=== PATIENT | male | born 1930 | race Caucasian/White ===

== ENCOUNTER 2016-10-05 10:23 | Day surgery (SDC) | payer MEDICARE, OTHER ==
--- NOTE | 2016-10-04 14:43 | PCM.ANEPRE ---
Anesthesia Pre-Op Review Reason for Review: restrictive lung disease, cardio disease (AICD)- Additional Comments Low risk surgery, cleared by cardiology, excercises regularly, successful uncomplicated prior ESWL-- proceed as planned Chart Reviewed by: Alfredo Tomlinson MD Oct 04, 2016 14:43
[2016-10-05] VITALS (9 sets, daily range): BP systolic 136–180; BP diastolic 71–95; PULSE 60–61; RESP 12–19; O2SAT 95–100
[~2016-10-05] VITALS: Ht 188 cm; Wt 103.6 kg
[~2016-10-05 10:23] MED LIST: ASPI-973 PO; FUR20 PO; LIP40 PO; LOSA100T29 PO; Lactated Ringer's 1,000 ML IV SCH; METO50TA3 PO; POTA10TA12 PO; TAMS0.4C98 PO
[2016-10-05] MEDS ORDERED: Lidocaine PF 1% 30 mL Inj ONE (10:24)
[2016-10-05] MEDS ORDERED: fentaNYL-PF 50 mCg/mL 2 mL Inj ONE (10:24)
[2016-10-05] MEDS ORDERED: Dexamethasone 4 mg/mL Inj ONE (10:24)
[2016-10-05] MEDS ORDERED: Ondansetron 2 mg/mL 2 mL Inj ONE (10:24)
[2016-10-05] MEDS ORDERED: Propofol 10,000 mCg/mL 20 mL Inj ONE (10:24)
[2016-10-05] MEDS ORDERED: Lactated Ringer's 1,000 ML IV ONE (11:00)
[2016-10-05] MEDS: Acetaminophen IV 1,000 mg IV SCH ×2 (11:36→11:52)
[2016-10-05] MEDS ORDERED: Lactated Ringer's 500 ML IV PRN (13:03)
[2016-10-05] MEDS ORDERED: Lactated Ringer's 1,000 ML IV SCH (13:03)
[2016-10-05] MEDS ORDERED: fentaNYL-PF 50 mCg/mL 2 mL Inj IVPUSH PRN (13:05)
[2016-10-05] MEDS ORDERED: Atropine 0.4 mg/mL Inj IVPUSH PRN (13:05)
[2016-10-05] MEDS ORDERED: HYDROmorphone 1 mg/mL Inj IVPUSH PRN (13:05)
[2016-10-05] MEDS ORDERED: Ondansetron 2 mg/mL 2 mL Inj IVPUSH PRN (13:05)
[2016-10-05] MEDS ORDERED: Phenylephrine 10,000 mCg/mL Inj IVPUSH PRN (13:05)
[2016-10-05] MEDS ORDERED: MetoCLOpramide 5 mg/mL 2 mL Inj IVPUSH PRN (13:05)
[2016-10-05] MEDS ORDERED: EPHEDrine Sulfate 50 mg/mL Inj IVPUSH PRN (13:05)
[2016-10-05] MEDS ORDERED: Labetalol 5 mg/mL 4 mL Inj IV PRN (13:05)
--- NOTE | 2016-10-05 13:11 | PCM.HPANE ---
Patient Data Surgeon Admitting Provider: Attending Provider:Lyudmila Nguyễn MD Primary Care Physician:Eric Goldstein MD Other Provider:[facility] Anesthesia Reason for Visit Right Kidney Stone Ht/WT & BMI Height (Feet): 6 Height (Inches): 2 Weight (Kilograms): 103.6 Body Mass Index 29.00 Allergies Coded Allergies: No Known Allergies (Unverified Allergy, Unknown, 03/27/15) Diabetes History Hx Diabetes?: No Medications Blood Thinner: Aspirin Hypertension Medication: Yes Home Meds Incl Beta Cici: Yes Reported Medications Potassium Chloride ER 10 Meq [id number] Meq PO DAILY Ref 0 TAKE WITH FOOD 10/04/16 Furosemide 20 Mg Tab20 Mg PO DAILY 30 Days Ref 0 10/04/16 Tamsulosin (Flomax)0.4 Mg Capsule0.4 Mg PO DAILY Ref 0 10/04/16 Metoprolol Tartrate 50 Mg [id number] Mg PO DAILY 30 Days Ref 0 10/04/16 Losartan Potassium 100 Mg [id number] Mg PO DAILY 10/04/16 Atorvastatin (Lipitor)40 Mg Smnrte98 Mg PO DAILY Ref 0 10/04/16 Aspirin 81 Mg Pnerai00 Mg PO DAILY Ref 0 10/04/16 Discontinued Reported Medications Losartan Potassium 100 Mg [id number] Mg PO DAILY 03/27/15 Atorvastatin Calcium 40 Mg Fgxqhi09 Mg PO HS Ref 0 03/27/15 Metoprolol Tartrate 50 Mg Cxkbgu98 Mg PO BID 30 Days Ref 0 03/27/15 Discontinued Scripts Levofloxacin 750 Mg [id number] Mg PO DAILYAC 7 Days Prov:Jose Coombs MD 03/30/15 Last Time Dose Received Took metoprolol today Held losartan History HEENT History: Positive for:: Cataracts Hx of Heart Problems?: Yes Cardiovascular History: Positive for:: AICD Abdominal Aortic Aneurism (common iliac- repaired 2008) Hypertension Pacemaker Denies:: Congestive Heart Failure Other History/Comments Nio recent CP Pacer/defibrillator in place. I discussed the case with the EP coordinator that manages his device. She spoke with the control room technician who did not recommend any magnet or reprogramming in the setting of the ESWL. Magnet will be available if needed. If magnet is needed, no reprogramming or interrogation will be needed. Pt is pacer dependant Hx of Respiratory Problem?: Yes Respiratory History: Positive for:: Oxygen Administration (No O2 required) Use of C-PAP Machine Other Resp Pertinent History: hx of pulmonary fibrosis, interstitial lung disease Other History/Comment breathing is at baseline; Work out at [employer] 3 times/week. Does stationary bike Hx Neurologic Problems?: No Hx of Problems?: Yes Genitourinary History: Positive for:: Kidney Stones (right stones current admission problem) Skin History: Denies:: History Skin Disorders? Hx Musculoskeletal Problems?: Yes Musculoskeletal History: Positive for:: Back Injury (past hx of back surgery) Joint Replacement (left hip) Osteoarthritis Hx of Psycho/Social Problems?: No Hx Surgeries?: Yes (AAA repair, back, total hip, prior ESWL) Hx Any Other Health Problems?: Yes Other History: Denies:: Cancer Thyroid Disease History Blood Transfusions: Denies:: Blood Transfuse Reaction Blood Transfusions Hx Diabetes: No Hx Alcohol Use: Yes (Rare)Hx Substance Use: No Smoking Status: Never Smoker Unknown if Ever Smoker Have You Smoked inLast 12 mo: No Stop/Bang P-Blood Pressure: treated: Yes B- Body Mass Index > 35 kg/m2: No A- Age over 50: Yes N- Neck Large Circumference: No G- Gender Male: Yes Risk Assessment Category Category 1A: Patient has history of documented sleep apnea, and HAS NOT received any narcotic, sedative or anesthesia administration during this stay. Category 1B: Patient has history of documented sleep apnea, and HAS received any narcotic , sedative or anesthesia administration during this stay Category 2: Patient has SUSPECTED Obstructive Sleep Apnea, and HAS received any narcotic , sedative or anesthesia administration during this stay. Category 3: Patient has SUSPECTED Obstructive Sleep Apnea and HAS NOT received narcotic, sedative or anesthesia administration during this stay. Category 4: Outpatient in Procedural Areas with known sleep apnea or who screen positive for High Risk via the STOP/BANG questionnaire. Exam Exam Vital Signs Vital Signs Date Time Temp Pulse Resp B/P Pulse Ox O2 Delivery O2 Flow Rate FiO2 10/05/16 11:10 36.5 60 16 159/94 98 Room Air General Appearance: Alert, Oriented X3 HEENT/AIRWAY: MP 2, Neck Movement (FROM) Lungs: Clear to Auscultation, Clear to Percussion Heart: Exam Unremarkable, Regular Rate/Rhythm Meds/Labs/Diagnostics Admission Meds Current Medications Acetaminophen 1000 mg/Premix 100 ml @ 400 mls/hr PREOP IV Last administered on 10/05/16t 11:36; Start 10/05/16 at 06:00; Stop 10/05/16 at 19:00 Lactated Ringer's (Lr) 1,000 ml @ ud STK-MED ONCE IV Last administered on t 11:00; Start 10/05/16 at 11:00; Stop 10/05/16 at 11:21; Status DC Plan Impression Patient chart reviewed, patient interviewed and anesthestic plan with risks, benefits, and alternatives discussed, and informed consent obtained. NPO Status: 10/05 SIPS WITH MEDS THIS AM ASA Physical Status: ASA3 Severe Disease (pacer/defibrillator; CAD; ESTEPHANIE) Anesthetic Plan: GA Bene/Risks/Altern/Consents: Yes HP Complete Prior to Induction: Yes Other See discussion of pacer/defibrillator Hernando Mcclendon MD Oct 05, 2016 12:13
[2016-10-05] MEDS ORDERED: Furosemide 10 mg/mL 2 mL Inj IV ONE (13:45)
--- NOTE | 2016-10-05 13:48 | PCM.ANEP1 ---
Post Anesthesia Phase 1 PACU Phase 1 Assessment Vital Signs Vital Signs Date Time Temp Pulse Resp B/P Pulse Ox O2 Delivery O2 Flow Rate FiO2 10/05/16 13:45 163/87 10/05/16 13:43 36.1 151/93 10/05/16 11:10 36.5 60 16 159/94 98 Room Air Anesthetic Administered: GA Level of Alertness: Awake, talking ELLISON's with Equal Strength: Yes Pain: No Nausea or Vomiting: No Oxygen Delivery: Simple Mask Lungs: Clear to Auscultation, Clear to Percussion Summary See anesth record for PACU VS> PACU VSS Hernando Mcclendon MD Oct 05, 2016 13:48
--- NOTE | 2016-10-05 13:49 | PCM.ANEP2 ---
Post Anesthesia Evaluation ASA/CMS Post Anesthesia VS in Patient's Normal Range?: Yes Resp Stable; Airway Patent?: Yes CV Function & Hydration Stable: Yes Mental Status Recovered?: Yes Pain control Satisfactory?: Yes N/V Control Satisfactory?: Yes Hernando Mcclendon MD Oct 05, 2016 13:48
--- NOTE | 2016-10-05 14:21 | OP ---
[address] [address] OPERATIVE REPORT PATIENT: GAL CARRANZA : 1930 MR#: [id number] ADMIT: 10/05/2016 JOB ID: [id number] DATE OF SURGERY: 10/05/2016 PREOPERATIVE DIAGNOSIS(ES): 1. Multiple right renal calculi. 2. Right renal colic. POSTOPERATIVE DIAGNOSIS(ES): 1. Multiple right renal calculi. 2. Right renal colic. OPERATION PERFORMED: Right extracorporeal shock wave lithotripsy (maximal power of 5.0 x2500 shocks). SURGEON: Lyudmila Nguyễn MD. ANESTHESIOLOGIST: Hernando Mcclendon MD. ANESTHESIA: General. PROCEDURE SUMMARY: The patient was positioned supine on the lithotripsy gurney and the above-described stone was localized in the X, Y and Z plane. Lithotripsy was then commenced at minimal power level and gradually increased to maximum power level. The stone and its fragments were relocalized numerous times throughout the case using C-arm radiography. The procedure was then terminated. The patient was awakened, transferred to the gurney and transferred to the recovery area awake in stable condition. The patient tolerated the procedure well.
== END 2016-10-05 23:59 | disposition home or self-care (01) ==
LOC: SAS 10:23
PROVIDERS: ATTEND Specialist
DX: N20.0 Calculus of kidney (principal); N40.1 Benign prostatic hyperplasia with lower urinary tract symptoms; I25.9 Chronic ischemic heart disease, unspecified; I71.4 Abdominal aortic aneurysm, without rupture; I10 Essential (primary) hypertension; E78.5 Hyperlipidemia, unspecified; G47.33 Obstructive sleep apnea (adult) (pediatric); Z95.5 Presence of coronary angioplasty implant and graft; Z79.82 Long term (current) use of aspirin; Z96.642 Presence of left artificial hip joint; Z87.442 Personal history of urinary calculi
CPT/HCPCS: 50590; J0131; J1100; J1940; J2405; J3010; J7120

== ENCOUNTER 2016-10-05 21:46 | Inpatient (IN) | payer MEDICARE, OTHER ==
[~2016-10-05] VITALS: Ht 185.4 cm; Wt 98.3 kg
[2016-10-05] VITALS (7 sets, daily range): BP systolic 64–124; BP diastolic 36–66; PULSE 59–66; RESP 21–33; O2SAT 95–99
[~2016-10-05 21:46] MED LIST changes: -Lactated Ringer's 1,000 ML IV SCH
--- NOTE | 2016-10-05 22:03 | ED.REPORT ---
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 Patient is unable to provide any history , with his serving as the primary historian. His states that the patient returned home from his lithotripsy procedure at 1pm this afternoon. The patient then reported severe pain, with his calling his urologist Dr. Nguyễn. He was prescribed him Oxycodone at that time. The patient receive 2x 5mg tablets at 4:45pm this afternoon per his . He reported ongoing pain and received anther 2x 5mg tablets at 7:45pm. However, his is a bit confused while describing this timeline, sometimes stating that the doses were given more closely together in time. The patient does not typically take any narcotic pain medications. The patient then started to become confused and was not acting like himself. He vomited up his pain medication and began to moan in pain. His states that he has not had any relief from his pain. Patient is hypotensive on arrival to the ED. Nursing Notes Stated Complaint: CHANGE IN LOC Chief Complaint: Neuro Symptoms/ Deficits Nursing Notes Reviewed: Yes Allergies: Coded Allergies: No Known Allergies (Unverified Allergy, Unknown, 03/27/15) Scheduled Aspirin (Aspirin) 81 Mg Tablet 81 MG PO DAILY Atorvastatin (Lipitor) 40 Mg Tablet 40 MG PO DAILY Furosemide (Furosemide) 20 Mg Tab 20 MG PO DAILY Losartan Potassium (Losartan Potassium) 100 Mg Tablet 100 MG PO DAILY Metoprolol Tartrate (Metoprolol Tartrate) 50 Mg Tablet 50 MG PO DAILY Potassium Chloride ER (Potassium Chloride ER) 10 Meq Tablet 20 MEQ PO DAILY TAKE WITH FOOD Tamsulosin (Flomax) 0.4 Mg Capsule 0.4 MG PO DAILY General Time Seen by MD: 22:02 Chief Complaint Not acting right, Other (abdominal pain) Hx Obtained From: Spouse Arrived By: Ambulance Sudden in Onset?: No Onset Occurred: 1 - 4 hours ago Symptom Duration: Since onset Location: : Abdomen Quality: Painful Severity: Current: Severe Severity: Maximum: Severe Recent Healthcare: Recent doctor visit, Previous surgery Similar Sx Previous: Yes Past Medical History Past Medical History coronary artery disease sleep apnea kidney stones osteoarthritis Right common iliac artery aneurysm s/p aortobiiliac stent graft Reports: Hyperlipidemia, Hypertension, Mental illness Past Surgical History AAA repair (common iliac aortobiiliac stent graft) back surgery hip replacement lithotripsy cardiac pacemaker/AICD cardiac stents Smoking History Never Smoker, Unknown if Ever Smoker Social History Alcohol Use: "Social" (rare) Drug Use: Denies drug use Other Social History: Good social support, , Local resident Ambulatory Status Independent Review of Systems Unable to Obtain ROS Mental status GI: Reports: Abdominal pain, Nausea, Vomiting Neurologic: Reports: Change LOC Psychiatric: Reports: Change mental status Physical Exam Physical Exam Notes: Initial Vital Signs Vital Signs (First) Date Time Temp Pulse Resp B/P Pulse Ox O2 Delivery O2 Flow Rate FiO2 10/05/16 21:52 35.6 59 21 64/42 95 Nasal Cannula 2 Initial VS: Reviewed, Vital signs abnormal General/Constitutional: Awake Alertness: Positive: Sedated Appearance / Presentation: Positive: Pale, Uncomfortable Head / Eyes: Normocephalic, PERRL (1-2mm pupils, pinpoint) Neck: Supple, No JVD Respiratory / Chest: Breath sounds NL, Breath sounds = bilat, No respiratory distress, No rales, No rhonchi, No wheezing Cardiovascular: Heart rate NL, Regular rhythm, Heart sounds NL, No murmurs Mental Status: Positive: Pharmacologically sedated ENT: Airway patent, Mucous membranes moist Abdomen: Soft, Non-tender (palpation does not increase the patient's pain) Bowel Sounds / Distention: Positive: Bowel sounds hypoactive, Distention mild Skin: Color NL, Warm, Dry Upper Extremity / MS: No swelling, No edema Lower Extremity / Pelvis / MS: No deformity chronic venous stasis changes 2+ edema left lower extremity, with trace edema to the right lower extremity Interpretation & Diagnostics Lab Results Interpretation Result Diagram: 10/05/16 2311 10/05/16 2311 Test 10/05/16 23:11 10/05/16 23:20 White Blood Count 12.3th/mm3 (3.8-10.1) Red Blood Count 2.56mil/mm3 (4.40-5.80) Hemoglobin 8.6g/dL (13.8-17.2) Hematocrit 25.6% (41.0-50.0) Mean Corpuscular Volume 100.0fL (81-100) Mean Corpuscular Hemoglobin 33.6pg (27.0-35.0) Mean Corpuscular Hemoglobin Concent 33.6% (32.0-37.0) Red Cell Distribution Width 14.7% (12.3-15.4) Platelet Count 65bil/L (150-400) Neutrophils (%) (Auto) 88.2% (40-74) Lymphocytes (%) (Auto) 6.6% (14-46) Monocytes (%) (Auto) 4.6% (4-12) Eosinophils (%) (Auto) 0.1% (0-5) Basophils (%) (Auto) 0.1% (0-3) Band Neutrophils % 0% (1-5) Prothrombin Time 15.4sec (8.1-12.5) Prothromb Time International Ratio 1.43ratio Sodium Level 141mEq/L (134-144) Potassium Level 3.3mEq/L (3.5-5.2) Chloride Level 108mEq/L (97-108) Carbon Dioxide Level 14mmol/L (18-29) Blood Urea Nitrogen 29mg/dL (8-27) Creatinine 1.67mg/dL (0.76-1.27) Estimat Glomerular Filtration Rate 42mL/min (>59) Glucose Level 136mg/dL (60-99) Lactic Acid Level 7.0mmol/L (0.4-2.0) Calcium Level 7.4mg/dL (8.5-10.1) Magnesium Level 1.4mg/dL (1.6-2.6) Total Bilirubin 1.9mg/dL (0.0-1.2) Aspartate Amino Transf (AST/SGOT) 28U/L (0-50) Alanine Aminotransferase (ALT/SGPT) 24U/L (0-44) Alkaline Phosphatase 40U/L (25-160) Total Protein 5.0g/dL (6.4-8.4) Albumin 2.5g/dL (3.4-5.0) Lipase 23U/L (13-60) Urine Color Bloody (YELLOW) Urine Appearance Cloudy (CLEAR,HAZY) Urine pH 6.0 (5.0-8.0) Urine Specific [place] 1.025 (1.003-1.035) Urine Protein 100mg/dL (NEG,TRACE) Urine Glucose (UA) Negativemg/dL (NEGATIVE) Urine Ketones Negativemg/dL (NEGATIVE) Urine Occult Blood Large (NEGATIVE) Urine Nitrite Negative (NEGATIVE) Urine Bilirubin Negative (NEGATIVE) Urine Urobilinogen Normalmg/dL (NORMAL) Urine Leukocyte Esterase Small (NEGATIVE) Urine RBC Packed/hpf (0-2) Urine WBC 0-5/hpf (0-5) Urine Epithelial Cells Few/hpf (NONE-MOD) Urine Crystals None seen (NONE SEEN) Urine Bacteria Few/hpf (NONE-FEW) Urine Hyaline Casts Occasional/lpf (NONE) Urine Granular Casts None seen (NONE SEEN) Urine Waxy Casts None seen (NONE SEEN) Urine Red Blood Cell Casts None seen (NONE SEEN) Urine White Blood Cell Casts None seen (NONE SEEN) Urine Mucus None seen (None Seen) Urine Trichomonas None seen (NONE SEEN) Urine Yeast None (NONE SEEN) Urinalysis Comment Urine Culture Reflexed Indicated Lab Results Interpretation: Anemia, acidosis, acute kidney injury ECG Interpretation ECG Interpretation: Ventricular-paced rhythm, Rate 73 Time: 22:34 Interpreted by: ED physician Normal ECG Interpretation: No acute ischemic changes, No change from prior ECGs CT Abd / Pelvis Interpretation CONCLUSION: 1. Extensive renal and subcapsular and perinephric hemorrhage on the right. 2. 5.6 cm infrarenal abdominal aortic aneurysm with an aortobiiliac stent graft. Radiologist: Costa Watson MD 10/05/2016 - 11:08:41 PM PST Study type: Abdominal CT no contrast Interpretation / Wet Read by: Interpret - Radiologist, Discussed w radiologist Re-Eval/Medical Decision Med Decision/Clinical Course 6-year-old male who had a lithotripsy done earlier today. He now presents with abdominal pain and hypotension. He is found to have a right perinephric hematoma with intra-abdominal bleeding. He was fluid resuscitated with 3 L of saline and 2 units of O- blood. An additional 4 units of type-specific PRBC was ordered. His systolic blood pressure ranged from the 60s to the 120s, but gradually responded to the fluid resuscitation. His case was discussed with Dr. Alvarado, and Dr. Pickett and Dr. Arreola. Dr. Alvarado would like him admitted to the CCU with continued fluid resuscitation. If we cannot keep up with his blood loss than a CT angiogram would need to be done. Source of Hx: Old records Re-Evaluation/Progress #1: Time of Eval: 23:13 Re-Evaluation/Progress Note: Rechecked the patient and his family. Informed his and son of the CT result. He will be given blood in the ED and will need to go to the OR emergently. Will update them once a plan has been formed. Re-Evaluation/Progress #2: Time of Eval: 23:26 Re-Evaluation/Progress Note: Updated the patients family. Re-Evaluation/Progress #3: Time of Eval: 23:51 Re-Evaluation/Progress Note: Informed the patient's family of the conversation with Dr. Alvarado. Patient will be admitted and closely monitored. If there is evidence of continued bleeding, then he will have a CT scan with contrast. Patient's family understands and agrees with this plan. All questions were addressed. Consultation #1: Referral / Consult Name: Alonso Dockery MD Consulted With: Surgeon Call Returned at: 23:04 Note: Spoke with Dr. Dockery, surgeon, about the patient's CT scan result. He suggets ordering a CT scan with contrast. Will look at CT scan. Consultation #2: Referral / Consult Name: Alonso Dockery MD Consulted With: Surgeon Call Returned at: 23:14 Single End Sewer: Agrees with eval Note: Dr. Dockery has viewed the scan and agrees with [facility] read. Will consult urology. Consultation #3: Referral / Consult Name: Toby Alvarado MD Consulted With: Urology Call Returned at: 23:17 Note: Spoke with Dr. Alvarado, urology, about the patient's case. He will review the scan and call back. Consultation #4: Referral / Consult Name: Hernando Pickett MD Consulted With: On-call physician (Radiologist) Call Returned at: 23:20 Note: Spoke with Dr. Pickett, radiology, about the patient's CT result. He will review the scan and call back. Consultation #5: Referral / Consult Name: Dilcia Jaimes MD Call Returned at: 23:30 Note: Spoke with Dr. Jaimes, interventional radiology, who has reviewed the scans. She does not believe that the patient is still bleeding but CT Angio is indicated to rule out continued bleeding. Consultation #6: Referral / Consult Name: Toby Alvarado MD Consulted With: Urology Call Returned at: 23:50 Note: Spoke with Dr. Alvarado, who has reviewed the CT scan. He agrees that the bleeding is likely halting. If there are signs of continued bleeding, then he should have a CT Angio. Admit the patient to the CCU, with close monitoring. Consultation #7: Referral / Consult Name: Jose Coombs MD Consulted With: Hospitalist Call Returned at: 00:41 Single End Sewer: Will see patient, Agrees with eval, Agrees with plan, Accepts admit Note: Spoke with Dr. Coombs, hospitalist, who agrees to accept admit. Counseled Regarding: Diagnosis, Lab results, Need for admission Patient Discharge & Departure Impression: Primary Impression: Renal hemorrhage, right Additional Impressions: Renal hematoma Encounter type: initial encounter Laterality: right Qualified Code: S37.011A - Minor contusion of right kidney, initial encounter Hemorrhagic shock Disposition: ADMITTED TO HOSPITAL Discharge Condition All VS Reviewed: Yes Condition: Stable Referrals: Eric Goldstein MD (PCP) Lyudmila Nguyễn MD Crit Care Except Billable Proc Time Spent: 30-74 minutes Services Performed: Patient management by me, Time spent at bedside, Reviewing test results, Reviewing imaging, Discussing patient care, Documentation in record, Time with fam/surrogate Critical Care Notes: One-to-one management with fluid resuscitation for shock and admission to the CCU. Irasemaibe Attestation Portions of this note were transcribed by Dina Lundberg. I, Dr. Novoa personally performed the history, physical exam and medical decision-making; I reviewed and confirmed the accuracy of the information in the transcribed note. Signed by: Kobi Schmitt, 10/06/2016 0043 copies to: Eric Goldstein MD; Lyudmila Nguyễn MD, Howard L MD Oct 05, 2016 22:03 Dina Lundberg Oct 05, 2016 22:12
[2016-10-05] MEDS ORDERED: 0.9% Sodium Chloride 1,000 ML IV ONE ×2 (22:12→23:00)
[2016-10-05 23:18] LABS: Mean Corpuscular Hemoglobin 33.6 pg (27.0-35.0); NEUTROPHILS % (AUTO) 88.2 % (40-74); Platelet Count 65 bil/L (150-400)
[2016-10-05 23:19] LABS: BASOPHILS % (AUTO) 0.1 % (0-3); EOSINOPHILS % (AUTO) 0.1 % (0-5); MONOCYTES % (AUTO) 4.6 % (4-12)
[2016-10-05 23:34] LABS: APPEARANCE,URINE CLOUDY (CLEAR,HAZY); COLOR,URINE BLOODY (YELLOW)
[2016-10-05 23:35] LABS: OCCULT BLOOD,URINE LARGE (NEGATIVE); UROBILINOGEN,URINE NORMAL (NORMAL)
[2016-10-05 23:35] LABS: INR 1.43 ratio
[2016-10-05 23:40] LABS: Magnesium 1.4 mg/dL (1.6-2.6)
[2016-10-05] MEDS: HYDROmorphone 0.5 mg/0.5 mL iSecure Syringe IVPUSH PRN (23:52)
[2016-10-05] MEDS ORDERED: cefTRIAXone Inj 2,000 MG in Dextrose 5% Minibag Plus 50 ML IV ONE (23:55)
[2016-10-06] VITALS (23 sets, daily range): BP systolic 66–147; BP diastolic 42–77; PULSE 60–72; RESP 14–26; O2SAT 92–100
[2016-10-06] MEDS ORDERED: cefTRIAXone Inj 2,000 MG in Dextrose 5% Minibag Plus 50 ML IV ONE (00:55)
[2016-10-06] MEDS ORDERED: Polyethylene Glycol (PEG) 17 Gm Powder PO PRN (01:10)
[2016-10-06] MEDS ORDERED: Ondansetron 2 mg/mL 2 mL Inj IVPUSH PRN (01:10)
[2016-10-06] MEDS: Sodium Chloride LOK Flush 10 mL Syringe IVFLUSH SCH ×4 (01:10→20:12)
[2016-10-06] MEDS ORDERED: Alum-Mag Hydrox-Simeth 30 mL Suspension PO PRN (01:10)
[2016-10-06] MEDS: HYDROmorphone 0.5 mg/0.5 mL iSecure Syringe IVPUSH PRN (01:37)
[2016-10-06] MEDS ORDERED: HYDROmorphone 1 mg/mL Inj IVPUSH ONE (01:40)
--- NOTE | 2016-10-06 01:58 | PCM.HPMED ---
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 Presented to the emergency department via EMS with altered mental status, severe abdominal pain that began earlier this evening. He was unable to provide history 70 his conveyed that after they returned home from his lithotripsy around 1 PM he reported severe pain, the pain was refractory to oxycodone, he then developed vomiting at which point he was unable to keep any narcotic pain medications down. He was confused and not acting like themselves. He reports being in extreme pain, he is not having delisa chest pain, is not short of breath but controlling his breathing to help with pain, no lightheadedness, no dizziness, no swelling in his arms and she relates, states his abdomen looks a lot larger. Vital signs on presentation showed a pulse of 59, blood pressure 64/42, temperature 35.6. White blood cells 12.3, hemoglobin 8.6, platelets 65, Neutrophils 88.2%, Serum bicarbonate 14 BUN 29 Creatinine 1.67, calcium 7.4, magnesium 1.4, total bilirubin 1.9, lactic acid 7.0, PT 15.4, INR 1.43 Urine pH 6.0, specific gravity 1.025, protein 100, large occult blood, small leukocyte esterase, packed urine red blood cells EKG showed a heart rate of 73, WI interval 304, ventricular paced rhythm, Abdominal pelvis CT read as having extensive renal and subcapsular and hemorrhage on the right, 5.6 cm infrarenal abdominal aortic aneurysm with an aorticobiiliac stent graft. Review of Systems: ROS negative unless otherwise specified in history of present illness Allergies Coded Allergies: No Known Allergies (Unverified Allergy, Unknown, 03/27/15) PMH Obstructive Sleep apnea Coronary artery disease Status post AICD placement Pulmonary fibrosis Part of hearing Cellulitis of his right leg requiring surgical intervention Surgical History AAA repair (common iliac aortobiiliac stent graft) back surgery hip replacement lithotripsy cardiac pacemaker/AICD cardiac stents Family History Daughter with ESRD s/p transplant X 3 Mother with cerebral hemorrhage Social History Hx Alcohol Use: Yes (Rare) Hx Substance Use: No Hx Tobacco Use: No Smoking Status: Never Smoker Living Arrangement: with Family Exam Vital Signs Vital Sign - Last Date Time Temp Pulse Resp B/P Pulse Ox O2 Delivery O2 Flow Rate FiO2 10/06/16 01:09 64 25 147/77 97 Nasal Cannula 2 10/05/16 21:52 35.6 Intake and Output 10/05/16 10/05/16 10/06/16 Cumulative From/Thru 15:00 23:00 07:00 10/05/16 21:52 - 10/06/16 00:35 Intake Total 1000 ml 1100 ml 2100 ml Balance 1000 ml 1100 ml 2100 ml Intake IV Total 1000 ml 1100 ml 2100 ml Bladder Scan Volume Amount 160 Exam General: Laying in bed, high distress, moaning with every breath HEENT: Normocephalic, atraumatic, EOMI grossly, conjunctiva pale, mucous membranes dry, Cardiovascular: Regular rate and rhythm, no clicks murmurs rubs, peripheral pulses 2/4 equal bilaterally, chest wall left-sided anterior deformity consistent with subcutaneous AICD Pulmonary: Clear to auscultation bilaterally, no W/R/R. Abdominal: Abdomen is distended, firm, tender to palpation with all pain referred to his back, unable to appreciate bowel sounds Extremities: Right lower extremity is a lot more firm compared to the left, there is evidence of previous surgeries to his right lower calf, nontender bilaterally. Cap refill roughly 2 seconds Neuro: Neurologically grossly intact, strength is equal bilaterally upper and lower extremities. MSK:: Able to move extremities on his own volition Lab and Diagnostics Result Diagram: 10/06/16 0130 10/05/16 2311 Microbiology Urine, sputum, and blood cultures pending X-Rays, CTs and MRIs Nighttime coverage radiologist report, taken from ER physician documentation CONCLUSION: 1. Extensive renal and subcapsular and perinephric hemorrhage on the right. 2. 5.6 cm infrarenal abdominal aortic aneurysm with an aortobiiliac stent graft. Radiologist: Costa Watson MD 10/05/2016 - 11:08:41 PM PST Study type: Abdominal CT no contrast 12-lead ECG Please see history of present illness Assessment & Plan 86-year-old gentleman with extensive cardiovascular history, new onset pain following same-day lithotripsy, radiographically proven intra-abdominal blood, and signs of hypovolemic shock. #1 acute hypovolemic shock, present on admission, improving Hemoglobin 8.6 on presentation, following 2 units of O- blood has increased to 10.4. Lactic acidosis 7.0 representing end organ damage Hypotension, resolving with IV fluids, 4 L total, and 2 units packed red blood cells #2 acute postsurgical hemorrhage, present on admission, treatment ongoing CT shows abdominal blood at surgical site. Treatment as above Trauma surgery Dr. Dockery, Urology Dr. Alvarado, radiology Dr. Pickett, and interventional radiology Dr. Jaimes have been consulted by the emergency room physician. Per ER physician documentation, there appears to be consensus that bleeding is halting, however will monitor for continued blood transfusion needs, if it appears bleeding has not ceased we will transfer to operating room for emergent interventions. 4 units of crossmatched blood has been ordered to be held. Nothing by mouth #3 Acute kidney injury, present on admission, treatment ongoing. Creatinine 1.67 on admission, most likely secondary to hypoperfusion from hypovolemic shock. We will continue to follow creatinine with fluid repletion. #4 acute hypokalemia, present on admission, evaluation ongoing Possibly due to aldosterone response secondary to hypovolemic shock EKG unreliable due to ventricular pacing IV repletion at this time Magnesium and K repletion per protocol #5 management of chronic conditions -Hold home medications until patient stabilized This includes simvastatin for hypercholesterolemia Hold all blood thinners until hemoglobin and hematocrit is consistently stable #6 pain management, pain uncontrolled, present on admission -Patient received IV hydromorphone 0.5 mg which caused his blood pressure to repeatedly (two trials) fall from over 100 into the 80s. -Due to EDIN is not a candidate for NSAIDs -IV Tylenol, 1 g every 6 hours. Monitor liver function VTE prophylaxis with SCDs GI prophylaxis PPIs, IV while nothing by mouth Pain management as above Patient is a full code, admitted to CCU due to hemodynamically unstable requiring blood transfusion. Pain Evaluation: Pain not Controlled GI Prophylaxis: Proton Pump Inhibitor VTE Prophylaxis Indicated: Contraindicated VTE Prophylaxis: SCDs Resuscitation Status: CPR: Attempt Resuscitation Attending Statement The patient was seen and examined together with Dr. Flores on 10/06 and I agree with the history, exam and plan as outlined in the note above. Terry Sosa DO Oct 06, 2016 01:58 Jose Coombs MD Oct 06, 2016 03:37
[2016-10-06] MEDS: 0.9% Sodium Chloride 1,000 ML IV SCH ×4 (02:00→23:47)
[2016-10-06] MEDS ORDERED: 0.9% Sodium Chloride 1,000 ML IV ONE (02:30)
[2016-10-06] MEDS ORDERED: Acetaminophen IV 1,000 MG in IV Premix 1 EACH IV PRN (02:50)
[2016-10-06] MEDS ORDERED: Potassium Chloride Inj 20 MEQ in Dextrose 5% 250 ML IV ONE (03:10)
[2016-10-06 03:41] LABS: BASOPHILS % (AUTO) 0.1 % (0-3); EOSINOPHILS % (AUTO) 0 % (0-5); MONOCYTES % (AUTO) 5.3 % (4-12); Mean Corpuscular Hemoglobin 33.4 pg (27.0-35.0); Mean Corpuscular Volume 98.3 fL (81-100); NEUTROPHILS % (AUTO) 85.5 % (40-74); Platelet Count 58 bil/L (150-400)
[2016-10-06] MEDS ORDERED: Magnesium Sulf 4 Gm/100 mL H2O 4 GM in IV Premix 1 EACH IV ONE (04:05)
[2016-10-06] MEDS ORDERED: Norepinephrine 8,000 mCg/250 mL NS Premix IV ONE (07:09)
[2016-10-06] MEDS: Norepineph 8,000 mCg/250 mL NS 8,000 MCG in IV Premix 1 EACH IV SCH ×2 (07:10→10:10)
--- NOTE | 2016-10-06 08:18 | DRSVH ---
PROCEDURE: CT KUB ([id number]) INDICATIONS: extreme pain after lithotripsy TECHNIQUE: Noncontrast 5 mm thick sections acquired from the diaphragms to the symphysis. 5 mm thick coronal an d sagittal reformats were then performed. For radiation dose reduction, the following was used: aut omated exposure control, adjustment of mA and/or kV according to patient size. COMPARISON: [facility], CT, CT KUB, 07/25/2016, 15:59. FINDINGS: Image quality: Excellent. Lung bases: Severe bibasilar interstitial pulmonary opacities present, as before, consistent with fib rosis. Heart size is normal. Urinary system: There is a new, large amount of right renal subcapsular hemorrhage, measuring roughl y 11.5 x 9.0 x 13 cm. Perinephric hemorrhage on the right is present as well, which is ill-defined an d consequently difficult to accurately measure, but measures roughly 18 cm x 11 x 12 cm. There is con sequent compression of the right renal parenchyma. Multiple right interpolar renal calculi are presen t, as before, largest of which measures roughly 12 mm. No left nephrolithiasis. The left renal vascul ar calcifications are present. Bladder wall thickness is normal; no calcified bladder stones. Other solid organs: Liver and spleen are normal in size. Gallbladder demonstrates high density mate rial within its lumen. Pancreas is normal in contours. No adrenal nodules. Peritoneum and bowel: Unenhanced bowel loops demonstrate normal wall thickness and caliber. No pneu moperitoneum. Small to moderate amount of fluid within the right anterior pararenal space. A small am ount of intermediate density fluid within the right subhepatic space and paracolic gutter. Nodes and vessels: No retroperitoneal or mesenteric adenopathy by size criteria. Aortoiliac stent-gr aft placement has been performed. Infrarenal abdominal aortic aneurysm measuring 51 mm is present, as before. Right common iliac artery aneurysm measuring 32 mm is present, as before. Abdominal wall: No ventral hernias. Pelvis: No free pelvic fluid. No inguinal hernias or adenopathy. Bones: No suspicious bony lesions. No vertebral body compression fractures. IMPRESSION: 1. Extensive right subcapsular and perinephric hemorrhage as described above. There is associated sma ll to moderate amount of hemoperitoneum within the right anterior pararenal space, paracolic gutter, and perihepatic location. 2. Right nephrolithiasis. 3. Aortoiliac aneurysms, status post aortoiliac stent-graft placement, as described above. 4. Cholelithiasis. 5. Concordant with preliminary interpretation. Dictated by: Viridiana Inman M.D. on 10/06/2016 at 7:57 Approved by: Viridiana Inman M.D. on 10/06/2016 at 8:16
[2016-10-06 08:23] LABS: Mean Corpuscular Hemoglobin 32.4 pg (27.0-35.0); Mean Corpuscular Volume 96.3 fL (81-100)
[2016-10-06] MEDS ORDERED: Piperacillin-Tazo 3.375 Gm Inj 3.375 GM in Dextrose 5% Minibag Plus 50 ML IV ONE (08:30)
[2016-10-06] MEDS ORDERED: Pantoprazole 4 mg/mL 10 mL Inj IVPUSH SCH (08:30)
[2016-10-06 08:31] LABS: INR 1.3 ratio
--- NOTE | 2016-10-06 08:32 | ABG ---
DateTimeAnalyzed 08:26:00 -_ pH ____7.273 - 7.350 7.450 pCO2 ___26.6__ -mmHg 35.0 45.0 pO2 ___74.1__ -mmHg 69.0 116 HCO3- ___11.9__ -mmol/L 22.0 26.0 ABE __-13.4__ -mmol/L -2.0 2.0 tHb ____9.8__ -g/dL O2Hb ___90.4__ -% COHb ____1.7__ -% MetHb ____1.0__ -% sO2 ___92.9__ -% 25.0 FIO2 ___30.0__ -% CPAP ___12.0__ -cmH2O Drawn By NB - Date/Time Notified____ 08:32:00 -_ Spontaneous_RR ___22.0__ -b/min Oxygen Device 1 NASAL CPAP - Notified By NB - Notified Whom DR KENDREGAN - B 758 -mmHg tO2 ___12.6__ -Vol% Robson test _Positive -
[2016-10-06 08:49] LABS: Magnesium 2.7 mg/dL (1.6-2.6); Phosphorus 6.3 mg/dL (2.5-4.9)
[2016-10-06] MEDS ORDERED: Calcium GLUCO 10% (Gm) Inj 2 GM in 0.9% Sodium Chloride 100 ML IV ONE (08:55)
--- NOTE | 2016-10-06 09:13 | DRSVH ---
PROCEDURE: X-RAY CHEST ONE VIEW, PORTABLE ([id number]) INDICATIONS: apneic TECHNIQUE: One view of the chest was acquired. COMPARISON: [facility], CR, XR CHEST 2VW, 08/13/2015, 12:36. [facility], CR, CHEST 2V W, 07/13/2016, 6:27 PM. FINDINGS: Surgical changes and devices: Cardiac AICD Lungs and pleura: No pleural effusions or pneumothorax. Lung volumes are low and there is scattered atelectasis/scarring, including the subpleural right mid lung. Mediastinum: Mediastinal contours appear normal. Heart size is normal. Bones and chest wall: No suspicious bony lesions. Overlying soft tissues appear unremarkable. IMPRESSION: Low lung volumes and scattered atelectasis. No definite focal consolidation. Presumed prominent subpl eural scarring in the right midlung although recommend continued radiographic surveillance to documen t stability or possibly resolution (and exclude nodule). Dictated by: Nael Blackwood M.D. on 10/06/2016 at 9:10 Approved by: Nael Blackwood M.D. on 10/06/2016 at 9:12
--- NOTE | 2016-10-06 09:56 | PCM.EDPN ---
ED Note Date of Service Oct 06, 2016 Procedures Intubation : Intubation Procedure: 7.5 ETT, 24cm at teeth Time: 09:45 Procedure Performed by: ED physician Consent / Setup / Site Prep: No consent - emergent Patient Position: Neutral position Blade / ET Tube / Route: [place] scope, ET tube cuffed ET Confirmation: Direct visualization, BS equal, Rising O2 sat Secured / Marked: ET tube device, Tube marked at teeth (24cm) Complications: None Eleuterio Macias DO Oct 06, 2016 09:56
--- NOTE | 2016-10-06 10:02 | CONS ---
[address] [address] CONSULTATION REPORT PATIENT: GAL CARRANZA : 1930 MR#: [id number] ADMIT: 10/06/2016 JOB ID: [id number] DATE OF SERVICE: 10/06/2016 CHIEF COMPLAINT: Abdominal pain, anemia, right renal hematoma status post extracorporeal shockwave lithotripsy. HISTORY OF PRESENT ILLNESS: I was asked by hospitalist, Dr. Omar Otoole, to evaluate this 86-year-old male for abdominal pain, anemia, and right renal hematoma status post extracorporeal shockwave lithotripsy. The patient is followed by Dr. Lyudmila Nguyễn and yesterday underwent extracorporeal shockwave lithotripsy for right renal calculi by Dr. Nguyễn, and the patient tolerated the procedure well. He was discharged home. The patient presented to the emergency department last night with altered mental status and abdominal pain with nausea and vomiting. The patient was noted to be hypotensive on arrival to the emergency department with a blood pressure 64/42, and the patient was given IV fluid resuscitation with blood pressure increasing to 111/63. The patient was found to have hematocrit of 25.6, white blood cell count of 12.3, creatinine of 1.67 and lactic acid elevated at 7.0. The patient was transfused 2 units packed red blood cells in the emergency department, with hypotension improving with transfusion of packed red blood cells and IV fluid resuscitation. The patient had a CT scan of the abdomen and pelvis noncontrast last night which showed right renal subcapsular hematoma approximately 13 cm, with right perinephric hematoma approximately 18 cm, with compression of the right renal parenchyma, with multiple right renal calculi, with a [id number] amount of fluid within the right anterior pararenal space and a small amount of fluid within the right subhepatic space and paracolic gutter. The patient admitted by the hospitalist service to the CCU with instructions for strict bedrest. Overnight the patient's hematocrit increased to 30.8 at 1:30 a.m. and then mildly decreased to 28.2 at 3:10 a.m. The patient was noted to be intermittently hypotensive last night. The patient received ceftriaxone IV antibiotics in the emergency room. The patient's hematocrit increased to 30.9 at 8:05 this morning, and the patient has been receiving third and fourth units of packed red blood cells. Of note, the patient was found to have a bladder scan of 160 mL last night. The patient reportedly was having abdominal pain last night. Presently unable to obtain further history from patient as he is lethargic. PAST MEDICAL HISTORY: 1. Sleep apnea. 2. Coronary artery disease. 3. Status post AICD placement. 4. Pulmonary fibrosis. 5. Right common iliac artery aneurysm status post aorto-iliac stent graft. 6. Hyperlipidemia. 7. Hypertension. PAST SURGICAL HISTORY: 1. AAA repair/aorto-iliac stent graft. 2. Back surgery. 3. Hip replacement. 4. Extracorporeal shockwave lithotripsy as above. 5. AICD placement. 6. Cardiac stent placement. MEDICATIONS: PRESENT HOSPITAL MEDICATIONS: 1. Protonix. 2. Tylenol p.r.n. 3. Maalox p.r.n. 4. Zofran p.r.n. 5. Senokot p.r.n. 6. MiraLAX. 7. Ceftriaxone IV (received dose last night). ALLERGIES: No known drug allergies. SOCIAL HISTORY: Rare alcohol use. No substance abuse. No tobacco use. Lives at home with his family. FAMILY HISTORY: Noncontributory. REVIEW OF SYSTEMS: Constitutional: No fever. GI: Positive for abdominal pain. Positive for nausea and vomiting. PHYSICAL EXAMINATION: Vital signs on presentation to the emergency department last night at 9:52 p.m.: afebrile, temperature 35.6 degrees Celsius. Heart rate 59, respiratory rate 21, BP 64/42, O2 sat 95% on 2 L nasal cannula. At 5:35 this morning, the patient continued to be afebrile, temperature 36.0 degrees Celsius. Heart rate 62, respiratory rate 26, BP 77/46. General: Well-developed, well-nourished, elderly male, lethargic. HEENT examination: Head normocephalic, atraumatic. Eyes: Extraocular muscles intact. Neck: Supple. Chest: No use of accessory muscles. Nonlabored respirations. No retractions. Abdomen: Soft, moderately distended, non-tender, no palpable masses, no rebound, no guarding, no ecchymosis. examination: Penis normal. No lesions. Urethral meatus normal. Testes bilaterally descended. No masses. Scrotum normal. Paredes catheter in place draining clear yellow urine. Skin: Warm and dry. Paredes catheter urine output 150 mL last eight hour shift. LABORATORIES: Last night at 11:11 p.m: white blood cell count 12.3, hematocrit 25.6, platelet count 65, elevated neutrophil percentage of 88.2%. PT elevated at 15.4 , INR elevated at 1.43. Sodium 141, potassium 3.3, chloride 108, CO2 14, BUN 29, creatinine 1.67, glucose 136, lactic acid 7.0. Urinalysis: Packed red blood cells, 0-5 white blood cells, negative nitrite, small leukocyte esterase. At 1:30 a.m. today, hematocrit 30.8. At 3:10 a.m. today, hematocrit 28.2. At 8:05 a.m. today, white blood cell count 14.3, hematocrit 30.9, platelet count 60. PT 14.0, INR 1.30. At 3:10 a.m. today, sodium 143, potassium 3.5, chloride 108, CO2 13, BUN 30, creatinine 1.61, glucose 146. Lactic acid at 1:35 a.m. today was 7.2. Microbiology: October 05, 2016: Urine culture negative to date. IMAGING: CT scan as per HPI. ASSESSMENT: Right perinephric renal hematoma status post extracorporeal shockwave lithotripsy for right renal calculi yesterday, with significant hypotension, with anemia, now status post packed red blood cell transfusions with increased hematocrit presently at 30.9, with increased creatinine of 1.67 with mild acute renal insufficiency, with thrombocytopenia and mildly elevated PT/INR in this patient with significant cardiac and pulmonary history. PLAN: 1. Recommend continuing strict bedrest. 2. Recommend continuing IV fluid resuscitation. 3. Recommend continuing to follow serial hematocrits and hemoglobins and transfusing packed red blood cells as needed. 4. Recommend platelet transfusion for his thrombocytopenia. 5. Recommend cardiology and pulmonology evaluation 6. Recommend further evaluation for other possible etiologies for hypotension including cardiac and pulmonary. 7. Recommend continuing broad-spectrum IV antibiotics with ceftriaxone for possible sepsis and to prevent infection of the hematoma. 8. If the patient's hematocrit decreases significantly, would recommend repeat imaging with CT of abdomen and pelvis and also would consider selective angio/ embolization by Interventional Radiology. 9. Recommend continuing intensive care monitoring. 10. Recommend continuing to follow creatinine and electrolytes The case was discussed with Dr. Otoole, resident Dr. Terry Sosa, and general surgeon Dr. Tanner Pritchard. Will follow the patient closely. Case was also discussed with Dr. Lyudmila Nguyễn, the patient's primary urologist, who is out of the office today and this weekend. HARRY
[2016-10-06] MEDS: Propofol Inj 1,000,000 MCG in IV Premix 1 EACH IV SCH (10:10)
--- NOTE | 2016-10-06 11:17 | CONS ---
[address] [address] CONSULTATION REPORT PATIENT: TOBY CARRANZA : 1930 MR#: [id number] ADMIT: 10/06/2016 JOB ID: [id number] DATE OF SERVICE: 10/06/2016 SURGICAL CONSULTATION: I was consulted urgently by Dr. Omar Otoole for evaluation of the patient. I was asked to see him because of hemorrhage from his right kidney from extracorporeal shock wave lithotripsy which was done yesterday and hemodynamic instability. He is 86 years old. He has a past history of an endovascular repair of an abdominal aortic aneurysm. He had a CT scan without contrast in June. This showed a normal right kidney without mass. It also showed a normal right renal artery and branches. There is no evidence of a renal artery aneurysm. There is no evidence of a right renal mass or adrenal mass. There was no evidence of a new aneurysm, but again it was done without contrast but the fat plane around his aorta was intact. There was no evidence that there is anything wrong with his aneurysm repair. He was admitted through the emergency department last night. He came in with altered mental status and severe abdominal pain. He had a CT scan, which showed a large right perinephric hematoma. There is no evidence of disruption of the periaortic fat plane suggesting a ruptured aortic aneurysm. He has remained acidotic and is hypotensive and I was asked emergently to see him. When I was contacted over the phone with the information I was provided, I also asked them to emergently consult urology and Dr. Toby Alvarado came to see him. PAST MEDICAL HISTORY: Illnesses: 1. History of abdominal aortic aneurysm. 2. Obstructive sleep apnea. 3. Coronary artery disease status post stenting. 4. Pacemaker AICD device. 5. Pulmonary fibrosis. 6. Kidney stones. MEDICATIONS AT HOME: He is on aspirin, tamsulosin, losartan, Lipitor, furosemide, potassium. SOCIAL HISTORY: I obtained it from the medical record as I was unable to get the history from the patient. PHYSICAL EXAMINATION: Elderly man in the ICU currently hypotensive. Temperature 36.0, brachial blood pressure the last one recorded was 77, pulse 62, respiratory rate 26, O2 sat on 4 L 92%. Abdomen is distended but I really cannot examine him as Dr. Otoole is placing lines. CT scan is personally reviewed by myself and then subsequently discussed with Dr. Nael Blackwood from Radiology and then later I discussed it also with Dr. Viridiana Inman from Radiology. LABORATORY RESULTS: Most recent hematocrit was 30.9. White blood cell count 14 and platelet count 60,000. INR 1.3. Most recent lactic acid 10.0. Creatinine is 2.1. Troponin is 1.07. IMPRESSION: Hemorrhage from his right kidney following lithotripsy. I could not get my own history. There isno evidence that he is bleeding from his aortic aneurysm repair or a newaneurysm of the aorta or the renal vessels. There is no evidence of apre-existing renal or adrenal mass. One concerning thing is that it does appear that he has some intra-abdominal blood which might mean that he will tamponade this bleed. I discussed the plan with Dr. Toby Alvarado and also with Dr. Inman, Dr. Otoole and Dr. Spring. Dr. Alvarado and I would recommend that if there is evidence of ongoing bleeding that he undergo embolization. Dr. Viridiana Inman from Interventional Radiology concurs with this. Critical care time spent with patient and in coordination of care with all the above-named physicians an hour and 20 minutes. HARRY
[2016-10-06] MEDS ORDERED: 0.9% Sodium Chloride 250 ML ONE (11:31)
[2016-10-06] MEDS: fentaNYL 2,500 mCg/250 mL 2,500 MCG in IV Premix 1 EACH IV SCH (11:35)
[2016-10-06] MEDS ORDERED: Sodium Chloride LOK Flush 10 mL Syringe IVFLUSH PRN ×2 (11:40)
[2016-10-06] MEDS ORDERED: 0.9% Sodium Chloride 250 ML IV SCH ×2 (11:40→11:45)
[2016-10-06] MEDS ORDERED: HepLOK Flush 100 unit/mL 5 mL Inj IVFLUSH PRN (11:40)
--- NOTE | 2016-10-06 11:42 | ABG ---
DateTimeAnalyzed 11:36:00 -_ pH ____7.375 - 7.350 7.450 pCO2 ___25.8__ -mmHg 35.0 45.0 pO2 ___66.8__ -mmHg 69.0 116 HCO3- ___14.7__ -mmol/L 22.0 26.0 ABE ___-9.0__ -mmol/L -2.0 2.0 tHb ____8.8__ -g/dL O2Hb ___91.4__ -% COHb ____1.8__ -% MetHb ____0.9__ -% sO2 ___93.9__ -% 25.0 FIO2 ___40.0__ -% PEEP ____5.0__ -cmH2O Set_RR ___20.0__ -b/min Vt __550.0__ -L Drawn By NB - Date/Time Notified____ 11:41:00 -_ Spontaneous_RR ___20.0__ -b/min Oxygen Device 1 VENTILATOR - Notified By NB - Notified Whom DR Kendregan - B 762 -mmHg tO2 ___11.4__ -Vol% Robson test _Positive -
--- NOTE | 2016-10-06 11:53 | DRSVH ---
PROCEDURE: X-RAY CHEST ONE VIEW, PORTABLE ([id number]) INDICATIONS: LINE PLACEMENT; POST INTUBATION TECHNIQUE: One view of the chest was acquired. COMPARISON: [facility], CR, XR CHEST 1VW (PORTABLE), 10/06/2016, 8:24. FINDINGS: Surgical changes and devices: Endotracheal tube with the tip seen approximately 3 cm above the belen . There is a right internal jugular central venous catheter with the tip projecting at the lower SVC. Cardiac AICD. Lungs and pleura: No pleural effusions or pneumothorax. No definite new focal consolidation. Lung vo lumes remain low and there is scattered patchy opacities in the lung bases and perihilar regions pres umably aspiration/atelectasis and unchanged appearance Mediastinum: Mediastinal contours appear normal. Heart size is normal. Bones and chest wall: No suspicious bony lesions. Overlying soft tissues appear unremarkable. IMPRESSION: Endotracheal tube with the tip projecting approximately 3 cm above the belen. Right internal jugular central venous catheter with the tip projecting at the lower SVC. No pneumotho rax Dictated by: Nael Blackwood M.D. on 10/06/2016 at 11:49 Approved by: Nael Blackwood M.D. on 10/06/2016 at 11:52
--- NOTE | 2016-10-06 12:38 | PCM.PROC ---
Procedure Note Date of Service: Oct 06, 2016 Pre Procedure Diagnosis: Hypovolemic Shock. . Post Procedure Diagnosis: Hypovolemic Shock. . Procedure: Consent: Detailed explanation of the procedure, treatment options, risks including but not limited to infection and bleeding, and benefits were explained to the patient's family. A written informed consent was obtained. Technique: A time-out was completed verifying correct patient, procedure, site, positioning, and special equipment. The right neck was prepped with 2% chlorhexidine and draped with a full length sterile sheet in the usual fashion. 1% Lidocaine was used to anesthetize the surrounding skin area. A triple lumen 9 -Faroese Cordis catheter was introduced into the the right internal jugular vein using the Seldinger technique under ultrasound guidance. The catheter was threaded smoothly over the guide wire and appropriate blood return was obtained. Blood was withdrawn from each lumen of the catheter and flushed with sterile saline. The catheter was secured in place and a sterile pressure dressing was applied over the site prior to removal of all drapes. Dr. Otoole was present for the entire procedure. The patient tolerated the procedure well and there were no complications. Chest x ray is pending at this time. Estimated Blood Loss: 4cc. . Provider and Gun Profiler: Resident: Irma Zuleta D.O. Attending: Omar Otoole M.D. . Indication for Procedure: Hypovolemic shock and need for vasopressor support and fluid resuscitation. . Procedural Analgesia: 1% Lidocaine. . Attending Statement I was personally present and immediately available throughout the entire procedure and agree with the description of the procedure above. . Irma Zuleta DO Oct 06, 2016 12:38 Omar Otoole MD Oct 07, 2016 16:12
[2016-10-06] MEDS: 0.9% Sodium Chloride 250 ML IV SCH (13:05)
--- NOTE | 2016-10-06 14:06 | DRSVH ---
PROCEDURE: US ABDOMEN, LIMITED ([id number]) INDICATIONS: hypotension, renal bleed, poss GI bleed, TECHNIQUE: Real-time focused scanning was performed of the abdomen, with image documentation. COMPARISON: [facility], CT, CT KUB, 10/06/2016, 18:40. [facility], CT, CT KU B, 10/05/2016, 22:47. FINDINGS: Complex fluid collection is seen around the right kidney as seen on the comparison CT. the collection measures 18.0 x 10.8 x 10.9 cm. No source of active bleeding is identified by color flow Doppler. Right kidney otherwise is grossly normal in appearance and no hydronephrosis is seen. Ther e is trace intraperitoneal fluid present within the lower quadrants as well as the left upper outer q uadrant. IMPRESSION: 1. Complex fluid collection around the right kidney as was seen on the prior CT. No definite source of bleeding is identified sonographically. 2. Trace intra-abdominal fluid within the lower quadrants as well as the left upper outer quadrant. Dictated by: Woodrow Loya [facility] Interpreted: Rosalie Schmitz MD on 10/06/2016 at 14:04 Transcribed by: NATALIA on 10/06/2016 at 14:06 Approved by: Rosalie Schmitz M.D. on 10/06/2016 at 22:10
[2016-10-06 15:30] LABS: Mean Corpuscular Hemoglobin 31.8 pg (27.0-35.0); Mean Corpuscular Volume 92.9 fL (81-100)
--- NOTE | 2016-10-06 15:37 | CONS ---
[address] [address] CONSULTATION REPORT PATIENT: GAL CARRANZA : 1930 MR#: [id number] ADMIT: 10/06/2016 JOB ID: [id number] DATE OF SERVICE: 10/06/[address] Irma Zuleta for this timely consult. REASON FOR CONSULTATION: Shock, leukocytosis, and massive intra-abdominal and/or retroperitoneal bleed following lithotripsy. The patient is a quite functional, 86-year-old gentleman with a complex past medical history including abdominal aortic aneurysm, coronary artery disease, pulmonary fibrosis, and kidney stones, who was in his usual state of fairly well compensated health yesterday when he went for elective lithotripsy. The lithotripsy was conducted yesterday and the patient left and went home in the late afternoon. His family notes that shortly after arriving home, he complained of a great deal of pain and also became faint. Eventually, he worsened and actually fell out of bed at one point, and for that reason, the family activated the EMS system and he was brought to the hospital and admitted with evidence of ongoing shock and bleeding. Since his admission last night, imaging has shown evidence of extensive right perinephric hemorrhage with some hemoperitoneum as well, and fluid in the perirenal space. 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 An aortoiliac stent graft was also seen. During the course of the day since his admission late last night, the patient has been very fluid dependent. He has required considerable infusions of crystalloid as well as red cells. He has had progressively increasing intra-abdominal pressures and relatively poor urine output. As part of his constellation of bleeding-related problems, the patient has also been known noted to have leukocytosis, and a question of whether or not infection might be part of this process was raised and ID has been consulted. In discussing the situation with the patient's and son, who were with him yesterday, they report that up until the time of the lithotripsy, he was feeling fine. There was no previous history of fevers, chills, sweats, cough, chest pain, or any untoward symptom. The patient's tells us they go to the [employer] [facility] three times a week for exercise and that he was doing quite well until yesterday's elective procedure. They have not traveled or had any unusual exposures recently. PAST MEDICAL HISTORY: 1. History of abdominal aortic aneurysm with aortoiliac stent. 2. Obstructive sleep apnea. 3. Organic heart disease. a. Coronary artery disease, status post stents. b. Pacer and AICD present. 4. Pulmonary fibrosis. 5. Pulmonary fibrosis. 6. Nephrolithiasis. SOCIAL HISTORY: The patient is a lifelong nonsmoker. Does not consume alcohol. He has not traveled widely. He is a retired educator. Lives with his family in the local area. FAMILY HISTORY: Could not be obtained from this intubated and critically ill gentleman REVIEW OF SYSTEMS: Could not be obtained in this critically ill gentleman, though I did get a few details from his family about what he was feeling like and that is reflected in the history of present illness. PHYSICAL EXAMINATION: He has been afebrile since admission. Temp 36 right now, pulse 62, respiratory rate is ventilator dependent. Blood pressure about 100/70, and he is intubated and actively ventilated. Reveals a mildly obese gentleman who is quite tall, 185 cm, 106 kg. BMI is slightly over 30. He is lying supine in his hospital bed. He is intubated and sedated with vasopressor agents going. The patient does not rouse whatsoever as he is being heavily sedated. Examination of the head reveals no evidence of trauma. Eyes without scleral icterus or conjunctivitis. Nose normal. Oral endotracheal tube, oral gastric tube in good position. There is no cervical adenopathy palpable. His lungs are notable for a few crackles at the bases but there is fair air flow with the ventilator. He has a few crackles at the bases. Cardiac tones are distant. Regular rate and rhythm. No murmur appreciated. He has a pacer in the right upper chest which is without evidence of inflammation. His abdomen is massively distended especially on the right side where there is a sensation of a protuberant mass along the right side which appears to be about 20 cm x 15 cm in size. This abdominal distention does not appear to be painful but of course it is difficult to say given the patient is intubated, sedated, and requiring low-dose norepinephrine. No appreciable hepatosplenomegaly can be noted. It does not appear that the patient has ascites. He does have a Paredes catheter which is draining clear yellow urine. His extremities are without evidence of a significant edema nor is there any evidence of synovitis. No skin rashes noted. Patient's neurologic exam cannot be done as he is intubated, sedated, and hypotensive. LABORATORIES: Include white count 12,000 last night in the ER, now 14,000. Neutrophil predominance, 85%. Platelet count 60,000, and it is notable that his thrombocytopenia is chronic, at about the same level. Urinalysis surprisingly without any white cells whatsoever, though it does have red cells given the fact he had a lithotripsy yesterday. Micro studies include blood cultures done early this morning which are obviously negative. Urine culture was done last night in the ED. It is negative. A variety of imaging has been done, some of which has already been discussed. Recall that the CT scan done this morning showed extensive right subcapsular and perinephric hemorrhage with a small amount of hemoperitoneum. He also has right nephrolithiasis and aortoiliac aneurysm status post stenting and cholelithiasis. His chest x-ray shows no definitive focal consolidation. Low lung volumes are noted and there may be some atelectatic changes in the lungs. An abdominal ultrasound was just done and interpreted. It shows a complex fluid collection around the right kidney as was seen on the CT scan. This area is said to measure 18 x 11 x 11 cm and corresponds roughly to what we could palpate. IMPRESSION: There is little in this case to suggest infection at this point. The patient's is currently vasopressor dependent and requiring large volumes of crystalloid as well as blood to maintain his blood pressure. He has a rising intra-abdominal pressure and ultrasound and CT confirm a large, primarily retroperitoneal but possibly intraperitoneal hematoma. Of concern is the fact that an NG tube that was placed yielded blood which would suggest some sort of communication between the patient's gut and his extensive retroperitoneal and possibly peritoneal bleed. This raises the question, I suppose, regarding the viability of his various grafts and the possibility of an aortic enteric fistula or injury. At this point, I see little to suggest, however, that he had septic shock or life-threatening infection. Given the critical nature of his illness, I think it is prudent to obtain some blood cultures, repeat procalcitonins, and cover him with relatively "nontoxic" antibiotics while we attempt to better understand what is going. RECOMMENDATIONS: 1. I would continue Zosyn in the current q.12 h. dosing with the extended infusions. 2. I would certainly not give vancomycin or any other nephrotoxic agent to this patient. 3. A MRSA screen will be obtained in accordance with our ICU policy. Given that the patient has not recently been hospitalized, I have every reason to suspect this will be negative. 4. Will continue to follow this very complex patient with you. 5. This case discussed with the family at the bedside as well as Dr. Robin Spring.
--- NOTE | 2016-10-06 16:33 | CONS ---
[address] [address] CONSULTATION REPORT PATIENT: GAL CARRANZA : 1930 MR#: [id number] ADMIT: 10/06/2016 JOB ID: [id number] DATE OF SERVICE: 10/06/2016 NEPHROLOGY CONSULTATION: REQUESTING PHYSICIAN: Omar Otoole MD REASON FOR CONSULTATION: Management of abnormal kidney function. CHIEF COMPLAINT: Severe abdominal pain. HISTORY OF PRESENT ILLNESS: This is an 86-year-old male with significant past medical history of nephrolithiasis, abdominal aortic aneurysm status post aortoiliac stent, obstructive sleep apnea, coronary artery disease status post stent placement, and status post AICD, who presented to the hospital due to severe abdominal pain. The patient underwent elective lithotripsy Dr. Nguyễn. The patient went home in the late afternoon. Subsequently he developed severe abdominal pain. His decided to call EMS. The patient was brought to the emergency department and found to have shock with the initial blood pressure of 68/36. The CAT scan of the abdomen showed extensive right capsular and perinephric hemorrhage, a small to moderate amount of hemoperitoneum within right anterior pararenal space, pericolic gutter, perihepatic location, right nephrolithiasis, aortoiliac aneurysm status post stent graft placement, cholelithiasis INCOMPLETE DICTATION: Dictation ends here.
[2016-10-06] MEDS ORDERED: Heparin 1,000 Unit/mL 10 mL Inj ONE ×2 (16:37→17:28)
[2016-10-06] MEDS ORDERED: 0.9% Sodium Chloride 1,000 ML ONE ×2 (16:37→17:28)
[2016-10-06] MEDS ORDERED: Lactated Ringer's 1,000 ML IV ONE (16:43)
[2016-10-06] MEDS ORDERED: Atropine 1 mg/10 mL (Code) Syringe ONE (16:49)
--- NOTE | 2016-10-06 17:01 | CONS ---
[address] [address] CONSULTATION REPORT PATIENT: GAL CARRANZA : 1930 MR#: [id number] ADMIT: 10/06/2016 JOB ID: [id number] DATE OF SERVICE: REQUESTING PHYSICIAN: Dr. Otoole. REASON FOR CONSULTATION: Management of abnormal kidney function. CHIEF COMPLAINT: Severe abdominal pain. PRESENT ILLNESS: This is an 86-year-old, male with significant past medical history of nephrolithiasis, sleep apnea, abdominal aortic aneurysm, status post aortoiliac stent, coronary artery disease, status post stent placement, status post AICD, pulmonary fibrosis, who came to the hospital due to severe abdominal pain. The patient underwent elective lithotripsy yesterday. Subsequently, he went back home late afternoon. Subsequently, he developed severe abdominal pain. His decided to call the EMS and he was brought to the emergency department for further investigation. The initial blood pressure was 68/36. The CT without contrast showed extensive right subcapsular and perinephric hemorrhage, small to moderate amount of hemoperitoneum within right anterior pararenal space, paracolic gutter and perihepatic location. The patient received IV fluids and blood product. His current hemoglobin is 8.9. He came in with a hemoglobin of 8.6. The patient was evaluated by urologist and general surgeon. His initial BUN and creatinine were 29 and 1.67. The patient later on was intubated due to respiratory failure and ongoing shock. According to the resident, the bladder pressure was measured, and it was 22 mmHg. PAST MEDICAL HISTORY: 1. Abdominal aortic aneurysm, status post aortoiliac stent placement. 2. Sleep apnea. 3. Coronary artery disease, status post stenting. 4. Pacemaker AICD device placement. 5. Pulmonary fibrosis. 6. Nephrolithiasis. SOCIAL HISTORY: The patient lives with his family. He denies current use of alcohol, tobacco, illicit drugs. FAMILY HISTORY: Unable to obtain. REVIEW OF SYSTEMS: Unable to obtain. MEDICATIONS: Reviewed. ALLERGIES: NO KNOWN DRUG ALLERGIES. PHYSICAL EXAMINATION: Temperature 36.0, blood pressure 124/74. Currently on Levophed HEENT: Atraumatic. Moist mucous membranes. Intubated, sedated. Mild pallor. No jaundice. No JVD. No lymphadenopathy. No thyroid enlargement. Heart: Regular rhythm. Normal S1, S2. No murmurs, rubs, or gallops. Lungs: Fine crackles at the bases. Equal breath sounds bilaterally. Abdomen: Tense, decreased bowel sounds. Severe tenderness. Extremity: Trace edema on the lower extremity. : Paredes catheter in place with cloudy yellowish urine. LABORATORY: Sodium 114, potassium 3.3, chloride 108, bicarb 14, BUN 29, creatinine 1.67. The current BMP sodium 141, potassium 3.8, chloride 108, bicarb 14, BUN 31, creatinine 1.81. Lactic acid 3.9. Calcium 7.4, total bilirubin 1.6. Albumin 2.3. ASSESSMENT: 1. Acute kidney injury secondary to prerenal azotemia from severe hypotension and poor renal perfusion from increased intra-abdominal pressure. 2. Hemorrhagic shock. 3. Status post elective lithotripsy complicated by right subcapsular and perinephric hemorrhage, associated small to moderate amount of hemoperitoneum within the right anterior pararenal space, paracolic gutter and perihepatic location. Per renal standpoint, I agree with the fluid resuscitation managed by ICU team. We need to restore intravascular volume. Keep MAP over 65 mmHg. Keep hemoglobin above 8.0. Follow Urology, general surgeon, and IR for further management. 4. Severe metabolic acidosis secondary to poor tissue perfusion, lactic acidosis. PLAN: We will monitor for now-- no indication for hemodialysis at this moment. Thank you for the consultation. We will monitor along with you.
--- NOTE | 2016-10-06 19:13 | PCM.PNMED ---
Subjective Date of Service Oct 06, 2016 Subjective ROS could not be obtained as patient is intubated and sedated in the ICU. Overnight patient was notably decompensating - both hemodynamically and respiratory status. Night team unable to place central line and was deferred to day team. Exam Vital Signs Vital Sign - Last Date Time Temp Pulse Resp B/P Pulse Ox O2 Delivery O2 Flow Rate FiO2 10/06/16 14:00 88 124/74 97 60 10/06/16 05:35 36.0 26 10/06/16 04:51 Supplement Oxygen 10/06/16 04:41 4.00 Intake and Output 10/05/16 10/05/16 10/06/16 Cumulative From/Thru 15:00 23:00 07:00 10/05/16 21:52 - 10/06/16 06:39 Intake Total 1000 ml 2998 ml 3998 ml Balance 1000 ml 2998 ml 3998 ml Intake IV Total 1000 ml 2651 ml 3651 ml Packed Cells 347 ml 347 ml Bladder Scan Volume Amount 160 Exam General: Patient intubated and sedated in the ICU Head traumatic, normocephalic Trachea midline, Right IJ, short and wide neck, no JVD appreciated but difficult exam CV: Regular rate and rhythm, distant heart tones with no appreciable murmur Pulses: radial and dorsalis pedis present and equivalent bilaterally Respiratory: Coarse breath sounds at the bases but otherwise clear anteriorly Abdomen: distended, normoactive bowel tones, tympanic to percussion, no organomegaly appreciated Extremities: 2+ pitting edema present to the level of the tibia; no cyanosis or clubbing present Skin: no petechiae, no rash noted, no bruising of the abdomen Paredes in place IVs and Medications Medications Reviewed: Medications were reviewed in detail Lab and Diagnostics Result Diagram: 10/06/16 1455 10/06/16 1120 X-Rays, CTs and MRIs PROCEDURE: X-RAY CHEST ONE VIEW, PORTABLE IMPRESSION: Endotracheal tube with the tip projecting approximately 3 cm above the belen. Right internal jugular central venous catheter with the tip projecting at the lower SVC. No pneumothorax Dictated by: Nael Blackwood M.D. on 10/06/2016 at 11:49 PROCEDURE: CT KUB IMPRESSION: 1. Extensive right subcapsular and perinephric hemorrhage as described above. There is associated small to moderate amount of hemoperitoneum within the right anterior pararenal space, paracolic gutter, and perihepatic location. 2. Right nephrolithiasis. 3. Aortoiliac aneurysms, status post aortoiliac stent-graft placement, as described above. 4. Cholelithiasis. 5. Concordant with preliminary interpretation. Dictated by: Viridiana Inman M.D. on 10/06/2016 at 7:57 Additional Diagnostics PROCEDURE: US ABDOMEN, LIMITED IMPRESSION: 1. Complex fluid collection around the right kidney as was seen on prior CT scan as above and no definite source of bleeding is identified sonographically. 2. Trace intra-abdominal fluid within the lower quadrants as well as the left upper outer quadrant. Dictated by: Woodrow Loya RRA Interpreted: Rosalie Schmitz MD on 10/06/2016 at 14:04 Transcribed by: NATALIA on 10/06/2016 at 14:06 Assessment & Plan Patient is an 86-year-old male with extensive cardiovascular history, new onset pain following same-day lithotripsy, radiographically proven intra-abdominal blood, and shock. He was admitted to ICU management on 10/06/16 where he decompensated requiring intubation and pressor support. Hospital day #1 1. Acute hemorrhagic shock with possible component of septic shock, present on admission, ongoing. - Patient with increased intraabdominal pressure and CT evidence of bleeding into the abdomen. - Pressor support still required with norepinephrine. Goal MAP >65. - IV fluids ongoing - LR 150 ml/hr. Approximately 14 liters of fluid resuscitation given up to this point. - Dr. Menendez consulted for antibiotic management. Continue Zosyn at this time (day 1). - Continue to monitor CBC and procalcitonin. - Awaiting blood cultures, MRSA screen, and urine culture - Continue to trend lactic acid (peak 10, currently 3.9) until normal. - Treat underlying hemorrhage as below in #3. - Echo ordered and pending. 2. Acute hypoxemic respiratory failure, present on admission, ongoing. - Patient intubated and sedated in the ICU on 10/06/16. - Using propofol and fentanyl for sedation at this time. When patient more stable will consider sedation vacation. - Dr. Spring consulted and we appreciate his assistance with ventilator management. - ABG to be done as needed for vent management. 3. Acute blood loss anemia and thrombocytopenia, present on admission, ongoing. - Continuing to monitor H&H/CBC closely. - Patient has received 4 units PRBCs and 1 unit of platelets so far this admission. - Patient taken to IR for possible angiographic embolization. If unsuccessful, will consider general surgery. - Dr. Pritchard (general surgery), Dr. Alvarado (urology) and Dr. Inman ( interventional radiology) have all been consulted and we appreciate their input. - Continue to have 2 units PRBC's held in case of need for further transfusions. 4. Acute kidney injury, present on admission, ongoing. - Creatinine likely elevated secondary to hypoperfusion from the hemorrhagic shock process that is ongoing. - Patient receiving IV fluids as above in #1. - Dr. Pepe from nephrology consulted and we appreciated her input. - Continue to monitor BMP. 5. Elevated troponin, acute, present on admission, ongoing. - Troponin 0.1. - Could be considered an effect of demand ischemia. - Will continue to treat underlying shock process as above in #1. 6. Acute hypokalemia, present on admission, improved. - Continue to monitor BMP and replete as needed. 7. Possible upper GI bleed, acute, ongoing. - Positive guaiac of stomach contents. - Plan to lavage stomach until it runs clear or bilious. If bright red blood seen stop immediately and call provider. - Patient placed on PPI drip. - Consider GI consultation tomorrow AM if bright red blood seen. 8. Obstructive sleep apnea, chronic, presume stable. - Patient intubated in the ICU at this time. 9. History of pulmonary fibrosis, chronic, presume stable. - Patient intubated in the ICU at this time. 10. Coronary artery disease, chronic, presume stable. - Patient takes simvastatin and aspirin at home. Medication on hold at this time. Will re-order when patient more stable. 11. Systolic congestive heart failure, chronic, presume stable. - EF estimated to be 35% in 2013. Patient does not appear to have been acute decompensation at time of admission. - Repeat echo performed to evaluate current cardiac function as patient has received significant amounts of IV fluids. - Antacid available PRN. - Antiemetic available PRN. - Tylenol available PRN mild pain or fever. Disposition: Patient currently in critical care with guarded prognosis. Requiring mechanical ventilation, pressor support and transfusion of blood products. Anticipate discharge many days away if patient able to recover. GI Prophylaxis: Proton Pump Inhibitor VTE Prophylaxis: SCDs Resuscitation Status: CPR: Attempt Resuscitation Attending Statement The patient was seen and examined together with Dr. Culver on 10/06/2016 and I agree with the history, exam and plan as outlined in the note above. . Nighat Culver DO Oct 06, 2016 15:59 mOar Otoole MD Oct 07, 2016 15:00
--- NOTE | 2016-10-06 19:18 | DRSVH ---
PROCEDURE: CT KUB ([id number]) INDICATIONS: hypotension, renal bleed TECHNIQUE: Noncontrast 5 mm thick sections acquired from the diaphragms to the symphysis. 5 mm thick coronal an d sagittal reformats were then performed. For radiation dose reduction, the following was used: aut omated exposure control, adjustment of mA and/or kV according to patient size. COMPARISON: [facility], CT, CT KUB, 10/05/2016, 22:47. [facility], XA, EMBOL IZATION ARTERIAL SYSTEM, 10/06/2016, 16:51. FINDINGS: Image quality: Excellent. Lung bases: There is normal bilateral low density pleural effusions and consolidation at the bilatera l lung bases which is new when compared with the prior study dated 10/05/16. The heart is enlarged. Urinary system: The similar to the prior study, there is a large right subcapsular hematoma. Trace c ontrast is visualized within the bilateral renal collecting systems. A new embolization coil is prese nt with an inferior branch of the right renal artery. There is a heterogeneous delayed nephrogram of the right kidney suggesting decreased renal flow. No hydronephrosis. Other solid organs: Liver and spleen are normal in size. There is a moderate amount of hepatosplenic free fluid. Gallbladder is grossly normal. Pancreas is normal in contours. No adrenal nodules. Peritoneum and bowel: Unenhanced bowel loops demonstrate normal wall thickness and caliber. There is a large amount of retroperitoneal hematoma tracking along the intraconal fashion bilaterally but gre ater on the right than on the left. Nodes and vessels: No retroperitoneal or mesenteric adenopathy by size criteria. Aorta and inferior vena cava are normal in caliber. The patient is status post endovascular aortic repair. Abdominal wall: There is a small fat-containing umbilical hernia. Pelvis: There is a moderate amount of retroperitoneal hematoma within the pelvis. This appears slight ly increased on the left when compared with the prior study. No inguinal adenopathy. There is a small fat-containing left inguinal hernia. Bones: No suspicious bony lesions. No vertebral body compression fractures. Posterior spinal fixat ion hardware and left hip arthroplasty are grossly intact. IMPRESSION: 1. Large right renal subcapsular hematoma similar in extent to the study dated 10/05/16. Heterogeneous , delayed nephrogram suggests markedly decreased right renal blood flow and function. 2. Large retroperitoneal hematoma which appears slightly increased on the left. It is unclear whether this is truly increased hematoma or simple redistribution of a large hematoma previously visualized within the right retroperitoneal space. 3. New bibasilar consolidation and pleural effusions suspicious for early pneumonia. 4. Small amount of hepatosplenic ascites increased when compared with the prior study. This may be du e to vigorous fluid resuscitation. Dictated by: Dilcia Jaimes M.D. on 10/06/2016 at 18:59 Approved by: Dilcia Jaimes M.D. on 10/06/2016 at 19:17
[2016-10-06 19:31] LABS: BASOPHILS % (AUTO) 0.1 % (0-3); EOSINOPHILS % (AUTO) 0.2 % (0-5); MONOCYTES % (AUTO) 11.2 % (4-12); Mean Corpuscular Hemoglobin 30.7 pg (27.0-35.0); Mean Corpuscular Volume 90.5 fL (81-100); NEUTROPHILS % (AUTO) 72.4 % (40-74); Platelet Count 84 bil/L (150-400)
[2016-10-06 20:12] LABS: TROPONIN T 0.103 ug/L (0.0-0.011)
[2016-10-06] MEDS: Pantoprazole Inj 80 MG in 0.9% Sodium Chloride 80 ML IV SCH (20:12)
[2016-10-06] MEDS: Piperacillin-Tazo 3.375 Gm Inj 3.375 GM in Dextrose 5% Minibag Plus 50 ML IV SCH (20:12)
[2016-10-07] VITALS (10 sets, daily range): BP systolic 99–129; BP diastolic 52–64; PULSE 61–73; RESP 19–21; O2SAT 97–99
[2016-10-07 00:06] LABS: Mean Corpuscular Hemoglobin 30.7 pg (27.0-35.0); Mean Corpuscular Volume 89.9 fL (81-100)
[2016-10-07] MEDS: Propofol Inj 1,000,000 MCG in IV Premix 1 EACH IV SCH ×3 (02:16→19:00)
[2016-10-07] MEDS: Norepineph 8,000 mCg/250 mL NS 8,000 MCG in IV Premix 1 EACH IV SCH ×2 (02:16→19:19)
[2016-10-07] MEDS ORDERED: KCl 40 mEq/100 mL (CENTRAL) 40 MEQ in IV Premix 1 EACH IV ONE (03:25)
[2016-10-07 03:32] LABS: BASOPHILS % (AUTO) 0.2 % (0-3); EOSINOPHILS % (AUTO) 0.6 % (0-5); MONOCYTES % (AUTO) 10.8 % (4-12); Mean Corpuscular Hemoglobin 30.7 pg (27.0-35.0); Mean Corpuscular Volume 90.2 fL (81-100); NEUTROPHILS % (AUTO) 73.2 % (40-74); Platelet Count 80 bil/L (150-400)
[2016-10-07 03:52] LABS: Magnesium 2.1 mg/dL (1.6-2.6); Phosphorus 3.1 mg/dL (2.5-4.9)
--- NOTE | 2016-10-07 04:20 | ABG ---
DateTimeAnalyzed 04:14:00 -_ pH ____7.448 - 7.350 7.450 pCO2 ___27.2__ -mmHg 35.0 45.0 pO2 ___88.6__ -mmHg 69.0 116 HCO3- ___18.5__ -mmol/L 22.0 26.0 ABE ___-4.3__ -mmol/L -2.0 2.0 tHb ____9.2__ -g/dL O2Hb ___96.0__ -% COHb ____1.6__ -% MetHb ____0.8__ -% sO2 ___98.4__ -% 25.0 FIO2 ___50.0__ -% PRVC 20 - PEEP ____7.0__ -cmH2O Set_RR ___20.0__ -b/min Vt __550.0__ -L Drawn By MM - Date/Time Notified____ 04:20:00 -_ Spontaneous_RR ___20.0__ -b/min Oxygen Device 1 VENTILATOR - Notified By MM - Notified Whom RN - B 759 -mmHg tO2 ___12.6__ -Vol% Robson test N/A -
[2016-10-07] MEDS: Pantoprazole Inj 80 MG in 0.9% Sodium Chloride 80 ML IV SCH ×2 (04:48→16:59)
[2016-10-07] MEDS: 0.9% Sodium Chloride 1,000 ML IV SCH ×3 (08:09→23:38)
[2016-10-07] MEDS: Piperacillin-Tazo 3.375 Gm Inj 3.375 GM in Dextrose 5% Minibag Plus 50 ML IV SCH ×2 (08:10→19:18)
[2016-10-07] MEDS: Sodium Chloride LOK Flush 10 mL Syringe IVFLUSH SCH ×3 (08:10→23:38)
[2016-10-07] MEDS: 0.9% Sodium Chloride 250 ML IV SCH (08:11)
--- NOTE | 2016-10-07 08:45 | DRSVH ---
PROCEDURE: X-RAY CHEST ONE VIEW, PORTABLE ([id number]) INDICATIONS: intubated in ICU TECHNIQUE: One view of the chest was acquired. COMPARISON: [facility], CR, XR CHEST 1VW (PORTABLE), 10/06/2016, 11:16. FINDINGS: Surgical changes and devices: Unchanged appearance since yesterday. Lungs and pleura: Low lung volumes and increasing bibasilar consolidation in the retrocardiac region and left costophrenic angle. No pneumothorax. Cannot exclude small bilateral pleural fluid. Mediastinum: Mediastinal contours appear normal. Heart size is normal. Bones and chest wall: No suspicious bony lesions. Overlying soft tissues appear unremarkable. IMPRESSION: Unchanged support equipment as above. Low lung volumes with mildly worsened retrocardiac consolidative opacities since yesterday. Recommend clinical correlation. Dictated by: Nael Blackwood M.D. on 10/07/2016 at 8:41 Approved by: Nael Blackwood M.D. on 10/07/2016 at 8:43
[2016-10-07] MEDS ORDERED: KCl 40 mEq/100 mL IV Premix (K < 3 & Creat 2.1 - 2.9) IV ONE (09:30)
[2016-10-07] MEDS: fentaNYL 2,500 mCg/250 mL 2,500 MCG in IV Premix 1 EACH IV SCH (10:37)
[2016-10-07] MEDS ORDERED: Albumin 25% 50 GM in IV Premix 1 EACH IV ONE (11:30)
--- NOTE | 2016-10-07 11:44 | PCM.PNNEPH ---
Subjective Date of Service Oct 07, 2016 Subjective Remains in the critical condition. Total intake 65033, output 1790. required vasopressors. s/p embolization. bladder pressure 17 mmHg. relative stable serum cr, KCL 40 meq IVPB given. A repeat CT KUB showed: 1. Large right renal subcapsular hematoma similar in extent to the study dated . Heterogeneous, delayed nephrogram suggests markedly decreased right renal blood flow and function. 2. Large retroperitoneal hematoma which appears slightly increased on the left. It is unclear whether this is truly increased hematoma or simple redistribution of a large hematoma previously visualized within the right retroperitoneal space. 3. New bibasilar consolidation and pleural effusions suspicious for early pneumonia. 4. Small amount of hepatosplenic ascites increased when compared with the prior study. This may be due to vigorous fluid resuscitation. Exam Vital Signs Vital Sign - Last Date Time Temp Pulse Resp B/P Pulse Ox O2 Delivery O2 Flow Rate FiO2 10/07/16 08:57 60 118/59 99 50 10/07/16 03:27 20 Mechanical Ventilator 10/06/16 23:00 36.5 10/06/16 04:41 4.00 Intake and Output 10/06/16 10/06/16 10/07/16 Cumulative From/Thru 15:00 23:00 07:00 10/05/16 21:52 - 10/07/16 05:02 Intake Total 400 ml 9652 ml 1652 ml 87990 ml Output Total 150 ml 1000 ml 640 ml 1790 ml Balance 250 ml 8652 ml 1012 ml 30638 ml Intake Oral 0 ml 0 ml IV Total 100 ml 9102 ml 1652 ml 29300 ml Packed Cells 300 ml 300 ml 947 ml Platelets 250 ml 250 ml Output Urine Total 150 ml 600 ml 540 ml 1290 ml Gastric Drainage Total 400 ml 100 ml 500 ml # Bowel Movements 0 0 0 Exam GA: intubated, sedated HEENT: Atraumatic. Moist mucous membranes. Intubated, sedated. Mild pallor. No jaundice. No JVD. No lymphadenopathy. No thyroid enlargement. Heart: Regular rhythm. Normal S1, S2. No murmurs, rubs, or gallops. Lungs: Equal breath sounds bilaterally. Occasional rhonchi noted Abdomen: Tense, decreased bowel sounds.severe distension. Extremity: 1+ edema on the lower extremity. : Paredes catheter in place with cloudy yellowish urine. Lab and Diagnostics Result Diagram: 10/07/16 0915 10/07/16 0915 Microbiology Urine, sputum, and blood cultures pending X-Rays, CTs and MRIs PROCEDURE: X-RAY CHEST ONE VIEW, PORTABLE IMPRESSION: Endotracheal tube with the tip projecting approximately 3 cm above the belen. Right internal jugular central venous catheter with the tip projecting at the lower SVC. No pneumothorax Dictated by: Nael Blackwood M.D. on 10/06/2016 at 11:49 PROCEDURE: CT KUB IMPRESSION: 1. Extensive right subcapsular and perinephric hemorrhage as described above. There is associated small to moderate amount of hemoperitoneum within the right anterior pararenal space, paracolic gutter, and perihepatic location. 2. Right nephrolithiasis. 3. Aortoiliac aneurysms, status post aortoiliac stent-graft placement, as described above. 4. Cholelithiasis. 5. Concordant with preliminary interpretation. Dictated by: Viridiana Inman M.D. on 10/06/2016 at 7:57 12-lead ECG Please see history of present illness Additional Diagnostics PROCEDURE: US ABDOMEN, LIMITED IMPRESSION: 1. Complex fluid collection around the right kidney as was seen on prior CT scan as above and no definite source of bleeding is identified sonographically. 2. Trace intra-abdominal fluid within the lower quadrants as well as the left upper outer quadrant. Dictated by: Woodrow Loya [facility] Interpreted: Rosalie Schmitz MD on 10/06/2016 at 14:04 Transcribed by: NATALIA on 10/06/2016 at 14:06 Plan Impression 1. Acute kidney injury secondary to prerenal azotemia from hypotension and poor renal perfusion from increased intra-abdominal pressure. 2. Hemorrhagic shock. 3. Status post elective lithotripsy complicated by right subcapsular and perinephric hemorrhage and retroperitoneal hemorrhage s/p embolization. 4. Metabolic acidosis secondary to poor tissue perfusion, lactic acidosis. 5. Acute hypoxemic respiratory failure. PLAN: Supportive treatment per renal. RIVETER PORTABLE MACHINE not indicated. IVF managed by ICU team. Continue NS 125 ml/hr. Keep MAP over 65 mmHg. monitor bladder pressure. Daily BMP. Manuel Mcintyre MD Oct 07, 2016 11:44
--- NOTE | 2016-10-07 11:55 | PCM.PNSURG ---
Subjective Date of Service: Oct 07, 2016 Visit Information: Hemorrhage from his right kidney following lithotripsy 10/05/16 Post-Op Day # 2 Date of Admission: Oct 06, 2016 at 03:26 Hospital Day # 2 Subjective: Embolized yesterday, Intubated Objective Vital Sign- Last 8 Hours Date Time Temp Pulse Resp B/P Pulse Ox O2 Delivery O2 Flow Rate FiO2 10/07/16 08:57 60 118/59 99 50 10/07/16 04:05 60 119/64 98 50 Intake and Output- Last 8 Hour 10/07/16 Cumulative From/Thru 07:00 10/05/16 21:52 - 10/07/16 05:02 Intake Total 1652 ml 67910 ml Output Total 640 ml 1790 ml Balance 1012 ml 60172 ml Intake Oral 0 ml 0 ml IV Total 1652 ml 72228 ml Packed Cells 947 ml Platelets 250 ml Output Urine Total 540 ml 1290 ml Gastric Drainage Total 100 ml 500 ml # Bowel Movements 0 0 Abdomen: Soft Result Diagram: 10/07/16 0915 10/07/16 0915 Assessment & Plan Impression No evidence of abdominal compartment syndrome Remains critically ill but stable Problems: Plan Continue hemodynamic & ventilatory support per ICU team Will continue to follow along with Urology Alonso Leal MD Oct 07, 2016 11:55
--- NOTE | 2016-10-07 12:44 | DRSVH ---
[facility] [address] [place] [address] Echocardiogram Report Name: GAL CARRANZA Date: 10/07/2016 Height: 73 in Hospital Exam Location: [facility] Weight: 234 lb Gender: Male BSA: 2.3 m2 : 1930 Age: 86 yrs BP: 92/48 mmHg Reason For Study: SHOCK Ordering Physician: HOSPITALIST [facility] Performed By: Nathan Longoria Referring Physician: JAVED VILLANUEVA Interpretation Summary The left ventricle is normal in size. There is moderate concentric left ventricular hypertrophy. Left ventricular systolic function is low normal. The ejection fraction is estimated to be 50-55%. There is a mild dyssynchronous contraction pattern due to the paced rhythm. There is a pacemaker lead in the right ventricle. Inspiratory collapse cannot be assessed because of mechanical ventilation, thus CVP cannot be estimated.. There is no prior echocardiogram noted for this patient. No other echocardiographic abnormalities seen. The etiology for the patients shock is not apparent. The echo is not consistant with cardiogenic shock. Procedure: A two-dimensional transthoracic echocardiogram with color flow and Doppler was performed. The study quality was technically adequate. There is no prior echocardiogram noted for this patient. The patient has a paced rhythm. The patient was in atrial fibrillation with controlled ventricular rate during the exam. Left Ventricle: The left ventricle is normal in size. There is moderate concentric left ventricular hypertrophy. The ejection fraction is estimated to be 50-55%. Left ventricular systolic function is low normal. There is mild global hypokinesis of the left ventricle. There is a mild dyssynchronous contraction pattern due to the paced rhythm. Diastolic function could not be accurately assessed due to paced rhythm. Right Ventricle: The right ventricle is borderline dilated. There is a pacemaker lead in the right ventricle. The right ventricular systolic function is normal. Atria: The left atrium is moderately dilated. Right atrial size is normal. The interatrial septum is intact with no evidence for an atrial septal defect. Mitral Valve: The mitral valve leaflets appear borderline thickened, but open well. There is mild mitral regurgitation. Aortic Valve: The aortic valve is trileaflet. The aortic valve is slightly calcified. There is mild aortic regurgitation. Tricuspid Valve: The tricuspid valve is not well visualized, but is grossly normal. There is trace tricuspid regurgitation. Pulmonic Valve: The pulmonic valve is normal in structure and function. There is a trace or physiologic amount of pulmonic regurgitation. Great Vessels: The aortic root is normal size. The ascending aorta is moderately enlarged. The pulmonary artery is normal size. Inspiratory collapse cannot be assessed because of mechanical ventilation, thus CVP cannot be estimated.. Pericardium/ Pleura There is no pericardial effusion. There is no pleural effusion. MMode/2D Measurements & Calculations LVIDd: 4.9 cm RA long axis: 4.9 cm LVOT diam: 2.4 cm LVIDs: 3.9 cm LA A2 area: 35.5 cm AoV Opening FS: 20.9 % LA A4 area: 38.1 cm RA area: 18.2 cm EPSS: 1.6 cm LA length (vol) RA vol: 57.5 ml Ao root diam IVSd: 1.7 cm RA : 25.0 ml/m2 LVPWd: 1.4 cm LA vol: 176.6 ml asc Aorta Diam LA vol index Ao Arch Diam (Prox : 76.8 ml/m2 Trans): 3.7 cm EDV(MOD-sp2) LV drake. diameter/BSA LV sys. diameter/BSA RVD1 (basal) : 101.4 ml (cm/m^2): 2.1 (cm/m^2): 1.7 : 4.7 cm TAPSE: 1.4 cm Doppler Measurements & Calculations Ao V2 max MV E max immanuel Med Peak E' Immanuel PA V2 max: 81.8 cm/sec : 142.8 cm/sec : 79.9 cm/sec PA mean P.4 mmHg Ao max PG E/E' med: 21.1 : 8.2 mmHg Lat Peak E' Immanuel Ao mean PG E/E' lat: 13.8 LVOT Max Immanuel E/e' average : 79.5 cm/sec VERONICA(I,D): 2.4 cm sev ratio Ao V2 mean LV V1 max PG PA V2 mean VERONICA indexed to BSA : 103.1 cm/sec : 55.7 cm/sec (cm^2/m^2): 1.0 Ao V2 VTI: 24.3 cmLV V1 VTI PA pr(Accel) VERONICA(V,D): 2.5 cm2 : 13.1 cm : 49.4 mmHg Reading Physician:[id number] PM
[2016-10-07 12:46] LABS: INR 1.32 ratio
[2016-10-07 12:54] LABS: D-DIMER 5.3 mg/L (<0.50)
--- NOTE | 2016-10-07 13:24 | PROG NOTE ---
[address] [address] PROGRESS NOTE PATIENT: GAL CARRANZA : 1930 MR#: [id number] ADMIT: 10/06/2016 JOB ID: [id number] DATE: 10/07/2016 PULMONARY CRITICAL CARE FOLLOWUP NOTE: PROBLEM LIST: 1. Right renal hematoma status post extracorporeal shock-wave lithotripsy. 2. Ischemic cardiomyopathy secondary to coronary artery disease. 3. Obstructive sleep apnea. 4. Chronic renal failure. 5. Shock. 6. Pacemaker. SUBJECTIVE: None. OBJECTIVE: Temperature 36.5. Pulse 61 a paced rhythm. Mid 60s with a few spontaneous beats. Respiratory rate 20 with ventilator set at 20, blood pressure 118/59 on norepinephrine at 0.075 mcg/kg per minute (approximately 7 mcg/minute). O2 saturation on FiO2 50%, PEEP of 7 is 99%. I and O shows 12.9 L in, 0.7 L out. Urine output 0.4 L of gastric drainage (coffee ground Hemoccult-positive). Sedated on ventilator. Will open eyes to verbal stimuli at times. Chest: Relatively clear, with good breath sounds bilaterally. There are bronchial breath sounds at the left base, especially laterally. More clear at the right base with bronchovesicular quality anterolaterally. Heart: Slightly irregular. Heart tones seem normal. Abdomen: Soft. Somewhat distended. No apparent tenderness. Quiet. Extremities: SCD in place. No particular pedal edema, though seems somewhat swollen. LABORATORY DATA: [place] [address] with 73 polymorphonuclears, 15 lymphocytes, 10 monocytes. Hemoglobin stable at 8.8. Platelet count stable at 80,000. Sodium 143, potassium 3.4 with the patient receiving supplemental potassium, chloride 111, CO2 is 18, BUN 31 and stable, creatinine 1.8 and stable. Lactic acid 1.5, down from peak of 10 yesterday. Calcium 7.1 with an albumin of 2.5. Phosphorus normal at 3.1. Magnesium normal at 2.1. Total bilirubin moderately elevated at 2.5, upper limits of normal being 1.2. AST normal at 37, ALT normal at 26. Alkaline phos normal at 41. [facility] hemodynamic monitoring system shows cardiac index of 2.9, stroke volume index. Total peripheral resistance index 8.35, normals being 19, 70-20, 390, 9 seconds/cm to the 5th per m2. Arterial blood gases on FiO2 of 50%, rate of 20, PEEP of 7, tidal volume of 550, shows a pO2 of 88, a pCO2 of 27, pH of 7.44. Pulmonary mechanics show a peak inspiratory pressure of 31 with a PEEP of 7, tidal volume of 550, and a plateau of 24. PEEP is set at 7 measured at 7. ASSESSMENT: 1. Right renal hematoma status post extracorporeal shock wave lithotripsy. Hemoglobin remaining stable. Having to administer less intravenous crystalloid. Might at some point consider a colloid with albumin of 2.5. Reason for persistent shock in the face of apparent hemostasis would include his cardiac status, possibly sepsis. [facility] hemodynamics seem to suggest the latter, though concern about the reliability of the numbers. Echocardiogram ordered yesterday, presumably done this morning. Waiting for the report. 2. Acute respiratory distress syndrome (ARDS). Patient with bilateral bibasilar opacities. Presumably due to the heroic fluid resuscitation yesterday. Attempts to cut down on fluid administration have resulted only in development of severe shock. However, his fluid resuscitation is decreasing. Will consider adding a colloid and maybe continuing using norepinephrine to maintain his blood pressure. However, the cardiac function will be vital as norepi with its afterload increase may result in a marked decrease in cardiac output, though his at this point seems to be acceptable, though the question whether it is optimal is unclear. 3. Hemoccult-positive GI secretions. Question as to the reliability of Hemoccult testing as per GI. Will consider lavaging the stomach as per GI request. Does not appear to be actively bleeding, or if he is, it has been slow. Started on Protonix infusion yesterday. Data suggests that in the face of active bleeding Protonix infusion will reduce recurrences, therefore not quite sure what we are calling him as he is either bleeding from the GI tract egregiously or he is not. 4. Decreased cardiac function. In 2013 ejection fraction 35%. We do not have more recent values as his senior investment analyst is not in this community and unable to get values. The ordered echo will help with that and then will decide about fluid, pressors, or inotropes. 5. Renal failure. Chronic renal failure with a serum creatinine about 1.8. In spite of shock pressors and dye, he has miraculously done fairly well. Will see how things go over the next 24-48 hours. In the meantime, continue fluids. 6. Lactic acidemia. Resolved. Now has a resolution of the metabolic acidosis and is somewhat on the alkalotic side, pH being 744. Can back off on ventilatory rate. Do not want to back off on PEEP because of the pressures being reasonable and presumably fluid and probably atelectasis at both bases. PLAN: 1. Serial hematocrits as suggested by urology independent beauty consultant. 2. Repeat coags as the patient has moderate thrombocytopenia. If actively bleeding we should be looking at the platelet counts maybe 100,000, whereas we have been settling for platelet counts above 50,000 on the assumption that he is no longer actively bleeding. 3. If MAP stays above 65 consider decreasing fluids. 4. Albumin 50 g now and then 25 g q.12. 5. Continue hemodynamic monitoring. 6. Change vent settings to respiratory rate of 18. 7. Discussed with the primary physicians. TIME: Time spent so far in critical care is 1 hour and 31 minutes.
--- NOTE | 2016-10-07 15:03 | PCM.PNMED ---
Subjective Date of Service Oct 07, 2016 Subjective overnight: Achieve hemodynamic monitoring started by critical care team shows patient is not fluid responsive, fluids able to be titrated down from 250 mL per hour to 125 mL per hour. Fentanyl titrated down from 100mcg/hour to 75mcg/ hour. Propofol titrated down from 25mcg/kg/min down to 15mcg/kg/min. Gastric lavage performed twice with 60ml H20 each time and returned mostly clear fluid, patient remains on a Protonix drip. Patient otherwise stable with no acute events. Today: Patient is intubated and sedated. He is able to follow some commands. Initiating breaths a majority of the time. Pressor support has been titrated down currently at more rapidly 7.5 mics per hour. Hemoglobin remained stable on morning labs. ABG shows patient well oxygenated. Exam Vital Signs Vital Sign - Last Date Time Temp Pulse Resp B/P Pulse Ox O2 Delivery O2 Flow Rate FiO2 10/07/16 04:05 60 119/64 98 50 10/07/16 03:27 20 Mechanical Ventilator 10/06/16 23:00 36.5 10/06/16 04:41 4.00 Intake and Output 10/06/16 10/06/16 10/07/16 Cumulative From/Thru 15:00 23:00 07:00 10/05/16 21:52 - 10/07/16 05:02 Intake Total 400 ml 9652 ml 1652 ml 17512 ml Output Total 150 ml 1000 ml 640 ml 1790 ml Balance 250 ml 8652 ml 1012 ml 38331 ml Intake Oral 0 ml 0 ml IV Total 100 ml 9102 ml 1652 ml 04129 ml Packed Cells 300 ml 300 ml 947 ml Platelets 250 ml 250 ml Output Urine Total 150 ml 600 ml 540 ml 1290 ml Gastric Drainage Total 400 ml 100 ml 500 ml # Bowel Movements 0 0 0 Exam General: Patient intubated and sedated in the ICU Eyes: Pupils equal round and reactive to light, anicteric sclera, noninjected conjunctiva HENT: Head traumatic, normocephalic, intubated and sedated, external ears without defect, nares are patent without drainage or blood Neck: Trachea midline, Right IJ, short and wide neck, no JVD appreciated, no lymphadenopathy CV: Regular rate and rhythm, distant heart tones with no appreciable murmur rubs or gallops Respiratory: Coarse breath sounds at the bases but otherwise clear anteriorly Abdomen: distended, hypo-active bowel tones, tympanic to percussion, no organomegaly appreciated Extremities: 1+ pitting edema present to the level of the tibia; no cyanosis or clubbing present, paced Skin: Warm and dry no petechiae, no rash noted, no bruising of the abdomen : Paredes in place Neuro: Unable to assess given intubation sedation Psych: Unable to assess given intubation and sedation Lab and Diagnostics Result Diagram: 10/07/16 0325 10/07/16 032 Microbiology Urine, sputum, and blood cultures pending X-Rays, CTs and MRIs PROCEDURE: X-RAY CHEST ONE VIEW, PORTABLE IMPRESSION: Endotracheal tube with the tip projecting approximately 3 cm above the belen. Right internal jugular central venous catheter with the tip projecting at the lower SVC. No pneumothorax Dictated by: Nael Blackwood M.D. on 10/06/2016 at 11:49 PROCEDURE: CT KUB IMPRESSION: 1. Extensive right subcapsular and perinephric hemorrhage as described above. There is associated small to moderate amount of hemoperitoneum within the right anterior pararenal space, paracolic gutter, and perihepatic location. 2. Right nephrolithiasis. 3. Aortoiliac aneurysms, status post aortoiliac stent-graft placement, as described above. 4. Cholelithiasis. 5. Concordant with preliminary interpretation. Dictated by: Viridiana Inman M.D. on 10/06/2016 at 7:57 12-lead ECG Please see history of present illness Cardiac Echo Impressions Echocardiogram Report Interpretation Summary The left ventricle is normal in size. There is moderate concentric left ventricular hypertrophy. Left ventricular systolic function is low normal. The ejection fraction is estimated to be 50-55%. There is a mild dyssynchronous contraction pattern due to the paced rhythm. There is a pacemaker lead in the right ventricle. Inspiratory collapse cannot be assessed because of mechanical ventilation, thus CVP cannot be estimated.. There is no prior echocardiogram noted for this patient. No other echocardiographic abnormalities seen. The etiology for the patients shock is not apparent. The echo is not consistant with cardiogenic shock. Reading Physician:12:44 PM Additional Diagnostics PROCEDURE: US ABDOMEN, LIMITED IMPRESSION: 1. Complex fluid collection around the right kidney as was seen on prior CT scan as above and no definite source of bleeding is identified sonographically. 2. Trace intra-abdominal fluid within the lower quadrants as well as the left upper outer quadrant. Dictated by: Woodrow Loya RRA Interpreted: Rosalie Schmitz MD on 10/06/2016 at 14:04 Transcribed by: NATALIA on 10/06/2016 at 14:06 Assessment & Plan Patient is an 86-year-old male with extensive cardiovascular history, new onset pain following same-day lithotripsy, radiographically proven intra-abdominal blood, and shock. He was admitted to ICU management on 10/06/16 where he decompensated requiring intubation and pressor support. Hospital day #2 1. Acute hemorrhagic shock with possible component of septic shock, present on admission, ongoing. - Patient with increased intraabdominal pressure and CT evidence of bleeding into the abdomen. - Pressor support still required with norepinephrine. Goal MAP >65. - IV fluids ongoing - LR 125 ml/hr. Approximately 16 liters of fluid resuscitation given up to this point. - Dr. Menendez consulted for antibiotic management. Continue Zosyn at this time (day 1). - Continue to monitor CBC and procalcitonin. - Awaiting blood cultures, MRSA screen, and urine culture - Trended lactic acid (peak 10, currently 1.5) until normal. - Treat underlying hemorrhage as below in #3. - Echo shows EF of 50-55%, shock is notably hypovolemic/hemorrhagic/possibly septic in nature - albumin 200 mg IV given for oncotic intravascular repletion. 2. Acute hypoxemic respiratory failure, present on admission, ongoing. - Patient intubated and sedated in the ICU on 10/06/16. - Using propofol and fentanyl for sedation at this time, currently able to titrate down from day prior. - Dr. Spring consulted and we appreciate his assistance with ventilator management. - ABG to be done 10/07/2016 shows pH of 7.45 carbon dioxide of 27, oxygen 88 on respiratory rate 20, VT 550, PEEP 7, 50% FiO2 - Patient appears to be initiating majority of breaths 3. Acute blood loss anemia and thrombocytopenia, present on admission, ongoing. - Continuing to monitor H&H/CBC closely. - Patient has received 4 units PRBCs and 1 unit of platelets so far this admission. - Patient taken to IR for possible angiographic embolization. Report from critical care team states IR did not localize a definitive source of bleeding. - Dr. Pritchard and Dr. Leal (general surgery), Dr. Alvarado (urology) and Dr. Inman (interventional radiology) have all been consulted and we appreciate their input. - Continue to have 2 units PRBC's held in case of need for further transfusions. 4. Acute kidney injury, present on admission, ongoing. - Creatinine likely elevated secondary to hypoperfusion of kidney from the hemorrhagic shock process as well as increased intra-abdominal pressure that is ongoing. - Patient receiving IV fluids as above in #1. - Dr. Pepe from nephrology consulted and we appreciated her input. - Continue to monitor BMP. 5. Elevated troponin, acute, present on admission, ongoing. - Troponin 0.1. - Could be considered an effect of demand ischemia. - Will continue to treat underlying shock process as above in #1. 6. Acute hypokalemia, present on admission, improved. - Continue to monitor BMP and replete as needed. 7. Possible upper GI bleed, acute, ongoing. - Positive guaiac of stomach contents. -Overnight lavage of stomach clear. If bright red blood seen stop immediately and call provider. - Patient placed on PPI drip. - Consider GI consultation tomorrow AM if bright red blood seen. 8. Obstructive sleep apnea, chronic, presume stable. - Patient intubated in the ICU at this time. 9. History of pulmonary fibrosis, chronic, presume stable. - Patient intubated in the ICU at this time. 10. Coronary artery disease, chronic, presume stable. - Patient takes simvastatin and aspirin at home. Medication on hold at this time. Will re-order when patient more stable. 11. Systolic congestive heart failure, chronic, presume stable. - EF estimated to be 35% in 2013. Patient does not appear to have been acute decompensation at time of admission. - Repeat echo performed to evaluate current cardiac function as patient has received significant amounts of IV fluids. - The ejection fraction is estimated to be 50-55%., Echo not consistent with cardiogenic shock. - Antacid available PRN. - Antiemetic available PRN. - Tylenol available PRN mild pain or fever. Disposition: Patient currently in critical care with guarded but improving prognosis. Requiring mechanical ventilation, pressor support and transfusion of blood products however blood loss is stabilized and pressor support is currently being titrated down. Anticipate discharge many days away if patient able to recover. Pain Evaluation: Adequate Pain Control GI Prophylaxis: Proton Pump Inhibitor VTE Prophylaxis: SCDs VTE Mechanical Devices: Intermittant Pneumatic CD Resuscitation Status: CPR: Attempt Resuscitation Attending Statement The patient was seen and examined together with Dr. Carter on 10/07/2016 and I agree with the history, exam and plan as outlined in the note above. . Peyman Carter DO Oct 07, 2016 07:57 Omar Otoole MD Oct 07, 2016 17:17
--- NOTE | 2016-10-07 16:43 | CONS ---
[address] [address] CONSULTATION REPORT PATIENT: GAL CARRANZA : 1930 MR#: [id number] ADMIT: 10/06/2016 JOB ID: [id number] DATE OF SERVICE: 10/06/2016 REQUESTING PHYSICIAN: Omar Otoole MD. REASON FOR CONSULTATION: Shock secondary to right renal hematoma, status post extracorporeal shock wave lithotripsy. SUBJECTIVE: An 86-year-old, male with multiple comorbidities including coronary artery disease, status post stent, pacemaker, AICD, right common iliac artery aneurysm, status post aortoiliac stent, kidney stones. Underwent right-sided lithotripsy performed earlier on the day of admission. Presented later with altered mental status and severe abdominal pain to the emergency department. Apparently developed severe pain after returning home after lithotripsy. Developed confusion especially after taking narcotic pain meds which were subsequently ineffective. No shortness of breath. Vital signs on admission showed a pulse of 59, blood pressure 64/42, temp 35.6. His hemoglobin was 8.6. Bicarb was 14. BUN 28, creatinine 1.6. Lactic acid was 7. Physical examination showed the patient to be in high distress, moaning with each breath. Chest showed good breath sounds. Lung navarro are clear. Heart: Regular rhythm. Heart tones were normal. Peripheral pulses 2/4, equal bilaterally. Abdomen was described as distended, tender to palpation and quiet. X-ray showed extensive renal and subcapsular perinephric hemorrhage on the right. The patient was admitted to the intensive care unit. Treated with blood. PHYSICAL EXAMINATION: At the time of my evaluation, showed a blood pressure of 118/58, previously 77/46. Temperature 36.7. Pulse is 64, some with paced beats. FiO2 of 40% on BiPAP and I do not remember the settings. Showed an O2 sat of 96%. The patient was extremely lethargic having been sedated. Would open his eyes to tactile, occasionally verbal stimuli. Chest showed somewhat diminished breath sounds bilaterally. Diminished at both bases. Heart slow. Relatively regular rhythm. For the most part, it seemed paced at this point with a pacemaker rate of 60. Abdomen distended. Quiet. Extremities: No pretibial edema. Stat arterial blood gas was obtained. Showed a pO2 of 74 on FiO2 of 30%, CPAP of 12, pCO2 26, pH is 7.27. The patient was started on BiPAP of about 12/5 as 18/12 resulted in tidal volumes of about 1.1 L. However, attempts at insertion of central lines were precluded by the fact that he had severe sleep apnea and there was marked variation in venous return. In spite of better oxygenation, volume ventilation with noninvasive positive pressure breathing we could not control the venous vascular access. Therefore, it was decided to intubate him to stabilize the situation. This was done expeditiously with the help of emergency department physician with a 7.5 endotracheal tube placed. Subsequent chest x-ray showed the endotracheal tube with tip in good position, 3 cm above the belen. In addition, a right internal jugular central venous catheter was noted with tip projecting at the lower SVC. This chest x-ray was taken after IJ access was obtained. At this point, he was stabilized with fluids. Requiring fluids as high has 500 mL/hour, though we were able to decrease them to 250 mL/hour. Also required pressors, sometimes as low as 0.07 mcg/kg/minute (about 7 mcg/minute), but at times, it was almost as high as 0.14 mcg/kg/minute which would calculate to 140 mcg/minute. He was given an additional two units of blood for a total of six. Hemoglobin stayed relatively stable throughout the day running between 8.4 and 10.4, though this was in the face of transfusions. Received a total of about 4 units during the day. Also received platelets as he was somewhat thrombocytopenic, though this was again felt to be chronic with platelet counts running about 80,000. Discussed the situation with attending physician, surgery, and Urology. The plan was to stabilize him with fluids, blood, platelets, and then have the patient transferred to the radiology suite for embolization. This was accomplished in the afternoon. As he was unstable, I as well as the ICU resident accompanied the patient to the catheterization lab. 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 That was injected with coils and ultimately with FemoStop. Because of continued abdominal distention and intra-abdominal hypertension with pressures as high as 21, he was taken back to the CT scanner prior to return to the unit and was noted to have enlargement of the perirenal hemorrhage. Delayed nephrogram suggested markedly decreased right renal blood flow and function. Large retroperitoneal hematoma slightly increased. He also was noted to have bibasilar consolidation, pleural effusion. Small amount of hepatosplenic ascites was noted, felt to be due to fluid resuscitation. He was also noted to have an enlarged heart. There was no evidence for pericardial effusion or tamponade. Upon arrival he was restabilized with mechanical ventilation, IV fluids now running at 250 mL/hour. Norepinephrine running at 0.07 mcg/kg/minute and placed on [facility] hemodynamic monitor. Case was rediscussed with Urology. Recommendations noted and covering urologist for the weekend identified. PLAN: 1. Continue IV fluid resuscitation with pressors. 2. Continue broad-spectrum antibiotics. 3. Echocardiogram. 4. Discussed heme-positive GI section with GI. IV Protonix infusion was started. 5. Recommendation was to lavage the stomach to see if there was past, persistent or ongoing GI bleeding. It was felt it was not significant in that there was a reasonable alternative site of bleeding, that being the renal system. 6. Monitor H and H, platelet count, lytes. Time spent in critical care 5-1/2 hours.
[2016-10-07] MEDS ORDERED: Albumin 25% 25 GM in IV Premix 1 EACH IV SCH (20:30)
[2016-10-08] VITALS (16 sets, daily range): BP systolic 90–139; BP diastolic 48–77; PULSE 61–71; RESP 18–22; O2SAT 96–100
[2016-10-08] MEDS: Pantoprazole Inj 80 MG in 0.9% Sodium Chloride 80 ML IV SCH ×3 (01:22→21:22)
[2016-10-08 03:20] LABS: BASOPHILS % (AUTO) 0.2 % (0-3); MONOCYTES % (AUTO) 10.1 % (4-12); Mean Corpuscular Hemoglobin 31.2 pg (27.0-35.0); Mean Corpuscular Volume 92.8 fL (81-100); NEUTROPHILS % (AUTO) 75.6 % (40-74); Platelet Count 69 bil/L (150-400)
[2016-10-08 04:07] LABS: Magnesium 1.9 mg/dL (1.6-2.6); Phosphorus 2.7 mg/dL (2.5-4.9)
[2016-10-08] MEDS ORDERED: 0.9% Sodium Chloride 250 ML IV ONE (04:25)
[2016-10-08] MEDS ORDERED: KCl 40 mEq/100 mL (CENTRAL) 40 MEQ in IV Premix 1 EACH IV ONE ×2 (04:30→08:10)
[2016-10-08] MEDS: Propofol Inj 1,000,000 MCG in IV Premix 1 EACH IV SCH ×3 (04:34→21:30)
--- NOTE | 2016-10-08 05:14 | ABG ---
DateTimeAnalyzed 05:06:00 -_ pH ____7.388 - 7.350 7.450 pCO2 ___30.2__ -mmHg 35.0 45.0 pO2 ___93.4__ -mmHg 69.0 116 HCO3- ___17.8__ -mmol/L 22.0 26.0 ABE ___-6.0__ -mmol/L -2.0 2.0 tHb ____7.7__ -g/dL O2Hb ___95.5__ -% COHb ____1.7__ -% MetHb ____0.9__ -% sO2 ___98.0__ -% 25.0 FIO2 ___50.0__ -% PRVC 20 - PEEP ____7.0__ -cmH2O Set_RR ___20.0__ -b/min Vt __550.0__ -L Drawn By MM - Date/Time Notified____ 05:14:00 -_ Spontaneous_RR ___18.0__ -b/min Oxygen Device 1 VENTILATOR - Notified By MM - Notified Whom _AMYE, RN - B 763 -mmHg tO2 ___10.5__ -Vol% Robson test N/A -
[2016-10-08] MEDS ORDERED: Rocuronium 10 mg/mL 5 mL Inj ONE (07:05)
--- NOTE | 2016-10-08 07:59 | PCM.PNMED ---
Subjective Date of Service Oct 08, 2016 Subjective Patient intubated and sedated in the ICU so no ROS could be obtained. Overnight, patient was started on another blood transfusion - 2 units PRBC's ( bringing the total to 7 units). IV fluids decreased to TKO when blood product started. Pressors continue. Exam Vital Signs Vital Sign - Last Date Time Temp Pulse Resp B/P Pulse Ox O2 Delivery O2 Flow Rate FiO2 10/08/16 07:32 69 128/73 97 50 10/08/16 07:17 37.0 18 Mechanical Ventilator 10/06/16 04:41 4.00 Intake and Output 10/07/16 10/07/16 10/08/16 Cumulative From/Thru 15:00 23:00 07:00 10/05/16 21:52 - 10/08/16 06:22 Intake Total 2380 ml 1992 ml 94676 ml Output Total 600 ml 750 ml 3140 ml Balance 1780 ml 1242 ml 42026 ml Intake Oral 0 ml IV Total 2360 ml 1992 ml 94118 ml Packed Cells 947 ml Platelets 250 ml Tube Irrigant 20 ml 20 ml Output Urine Total 600 ml 550 ml 2440 ml Gastric Drainage Total 0 ml 200 ml 700 ml # Bowel Movements 0 0 Exam General: Patient intubated and sedated in the ICU Eyes: Pupils equal round and reactive to light, anicteric sclera, noninjected conjunctiva HEENT: Head atraumatic, normocephalic, external ears without defect, nares are patent without drainage or blood Neck: Right IJ, short and wide neck, no JVD appreciated, no lymphadenopathy CV: Regular rate and rhythm, distant heart tones with no appreciable murmur rubs or gallops Respiratory: Coarse breath sounds at the bases heard throughout Abdomen: distended, no bowel tones present, tympanic to percussion Extremities: moderate pitting edema present in both lower extremities; no cyanosis or clubbing present Pulses: radial pulse present and equivalent bilaterally, dorsalis pedis pulse difficult to appreciate bilaterally Skin: Warm and dry, no petechiae, no rash noted, no bruising of the abdomen : Paredes in place Ventilator settings: FiO2 .50, PEEP 7, Rate 18, Tidal volume 550 IVs and Medications Medications Reviewed: Medications were reviewed in detail Lab and Diagnostics Result Diagram: 10/08/16 0305 10/08/16 0305 X-Rays, CTs and MRIs PROCEDURE: X-RAY CHEST ONE VIEW, PORTABLE IMPRESSION: Endotracheal tube with the tip projecting approximately 3 cm above the belen. Right internal jugular central venous catheter with the tip projecting at the lower SVC. No pneumothorax Dictated by: Nael Blackwood M.D. on 10/06/2016 at 11:49 PROCEDURE: CT KUB IMPRESSION: 1. Extensive right subcapsular and perinephric hemorrhage as described above. There is associated small to moderate amount of hemoperitoneum within the right anterior pararenal space, paracolic gutter, and perihepatic location. 2. Right nephrolithiasis. 3. Aortoiliac aneurysms, status post aortoiliac stent-graft placement, as described above. 4. Cholelithiasis. 5. Concordant with preliminary interpretation. Dictated by: Viridiana Inman M.D. on 10/06/2016 at 7:57 Cardiac Echo Impressions Echocardiogram Report Interpretation Summary The left ventricle is normal in size. There is moderate concentric left ventricular hypertrophy. Left ventricular systolic function is low normal. The ejection fraction is estimated to be 50-55%. There is a mild dyssynchronous contraction pattern due to the paced rhythm. There is a pacemaker lead in the right ventricle. Inspiratory collapse cannot be assessed because of mechanical ventilation, thus CVP cannot be estimated.. There is no prior echocardiogram noted for this patient. No other echocardiographic abnormalities seen. The etiology for the patients shock is not apparent. The echo is not consistant with cardiogenic shock. Reading Physician:12:44 PM Additional Diagnostics PROCEDURE: US ABDOMEN, LIMITED IMPRESSION: 1. Complex fluid collection around the right kidney as was seen on prior CT scan as above and no definite source of bleeding is identified sonographically. 2. Trace intra-abdominal fluid within the lower quadrants as well as the left upper outer quadrant. Dictated by: Woodrow Loya RRA Interpreted: Rosalie Schmitz MD on 10/06/2016 at 14:04 Transcribed by: NATALIA on 10/06/2016 at 14:06 Assessment & Plan Patient is an 86-year-old male with extensive cardiovascular history, new onset pain following same-day lithotripsy, radiographically proven intra-abdominal blood, and shock. He was admitted to ICU management on 10/06/16 where he decompensated requiring intubation and pressor support. Hospital day #3 1. Acute hemorrhagic shock, present on admission, ongoing. - Patient with increased intraabdominal pressure and CT evidence of bleeding into the abdomen. Septic shock less likely at this time as patient has negative cultures and has been afebrile. No evidence of cardiogenic shock per echocardiogram report. - Pressor support still required with norepinephrine. Goal MAP >65. - IV fluids ongoing on hold this AM. Approximately 20 liters of fluid resuscitation given up to this point (positive 17 liters overall). - Dr. Menendez consulted for antibiotic management in the event that sepsis played a role in his shock. Continue Zosyn at this time (day 3). - Treat underlying hemorrhage as below in #3. - Albumin 200 mg IV Q12H given for oncotic intravascular repletion - plan to continue this at this time. 2. Acute hypoxemic respiratory failure, present on admission, ongoing. - Patient intubated and sedated in the ICU on 10/06/16. - Using propofol and fentanyl for sedation at this time, continue to titrate down as tolerated by the patient. Too critical at this time to consider sedation vacation. - Dr. Spring consulted and we appreciate his assistance with ventilator management. - ABG to be done every AM and PRN for vent management. 3. Acute blood loss anemia and thrombocytopenia, present on admission, ongoing. - Continuing to monitor H&H/CBC closely. No specific source of bleeding has been identified at this time. - Patient has received 7 units PRBCs and 1 unit of platelets so far this admission. - Dr. Pritchard and Dr. Leal (general surgery), Dr. Alvarado (urology) and Dr. Inman (interventional radiology) have all been consulted and we appreciate their input. - Continue to have 2 units PRBC's held in case of need for further transfusions. 4. Acute kidney injury, present on admission, ongoing. - Creatinine likely elevated secondary to hypoperfusion of kidney from the hemorrhagic shock process as well as increased intra-abdominal pressure that is ongoing. - Patient receiving IV fluids as above in #1. - Dr. Pepe from nephrology consulted and we appreciated her input. - Continue to monitor BMP. 5. Elevated troponin, acute, present on admission, ongoing. - Troponin 0.1. - Could be considered an effect of demand ischemia. - Will continue to treat underlying shock process as above in #1. 6. Acute hypokalemia, present on admission, improved. - Continue to monitor BMP and replete as needed. 7. Possible upper GI bleed, acute, ongoing. - Positive guaiac of stomach contents with ongoing coffee ground emesis. - Continue OG suction set to intermittent suction. - Monitor stools for bright red blood. - Continue PPI drip. - Low threshold for GI consultation and endoscopy. 8. Obstructive sleep apnea, chronic, presume stable. - Patient intubated in the ICU at this time. 9. History of pulmonary fibrosis, chronic, presume stable. - Patient intubated in the ICU at this time. 10. Coronary artery disease, chronic, presume stable. - Patient takes simvastatin and aspirin at home. Medication on hold at this time. Will re-order when patient more stable. 11. Systolic congestive heart failure, chronic, presume stable. - EF during this admission 50-55%. Will continue to monitor with limited echo as needed during admission. - Likely not in CHF at baseline based on these results. - Antacid available PRN. - Antiemetic available PRN. - Tylenol available PRN mild pain or fever. Disposition: Patient currently in critical care with guarded but improving prognosis. Requiring mechanical ventilation, pressor support and transfusion of blood products however blood loss is stabilized and pressor support is currently being titrated down. Anticipate discharge many days away if patient able to recover. GI Prophylaxis: Proton Pump Inhibitor VTE Prophylaxis: SCDs Resuscitation Status: CPR: Attempt Resuscitation Attending Statement The patient was seen and examined together with Dr. Culver on 10/08/2016 and I agree with the history, exam and plan as outlined in the note above. . Nighat Culver DO Oct 08, 2016 07:59 Omar Otoole MD Oct 09, 2016 09:46 VTE Prophylaxis: SCDs VTE Mechanical Devices: Intermittant Pneumatic CD Resuscitation Status: CPR: Attempt Resuscitation Nighat Culver DO Oct 08, 2016 07:59
[2016-10-08] MEDS: Piperacillin-Tazo 3.375 Gm Inj 3.375 GM in Dextrose 5% Minibag Plus 50 ML IV SCH ×2 (08:30→21:04)
[2016-10-08] MEDS: Sodium Chloride LOK Flush 10 mL Syringe IVFLUSH SCH ×3 (08:35→23:27)
--- NOTE | 2016-10-08 08:51 | DRSVH ---
PROCEDURE: X-RAY CHEST ONE VIEW, PORTABLE ([id number]) INDICATIONS: ARDS, shock TECHNIQUE: One view of the chest was acquired. COMPARISON: [facility], CR, XR CHEST 1VW (PORTABLE), 10/06/2016, 11:16. FINDINGS: This is a markedly limited study due to patient body habitus and positioning. Surgical changes and devices: Single lead cardiac defibrillator, central line, and endotracheal tube are unchanged. Lungs and pleura: Lung volumes are low. There is likely bibasilar atelectasis or consolidation. Pleur al effusions cannot be excluded. Patchy opacities are also present in the right midlung, unchanged. Mediastinum: Mediastinum is poorly characterized. Bones and chest wall: No suspicious bony lesions. Overlying soft tissues appear unremarkable. IMPRESSION: Limited study. Stable chest. Dictated by: Dilcia Jaimes M.D. on 10/08/2016 at 8:48 Approved by: Dilcia Jaimes M.D. on 10/08/2016 at 8:49
[2016-10-08] MEDS: fentaNYL 2,500 mCg/250 mL 2,500 MCG in IV Premix 1 EACH IV SCH ×2 (09:18→21:13)
--- NOTE | 2016-10-08 11:01 | PCM.PNSURG ---
Subjective Date of Service: Oct 08, 2016 Visit Information: Hemorrhage from his right kidney following lithotripsy 10/05/16 Post-Op Day # 3 Date of Admission: Oct 06, 2016 at 03:26 Hospital Day # 3 Subjective: Improving hemodynamics but getting transfused for low Hb Objective Vital Sign- Last 8 Hours Date Time Temp Pulse Resp B/P Pulse Ox O2 Delivery O2 Flow Rate FiO2 10/08/16 07:32 69 128/73 97 50 10/08/16 07:17 37.0 71 18 119/63 97 Mechanical Ventilator 50 10/08/16 07:05 37.0 71 18 119/63 10/08/16 04:45 36.9 67 19 90/48 10/08/16 04:22 65 108/59 97 50 10/08/16 04:00 37.4 66 22 108/59 97 Mechanical Ventilator 50 Intake and Output- Last 8 Hour 10/08/16 Cumulative From/Thru 07:00 10/05/16 21:52 - 10/08/16 06:22 Intake Total 1992 ml 64922 ml Output Total 750 ml 3140 ml Balance 1242 ml 54987 ml Intake Oral 0 ml IV Total 1992 ml 87442 ml Packed Cells 947 ml Platelets 250 ml Tube Irrigant 20 ml Output Urine Total 550 ml 2440 ml Gastric Drainage Total 200 ml 700 ml # Bowel Movements 0 Abdomen: Distended Result Diagram: 10/08/16 0305 10/08/16 0305 Assessment & Plan Impression Continues to be critically ill but stable Problems: Plan No plans for surgical intervention Continue critical care per ICU team Will continue to follow along with urology Alonso Leal MD Oct 08, 2016 11:01
--- NOTE | 2016-10-08 13:08 | PCM.PNNEPH ---
Subjective Date of Service Oct 08, 2016 Subjective remains in the critical condition, hemodynamics more stable today. on levophed 0.05 mcg/kg/min. Intake 4032 ml, urine output 1140 ml. Hb 7.4, now being transfused with PRBCs. Serum creatinine trended, 1.9. Exam Vital Signs Vital Sign - Last Date Time Temp Pulse Resp B/P Pulse Ox O2 Delivery O2 Flow Rate FiO2 10/08/16 11:06 60 139/77 98 50 10/08/16 07:17 37.0 18 Mechanical Ventilator 10/06/16 04:41 4.00 Intake and Output 10/07/16 10/07/16 10/08/16 Cumulative From/Thru 15:00 23:00 07:00 10/05/16 21:52 - 10/08/16 06:22 Intake Total 2380 ml 1992 ml 76466 ml Output Total 600 ml 750 ml 3140 ml Balance 1780 ml 1242 ml 79346 ml Intake Oral 0 ml IV Total 2360 ml 1992 ml 26316 ml Packed Cells 947 ml Platelets 250 ml Tube Irrigant 20 ml 20 ml Output Urine Total 600 ml 550 ml 2440 ml Gastric Drainage Total 0 ml 200 ml 700 ml # Bowel Movements 0 0 Exam GA: intubated, sedated HEENT: Atraumatic. Moist mucous membranes. Intubated, sedated. Mild pallor. No jaundice. No JVD. No lymphadenopathy. No thyroid enlargement. Heart: Regular rhythm. Normal S1, S2. No murmurs, rubs, or gallops. Lungs: Equal breath sounds bilaterally. Occasional rhonchi noted Abdomen: Tense, decreased bowel sounds.severe distension. Extremity: 1+ edema on the lower extremity. : Paredes catheter in place with cloudy yellowish urine. Lab and Diagnostics Result Diagram: 10/08/16 0305 10/08/16 0305 X-Rays, CTs and MRIs PROCEDURE: X-RAY CHEST ONE VIEW, PORTABLE IMPRESSION: Endotracheal tube with the tip projecting approximately 3 cm above the belen. Right internal jugular central venous catheter with the tip projecting at the lower SVC. No pneumothorax Dictated by: Nael Blackwood M.D. on 10/06/2016 at 11:49 PROCEDURE: CT KUB IMPRESSION: 1. Extensive right subcapsular and perinephric hemorrhage as described above. There is associated small to moderate amount of hemoperitoneum within the right anterior pararenal space, paracolic gutter, and perihepatic location. 2. Right nephrolithiasis. 3. Aortoiliac aneurysms, status post aortoiliac stent-graft placement, as described above. 4. Cholelithiasis. 5. Concordant with preliminary interpretation. Dictated by: Viridiana Inman M.D. on 10/06/2016 at 7:57 Cardiac Echo Impressions Echocardiogram Report Interpretation Summary The left ventricle is normal in size. There is moderate concentric left ventricular hypertrophy. Left ventricular systolic function is low normal. The ejection fraction is estimated to be 50-55%. There is a mild dyssynchronous contraction pattern due to the paced rhythm. There is a pacemaker lead in the right ventricle. Inspiratory collapse cannot be assessed because of mechanical ventilation, thus CVP cannot be estimated.. There is no prior echocardiogram noted for this patient. No other echocardiographic abnormalities seen. The etiology for the patients shock is not apparent. The echo is not consistant with cardiogenic shock. Reading Physician:12:44 PM Additional Diagnostics PROCEDURE: US ABDOMEN, LIMITED IMPRESSION: 1. Complex fluid collection around the right kidney as was seen on prior CT scan as above and no definite source of bleeding is identified sonographically. 2. Trace intra-abdominal fluid within the lower quadrants as well as the left upper outer quadrant. Dictated by: Woodrow Loya RR Interpreted: Rosalie Schmitz MD on 10/06/2016 at 14:04 Transcribed by: NATALIA on 10/06/2016 at 14:06 Plan Impression 1. Acute kidney injury secondary to prerenal azotemia from hypotension and poor renal perfusion from increased intra-abdominal pressure. 2. Hemorrhagic shock. 3. Status post elective lithotripsy complicated by right subcapsular and perinephric hemorrhage and retroperitoneal hemorrhage s/p embolization. 4. Metabolic acidosis secondary to poor tissue perfusion, lactic acidosis. improving, 1.5 5. Acute hypoxemic respiratory failure. 6. Hypernatremia Na 146 with hyperchloremia 114, likely due to NaCl infusion. PLAN: Supportive treatment per renal. BOWLING TEACHER not indicated. rec to switch NS to 1/2 NS 100 ml/hr. Keep MAP over 65 mmHg. monitor bladder pressure. Daily BMP. Manuel Mcintyre MD Oct 08, 2016 13:07
--- NOTE | 2016-10-08 15:01 | PROG NOTE ---
[address] [address] PROGRESS NOTE PATIENT: GAL CARRANZA : 1930 MR#: [id number] ADMIT: 10/06/2016 JOB ID: [id number] DATE: 10/08/2016 PULMONARY CRITICAL CARE FOLLOWUP NOTE: PROBLEM LIST: 1. Right renal hematoma, status post extracorporeal shock wave lithotripsy. 2. Ischemic heart disease. 3. Ischemic heart disease. 4. Obstructive sleep apnea. 5. Chronic renal failure. 6. Hypotension. 7. Status post pacemaker placement. SUBJECTIVE: None. OBJECTIVE: Temperature 37 with a T-max 37.4, pulse 65-71, respiratory rate 18 with ventilator set at 18. Blood pressure 128/73, O2 sat on FiO2 of 50%, PEEP of 7, is 97%. I and O shows 4 L in, 1.2 L out. OBJECTIVE: Sedated on ventilator. Chest: Fairly good breath sounds bilaterally. Maybe slightly diminished. Bronchial quality breath sounds at the left lower lung field. With tidal volume of 550, PEEP of 7, peak inspiratory pressure 37, plateau 27. PEEP is set at 7, measured at 8. Heart: Somewhat irregular. At times, he is almost completely paced. Other times has a few of his own beats, though for the most part, he is in a paced rhythm. Abdomen somewhat distended. Quiet. Intra-abdominal pressure measured at 14. Extremities: Warm. No pretibial edema. SCD in place. LABORATORY DATA: Shows a white count of 9900, down from 12,400 yesterday. Seventy-five polymorphonuclears, 12 lymphs, 10 monocytes. Hemoglobin 7.4. Patient is scheduled to receive 2 units packed RBCs. Platelet count 69,000. Sodium 146, potassium 3.6, chloride 114, CO2 is 17, BUN 29 and stable. Creatinine 1.9, slightly up from apparent baseline of about 1.5. Calcium is 7.1 with albumin of 2.7. Phosphorus 2.7 and normal magnesium 1.9 and normal total bilirubin 3.7 and rising, presumably due to the enclosed renal bleeding. AST normal at 35. ALT normal at 27, alk phos normal at 39. Coags from yesterday show an INR of 1.3. Fibrinogen slightly low at 153, limits of normal being 157. D-dimer elevated at 5.3. May be slow, ongoing DIC. Sputum Gram stain shows few polys. No organisms seen. Chest x-ray shows no particular change in the bibasilar opacifications. Arterial blood gases on FiO2 of 0.5, PEEP of 7, tidal volume of 550, rate of 20, shows a pO2 93, pCO2 of 30, pH 7.38. Vent rate has been dropped from 20 to 18 based on those blood gases. ASSESSMENT: 1. Right renal bleed. Hemoglobin a little bit lower but not egregiously so. Receiving 2 units packed cells. It would be nice to have the blood pressure a little lower to help dampen the bleeding, but with his severe peripheral vascular disease, we may want to keep the blood pressures where they are, pending a more rigorous bleed. 2. Hypoxemia. Likely due to the events of the last few days. Receiving considerable amounts of fluid, likely slipping into the lung. Bibasilar opacification on chest x-ray may be due to fluid, may be related in some regard to the renal bleed on. The intra-abdominal pressure is a bit high but not terribly so. 3. Chronic renal failure. A little bit worse. Will need to watch carefully. May need a little bit of diuretic. Will depend on how his creatinine goes over the next day or so. Would be another reason not to let his blood pressure drift down, to help staunch the bleeding, unless it becomes egregiously so. PLAN: 1. Continue pressors to maintain current blood pressure readings. 2. Reassess situation after 2nd unit of blood. 3. May need some free water in the near future. 4. Can discontinue albumin. Outline situation for family. Time spent so far in critical care is 45 minutes.
[2016-10-08 21:17] LABS: Magnesium 1.9 mg/dL (1.6-2.6)
[2016-10-08] MEDS: Norepineph 8,000 mCg/250 mL NS 8,000 MCG in IV Premix 1 EACH IV SCH (21:19)
[2016-10-09] VITALS (12 sets, daily range): BP systolic 101–120; BP diastolic 51–64; PULSE 62–69; RESP 18; O2SAT 98–100
[2016-10-09] MEDS: Propofol Inj 1,000,000 MCG in IV Premix 1 EACH IV SCH ×3 (04:01→19:26)
[2016-10-09 04:12] LABS: BASOPHILS % (AUTO) 0.1 % (0-3); EOSINOPHILS % (AUTO) 2.2 % (0-5); MONOCYTES % (AUTO) 9.1 % (4-12); Mean Corpuscular Volume 94.2 fL (81-100); NEUTROPHILS % (AUTO) 76.5 % (40-74); Platelet Count 64 bil/L (150-400)
--- NOTE | 2016-10-09 04:14 | ABG ---
DateTimeAnalyzed 04:11:00 -_ pH ____7.375 - 7.350 7.450 pCO2 ___31.4__ -mmHg 35.0 45.0 pO2 ___87.6__ -mmHg 69.0 116 HCO3- ___17.9__ -mmol/L 22.0 26.0 ABE ___-6.0__ -mmol/L -2.0 2.0 tHb ____9.5__ -g/dL O2Hb ___95.1__ -% COHb ____1.7__ -% MetHb ____0.8__ -% sO2 ___97.5__ -% 25.0 FIO2 ___50.0__ -% PRVC 18 - PEEP ____7.0__ -cmH2O Set_RR ___18.0__ -b/min Vt __550.0__ -L Drawn By MM - Date/Time Notified____ 04:14:00 -_ Spontaneous_RR ___18.0__ -b/min Oxygen Device 1 VENTILATOR - Notified By MM - Notified Whom RN - B 759 -mmHg tO2 ___12.8__ -Vol% Robson test N/A -
[2016-10-09 04:29] LABS: INR 1.18 ratio
[2016-10-09 04:34] LABS: Magnesium 1.9 mg/dL (1.6-2.6); Phosphorus 2.8 mg/dL (2.5-4.9)
[2016-10-09] MEDS: Pantoprazole Inj 80 MG in 0.9% Sodium Chloride 80 ML IV SCH ×2 (06:29→16:22)
--- NOTE | 2016-10-09 08:15 | DRSVH ---
PROCEDURE: X-RAY CHEST ONE VIEW, PORTABLE ([id number]) INDICATIONS: ICU intubated pt; monitoring tubes and lines TECHNIQUE: One view of the chest was acquired. COMPARISON: [facility], CR, XR CHEST 1VW (PORTABLE), 10/08/2016, 4:14. FINDINGS: Surgical changes and devices: Stable positioning of the ETT, right IJ CVL and left chest AICD. Lungs and pleura: Lung volumes are low and pulmonary edema suspected. Mid/basilar airspace opacities and small pleural effusions. Mediastinum: Mediastinal contours appear normal. Heart size is normal. Bones and chest wall: No suspicious bony lesions. Overlying soft tissues appear unremarkable. IMPRESSION: 1. Pulmonary edema and/or diffuse bilateral pneumonia. 2. Small effusions. Dictated by: Woodrow Loya RR Interpreted: Earline Clark MD on 10/09/2016 at 8:14 Transcribed by: SKYLER on 10/09/2016 at 8:15 Approved by: Earlnie Clark M.D. on 10/09/2016 at 16:45
[2016-10-09] MEDS: Sodium Chloride LOK Flush 10 mL Syringe IVFLUSH SCH ×2 (08:30→15:57)
--- NOTE | 2016-10-09 08:36 | PROG NOTE ---
[address] [address] PROGRESS NOTE PATIENT: GAL CARRANZA : 1930 MR#: [id number] ADMIT: 10/06/2016 JOB ID: [id number] DATE: 10/09/2016 REASON FOR FOLLOWUP: Hemorrhagic shock following lithotripsy. INTERVAL HISTORY: This is a patient we originally saw on October 06, with question about a possible infection contributing to his shock in a patient with obvious hemorrhagic complications of lithotripsy. Over the weekend, he has remained critically ill in the ICU, requiring vasopressor agents, large amounts of IV fluids and transfusions. Ongoing efforts to evaluate his bleeding and to stem the flow is being conducted by IR as well as Surgery. The patient remains heavily sedated, intubated, and requiring vasopressors in the ICU. Obviously, no additional history is available from the patient. We did discuss the case with the ICU team. PHYSICAL EXAMINATION: Reveals a consistently afebrile gentleman. Temp now 36.6, pulse 65, respiratory rate is ventilator dependent. Blood pressure 108/54, but that is on vasopressor agents. He has no skin rash and appears actually quite pale. Oral endotracheal tube, oral gastric tube in good position. IVs and lines without evidence of inflammation or infection. Lungs: Coarse breath sounds at the bases bilaterally. Cardiac tones without murmur. The abdomen is quite distended and does have bowel sounds which is a change from Sunday. The scrotum is grossly swollen. A Paredes catheter is present. There is no evidence of scrotal cellulitis or skin breakdown. The patient has anasarca which is generalized and very impressive bilaterally, and is worse since Sunday. No skin rash per se is noted, however. LABORATORIES: Include a white count consistently normal over the past two days. It was elevated earlier in his hospital stay. Now 8500 with basically normal diff. Platelets are low at 64,000. Creatinine 1.52, slightly better than before. Bilirubin 5.7. Other LFTs normal. Procalcitonin consistently around 0.3, and stable. Urinalysis without white cells. Blood cultures are negative. Sputum with just a few polys, some normal keisha. MRSA screen is strangely still pending after two days, and will be investigated. Chest x-ray was reviewed on the view screen and compared to prior films. It shows low lung volumes with crowding and atelectasis, perhaps, but difficult to interpret and not much changed over the past couple of days. IMPRESSION: At this point, I see no evidence for infection in this unfortunate gentleman with hemorrhagic complications following his lithotripsy. Given the absence of any reason to think the patient is infected, I think our best bet now is to stop antibiotics and observe. This patient is extremely ill, however, and will likely remain in the intensive care unit for quite some time, and will therefore be at very high risk for complications such as line infection, nosocomial pneumonia, Clostridium diff and the multiple other complications of a prolonged intensive care unit stay. RECOMMENDATIONS: 1. ID will go ahead and sign off at this point. 2. Will discontinue his Zosyn as I see no indication to continue. 3. ID will signing off, but will continue to round in the ICU on an ongoing basis, and please let us know if things change and you would like us to become reinvolved in this case.
--- NOTE | 2016-10-09 09:36 | DRSVH ---
PROCEDURE: 1. Selective right renal arteriography. 2. Superselective, 2nd order arteriography of a right inferior pole renal arterial branch. 3. Superselective embolization of a 2nd order arterial branch of a right inferior pole renal artery b ranch. 4. Right groin closure device. INDICATIONS: Right renal hemorrhage. COMPARISON: [facility], CT, CT KUB, 10/06/2016, 18:40. TECHNIQUE: Informed, written consent from the patient's family was obtained prior to the procedure. T he risks and benefits of the procedure were discussed in detail, including the risk of renal failure requiring dialysis, inability to locate bleeding source, nontarget embolization, and . Patient w as brought to the angiography suite, and conscious sedation was administered intravenously by [facility] staff, while continuous cardiorespiratory monitoring was performed. Maximal sterile barrier technique, hand hygiene, skin preparation, and sterile ultrasound technique (if ultrasound was utiliz ed) was followed. A mask, sterile gown, sterile gloves, a large sterile sheet, hand hygiene, and 2% c hlorhexidine or iodine was utilized for skin antisepsis. The bilateral groins were prepped and draped sterilely, and the skin and subcutaneous tissues overlying the right common femoral artery were infu sed with lidocaine. The right common femoral artery was accessed retrograde with a micropuncture set. A 6 Latvian 25 cm long sheath was advanced over a Glidewire into the inferior abdominal aorta. This s lucille was exchanged for a braided, 55 cm long 6 Latvian sheath secondary to vascular tortuosity and sh eath kinking. A 6 Latvian C2 guide catheter was used to select the dominant, superior right renal tyshawn ry, and was injected for selective renal arteriography. Multiple catheters were used in an attempt to select the nondominant right renal artery, which supplies the inferior pole the right kidney. This w as eventually successfully accomplished with a 5 Latvian C2 catheter, which was used to selectively in ject the right inferior pole renal artery branch. Subsequently, a 3 Latvian progreat catheter was used to select the 2nd order inferior pole branch of the nondominant, accessory right renal artery, and w as then injected for superselective right inferior pole renal arteriography. Multiple 018 coils were then deployed into this vessel, as well as a small amount of Gelfoam slurry, until stasis was achieve d, as documented by superselective hand injection arteriography. Subsequently, the sheath was removed , and the common femoral artery was closed with a Starclose device. FLUOROSCOPY TIME: 20.7 minutes FINDINGS: The superior pole renal artery and its branches appear normally. Injection of the nondomin ant inferior pole renal artery demonstrates abnormal vasculature involving the 2nd order/inferior blaine e vessel, which demonstrates 2 abnormal regions of dilatation, suspicious for pseudoaneurysm formatio n. Following embolization of this vessel, there is static flow. No active bleeding/contrast extravasa tion was encountered during examination. IMPRESSION: 1. No active bleeding during the examination. 2. Likely bleeding source within the inferior pole of the right kidney was superselectively embolized until stasis was achieved. Dictated by: Viridiana Inman M.D. on 10/09/2016 at 9:25 Approved by: Viridiana Inman M.D. on 10/09/2016 at 9:35
--- NOTE | 2016-10-09 10:21 | PCM.PNMED ---
Subjective Date of Service Oct 09, 2016 Subjective Toby Burger is an 86-year-old male with extensive cardiovascular history, new onset pain following same-day lithotripsy, radiographically proven subcapsular and perinephric retroperitoneal hemorrhage, and shock. He was admitted to ICU management on 10/06/16 where he decompensated requiring intubation and pressor support. Hospital day #4. Overnight: There were no acute events. Telemetry overnight: V-paced with underlying atrial fibrillation, heart rate 60 to 70's, with frequent PVC's. Subjective exam and review of systems unavailable as patient is intubated and sedated. . Exam Vital Signs Vital Sign - Last Date Time Temp Pulse Resp B/P Pulse Ox O2 Delivery O2 Flow Rate FiO2 10/09/16 08:30 36.6 69 18 108/58 100 Mechanical Ventilator 50 10/06/16 04:41 4.00 Intake and Output 10/08/16 10/08/16 10/09/16 Cumulative From/Thru 15:00 23:00 07:00 10/05/16 21:52 - 10/09/16 06:30 Intake Total 766 ml 681 ml 1340 ml 78183 ml Output Total 1200 ml 1010 ml 5350 ml Balance 766 ml -519 ml 330 ml 23019 ml Intake Oral 0 ml 0 ml IV Total 125 ml 671 ml 1340 ml 17840 ml Packed Cells 641 ml 1588 ml Platelets 250 ml Tube Irrigant 10 ml 30 ml Output Urine Total 600 ml 950 ml 3990 ml Gastric Drainage Total 600 ml 60 ml 1360 ml # Bowel Movements 0 0 0 Exam General: Elderly gentleman lying in bed and in no acute distress, intubated and sedated. HEENT: Normocephalic, atraumatic. External ears without defect. Hearing aids in place. Pupils equal, round, and reactive to light. Icteric sclerae, moist conjunctivae, and no lid lag. Endotracheal and oropharyngeal tube in place. Neck: Supple. No lymphadenopathy or thyromegaly. Cardiovascular: Irregular rhythm without murmurs, rubs, or gallops appreciated Pulmonary: Bronchial breath sounds bilaterally in anterior lung navarro without wheeze or crackles. Abdomen: Firm and moderately distended, bowel sounds not appreciated. Extremities: Anasarca. Skin: Normal temperature, turgor, and texture; no rash, ulcers, or subcutaneous nodules appreciated. Ventilator settings: PRVC. Tidal volume 550. Respiratory rate 18. FiO2 50%. PEEP 7.0. ABG: PH 7.375. PCO2 31.4. PO2 87.6. HCO3 17.9. IV drips and Sedatives: Fentanyl 75 g/hr and propofol 15 g/kg/min. IV lines: Right IJ I&O: Net [id number]. . IVs and Medications Medications Reviewed: Medications were reviewed in detail Lab and Diagnostics Item Value Date Time Calcium Level 7.6 mg/dL L 10/09/16399 Phosphorus Level 2.8 mg/dL 10/09/16399 Magnesium Level 1.9 mg/dL 10/09/16399 Total Bilirubin 5.7 mg/dL H 10/09/16399 Aspartate Amino Transf (AST/SGOT) 45 U/L 10/09/16399 Alanine Aminotransferase (ALT/SGPT) 29 U/L 10/09/16399 Alkaline Phosphatase 48 U/L 10/09/16399 Total Protein 5.2 g/dL L 10/09/160 Albumin 2.7 g/dL L 10/09/16399 Result Diagram: 10/09/1639910/09/16399 Microbiology Urine culture shows no growth to date. Blood cultures 2 show no growth after 2 days. MRSA screen negative. Sputum grew scant normal keisha. . X-Rays, CTs and MRIs X-RAY CHEST ONE VIEW, PORTABLE IMPRESSION: 1. Pulmonary edema and/or diffuse bilateral pneumonia. 2. Small effusions. Dictated by: Woodrow Loya RRA Interpreted: Earline Clark MD on 10/09/2016 at 8: 14 CT KUB IMPRESSION: 1. Large right renal subcapsular hematoma similar in extent to the study dated . Heterogeneous, delayed nephrogram suggests markedly decreased right renal blood flow and function. 2. Large retroperitoneal hematoma which appears slightly increased on the left. It is unclear whether this is truly increased hematoma or simple redistribution of a large hematoma previously visualized within the right retroperitoneal space. 3. New bibasilar consolidation and pleural effusions suspicious for early pneumonia. 4. Small amount of hepatosplenic ascites increased when compared with the prior study. This may be due to vigorous fluid resuscitation. Dictated by: Dilcia Jaimes M.D. on 10/06/2016 at 18:59 US ABDOMEN, LIMITED IMPRESSION: 1. Complex fluid collection around the right kidney as was seen on prior CT scan as above and no definite source of bleeding is identified sonographically. 2. Trace intra-abdominal fluid within the lower quadrants as well as the left upper outer quadrant. Dictated by: Woodrow Loya RRA Interpreted: Rosalie Schmitz MD on 10/06/2016 at 14:04 Transcribed by: NATALIA on 10/06/2016 at 14:06 X-RAY CHEST ONE VIEW, PORTABLE IMPRESSION: Endotracheal tube with the tip projecting approximately 3 cm above the belen. Right internal jugular central venous catheter with the tip projecting at the lower SVC. No pneumothorax Dictated by: Nael Blackwood M.D. on 10/06/2016 at 11:49 CT KUB IMPRESSION: 1. Extensive right subcapsular and perinephric hemorrhage as described above. There is associated small to moderate amount of hemoperitoneum within the right anterior pararenal space, paracolic gutter, and perihepatic location. 2. Right nephrolithiasis. 3. Aortoiliac aneurysms, status post aortoiliac stent-graft placement, as described above. 4. Cholelithiasis. 5. Concordant with preliminary interpretation. Dictated by: Viridiana Inman M.D. on 10/06/2016 at 7:57 . Cardiac Echo Impressions Echocardiogram Interpretation Summary: The left ventricle is normal in size. There is moderate concentric left ventricular hypertrophy. Left ventricular systolic function is low normal. The ejection fraction is estimated to be 50-55%. There is a mild dyssynchronous contraction pattern due to the paced rhythm. There is a pacemaker lead in the right ventricle. Inspiratory collapse cannot be assessed because of mechanical ventilation, thus CVP cannot be estimated. There is no prior echocardiogram noted for this patient. No other echocardiographic abnormalities seen. The etiology for the patients shock is not apparent. The echo is not consistent with cardiogenic shock. Reading Physician:12:44 PM . Additional Diagnostics PROCEDURE: 1. Selective right renal arteriography. 2. Superselective, 2nd order arteriography of a right inferior pole renal arterial branch. 3. Superselective embolization of a 2nd order arterial branch of a right inferior pole renal artery branch. 4. Right groin closure device. FINDINGS: The superior pole renal artery and its branches appear normally. Injection of the nondominant inferior pole renal artery demonstrates abnormal vasculature involving the 2nd order/inferior pole vessel, which demonstrates 2 abnormal regions of dilatation, suspicious for pseudoaneurysm formation. Following embolization of this vessel, there is static flow. No active bleeding/ contrast extravasation was encountered during examination. IMPRESSION: 1. No active bleeding during the examination. 2. Likely bleeding source within the inferior pole of the right kidney was superselectively embolized until stasis was achieved. Dictated by: Viridiana Inman M.D. on 10/09/2016 at 9:25 Approved by: Viridiana Inman M.D. on 10/09/2016 at 9:35 . Assessment & Plan Toby Burger is an 86-year-old male with extensive cardiovascular history, new onset pain following same-day lithotripsy, radiographically proven subcapsular and perinephric retroperitoneal hemorrhage, and shock. He was admitted to ICU management on 10/06/16 where he decompensated requiring intubation and pressor support. Hospital day #4. 1. Acute hemorrhagic shock, secondary to subcapsular and perinephric retroperitoneal hemorrhage, present on admission. Resolving. - CT evidence of right subcapsular and perinephric hemorrhage, as above. Septic shock less likely at this time as patient has negative cultures and has been afebrile. No evidence of cardiogenic shock per echocardiogram report. - Elevated intra-abdominal pressure initially 22. Continues to be elevated at 13. - Hemoglobin and hematocrit are stable. Patient is status post 7 units PRBC's. - Continue vasopressor support with norepinephrine. Goal MAP >65. - IV fluids with 0.45% NS at 100 mL/hr per nephrology. Approximately +17L net positive overall. Consider discontinuing pending nephrology recommendations. - Infectious disease, Dr. Menendez, was consulted for antibiotic management as it was thought that sepsis may possibly been contributing to shock. Discontinued Zosyn per ID. - Treat underlying hemorrhage as below in #2. 2. Acute subcapsular and perinephric retroperitoneal hemorrhage, status post embolization, present on admission. Resolving. - Patient is status post 7 units PRBC's and 21 L IV fluids. 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 - Monitor hemoglobin and hematocrit daily. 3. ARDS, present on admission. Active. - Continue ventilator settings as above. - Patient intubated and sedated in the ICU on 10/06/16. - Continue propofol and fentanyl for sedation, as above. Consider sedation vacation and SBT. - Monitor ABG daily for vent management. - Consider diuresing today pending nephrology recommendations. 4. Acute blood loss anemia, present on admission. Resolving. - Secondary to subcapsular and perinephric retroperitoneal hemorrhage and possible acute upper GI bleed. - Continuing to monitor hemoglobin and hematocrit daily. - Patient has received 7 units PRBC's and 1 unit of platelets so far this admission. - Dr. Pritchard and Dr. Leal (General Surgery), Dr. Alvarado (Urology) and Dr. Inman (Interventional Radiology) have all been consulted and we appreciate their input. - Continue to have 2 units PRBC's held in case of need for further transfusions. 5. Acute kidney injury, present on admission, ongoing. - Creatinine likely elevated secondary to hypoperfusion of kidney from the hemorrhagic shock process, as well as, increased intra-abdominal pressure that is ongoing. - Patient receiving IV fluids as above in #1. Consider discontinuing pending nephrology recommendations. - Nephrology, Dr. Ppee, consulted. We appreciate their input and care of the patient. - Continue to monitor BMP. 6. Possible acute upper GI bleed, present on admission. Active - Positive guaiac of stomach contents with ongoing coffee ground emesis. - Continue OG suction set to intermittent suction. - Monitor stools for bright red blood. - Continue PPI drip. - Low threshold for GI consultation and endoscopy. 7. Elevated troponin, acute, present on admission. Ongoing. - Troponin 0.1. - Likely secondary to demand ischemia. EKG shows no acute ischemic changes, however, V-paced. No changes compared to prior EKG's. - Will continue to treat underlying shock process as above in #1. 8. Acute hypokalemia, present on admission. Resolved. - Continue to monitor BMP and replete as needed. 9. Acute on chronic thrombocytopenia, present on admission. Stable. - Status post 1 unit of platelets. - Continue to monitor platelet count daily. Chronic problems with management per primary team: 10. History of systolic congestive heart failure, chronic, presume stable. - EF during this admission 50-55%. Will continue to monitor with limited echo as needed during admission. - Likely not in CHF at baseline based on these results. 11. Obstructive sleep apnea, chronic. Presumed stable. - Patient intubated in the ICU at this time. 12. History of pulmonary fibrosis, chronic. Presumed stable. - Patient intubated in the ICU at this time. 13. Coronary artery disease, chronic. Presumed stable. - Patient takes simvastatin and aspirin at home which is being held. Will re- start statin when patient is stable. PRN antiemetics: Zofran and Maalox. PRN bowel regimen: Senna and MiraLAX. PRN analgesics: Tylenol. Disposition: Patient currently in critical care with guarded but improving prognosis. Requiring mechanical ventilation, pressor support and transfusion of blood products however blood loss is stabilized and pressor support is currently being titrated down. Anticipate discharge many days away if patient able to recover. . GI Prophylaxis: Proton Pump Inhibitor VTE Mechanical Devices: Intermittant Pneumatic CD Resuscitation Status: CPR: Attempt Resuscitation Attending Statement The patient was seen and examined together with Dr. Zuleta on 10/09/2016 and I agree with the history, exam and plan as outlined in the note above. Irma Zuleta DO Oct 09, 2016 10:21 Robni Spring MD Oct 11, 2016 11:16
[2016-10-09] MEDS ORDERED: Furosemide 10 mg/mL 10 mL Inj IVPUSH ONE (11:30)
[2016-10-09] MEDS ORDERED: DEXTROSE 5% IVPUSH ONE (11:40)
[2016-10-09] MEDS ORDERED: FUROSEMIDE IVPUSH ONE (11:40)
--- NOTE | 2016-10-09 13:33 | PCM.PNNEPH ---
Subjective Date of Service Oct 09, 2016 Subjective Patient was seen in the intensive care unit today.. He remains ventilatory dependent and sedated. His current vent settings are 50% with +7 of PEEP. His is 20 and his intra-abdominal pressure is improved to 13 mmHg. His intake and output from yesterday was 3439 in and 1950 out. His urine output. This morning his chart he had been over 1000 and urine output. Supporting his lab shows a hemoglobin 9.143, calcium 4.0 chloride of 113 bicarbonate 17, BUN and creatinine 24 and 1.5 Respectively. Exam Vital Signs Vital Sign - Last Date Time Temp Pulse Resp B/P Pulse Ox O2 Delivery O2 Flow Rate FiO2 10/09/16 12:30 36.7 64 18 120/64 100 Mechanical Ventilator 50 10/06/16 04:41 4.00 Intake and Output 10/08/16 10/08/16 10/09/16 Cumulative From/Thru 15:00 23:00 07:00 10/05/16 21:52 - 10/09/16 06:30 Intake Total 766 ml 681 ml 1340 ml 23740 ml Output Total 1200 ml 1010 ml 5350 ml Balance 766 ml -519 ml 330 ml 80843 ml Intake Oral 0 ml 0 ml IV Total 125 ml 671 ml 1340 ml 88983 ml Packed Cells 641 ml 1588 ml Platelets 250 ml Tube Irrigant 10 ml 30 ml Output Urine Total 600 ml 950 ml 3990 ml Gastric Drainage Total 600 ml 60 ml 1360 ml # Bowel Movements 0 0 0 Exam Patient is sedated and on a ventilator. His sclera are mildly pale. Neck is supple without adenopathy or thyromegaly. His numerous medical devices was difficult to assess his venous distention. Lungs showed some scattered rales. Heart was distant but heart sounds were regular. Abdomen is distended with diminished bowel sounds. There is evidence of free fluid noted. There is evidence of a pattern for reflux and is pulsatile. Otherwise it was no tenderness or rebound guarding masses or hepatosplenomegaly. Extremities showed some mild generalized edema. Lab and Diagnostics Result Diagram: 10/09/16 0400 10/09/16 0400 Microbiology Urine culture shows no growth to date. Blood cultures 2 show no growth after 2 days. MRSA screen negative. Sputum grew scant normal keisha. . X-Rays, CTs and MRIs X-RAY CHEST ONE VIEW, PORTABLE IMPRESSION: 1. Pulmonary edema and/or diffuse bilateral pneumonia. 2. Small effusions. Dictated by: Woodrow LUNA Interpreted: Earline Clark MD on 10/09/2016 at 8: 14 CT KUB IMPRESSION: 1. Large right renal subcapsular hematoma similar in extent to the study dated . Heterogeneous, delayed nephrogram suggests markedly decreased right renal blood flow and function. 2. Large retroperitoneal hematoma which appears slightly increased on the left. It is unclear whether this is truly increased hematoma or simple redistribution of a large hematoma previously visualized within the right retroperitoneal space. 3. New bibasilar consolidation and pleural effusions suspicious for early pneumonia. 4. Small amount of hepatosplenic ascites increased when compared with the prior study. This may be due to vigorous fluid resuscitation. Dictated by: Dilcia Jaimes M.D. on 10/06/2016 at 18:59 US ABDOMEN, LIMITED IMPRESSION: 1. Complex fluid collection around the right kidney as was seen on prior CT scan as above and no definite source of bleeding is identified sonographically. 2. Trace intra-abdominal fluid within the lower quadrants as well as the left upper outer quadrant. Dictated by: Woodrow LUNA Interpreted: Rosalie Schmitz MD on 10/06/2016 at 14:04 Transcribed by: NATALIA on 10/06/2016 at 14:06 X-RAY CHEST ONE VIEW, PORTABLE IMPRESSION: Endotracheal tube with the tip projecting approximately 3 cm above the belen. Right internal jugular central venous catheter with the tip projecting at the lower SVC. No pneumothorax Dictated by: Nael Blackwood M.D. on 10/06/2016 at 11:49 CT KUB IMPRESSION: 1. Extensive right subcapsular and perinephric hemorrhage as described above. There is associated small to moderate amount of hemoperitoneum within the right anterior pararenal space, paracolic gutter, and perihepatic location. 2. Right nephrolithiasis. 3. Aortoiliac aneurysms, status post aortoiliac stent-graft placement, as described above. 4. Cholelithiasis. 5. Concordant with preliminary interpretation. Dictated by: Viridiana Inman M.D. on 10/06/2016 at 7:57 . Cardiac Echo Impressions Echocardiogram Interpretation Summary: The left ventricle is normal in size. There is moderate concentric left ventricular hypertrophy. Left ventricular systolic function is low normal. The ejection fraction is estimated to be 50-55%. There is a mild dyssynchronous contraction pattern due to the paced rhythm. There is a pacemaker lead in the right ventricle. Inspiratory collapse cannot be assessed because of mechanical ventilation, thus CVP cannot be estimated. There is no prior echocardiogram noted for this patient. No other echocardiographic abnormalities seen. The etiology for the patients shock is not apparent. The echo is not consistent with cardiogenic shock. Reading Physician:12:44 PM . Additional Diagnostics PROCEDURE: 1. Selective right renal arteriography. 2. Superselective, 2nd order arteriography of a right inferior pole renal arterial branch. 3. Superselective embolization of a 2nd order arterial branch of a right inferior pole renal artery branch. 4. Right groin closure device. FINDINGS: The superior pole renal artery and its branches appear normally. Injection of the nondominant inferior pole renal artery demonstrates abnormal vasculature involving the 2nd order/inferior pole vessel, which demonstrates 2 abnormal regions of dilatation, suspicious for pseudoaneurysm formation. Following embolization of this vessel, there is static flow. No active bleeding/ contrast extravasation was encountered during examination. IMPRESSION: 1. No active bleeding during the examination. 2. Likely bleeding source within the inferior pole of the right kidney was superselectively embolized until stasis was achieved. Dictated by: Viridiana Inman M.D. on 10/09/2016 at 9:25 Approved by: Viridiana Inman M.D. on 10/09/2016 at 9:35 . Plan Impression Impression #1 acute tubular necrosis which appears to be resolving #2 metabolic acidosis secondary to #1 #3 renal lithiasis #4 hypotension Recommendations #1 I would like to give him an 80 mg dose of IV furosemide for a half hour and see how he responds to this. Based on his response will rewrite his IV diuretic orders. Plan The patient will continue hyperbaric treatments. Will return () for treatment #() Baltazar Mckay DO Oct 09, 2016 13:32
--- NOTE | 2016-10-09 14:08 | PROG NOTE ---
[address] [address] PROGRESS NOTE PATIENT: GAL CARRANZA : 1930 MR#: [id number] ADMIT: 10/06/2016 JOB ID: [id number] DATE: 10/09/2016 SUBJECTIVE: He is status post otherwise uncomplicated right extracorporeal shock wave lithotripsy on October 05, 2016, for intermittent nagging right renal colic and multiple left renal pelvic calculi. I was out of office and town from October 06 through 07 this day. I spoke by telephone with Dr. Gal Alvarado. I appreciate his input and consultation upon the patient's admission. I have reviewed consultations and notes by Dr. Pritchard, Dr. Pepe, Dr. Menendez, and Dr. Spring, she as well as a procedural note and efforts by Dr. Viridiana Inman. OBJECTIVE: Afebrile. Vital signs are stable. LABORATORIES: Were reviewed this day. Creatinine has decreased to 1.52. Hematocrit 27.7, with a normal white count of 8.5. He remains sedated and intubated and I cannot obtain further history. Abdomen is distended and firm. No tenderness elicited. IMPRESSION: Right subcapsular and perinephric hematoma, status post otherwise uncomplicated right lithotripsy, October 05, 2016. PLAN: I will continue to follow along with the ICU team and monitor his recovery process. I currently have no specific further recommendations other than supportive measures, and transfusion as may be indicated.
--- NOTE | 2016-10-09 20:16 | PCM.PNMED ---
Subjective Date of Service Oct 09, 2016 Subjective overnight: no acute events otherwise norepi gtt at 0.02mcg/kg/min with MAPS in the 70s. propofol gtt at 15mcg/kg/min, fentanyl gtt at 75mcg/hr, ventilator at FiO2 .5 with RR at 18-20 and O2sats in 98-100% Patient continues with coffee ground output, and protonix gtt at 10ml/hr today: Patient remains stable. ICU team able to titrate off pressor support with norepi off. He continues to have coffee ground OG output. ID will discontinue all antibiotics today. Patient will continue to have sedation vacations to assess neurologic and respiratory status. Exam Vital Signs Vital Sign - Last Date Time Temp Pulse Resp B/P Pulse Ox O2 Delivery O2 Flow Rate FiO2 10/09/16 04:04 65 108/51 100 50 10/09/16 00:05 36.9 18 Mechanical Ventilator 10/06/16 04:41 4.00 Intake and Output 10/08/16 10/08/16 10/09/16 Cumulative From/Thru 15:00 23:00 07:00 10/05/16 21:52 - 10/08/16 19:00 Intake Total 766 ml 681 ml 49254 ml Output Total 1200 ml 4340 ml Balance 766 ml -519 ml 58667 ml Intake Oral 0 ml IV Total 125 ml 671 ml 68742 ml Packed Cells 641 ml 1588 ml Platelets 250 ml Tube Irrigant 10 ml 30 ml Output Urine Total 600 ml 3040 ml Gastric Drainage Total 600 ml 1300 ml # Bowel Movements 0 0 Exam General: Patient intubated and sedated in the ICU Eyes: Pupils equal round and reactive to light, anicteric sclera, noninjected conjunctiva HENT: Head traumatic, normocephalic, intubated and sedated, external ears without defect, nares are patent without drainage or blood Neck: Trachea midline, Right IJ, short and wide neck, no JVD appreciated, no lymphadenopathy CV: Regular rate and rhythm, distant heart tones with no appreciable murmur rubs or gallops Respiratory: Coarse breath sounds at the bases but otherwise clear anteriorly Abdomen: distended, hypo-active bowel tones, tympanic to percussion, no organomegaly appreciated Extremities: 1+ pitting edema present to the level of the tibia; no cyanosis or clubbing present, paced Skin: Warm and dry no petechiae, no rash noted, no bruising of the abdomen : Paredes in place Neuro: Unable to assess given intubation sedation Psych: Unable to assess given intubation and sedation Lab and Diagnostics Result Diagram: 10/09/1639910/09/16399 X-Rays, CTs and MRIs PROCEDURE: X-RAY CHEST ONE VIEW, PORTABLE IMPRESSION: Endotracheal tube with the tip projecting approximately 3 cm above the belen. Right internal jugular central venous catheter with the tip projecting at the lower SVC. No pneumothorax Dictated by: Nael Blackwood M.D. on 10/06/2016 at 11:49 PROCEDURE: CT KUB IMPRESSION: 1. Extensive right subcapsular and perinephric hemorrhage as described above. There is associated small to moderate amount of hemoperitoneum within the right anterior pararenal space, paracolic gutter, and perihepatic location. 2. Right nephrolithiasis. 3. Aortoiliac aneurysms, status post aortoiliac stent-graft placement, as described above. 4. Cholelithiasis. 5. Concordant with preliminary interpretation. Dictated by: Viridiana Inman M.D. on 10/06/2016 at 7:57 Cardiac Echo Impressions Echocardiogram Report Interpretation Summary The left ventricle is normal in size. There is moderate concentric left ventricular hypertrophy. Left ventricular systolic function is low normal. The ejection fraction is estimated to be 50-55%. There is a mild dyssynchronous contraction pattern due to the paced rhythm. There is a pacemaker lead in the right ventricle. Inspiratory collapse cannot be assessed because of mechanical ventilation, thus CVP cannot be estimated.. There is no prior echocardiogram noted for this patient. No other echocardiographic abnormalities seen. The etiology for the patients shock is not apparent. The echo is not consistant with cardiogenic shock. Reading Physician:12:44 PM Additional Diagnostics PROCEDURE: US ABDOMEN, LIMITED IMPRESSION: 1. Complex fluid collection around the right kidney as was seen on prior CT scan as above and no definite source of bleeding is identified sonographically. 2. Trace intra-abdominal fluid within the lower quadrants as well as the left upper outer quadrant. Dictated by: Woodrow LUNA Interpreted: Rosalie Schmitz MD on 10/06/2016 at 14:04 Transcribed by: NATALIA on 10/06/2016 at 14:06 Assessment & Plan Patient is an 86-year-old male with extensive cardiovascular history, new onset pain following same-day lithotripsy, radiographically proven intra-abdominal blood, and shock. He was admitted to ICU management on 10/06/16 where he decompensated requiring intubation and pressor support. Hospital day #4 1. Acute hemorrhagic shock, present on admission, ongoing. - Patient with increased intraabdominal pressure and CT evidence of bleeding into the abdomen. Septic shock less likely at this time as patient has negative cultures and has been afebrile. No evidence of cardiogenic shock per echocardiogram report. - Pressor support with norepinephrine titrated off 10/09 continue with Goal MAP > 65. - IV fluids ongoing on hold this AM. Approximately 20 liters of fluid resuscitation given up to this point (positive 17 liters overall). - Dr. Menendez consulted for antibiotic management in the event that sepsis played a role in his shock. discontinue Zosyn at this time 10/09. - Treat underlying hemorrhage as below in #3. - Albumin 200 mg IV Q12H given for oncotic intravascular repletion - plan to continue this at this time. 2. Acute hypoxemic respiratory failure, present on admission, ongoing. - Patient intubated and sedated in the ICU on 10/06/16. - Using propofol and fentanyl for sedation at this time, continue to titrate down as tolerated by the patient. Too critical at this time to consider sedation vacation. - Dr. Spring consulted and we appreciate his assistance with ventilator management. - ABG to be done every AM and PRN for vent management. 3. Acute blood loss anemia and thrombocytopenia, present on admission, ongoing. - Continuing to monitor H&H/CBC closely. No specific source of bleeding has been identified at this time. - Patient has received 7 units PRBCs and 1 unit of platelets so far this admission. - Dr. Pritchard and Dr. Leal (general surgery), Dr. Alvarado (urology) and Dr. Inman (interventional radiology) have all been consulted and we appreciate their input. - Continue to have 2 units PRBC's held in case of need for further transfusions. 4. Acute kidney injury, present on admission, ongoing. - possible acute tubular necrosis - Creatinine likely elevated secondary to hypoperfusion of kidney from the hemorrhagic shock process as well as increased intra-abdominal pressure that is ongoing. - Patient receiving IV fluids as above in #1. - nephrology consulted and we appreciated her input. - nephrology to trial 80mg of Lasix given fluid status and will re-evaluate after response documented - Continue to monitor BMP. 5. Elevated troponin, acute, present on admission, ongoing. - Troponin 0.1. - Could be considered an effect of demand ischemia. - Will continue to treat underlying shock process as above in #1. 6. Acute hypokalemia, present on admission, improved. - Continue to monitor BMP and replete as needed. 7. Possible upper GI bleed, acute, ongoing. - Positive guaiac of stomach contents with ongoing coffee ground emesis. - Continue OG suction set to intermittent suction. - Monitor stools for bright red blood. - Continue PPI drip. - Low threshold for GI consultation and endoscopy. 8. Obstructive sleep apnea, chronic, presume stable. - Patient intubated in the ICU at this time. 9. History of pulmonary fibrosis, chronic, presume stable. - Patient intubated in the ICU at this time. 10. Coronary artery disease, chronic, presume stable. - Patient takes simvastatin and aspirin at home. Medication on hold at this time. Will re-order when patient more stable. 11. Systolic congestive heart failure, chronic, presume stable. - EF during this admission 50-55%. Will continue to monitor with limited echo as needed during admission. - Likely not in CHF at baseline based on these results. - Antacid available PRN. - Antiemetic available PRN. - Tylenol available PRN mild pain or fever. Disposition: Patient currently in critical care with guarded but improving prognosis. Requiring mechanical ventilation, pressor support and transfusion of blood products however blood loss is stabilized and pressor support is currently being titrated down. Anticipate discharge many days away if patient able to recover. Pain Evaluation: Adequate Pain Control GI Prophylaxis: Proton Pump Inhibitor VTE Mechanical Devices: Intermittant Pneumatic CD Resuscitation Status: CPR: Attempt Resuscitation Attending Statement The patient was seen and examined together with Dr. Carter on 10-09-16 and I agree with the history, exam and plan as outlined in the note above. Peyman Carter DO Oct 09, 2016 06:42 Hardik Durant MD Oct 10, 2016 16:12
[2016-10-09] MEDS: Furosemide 10 mg/mL 10 mL Inj IVPUSH SCH (20:43)
[2016-10-09] MEDS: fentaNYL 2,500 mCg/250 mL 2,500 MCG in IV Premix 1 EACH IV SCH (20:48)
--- NOTE | 2016-10-09 21:15 | PROG NOTE ---
[address] [address] PROGRESS NOTE PATIENT: GAL CARRANZA : 1930 MR#: [id number] ADMIT: 10/06/2016 JOB ID: [id number] DATE: 10/09/2016 The patient is seen in the intensive care unit. He remains intubated. He is doing considerably better than he did the last time I saw him, which was on Sunday. He has had selective embolization of right inferior renal artery. His creatinine has improved. His urine output is excellent. He put out 950 overnight. EXAMINATION: He is intubate. Vital signs were all stable. Abdomen is soft, but distended. IMPRESSION: He remains critically ill, but there appears to be no reason that he would need to go to the operating room. I explained to the patient's that most of the time the kidney recovers, but perhaps with embolization of the inferior renal artery, it may not. He should ultimately recover unless some other complication occurs. General surgery will sign off. Please contact us if you need us for further services.
[2016-10-09 21:54] LABS: Magnesium 1.8 mg/dL (1.6-2.6)
[2016-10-10] VITALS (13 sets, daily range): BP systolic 100–121; BP diastolic 52–69; PULSE 60–68; RESP 18; O2SAT 97–100
[2016-10-10] MEDS: Chlorhexidine 0.12% 15 mL Oral Solution MT PRN ×2 (00:18→20:35)
[2016-10-10] MEDS: Sodium Chloride LOK Flush 10 mL Syringe IVFLUSH SCH ×4 (00:18→20:36)
[2016-10-10] MEDS: Pantoprazole Inj 80 MG in 0.9% Sodium Chloride 80 ML IV SCH (01:19)
[2016-10-10] MEDS: Propofol Inj 1,000,000 MCG in IV Premix 1 EACH IV SCH ×3 (03:56→18:03)
[2016-10-10 05:23] LABS: BASOPHILS % (AUTO) 0.1 % (0-3); EOSINOPHILS % (AUTO) 3.5 % (0-5); MONOCYTES % (AUTO) 8.7 % (4-12); Mean Corpuscular Hemoglobin 31.8 pg (27.0-35.0); Mean Corpuscular Volume 95.3 fL (81-100); NEUTROPHILS % (AUTO) 76.7 % (40-74); Platelet Count 66 bil/L (150-400)
--- NOTE | 2016-10-10 05:34 | ABG ---
DateTimeAnalyzed 05:28:00 -_ pH ____7.444 - 7.350 7.450 pCO2 ___29.1__ -mmHg 35.0 45.0 pO2 123 -mmHg 69.0 116 HCO3- ___19.7__ -mmol/L 22.0 26.0 ABE ___-3.2__ -mmol/L -2.0 2.0 tHb ____9.8__ -g/dL O2Hb ___96.5__ -% COHb ____1.7__ -% MetHb ____0.9__ -% sO2 ___99.1__ -% 25.0 FIO2 ___50.0__ -% PRVC 18 - PEEP ____7.0__ -cmH2O Set_RR ___18.0__ -b/min Vt __550.0__ -L Drawn By MM - Date/Time Notified____ 05:33:00 -_ Spontaneous_RR ___18.0__ -b/min Oxygen Device 1 VENTILATOR - Notified By MM - Notified Whom RM, RN - B 752 -mmHg tO2 ___13.5__ -Vol% Robson test N/A -
[2016-10-10] MEDS ORDERED: KCl 40 mEq/100 mL Premix (K 3 - 3.7 & Creat < 2) IV ONE (06:05)
[2016-10-10] MEDS: Norepineph 8,000 mCg/250 mL NS 8,000 MCG in IV Premix 1 EACH IV SCH ×2 (07:10→23:11)
[2016-10-10] MEDS ORDERED: Calcium GLUCO 10% (Gm) Inj 1 GM in 0.9% Sodium Chloride 50 ML IV ONE (07:25)
[2016-10-10] MEDS ORDERED: Magnesium Sulf 2 Gm/50mL Water 2 GM in IV Premix 1 EACH IV ONE (07:30)
[2016-10-10] MEDS: Furosemide 10 mg/mL 10 mL Inj IVPUSH SCH ×2 (08:02→20:35)
--- NOTE | 2016-10-10 08:19 | DRSVH ---
PROCEDURE: X-RAY CHEST ONE VIEW, PORTABLE ([id number]) INDICATIONS: respiratory failure TECHNIQUE: One view of the chest was acquired. COMPARISON: [facility], CR, XR CHEST 1VW (PORTABLE), 10/09/2016, 5:11. FINDINGS: Surgical changes and devices: Stable positioning of the ETT, right IJ CVL and left chest AICD. Lungs and pleura: Lung volumes are low and pulmonary edema suspected. Mid/basilar airspace opacities and small pleural effusions not significantly changed. Mediastinum: Mediastinal contours appear normal. Heart size is normal. Bones and chest wall: No suspicious bony lesions. Overlying soft tissues appear unremarkable. IMPRESSION: 1. No change in pulmonary edema and/or diffuse bilateral pneumonia. 2. Small effusions are demonstrated. Dictated by: Woodrow LUNA Interpreted: Earline Clark MD on 10/10/2016 at 8:18 Transcribed by: SKYLER on 10/10/2016 at 8:19 Approved by: Earline Clark M.D. on 10/10/2016 at 16:32
--- NOTE | 2016-10-10 08:28 | PCM.PNMED ---
Subjective Date of Service Oct 10, 2016 Subjective Toby Burger is an 86-year-old male with extensive cardiovascular history, new onset pain following same-day lithotripsy, radiographically proven subcapsular and perinephric retroperitoneal hemorrhage, and shock. He was admitted to ICU management on 10/06/16 where he decompensated requiring intubation and pressor support. Hospital day #5. Overnight: There were no acute events. Telemetry overnight: V-paced with underlying atrial fibrillation, heart rate 60 to 70's, with occasional PVC's. The patient diuresed well over last 24 hours ~7L. Subjective exam and review of systems unavailable as patient is intubated and sedated. The patient appears comfortable and opens eyes to stimulation. . Exam Vital Signs Vital Sign - Last Date Time Temp Pulse Resp B/P Pulse Ox O2 Delivery O2 Flow Rate FiO2 10/10/16 07:47 63 116/56 100 50 10/10/16 04:00 Ventilator 10/10/16 04:00 36.7 18 10/06/16 04:41 4.00 Intake and Output 10/09/16 10/09/16 10/10/16 Cumulative From/Thru 15:00 23:00 07:00 10/05/16 21:52 - 10/10/16 06:26 Intake Total 929 ml 515 ml 07440 ml Output Total 2400 ml 3550 ml 13247 ml Balance -1471 ml -3035 ml 59361 ml Intake Oral 0 ml IV Total 929 ml 515 ml 49708 ml Packed Cells 1588 ml Platelets 250 ml Tube Irrigant 30 ml Output Urine Total 2400 ml 3500 ml 9890 ml Gastric Drainage Total 50 ml 1410 ml # Bowel Movements 0 0 Exam General: Elderly gentleman lying in bed and in no acute distress, intubated and sedated. HEENT: Normocephalic, atraumatic. External ears without defect. Hearing aids in place. Pupils equal, round, and reactive to light. Icteric sclerae, moist conjunctivae, and no lid lag. Endotracheal and oropharyngeal tube in place. Neck: Supple. No lymphadenopathy or thyromegaly. Cardiovascular: Irregular rhythm without murmurs, rubs, or gallops appreciated Pulmonary: Bronchial breath sounds bilaterally in anterior lung navarro slightly improved. No wheeze or crackles. Abdomen: Firm and moderately distended, bowel sounds not appreciated. Genitourinary: Paredes catheter in place. Extremities: Anasarca improving. Skin: Normal temperature, turgor, and texture; no rash, ulcers, or subcutaneous nodules appreciated. Neurologic: Opens eyes to stimulation but does not follow commands. Ventilator settings: PRVC. Tidal volume 550. Respiratory rate 18. FiO2 50%. PEEP 7.0. Peak 29. Plateau of 25. ABG: PH 7.44. PCO2 29.1. PO2 123. HCO3 19.7. On PRVC with FiO2 50% and SPO2 of 99.1%. IV drips and Sedatives: Fentanyl 75 g/hr and propofol 15 g/kg/min. Norepinephrine off. IV lines: Right IJ I&O: Net + [id number]. IVs and Medications Medications Reviewed: Medications were reviewed in detail Lab and Diagnostics Item Value Date Time Calcium Level 7.7 mg/dL L 10/10/16 0440 Total Bilirubin 7.0 mg/dL H 10/10/16 0440 Aspartate Amino Transf (AST/SGOT) 66 U/L H 10/10/16 0440 Alanine Aminotransferase (ALT/SGPT) 38 U/L 10/10/16 0440 Alkaline Phosphatase 59 U/L 10/10/16 0440 Total Protein 5.3 g/dL L 10/10/16 0440 Albumin 2.7 g/dL L 10/10/16 0440 Prealbumin 10 mg/dL L 10/10/16 0440 Result Diagram: 10/10/16 0440 10/10/16 044 Microbiology Urine culture shows no growth to date. Blood cultures 2 show no growth after 2 days. MRSA screen negative. Sputum grew scant normal keisha. . X-Rays, CTs and MRIs X-RAY CHEST ONE VIEW, PORTABLE IMPRESSION: 1. Pulmonary edema and/or diffuse bilateral pneumonia. 2. Small effusions. Dictated by: Woodrow Loya RRA Interpreted: Earline Clark MD on 10/09/2016 at 8: 14 CT KUB IMPRESSION: 1. Large right renal subcapsular hematoma similar in extent to the study dated . Heterogeneous, delayed nephrogram suggests markedly decreased right renal blood flow and function. 2. Large retroperitoneal hematoma which appears slightly increased on the left. It is unclear whether this is truly increased hematoma or simple redistribution of a large hematoma previously visualized within the right retroperitoneal space. 3. New bibasilar consolidation and pleural effusions suspicious for early pneumonia. 4. Small amount of hepatosplenic ascites increased when compared with the prior study. This may be due to vigorous fluid resuscitation. Dictated by: Dilcia Jaimes M.D. on 10/06/2016 at 18:59 US ABDOMEN, LIMITED IMPRESSION: 1. Complex fluid collection around the right kidney as was seen on prior CT scan as above and no definite source of bleeding is identified sonographically. 2. Trace intra-abdominal fluid within the lower quadrants as well as the left upper outer quadrant. Dictated by: Woodrow Loya RR Interpreted: Rosalie Schmitz MD on 10/06/2016 at 14:04 Transcribed by: NATALIA on 10/06/2016 at 14:06 X-RAY CHEST ONE VIEW, PORTABLE IMPRESSION: Endotracheal tube with the tip projecting approximately 3 cm above the belen. Right internal jugular central venous catheter with the tip projecting at the lower SVC. No pneumothorax Dictated by: Nael Blackwood M.D. on 10/06/2016 at 11:49 CT KUB IMPRESSION: 1. Extensive right subcapsular and perinephric hemorrhage as described above. There is associated small to moderate amount of hemoperitoneum within the right anterior pararenal space, paracolic gutter, and perihepatic location. 2. Right nephrolithiasis. 3. Aortoiliac aneurysms, status post aortoiliac stent-graft placement, as described above. 4. Cholelithiasis. 5. Concordant with preliminary interpretation. Dictated by: Viridiana Inman M.D. on 10/06/2016 at 7:57 . Cardiac Echo Impressions Echocardiogram Interpretation Summary: The left ventricle is normal in size. There is moderate concentric left ventricular hypertrophy. Left ventricular systolic function is low normal. The ejection fraction is estimated to be 50-55%. There is a mild dyssynchronous contraction pattern due to the paced rhythm. There is a pacemaker lead in the right ventricle. Inspiratory collapse cannot be assessed because of mechanical ventilation, thus CVP cannot be estimated. There is no prior echocardiogram noted for this patient. No other echocardiographic abnormalities seen. The etiology for the patients shock is not apparent. The echo is not consistent with cardiogenic shock. Reading Physician:12:44 PM . Additional Diagnostics PROCEDURE: 1. Selective right renal arteriography. 2. Superselective, 2nd order arteriography of a right inferior pole renal arterial branch. 3. Superselective embolization of a 2nd order arterial branch of a right inferior pole renal artery branch. 4. Right groin closure device. FINDINGS: The superior pole renal artery and its branches appear normally. Injection of the nondominant inferior pole renal artery demonstrates abnormal vasculature involving the 2nd order/inferior pole vessel, which demonstrates 2 abnormal regions of dilatation, suspicious for pseudoaneurysm formation. Following embolization of this vessel, there is static flow. No active bleeding/ contrast extravasation was encountered during examination. IMPRESSION: 1. No active bleeding during the examination. 2. Likely bleeding source within the inferior pole of the right kidney was superselectively embolized until stasis was achieved. Dictated by: Viridiana Inman M.D. on 10/09/2016 at 9:25 Approved by: Viridiana Inman M.D. on 10/09/2016 at 9:35 . Assessment & Plan Toby Burger is an 86-year-old male with extensive cardiovascular history, new onset pain following same-day lithotripsy, radiographically proven subcapsular and perinephric retroperitoneal hemorrhage, and shock. He was admitted to ICU management on 10/06/16 where he decompensated requiring intubation and pressor support. Hospital day #5. 1. Acute hemorrhagic shock, secondary to subcapsular and perinephric retroperitoneal hemorrhage, present on admission. Resolved. - CT evidence of right subcapsular and perinephric hemorrhage, as above. Septic shock less likely at this time as patient has negative cultures and has been afebrile. No evidence of cardiogenic shock per echocardiogram report. - Elevated intra-abdominal pressure initially 22. Continues to be elevated at 18. - Hemoglobin and hematocrit are stable. Patient is status post 7 units PRBC's. - Norepinephrine remains off. - Off IV fluids. Approximately +13L net positive overall. Continue diuresing with Lasix 60 mg BID x 3 doses per nephrology recommendations. - Infectious disease, Dr. Menendez, was consulted for antibiotic management as it was thought that sepsis may possibly been contributing to shock. Discontinued Zosyn per ID. - Treat underlying hemorrhage as below in #2. 2. Acute subcapsular and perinephric retroperitoneal hemorrhage, status post embolization, present on admission. Resolving. - Patient is status post 7 units PRBC's and 21 L IV fluids. 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 - Monitor hemoglobin and hematocrit daily. 3. ARDS, present on admission. Active. - Continue ventilator settings as above. - Monitor ABG daily for vent management. - CXR shows mildly improved pulmonary edema. - Continue propofol and fentanyl for sedation, as above. Start sedation vacation and daily SBT. - The patient diuresed well over last 24 hours ~7L. Continue diuresing with Lasix 60 mg BID x 3 doses per nephrology recommendations. 4. Acute blood loss anemia, present on admission. Resolving. - Secondary to subcapsular and perinephric retroperitoneal hemorrhage and possible acute upper GI bleed. - Continuing to monitor hemoglobin and hematocrit daily. - Patient has received 7 units PRBC's and 1 unit of platelets so far this admission. - Dr. Pritchard and Dr. Leal (General Surgery), Dr. Alvarado (Urology) and Dr. Inman (Interventional Radiology) have all been consulted and we appreciate their input. - Continue to have 2 units PRBC's held in case of need for further transfusions. 5. Acute kidney injury, present on admission, ongoing. - Creatinine likely elevated secondary to hypoperfusion of kidney from the hemorrhagic shock process, as well as, increased intra-abdominal pressure that is ongoing. - Off IV fluids. Approximately +13L net positive overall. Continue diuresing with Lasix 60 mg BID x 3 doses per nephrology recommendations. - Nephrology, Dr. Pepe, consulted. We appreciate their input and care of the patient. - Continue to monitor BMP. 6. Possible acute upper GI bleed, present on admission. Active - Positive guaiac of stomach contents with ongoing coffee ground emesis. - Continue OG suction set to intermittent suction. - Monitor stools for bright red blood. - Continue PPI drip. - Low threshold for GI consultation and endoscopy. 7. Elevated troponin, acute, present on admission. Ongoing. - Likely secondary to demand ischemia. EKG shows no acute ischemic changes, however, V-paced. No changes compared to prior EKG's. - Troponin maximally elevated at 0.116 and trended down. - Will continue to treat underlying shock process as above in #1. 8. Acute hypokalemia, present on admission. Resolved. - Continue to monitor BMP and replete as needed. 9. Acute on chronic thrombocytopenia, present on admission. Stable. - Status post 1 unit of platelets. - Continue to monitor platelet count daily. 10. Hyperbilirubinemia, not present on admission. Active. - Secondary to reabsorption of right subcapsular and perinephric hematoma. - Continue to monitor bilirubin daily. Chronic problems with management per primary team: 11. History of systolic congestive heart failure, chronic, presume stable. - EF during this admission 50-55%. Will continue to monitor with limited echo as needed during admission. - Likely not in CHF at baseline based on these results. 12. Obstructive sleep apnea, chronic. Presumed stable. - Patient intubated in the ICU at this time. 13. History of pulmonary fibrosis, chronic. Presumed stable. - Patient intubated in the ICU at this time. 14. Coronary artery disease, chronic. Presumed stable. - Patient takes simvastatin and aspirin at home which is being held. Will re- start statin when patient is stable. PRN antiemetics: Zofran and Maalox. PRN bowel regimen: Senna and MiraLAX. PRN analgesics: Tylenol. Disposition: Patient currently in critical care with guarded but improving prognosis. Requiring mechanical ventilation, pressor support and transfusion of blood products however blood loss is stabilized and pressor support is currently being titrated down. Anticipate discharge many days away if patient able to recover. . GI Prophylaxis: Proton Pump Inhibitor VTE Mechanical Devices: Intermittant Pneumatic CD Resuscitation Status: CPR: Attempt Resuscitation Attending Statement The patient was seen and examined together with Dr. Zuleta on 10/10/2016 and I agree with the history, exam and plan as outlined in the note above. Irma Zuleta DO Oct 10, 2016 08:28 Robin Spring MD Oct 11, 2016 11:21
[2016-10-10 11:28] LABS: Magnesium 2.1 mg/dL (1.6-2.6)
[2016-10-10] MEDS: Potassium Chloride 20 mEq/15 mL 15mL Oral Soln TUBE SCH ×2 (14:01→20:35)
[2016-10-10] MEDS: Pantoprazole 4 mg/mL 10 mL Inj IVPUSH SCH (16:39)
--- NOTE | 2016-10-10 18:03 | PCM.PNNEPH ---
Subjective Date of Service Oct 10, 2016 Subjective Patient has had prompt improvement in his urine output higher dose diuretics. His intake and output from yesterday was 2269 and 3400 out this morning is artery had 3500 out. She remains ventilatory dependent however his respiratory parameters have improved. His sodium this morning is 145, potassium 3.6, chloride 110, bicarbonate 19, BUN and creatinine were 26 1.46. His albumin is 2.7. Exam Vital Signs Vital Sign - Last Date Time Temp Pulse Resp B/P Pulse Ox O2 Delivery O2 Flow Rate FiO2 10/10/16 16:30 36.8 61 18 112/62 100 Mechanical Ventilator 50 10/06/16 04:41 4.00 Intake and Output 10/09/16 10/09/16 10/10/16 Cumulative From/Thru 14:59 22:59 06:59 10/05/16 21:52 - 10/10/16 06:26 Intake Total 929 ml 515 ml 92804 ml Output Total 2400 ml 3550 ml 07654 ml Balance -1471 ml -3035 ml 20194 ml Intake Oral 0 ml IV Total 929 ml 515 ml 64930 ml Packed Cells 1588 ml Platelets 250 ml Tube Irrigant 30 ml Output Urine Total 2400 ml 3500 ml 9890 ml Gastric Drainage Total 50 ml 1410 ml # Bowel Movements 0 0 Exam Patient is sedated and on a ventilator. HEENT examination is remarkable for some mild periorbital edema and pale sclera. Lungs a few scattered rhonchi but otherwise there are clear. Heart sounds were quite distant. Appeared to be regular. Abdomen remains distended but less so than yesterday. His pulse ox remained diminished and tympany in his abdomen is less. There is no tenderness rebound guarding or masses noted. Associated some lower extremity edema bilaterally (this is improved. Lab and Diagnostics Result Diagram: 10/10/16 0440 10/10/16 1050 Microbiology Urine culture shows no growth to date. Blood cultures 2 show no growth after 2 days. MRSA screen negative. Sputum grew scant normal keisha. . X-Rays, CTs and MRIs X-RAY CHEST ONE VIEW, PORTABLE IMPRESSION: 1. Pulmonary edema and/or diffuse bilateral pneumonia. 2. Small effusions. Dictated by: Woodrow Loya RRA Interpreted: Earline Clark MD on 10/09/2016 at 8: 14 CT KUB IMPRESSION: 1. Large right renal subcapsular hematoma similar in extent to the study dated . Heterogeneous, delayed nephrogram suggests markedly decreased right renal blood flow and function. 2. Large retroperitoneal hematoma which appears slightly increased on the left. It is unclear whether this is truly increased hematoma or simple redistribution of a large hematoma previously visualized within the right retroperitoneal space. 3. New bibasilar consolidation and pleural effusions suspicious for early pneumonia. 4. Small amount of hepatosplenic ascites increased when compared with the prior study. This may be due to vigorous fluid resuscitation. Dictated by: Dilcia Jaimes M.D. on 10/06/2016 at 18:59 US ABDOMEN, LIMITED IMPRESSION: 1. Complex fluid collection around the right kidney as was seen on prior CT scan as above and no definite source of bleeding is identified sonographically. 2. Trace intra-abdominal fluid within the lower quadrants as well as the left upper outer quadrant. Dictated by: Woodrow Loya RRA Interpreted: Rosalie Schmitz MD on 10/06/2016 at 14:04 Transcribed by: NTAALIA on 10/06/2016 at 14:06 X-RAY CHEST ONE VIEW, PORTABLE IMPRESSION: Endotracheal tube with the tip projecting approximately 3 cm above the belen. Right internal jugular central venous catheter with the tip projecting at the lower SVC. No pneumothorax Dictated by: Nael Blackwood M.D. on 10/06/2016 at 11:49 CT KUB IMPRESSION: 1. Extensive right subcapsular and perinephric hemorrhage as described above. There is associated small to moderate amount of hemoperitoneum within the right anterior pararenal space, paracolic gutter, and perihepatic location. 2. Right nephrolithiasis. 3. Aortoiliac aneurysms, status post aortoiliac stent-graft placement, as described above. 4. Cholelithiasis. 5. Concordant with preliminary interpretation. Dictated by: Viridiana Inman M.D. on 10/06/2016 at 7:57 . Cardiac Echo Impressions Echocardiogram Interpretation Summary: The left ventricle is normal in size. There is moderate concentric left ventricular hypertrophy. Left ventricular systolic function is low normal. The ejection fraction is estimated to be 50-55%. There is a mild dyssynchronous contraction pattern due to the paced rhythm. There is a pacemaker lead in the right ventricle. Inspiratory collapse cannot be assessed because of mechanical ventilation, thus CVP cannot be estimated. There is no prior echocardiogram noted for this patient. No other echocardiographic abnormalities seen. The etiology for the patients shock is not apparent. The echo is not consistent with cardiogenic shock. Reading Physician:12:44 PM . Additional Diagnostics PROCEDURE: 1. Selective right renal arteriography. 2. Superselective, 2nd order arteriography of a right inferior pole renal arterial branch. 3. Superselective embolization of a 2nd order arterial branch of a right inferior pole renal artery branch. 4. Right groin closure device. FINDINGS: The superior pole renal artery and its branches appear normally. Injection of the nondominant inferior pole renal artery demonstrates abnormal vasculature involving the 2nd order/inferior pole vessel, which demonstrates 2 abnormal regions of dilatation, suspicious for pseudoaneurysm formation. Following embolization of this vessel, there is static flow. No active bleeding/ contrast extravasation was encountered during examination. IMPRESSION: 1. No active bleeding during the examination. 2. Likely bleeding source within the inferior pole of the right kidney was superselectively embolized until stasis was achieved. Dictated by: Viridiana Inman M.D. on 10/09/2016 at 9:25 Approved by: Viridiana Inman M.D. on 10/09/2016 at 9:35 . Plan Impression Impression #1 acute tubular necrosis secondary to hemorrhage. #2 renal lithiasis #3 metabolic acidosis number for hypotension which is resolved. Recommendations #1 giving his third dose of furosemide and following essentially to see how his renal recovery progresses. Plan The patient will continue hyperbaric treatments. Will return () for treatment #() Baltazar Mckay DO Oct 10, 2016 18:03
--- NOTE | 2016-10-10 20:34 | PCM.PNMED ---
Subjective Date of Service Oct 10, 2016 Subjective overnight: No acute events overnight patient continued on ventilator at 0.5 FiO2 with a respiratory rate approximately 18 and sats in the 98-100%. Patient continued on sedation with propofol and fentanyl, CVP 15 and MAPS greater than 65 Today: Patient had a 20 minute spontaneous breathing trial after which he was restarted on the vent. Continue of sedation vacation holidays. Diuresing excess fluid. Will plan to continue treatment described below. Exam Vital Signs Vital Sign - Last Date Time Temp Pulse Resp B/P Pulse Ox O2 Delivery O2 Flow Rate FiO2 10/10/16 05:12 60 104/52 100 50 10/10/16 04:00 Ventilator 10/10/16 04:00 36.7 18 10/06/16 04:41 4.00 Intake and Output 10/09/16 10/09/16 10/10/16 Cumulative From/Thru 15:00 23:00 07:00 10/05/16 21:52 - 10/10/16 06:26 Intake Total 929 ml 515 ml 30217 ml Output Total 2400 ml 3550 ml 05271 ml Balance -1471 ml -3035 ml 42729 ml Intake Oral 0 ml IV Total 929 ml 515 ml 21225 ml Packed Cells 1588 ml Platelets 250 ml Tube Irrigant 30 ml Output Urine Total 2400 ml 3500 ml 9890 ml Gastric Drainage Total 50 ml 1410 ml # Bowel Movements 0 0 Exam General: Patient intubated and sedated in the ICU Eyes: Pupils equal round and reactive to light, anicteric sclera, noninjected conjunctiva HENT: Head traumatic, normocephalic, intubated and sedated, external ears without defect, nares are patent without drainage or blood Neck: Trachea midline, Right IJ, short and wide neck, no JVD appreciated, no lymphadenopathy CV: Regular rate and rhythm, distant heart tones with no appreciable murmur rubs or gallops Respiratory: Coarse breath sounds at the bases but otherwise clear anteriorly Abdomen: distended, hypo-active bowel tones, tympanic to percussion, no organomegaly appreciated Extremities: 1+ pitting edema present to the level of the tibia; no cyanosis or clubbing present, paced Skin: Warm and dry no petechiae, no rash noted, no bruising of the abdomen : Paredes in place Neuro: Unable to assess given intubation sedation Psych: Unable to assess given intubation and sedation Lab and Diagnostics Result Diagram: 10/10/16 0440 10/10/16 0440 Microbiology Urine culture shows no growth to date. Blood cultures 2 show no growth after 2 days. MRSA screen negative. Sputum grew scant normal keisha. . X-Rays, CTs and MRIs PROCEDURE: X-RAY CHEST ONE VIEW, PORTABLE IMPRESSION: Endotracheal tube with the tip projecting approximately 3 cm above the belen. Right internal jugular central venous catheter with the tip projecting at the lower SVC. No pneumothorax Dictated by: Nael Blackwood M.D. on 10/06/2016 at 11:49 PROCEDURE: CT KUB IMPRESSION: 1. Extensive right subcapsular and perinephric hemorrhage as described above. There is associated small to moderate amount of hemoperitoneum within the right anterior pararenal space, paracolic gutter, and perihepatic location. 2. Right nephrolithiasis. 3. Aortoiliac aneurysms, status post aortoiliac stent-graft placement, as described above. 4. Cholelithiasis. 5. Concordant with preliminary interpretation. Dictated by: Viridiana Inman M.D. on 10/06/2016 at 7:57 Cardiac Echo Impressions Echocardiogram Report Interpretation Summary The left ventricle is normal in size. There is moderate concentric left ventricular hypertrophy. Left ventricular systolic function is low normal. The ejection fraction is estimated to be 50-55%. There is a mild dyssynchronous contraction pattern due to the paced rhythm. There is a pacemaker lead in the right ventricle. Inspiratory collapse cannot be assessed because of mechanical ventilation, thus CVP cannot be estimated.. There is no prior echocardiogram noted for this patient. No other echocardiographic abnormalities seen. The etiology for the patients shock is not apparent. The echo is not consistant with cardiogenic shock. Reading Physician:12:44 PM Additional Diagnostics PROCEDURE: US ABDOMEN, LIMITED IMPRESSION: 1. Complex fluid collection around the right kidney as was seen on prior CT scan as above and no definite source of bleeding is identified sonographically. 2. Trace intra-abdominal fluid within the lower quadrants as well as the left upper outer quadrant. Dictated by: Woodrow LUNA Interpreted: Rosalie Schmitz MD on 10/06/2016 at 14:04 Transcribed by: NATALIA on 10/06/2016 at 14:06 Assessment & Plan Patient is an 86-year-old male with extensive cardiovascular history, new onset pain following same-day lithotripsy, radiographically proven intra-abdominal blood, and shock. He was admitted to ICU management on 10/06/16 where he decompensated requiring intubation and pressor support. Hospital day #5 1. Acute hemorrhagic shock, present on admission, ongoing. - likely secondary to intraabdominal bleeding source post lithotripsy procedure within the inferior pole of the right kidney was superselectively embolized by IR until stasis was achieved. - Patient with increased intraabdominal pressure and CT evidence of bleeding into the abdomen. Septic shock less likely at this time as patient has negative cultures and has been afebrile. No evidence of cardiogenic shock per echocardiogram report. - Pressor support with norepinephrine titrated off 10/09 continue with Goal MAP > 65. - IV fluids ongoing on hold this AM. Approximately 20 liters of fluid resuscitation given up to this point (positive 17 liters overall). - Dr. Menendez consulted for antibiotic management in the event that sepsis played a role in his shock. discontinue Zosyn at this time 10/09. - Treat underlying hemorrhage as below in #3. - Albumin 200 mg IV Q12H given for oncotic intravascular repletion - plan to continue this at this time. - Hemoglobin is remaining stable last 3 days will continue to monitor 2. Acute hypoxemic respiratory failure, present on admission, ongoing. - Patient intubated and sedated in the ICU on 10/06/16. - Using propofol and fentanyl for sedation at this time, continue to titrate down as tolerated by the patient. Too critical at this time to consider sedation vacation. - Dr. Spring consulted and we appreciate his assistance with ventilator management. - ABG to be done every AM and PRN for vent management. - Continue with spontaneous breathing trials per pulmonology recommendations 3. Acute blood loss anemia and thrombocytopenia, present on admission, ongoing. - Continuing to monitor H&H/CBC closely. No specific source of bleeding has been identified at this time. - Patient has received 7 units PRBCs and 1 unit of platelets so far this admission. - Dr. Pritchard and Dr. Leal (general surgery), Dr. Alvarado (urology) and Dr. Inman (interventional radiology) have all been consulted and we appreciate their input. - Continue to have 2 units PRBC's held in case of need for further transfusions. - Continue to monitor 4. Acute kidney injury, present on admission, ongoing. - possible acute tubular necrosis - Creatinine likely elevated secondary to hypoperfusion of kidney from the hemorrhagic shock process as well as increased intra-abdominal pressure that is ongoing. - Patient receiving IV fluids as above in #1. - nephrology consulted and we appreciated her input. - nephrology to continue Lasix given fluid status and will re-evaluate after response documented - Continue to monitor BMP. - Creatinine improving will continue with general diuresis per nephrology recommendations 5. Elevated troponin, acute, present on admission, ongoing. - Troponin 0.1. - Could be considered an effect of demand ischemia. - Will continue to treat underlying shock process as above in #1. 6. Acute hypokalemia, present on admission, improved. - Continue to monitor BMP and replete as needed. 7. Possible upper GI bleed, acute, ongoing. - Positive guaiac of stomach contents with ongoing coffee ground emesis. - Continue OG suction set to intermittent suction. - Monitor stools for bright red blood. - Continue PPI drip. - Low threshold for GI consultation and endoscopy. 8. Obstructive sleep apnea, chronic, presume stable. - Patient intubated in the ICU at this time. 9. History of pulmonary fibrosis, chronic, presume stable. - Patient intubated in the ICU at this time. 10. Coronary artery disease, chronic, presume stable. - Patient takes simvastatin and aspirin at home. Medication on hold at this time. Will re-order when patient more stable. 11. Systolic congestive heart failure, chronic, presume stable. - EF during this admission 50-55%. Will continue to monitor with limited echo as needed during admission. - Likely not in CHF at baseline based on these results. - Antacid available PRN. - Antiemetic available PRN. - Tylenol available PRN mild pain or fever. Disposition: Patient currently in critical care with guarded but improving prognosis. Requiring mechanical ventilation, pressor support and transfusion of blood products however blood loss is stabilized and pressor support is currently being titrated down. Anticipate discharge many days away if patient able to recover. GI Prophylaxis: Proton Pump Inhibitor VTE Mechanical Devices: Intermittant Pneumatic CD Resuscitation Status: CPR: Attempt Resuscitation Attending Statement The patient was seen and examined together with Dr. Carter on 10-10-16 and I agree with the history, exam and plan as outlined in the note above. Patient is on IV fentanyl for sedation, intubated. Peyman Carter DO Oct 10, 2016 06:57 Hardik Durant MD Oct 11, 2016 09:13
[2016-10-11] VITALS (14 sets, daily range): BP systolic 89–124; BP diastolic 46–69; PULSE 60–96; RESP 16–20; O2SAT 92–100
[2016-10-11] MEDS: Propofol Inj 1,000,000 MCG in IV Premix 1 EACH IV SCH ×3 (01:43→15:10)
[2016-10-11 03:47] LABS: BASOPHILS % (AUTO) 0.3 % (0-3); EOSINOPHILS % (AUTO) 4.1 % (0-5); MONOCYTES % (AUTO) 11.8 % (4-12); Mean Corpuscular Hemoglobin 31.8 pg (27.0-35.0); Mean Corpuscular Volume 94.3 fL (81-100); Platelet Count 75 bil/L (150-400)
[2016-10-11 04:09] LABS: INR 1.16 ratio
--- NOTE | 2016-10-11 04:19 | ABG ---
DateTimeAnalyzed 04:15:07 -_ pH ____7.492 - 7.350 7.450 pCO2 ___28.0__ -mmHg 35.0 45.0 pO2 124 -mmHg 70.0 100 HCO3- ___21.4__ -mmol/L 22.0 26.0 ABE ___-1.7__ -mmol/L -2.0 2.0 tHb ___10.2__ -g/dL 12.0 18.0 O2Hb ___97.6__ -% 95.0 COHb ____1.5__ -% 1.5 MetHb ____0.5__ -% 0.4 1.5 sO2 ___99.6__ -% 25.0 FIO2 ___50.0__ -% PRVC 18 - PEEP ____5.0__ -cmH2O Set_RR 18 -b/min Vt __550.0__ -L Drawn By MM - Date/Time Notified____ 04:19:00 -_ Spontaneous_RR 18 -b/min Oxygen Device 1 VENTILATOR - Notified By MM - Notified Whom CAESAR, RN - B 753 -mmHg K+ ____3.8__ -mmol/L tO2 ___14.2__ -Vol% Robson test N/A -
[2016-10-11 04:44] LABS: Phosphorus 3.2 mg/dL (2.5-4.9)
[2016-10-11] MEDS: Pantoprazole 4 mg/mL 10 mL Inj IVPUSH SCH ×2 (08:02→17:37)
[2016-10-11] MEDS: Sodium Chloride LOK Flush 10 mL Syringe IVFLUSH SCH ×3 (08:03→19:57)
[2016-10-11] MEDS: Chlorhexidine 0.12% 15 mL Oral Solution MT PRN ×2 (08:11→15:08)
--- NOTE | 2016-10-11 09:41 | PCM.PNMED ---
Subjective Date of Service Oct 11, 2016 Subjective Toby Burger is an 86-year-old male with extensive cardiovascular history, new onset pain following same-day lithotripsy, radiographically proven subcapsular and perinephric retroperitoneal hemorrhage, and shock. He was admitted to ICU management on 10/06/16 where he decompensated requiring intubation and pressor support. Hospital day #6. Overnight: There were no acute events. Telemetry overnight: AV-paced with underlying atrial fibrillation, heart rate 60 to 80's, without ectopy. The continued to diurese well over last 24 hours ~7L. Subjective exam and review of systems unavailable as patient is intubated and sedated. The patient appears comfortable, opens eyes and minimally follows commands. Patient had an SBT yesterday of 07/03 for 20 minutes and did very well. Patient has not had a bowel movement in several days therefore will be given a one-time dose of Relistor and a scheduled bowel regimen. . Exam Vital Signs Vital Sign - Last Date Time Temp Pulse Resp B/P Pulse Ox O2 Delivery O2 Flow Rate FiO2 10/11/16 07:59 73 112/58 99 40 10/11/16 04:30 36.8 17 Mechanical Ventilator 10/06/16 04:41 4.00 Intake and Output 10/10/16 10/10/16 10/11/16 Cumulative From/Thru 15:00 23:00 07:00 10/05/16 21:52 - 10/11/16 06:07 Intake Total 620 ml 580 ml 75247 ml Output Total 2250 ml 2200 ml 54990 ml Balance -1630 ml -1620 ml 9755 ml Intake Oral 0 ml IV Total 523 ml 333 ml 13927 ml Tube Feeding 57 ml 127 ml 184 ml Packed Cells 1588 ml Platelets 250 ml Tube Irrigant 40 ml 120 ml 190 ml Output Urine Total 2250 ml 2200 ml 22542 ml Gastric Drainage Total 1410 ml # Bowel Movements 0 Exam General: Elderly gentleman lying in bed and in no acute distress, intubated and sedated. HEENT: Normocephalic, atraumatic. External ears without defect. Extremely hard of hearing with hearing aids in place. Pupils equal, round, and reactive to light. Icteric sclerae, moist conjunctivae, and no lid lag. Endotracheal and oropharyngeal tube in place. Neck: Supple. No lymphadenopathy or thyromegaly. Cardiovascular: Irregular rhythm without murmurs, rubs, or gallops appreciated Pulmonary: Bronchial breath sounds bilaterally in anterior lung navarro improved. No wheeze or crackles. Abdomen: Soft and mildly distended, bowel sounds hypoactive. Genitourinary: Paredes catheter in place. Extremities: Anasarca- lower extremities mostly resolved upper extremities improving . Skin: Normal temperature, turgor, and texture; no rash, ulcers, or subcutaneous nodules appreciated. Neurologic: Opens eyes to stimulation and follows commands minimally. Ventilator settings: PRVC. Tidal volume 550. Respiratory rate 15. FiO2 40%. PEEP 5.0. Peak 29. Plateau of 20. ABG: PH 7.492. PCO2 28.0. PO2 124. HCO3 21.4. On PRVC with FiO2 50% and SPO2 of 99.1%. IV drips and Sedatives: Fentanyl 50 g/hr and propofol 15 g/kg/min. Norepinephrine off. IV lines: Right IJ I&O: Net + 9755. . IVs and Medications Medications Reviewed: Medications were reviewed in detail Lab and Diagnostics Item Value Date Time Calcium Level 8.0 mg/dL L 10/11/16 034 Phosphorus Level 3.2 mg/dL 10/11/16 0340 Magnesium Level 2.0 mg/dL 10/11/16 034 Total Bilirubin 8.2 mg/dL H 10/11/16 034 Aspartate Amino Transf (AST/SGOT) 113 U/L H 10/11/16 0340 Alanine Aminotransferase (ALT/SGPT) 58 U/L H 10/11/16 0340 Alkaline Phosphatase 71 U/L 10/11/16 0340 Total Protein 5.6 g/dL L 10/11/16 0340 Albumin 2.7 g/dL L 10/11/16 0340 Triglycerides Level 135 mg/dL 10/11/16 0340 Procalcitonin 0.49 ng/mL H 10/11/16 034 Result Diagram: 10/11/16 03410/11/16339 Microbiology Urine culture shows no growth to date. Blood cultures 2 show no growth after 5 days. MRSA screen negative. Sputum grew scant normal keisha. . X-Rays, CTs and MRIs X-RAY CHEST ONE VIEW, PORTABLE IMPRESSION: 1. Pulmonary edema and/or diffuse bilateral pneumonia. 2. Small effusions. Dictated by: Woodrow LUNA Interpreted: Earline Clark MD on 10/09/2016 at 8: 14 CT KUB IMPRESSION: 1. Large right renal subcapsular hematoma similar in extent to the study dated . Heterogeneous, delayed nephrogram suggests markedly decreased right renal blood flow and function. 2. Large retroperitoneal hematoma which appears slightly increased on the left. It is unclear whether this is truly increased hematoma or simple redistribution of a large hematoma previously visualized within the right retroperitoneal space. 3. New bibasilar consolidation and pleural effusions suspicious for early pneumonia. 4. Small amount of hepatosplenic ascites increased when compared with the prior study. This may be due to vigorous fluid resuscitation. Dictated by: Dilcia Jaimes M.D. on 10/06/2016 at 18:59 US ABDOMEN, LIMITED IMPRESSION: 1. Complex fluid collection around the right kidney as was seen on prior CT scan as above and no definite source of bleeding is identified sonographically. 2. Trace intra-abdominal fluid within the lower quadrants as well as the left upper outer quadrant. Dictated by: Woodrow LUNA Interpreted: Rosalie Schmitz MD on 10/06/2016 at 14:04 Transcribed by: NATALIA on 10/06/2016 at 14:06 X-RAY CHEST ONE VIEW, PORTABLE IMPRESSION: Endotracheal tube with the tip projecting approximately 3 cm above the belen. Right internal jugular central venous catheter with the tip projecting at the lower SVC. No pneumothorax Dictated by: Nael Blackwood M.D. on 10/06/2016 at 11:49 CT KUB IMPRESSION: 1. Extensive right subcapsular and perinephric hemorrhage as described above. There is associated small to moderate amount of hemoperitoneum within the right anterior pararenal space, paracolic gutter, and perihepatic location. 2. Right nephrolithiasis. 3. Aortoiliac aneurysms, status post aortoiliac stent-graft placement, as described above. 4. Cholelithiasis. 5. Concordant with preliminary interpretation. Dictated by: Viridiana Inman M.D. on 10/06/2016 at 7:57 . Cardiac Echo Impressions Echocardiogram Interpretation Summary: The left ventricle is normal in size. There is moderate concentric left ventricular hypertrophy. Left ventricular systolic function is low normal. The ejection fraction is estimated to be 50-55%. There is a mild dyssynchronous contraction pattern due to the paced rhythm. There is a pacemaker lead in the right ventricle. Inspiratory collapse cannot be assessed because of mechanical ventilation, thus CVP cannot be estimated. There is no prior echocardiogram noted for this patient. No other echocardiographic abnormalities seen. The etiology for the patients shock is not apparent. The echo is not consistent with cardiogenic shock. Reading Physician:12:44 PM . Additional Diagnostics PROCEDURE: 1. Selective right renal arteriography. 2. Superselective, 2nd order arteriography of a right inferior pole renal arterial branch. 3. Superselective embolization of a 2nd order arterial branch of a right inferior pole renal artery branch. 4. Right groin closure device. FINDINGS: The superior pole renal artery and its branches appear normally. Injection of the nondominant inferior pole renal artery demonstrates abnormal vasculature involving the 2nd order/inferior pole vessel, which demonstrates 2 abnormal regions of dilatation, suspicious for pseudoaneurysm formation. Following embolization of this vessel, there is static flow. No active bleeding/ contrast extravasation was encountered during examination. IMPRESSION: 1. No active bleeding during the examination. 2. Likely bleeding source within the inferior pole of the right kidney was superselectively embolized until stasis was achieved. Dictated by: Viridiana Inman M.D. on 10/09/2016 at 9:25 Approved by: Viridiana Inman M.D. on 10/09/2016 at 9:35 . Assessment & Plan Toby Burger is an 86-year-old male with extensive cardiovascular history, new onset pain following same-day lithotripsy, radiographically proven subcapsular and perinephric retroperitoneal hemorrhage, and shock. He was admitted to ICU management on 10/06/16 where he decompensated requiring intubation and pressor support. Hospital day #5. 1. Acute hemorrhagic shock, secondary to subcapsular and perinephric retroperitoneal hemorrhage, present on admission. Resolved. - CT evidence of right subcapsular and perinephric hemorrhage, as above. Septic shock less likely at this time as patient has negative cultures and has been afebrile. No evidence of cardiogenic shock per echocardiogram report. - Elevated intra-abdominal pressure initially 22. - Hemoglobin and hematocrit are stable. Patient is status post 7 units PRBC's. - Norepinephrine remains off. - Off IV fluids. Approximately +13L net positive overall. Continue diuresing with Lasix 60 mg BID x 3 doses per nephrology recommendations. - Infectious disease, Dr. Menendez, was consulted for antibiotic management as it was thought that sepsis may possibly been contributing to shock. Discontinued Zosyn per ID. - Treat underlying hemorrhage as below in #2. 2. Acute subcapsular and perinephric retroperitoneal hemorrhage, status post embolization, present on admission. Resolved. - Patient is status post 7 units PRBC's and 21 L IV fluids. 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 - Monitor hemoglobin and hematocrit daily. 3. ARDS, present on admission. Resolving. - Continue ventilator settings as above. - Monitor ABG daily for vent management. - CXR shows mildly improved pulmonary edema. - Continue propofol and fentanyl for sedation, as above. Continue sedation vacations and daily SBT. - The patient continues to diurese well and is net +9.7 L. Patient received Lasix 80 mg IV 1 and Lasix 60 mg IV BID x 3 doses per nephrology recommendations. 4. Acute blood loss anemia, present on admission. Resolving. - Secondary to subcapsular and perinephric retroperitoneal hemorrhage and possible acute upper GI bleed. - Continuing to monitor hemoglobin and hematocrit daily. - Patient has received 7 units PRBC's and 1 unit of platelets so far this admission. - Dr. Pritchard and Dr. Leal (General Surgery), Dr. Alvarado (Urology) and Dr. Inman (Interventional Radiology) have all been consulted and we appreciate their input. - Continue to have 2 units PRBC's held in case of need for further transfusions. 5. Acute kidney injury, present on admission. Resolving. - Creatinine likely elevated secondary to hypoperfusion of kidney from the hemorrhagic shock process, as well as, increased intra-abdominal pressure that is ongoing. - Off IV fluids. Approximately +13L net positive overall. Continue diuresing with Lasix 60 mg BID x 3 doses per nephrology recommendations. - Nephrology, Dr. Pepe, consulted. We appreciate their input and care of the patient. - Continue to monitor BMP. 6. Possible acute upper GI bleed, present on admission. Active. - Positive guaiac of stomach contents with ongoing coffee ground emesis. - Continue OG suction set to intermittent suction. - Monitor stools for bright red blood. - Continue PPI 40 mg IV twice a day. - Low threshold for GI consultation and endoscopy. 7. Elevated troponin, acute, present on admission. Ongoing. - Likely secondary to demand ischemia. EKG shows no acute ischemic changes, however, V-paced. No changes compared to prior EKG's. - Troponin maximally elevated at 0.116 and trended down. - Will continue to treat underlying shock process as above in #1. 8. Acute hypokalemia, present on admission. Resolved. - Continue to monitor BMP and replete as needed. 9. Acute on chronic thrombocytopenia, present on admission. Acute portion resolved. - Baseline platelet count 70-90. - Status post 1 unit of platelets. - Continue to monitor platelet count daily. 10. Hyperbilirubinemia, not present on admission. Active. - Secondary to reabsorption of right subcapsular and perinephric hematoma. - Continue to monitor bilirubin daily. Chronic problems with management per primary team: 11. History of systolic congestive heart failure, chronic, presume stable. - EF during this admission 50-55%. Will continue to monitor with limited echo as needed during admission. - Likely not in CHF at baseline based on these results. 12. Obstructive sleep apnea, chronic. Presumed stable. - Patient intubated in the ICU at this time. 13. History of pulmonary fibrosis, chronic. Presumed stable. - Patient intubated in the ICU at this time. 14. Coronary artery disease, chronic. Presumed stable. - Patient takes simvastatin and aspirin at home which is being held. Will re- start statin when patient is stable. PRN antiemetics: Zofran and Maalox. PRN bowel regimen: Senna and MiraLAX. PRN analgesics: Tylenol. Disposition: Patient currently in critical care with guarded but improving prognosis. Requiring mechanical ventilation, pressor support and transfusion of blood products however blood loss is stabilized and pressor support is currently being titrated down. Anticipate discharge many days away if patient able to recover. . GI Prophylaxis: Proton Pump Inhibitor VTE Mechanical Devices: Intermittant Pneumatic CD Resuscitation Status: CPR: Attempt Resuscitation Attending Statement The patient was seen and examined together with Dr. Zuleta on 10/11/2016 and I agree with the history, exam and plan as outlined in the note above. Irma Zuleta DO Oct 11, 2016 09:41 Robin Spring MD Oct 11, 2016 11:31
[2016-10-11] MEDS: Potassium Chloride 20 mEq/15 mL 15mL Oral Soln TUBE SCH ×2 (09:55→21:07)
[2016-10-11] MEDS ORDERED: Methylnaltrexone 12 mg/0.6 mL Inj SUBQ ONE (10:00)
--- NOTE | 2016-10-11 10:16 | DRSVH ---
PROCEDURE: X-RAY CHEST ONE VIEW, PORTABLE ([id number]) INDICATIONS: acute respiratory failure TECHNIQUE: One view of the chest was acquired. COMPARISON: [facility], CR, XR CHEST 1VW (PORTABLE), 10/10/2016, 4:58. FINDINGS: Surgical changes and devices: Stable positioning of the ETT, right IJ CVL and left chest AICD. Lungs and pleura: Lung volumes are low and pulmonary edema suspected. Mid/basilar airspace opacities and small pleural effusions not significantly changed. Mediastinum: Mediastinal contours appear normal. Heart size is normal. Bones and chest wall: No suspicious bony lesions. Overlying soft tissues appear unremarkable. IMPRESSION: 1. Pulmonary edema and/or diffuse bilateral pneumonia unchanged as well as small effusions. Dictated by: Woodrow Loya [facility] Interpreted: Patience العراقي MD on 10/11/2016 at 10:16 Transcribed by: DASHAWN on 10/11/2016 at 10:16 Approved by: Patience العراقي MD, PhD on 10/11/2016 at 17:02
[2016-10-11] MEDS: fentaNYL 2,500 mCg/250 mL 2,500 MCG in IV Premix 1 EACH IV SCH (15:08)
[2016-10-11] MEDS: Polyethylene Glycol (PEG) 17 Gm Powder PO SCH (15:08)
--- NOTE | 2016-10-11 17:30 | PCM.PNNEPH ---
Subjective Date of Service Oct 11, 2016 Subjective The patient continues to improve. His urine output is good and his creatinine continues to improve. His blood pressure has ranged between 80 and 120 systolic. His intake and output for the last 24 hours shows 1135 and and 5800 out with 20-40 already out this morning. His hemoglobin is 10.0, sodium 145, potassium 4.0, chloride 110, bicarbonate 20, BUN and creatinine were 32 and 1.44 respectively. Exam Vital Signs Vital Sign - Last Date Time Temp Pulse Resp B/P Pulse Ox O2 Delivery O2 Flow Rate FiO2 10/11/16 12:15 71 118/61 96 40 10/11/16 11:53 20 10/11/16 08:00 36.6 Mechanical Ventilator 10/06/16 04:41 4.00 Intake and Output 10/10/16 10/10/16 10/11/16 Cumulative From/Thru 15:00 23:00 07:00 10/05/16 21:52 - 10/11/16 06:07 Intake Total 620 ml 580 ml 39427 ml Output Total 2250 ml 2200 ml 95781 ml Balance -1630 ml -1620 ml 9755 ml Intake Oral 0 ml IV Total 523 ml 333 ml 87650 ml Tube Feeding 57 ml 127 ml 184 ml Packed Cells 1588 ml Platelets 250 ml Tube Irrigant 40 ml 120 ml 190 ml Output Urine Total 2250 ml 2200 ml 39127 ml Gastric Drainage Total 1410 ml # Bowel Movements 0 Exam HEENT examination is remarkable for pale sclera. Neck is supple without adenopathy thyromegaly or jugular venous distention. Lungs are clear to auscultation. Heart is regular and rhythmical with a soft systolic murmur. Abdomen soft without any tenderness or rebound guarding masses or hepatosplenomegaly. Extremities show any evidence of any clubbing cyanosis or edema. Skin turgor is diminished. Lab and Diagnostics Result Diagram: 10/11/16 0340 10/11/16 0340 Microbiology Urine culture shows no growth to date. Blood cultures 2 show no growth after 5 days. MRSA screen negative. Sputum grew scant normal keisha. . X-Rays, CTs and MRIs X-RAY CHEST ONE VIEW, PORTABLE IMPRESSION: 1. Pulmonary edema and/or diffuse bilateral pneumonia. 2. Small effusions. Dictated by: Woodrow LUNA Interpreted: Earline Clark MD on 10/09/2016 at 8: 14 CT KUB IMPRESSION: 1. Large right renal subcapsular hematoma similar in extent to the study dated . Heterogeneous, delayed nephrogram suggests markedly decreased right renal blood flow and function. 2. Large retroperitoneal hematoma which appears slightly increased on the left. It is unclear whether this is truly increased hematoma or simple redistribution of a large hematoma previously visualized within the right retroperitoneal space. 3. New bibasilar consolidation and pleural effusions suspicious for early pneumonia. 4. Small amount of hepatosplenic ascites increased when compared with the prior study. This may be due to vigorous fluid resuscitation. Dictated by: Dilcia Jaimes M.D. on 10/06/2016 at 18:59 US ABDOMEN, LIMITED IMPRESSION: 1. Complex fluid collection around the right kidney as was seen on prior CT scan as above and no definite source of bleeding is identified sonographically. 2. Trace intra-abdominal fluid within the lower quadrants as well as the left upper outer quadrant. Dictated by: Woodrow Loya [facility] Interpreted: Rosalie Schmitz MD on 10/06/2016 at 14:04 Transcribed by: NATALIA on 10/06/2016 at 14:06 X-RAY CHEST ONE VIEW, PORTABLE IMPRESSION: Endotracheal tube with the tip projecting approximately 3 cm above the belen. Right internal jugular central venous catheter with the tip projecting at the lower SVC. No pneumothorax Dictated by: Nael Blackwood M.D. on 10/06/2016 at 11:49 CT KUB IMPRESSION: 1. Extensive right subcapsular and perinephric hemorrhage as described above. There is associated small to moderate amount of hemoperitoneum within the right anterior pararenal space, paracolic gutter, and perihepatic location. 2. Right nephrolithiasis. 3. Aortoiliac aneurysms, status post aortoiliac stent-graft placement, as described above. 4. Cholelithiasis. 5. Concordant with preliminary interpretation. Dictated by: Viridiana Inman M.D. on 10/06/2016 at 7:57 . Cardiac Echo Impressions Echocardiogram Interpretation Summary: The left ventricle is normal in size. There is moderate concentric left ventricular hypertrophy. Left ventricular systolic function is low normal. The ejection fraction is estimated to be 50-55%. There is a mild dyssynchronous contraction pattern due to the paced rhythm. There is a pacemaker lead in the right ventricle. Inspiratory collapse cannot be assessed because of mechanical ventilation, thus CVP cannot be estimated. There is no prior echocardiogram noted for this patient. No other echocardiographic abnormalities seen. The etiology for the patients shock is not apparent. The echo is not consistent with cardiogenic shock. Reading Physician:12:44 PM . Additional Diagnostics PROCEDURE: 1. Selective right renal arteriography. 2. Superselective, 2nd order arteriography of a right inferior pole renal arterial branch. 3. Superselective embolization of a 2nd order arterial branch of a right inferior pole renal artery branch. 4. Right groin closure device. FINDINGS: The superior pole renal artery and its branches appear normally. Injection of the nondominant inferior pole renal artery demonstrates abnormal vasculature involving the 2nd order/inferior pole vessel, which demonstrates 2 abnormal regions of dilatation, suspicious for pseudoaneurysm formation. Following embolization of this vessel, there is static flow. No active bleeding/ contrast extravasation was encountered during examination. IMPRESSION: 1. No active bleeding during the examination. 2. Likely bleeding source within the inferior pole of the right kidney was superselectively embolized until stasis was achieved. Dictated by: Viridiana Inman M.D. on 10/09/2016 at 9:25 Approved by: Viridiana Inman M.D. on 10/09/2016 at 9:35 . Plan Impression Impression #1 acute lower necrosis resolving #2 renal lithiasis #3 hypotension resolving #4 metabolic acidosis which is resolving Recommendations #1 patient is clearly in a diuretic phase of his acute kidney injury at like to start him on half-normal saline at 100 now. Obviously we need to continue to follow his intake, output, and labs over the next several days. Plan The patient will continue hyperbaric treatments. Will return () for treatment #() Baltazar Mckay DO Oct 11, 2016 17:30
--- NOTE | 2016-10-11 18:33 | PCM.PNMED ---
Subjective Date of Service Oct 11, 2016 Subjective overnight: no acute events overnight today: Patient continues to show improvement. Continue with spontaneous breathing trials and sedation vacations. We will hold diuresis today as patient said good urinary output for the last 48 hours. Increased tube feedings today with bowel regimen started with Relistor. Exam Vital Signs Vital Sign - Last Date Time Temp Pulse Resp B/P Pulse Ox O2 Delivery O2 Flow Rate FiO2 10/11/16 05:20 40 10/11/16 04:30 36.8 67 17 112/62 98 Mechanical Ventilator 10/06/16 04:41 4.00 Intake and Output 10/10/16 10/10/16 10/11/16 Cumulative From/Thru 15:00 23:00 07:00 10/05/16 21:52 - 10/11/16 06:07 Intake Total 620 ml 580 ml 12669 ml Output Total 2250 ml 2200 ml 16459 ml Balance -1630 ml -1620 ml 9755 ml Intake Oral 0 ml IV Total 523 ml 333 ml 70598 ml Tube Feeding 57 ml 127 ml 184 ml Packed Cells 1588 ml Platelets 250 ml Tube Irrigant 40 ml 120 ml 190 ml Output Urine Total 2250 ml 2200 ml 30440 ml Gastric Drainage Total 1410 ml # Bowel Movements 0 Exam General: Patient intubated and sedated in the ICU Eyes: Pupils equal round and reactive to light, anicteric sclera, noninjected conjunctiva HENT: Head traumatic, normocephalic, intubated and sedated, external ears without defect, nares are patent without drainage or blood Neck: Trachea midline, Right IJ, short and wide neck, no JVD appreciated, no lymphadenopathy CV: Regular rate and rhythm, distant heart tones with no appreciable murmur rubs or gallops Respiratory: Coarse breath sounds at the axillary bases but otherwise clear anteriorly Abdomen: mildy distended, hypo-active bowel tones, tympanic to percussion, no organomegaly appreciated Extremities: 1+ pitting edema present to the level of the tibia; no cyanosis or clubbing present, paced Skin: Warm and dry no petechiae, no rash noted, no bruising of the abdomen : Paredes in place Neuro: Unable to assess given intubation sedation Psych: Unable to assess given intubation and sedation Lab and Diagnostics Result Diagram: 10/11/16 0340 10/11/16 0340 Microbiology Urine culture shows no growth to date. Blood cultures 2 show no growth after 2 days. MRSA screen negative. Sputum grew scant normal keisha. . X-Rays, CTs and MRIs PROCEDURE: X-RAY CHEST ONE VIEW, PORTABLE IMPRESSION: Endotracheal tube with the tip projecting approximately 3 cm above the belen. Right internal jugular central venous catheter with the tip projecting at the lower SVC. No pneumothorax Dictated by: Nael Blackwood M.D. on 10/06/2016 at 11:49 PROCEDURE: CT KUB IMPRESSION: 1. Extensive right subcapsular and perinephric hemorrhage as described above. There is associated small to moderate amount of hemoperitoneum within the right anterior pararenal space, paracolic gutter, and perihepatic location. 2. Right nephrolithiasis. 3. Aortoiliac aneurysms, status post aortoiliac stent-graft placement, as described above. 4. Cholelithiasis. 5. Concordant with preliminary interpretation. Dictated by: Viridiana Inman M.D. on 10/06/2016 at 7:57 Cardiac Echo Impressions Echocardiogram Report Interpretation Summary The left ventricle is normal in size. There is moderate concentric left ventricular hypertrophy. Left ventricular systolic function is low normal. The ejection fraction is estimated to be 50-55%. There is a mild dyssynchronous contraction pattern due to the paced rhythm. There is a pacemaker lead in the right ventricle. Inspiratory collapse cannot be assessed because of mechanical ventilation, thus CVP cannot be estimated.. There is no prior echocardiogram noted for this patient. No other echocardiographic abnormalities seen. The etiology for the patients shock is not apparent. The echo is not consistant with cardiogenic shock. Reading Physician:12:44 PM Additional Diagnostics PROCEDURE: US ABDOMEN, LIMITED IMPRESSION: 1. Complex fluid collection around the right kidney as was seen on prior CT scan as above and no definite source of bleeding is identified sonographically. 2. Trace intra-abdominal fluid within the lower quadrants as well as the left upper outer quadrant. Dictated by: Woodrow LUNA Interpreted: Rosalie Schmitz MD on 10/06/2016 at 14:04 Transcribed by: NATALIA on 10/06/2016 at 14:06 Assessment & Plan Patient is an 86-year-old male with extensive cardiovascular history, new onset pain following same-day lithotripsy, radiographically proven intra-abdominal blood, and shock. He was admitted to ICU management on 10/06/16 where he decompensated requiring intubation and pressor support. Hospital day #5 1. Acute hemorrhagic shock, present on admission, ongoing. - likely secondary to intraabdominal bleeding source post lithotripsy procedure within the inferior pole of the right kidney was superselectively embolized by IR until stasis was achieved. - Patient with increased intraabdominal pressure and CT evidence of bleeding into the abdomen. Septic shock less likely at this time as patient has negative cultures and has been afebrile. No evidence of cardiogenic shock per echocardiogram report. - Pressor support with norepinephrine titrated off 10/09 continue with Goal MAP > 65. - IV fluids ongoing on hold this AM. Approximately 20 liters of fluid resuscitation given up to this point (positive 17 liters overall). - Dr. Menendez consulted for antibiotic management in the event that sepsis played a role in his shock. discontinue Zosyn at this time 10/09. - Treat underlying hemorrhage as below in #3. - discontinue Albumin 200 mg IV Q12H given for oncotic intravascular repletion - Hemoglobin is remaining stable last 4 days will continue to monitor 2. Acute hypoxemic respiratory failure, present on admission, ongoing. - Patient intubated and sedated in the ICU on 10/06/16. - Using propofol and fentanyl for sedation at this time, continue to titrate down as tolerated by the patient. Too critical at this time to consider sedation vacation. - Dr. Spring consulted and we appreciate his assistance with ventilator management. - ABG to be done every AM and PRN for vent management. - Continue with spontaneous breathing trials per pulmonology recommendations 3. Acute blood loss anemia and thrombocytopenia, present on admission, ongoing. - Continuing to monitor H&H/CBC closely. No specific source of bleeding has been identified at this time. - Patient has received 7 units PRBCs and 1 unit of platelets so far this admission. - Dr. Pritchard and Dr. Leal (general surgery), Dr. Alvarado (urology) and Dr. Inman (interventional radiology) have all been consulted and we appreciate their input. - Continue to have 2 units PRBC's held in case of need for further transfusions. - Continue to monitor 4. Acute kidney injury, present on admission, ongoing. - possible acute tubular necrosis - Creatinine likely elevated secondary to hypoperfusion of kidney from the hemorrhagic shock process as well as increased intra-abdominal pressure that is ongoing. - Patient receiving IV fluids as above in #1. - nephrology consulted and we appreciated her input. - nephrology to continue Lasix given fluid status and will re-evaluate after response documented - Continue to monitor BMP. - Creatinine improving will discontinue with general diuresis per nephrology recommendations 5. Elevated troponin, acute, present on admission, ongoing. - Troponin 0.1. - Could be considered an effect of demand ischemia. - Will continue to treat underlying shock process as above in #1. 6. Acute hypokalemia, present on admission, improved. - Continue to monitor BMP and replete as needed. 7. Possible upper GI bleed, acute, ongoing. - Positive guaiac of stomach contents with ongoing coffee ground emesis. - Continue OG suction set to intermittent suction. - Monitor stools for bright red blood. - Continue PPI drip. - Low threshold for GI consultation and endoscopy. 8. Obstructive sleep apnea, chronic, presume stable. - Patient intubated in the ICU at this time. 9. History of pulmonary fibrosis, chronic, presume stable. - Patient intubated in the ICU at this time. 10. Coronary artery disease, chronic, presume stable. - Patient takes simvastatin and aspirin at home. Medication on hold at this time. Will re-order when patient more stable. 11. Systolic congestive heart failure, chronic, presume stable. - EF during this admission 50-55%. Will continue to monitor with limited echo as needed during admission. - Likely not in CHF at baseline based on these results. - Antacid available PRN. - Antiemetic available PRN. - Tylenol available PRN mild pain or fever. Disposition: Patient currently in critical care with improving prognosis patient will likely require several more days of hospitalization, and possibly require rehabilitation as an outpatient given prolonged course of hospitalization. Anticipated discharge many days away. Pain Evaluation: Adequate Pain Control GI Prophylaxis: Proton Pump Inhibitor VTE Mechanical Devices: Intermittant Pneumatic CD Resuscitation Status: CPR: Attempt Resuscitation Attending Statement The patient was seen and examined together with Dr. Carter on 10-11-16 and I agree with the history, exam and plan as outlined in the note above. Patient is on IV fentanyl for sedation and pain copntrol. Peyman Carter DO Oct 11, 2016 06:53 Hardik Durant MD Oct 12, 2016 07:59
[2016-10-12] VITALS (13 sets, daily range): BP systolic 100–145; BP diastolic 54–89; PULSE 74–95; RESP 16–27; O2SAT 95–100
[2016-10-12] MEDS: Propofol Inj 1,000,000 MCG in IV Premix 1 EACH IV SCH ×2 (02:55→13:21)
[2016-10-12 04:30] LABS: BASOPHILS % (AUTO) 0.3 % (0-3); EOSINOPHILS % (AUTO) 1.6 % (0-5); Mean Corpuscular Volume 95.6 fL (81-100); NEUTROPHILS % (AUTO) 72.8 % (40-74); Platelet Count 77 bil/L (150-400)
[2016-10-12 05:03] LABS: Phosphorus 3.1 mg/dL (2.5-4.9)
--- NOTE | 2016-10-12 05:06 | ABG ---
DateTimeAnalyzed 05:03:00 -_ pH ____7.416 - 7.350 7.450 pCO2 ___32.9__ -mmHg 35.0 45.0 pO2 ___70.1__ -mmHg 69.0 116 HCO3- ___20.7__ -mmol/L 22.0 26.0 ABE ___-2.7__ -mmol/L -2.0 2.0 tHb ___10.2__ -g/dL O2Hb ___91.2__ -% COHb ____2.3__ -% MetHb ____1.0__ -% sO2 ___94.3__ -% 25.0 FIO2 ___40.0__ -% PRVC 15 - PEEP ____5.0__ -cmH2O Set_RR ___15.0__ -b/min Vt __550.0__ -L Drawn By MM - Date/Time Notified____ 05:06:00 -_ Spontaneous_RR ___15.0__ -b/min Oxygen Device 1 VENTILATOR - Notified Whom CAESAR, RN - B 761 -mmHg tO2 ___13.1__ -Vol% Robson test N/A -
[2016-10-12] MEDS: Norepineph 8,000 mCg/250 mL NS 8,000 MCG in IV Premix 1 EACH IV SCH ×2 (07:10→19:21)
--- NOTE | 2016-10-12 08:16 | DRSVH ---
PROCEDURE: X-RAY CHEST ONE VIEW, PORTABLE ([id number]) INDICATIONS: acute respiratory failure TECHNIQUE: One view of the chest was acquired. COMPARISON: [facility], CR, XR CHEST 1VW (PORTABLE), 10/11/2016, 5:23. FINDINGS: Surgical changes and devices: Stable positioning of the ETT, right IJ CVL and left chest AICD. Lungs and pleura: Lung volumes are low and pulmonary edema suspected. Mid/basilar airspace opacities and small pleural effusions not significantly changed. Mediastinum: Mediastinal contours appear normal. Heart size is normal. Bones and chest wall: No suspicious bony lesions. Overlying soft tissues appear unremarkable. IMPRESSION: Pulmonary edema and/or diffuse bilateral pneumonia redemonstrated and there are small eff usions. Dictated by: Woodrow Loya [facility] Interpreted: Earline Clark MD on 10/12/2016 at 8:15 Transcribed by: SKYLER on 10/12/2016 at 8:16 Approved by: Earline Clark M.D. on 10/12/2016 at 21:20
[2016-10-12] MEDS: Pantoprazole 4 mg/mL 10 mL Inj IVPUSH SCH ×2 (08:24→16:17)
[2016-10-12] MEDS: Potassium Chloride 20 mEq/15 mL 15mL Oral Soln TUBE SCH ×2 (08:25→20:05)
[2016-10-12] MEDS: Sodium Chloride LOK Flush 10 mL Syringe IVFLUSH SCH ×3 (08:26→20:06)
[2016-10-12] MEDS: Polyethylene Glycol (PEG) 17 Gm Powder PO SCH (08:26)
--- NOTE | 2016-10-12 09:10 | PCM.PNNEPH ---
Subjective Date of Service Oct 12, 2016 Subjective Patient's renal function continues to improve. He is somewhat alert however he remains ventilatory dependent. His blood pressures are good and he appears to be tolerating his nutrition. Intake and output for the last 24 hours for 1034 in and 3000 out with an additional 700 mL of urine output today. His sodium is 144, potassium 4.4, chloride 111, bicarbonate 20, BUN and creatinine were 39 and 1.17 respectively. Exam Vital Signs Vital Sign - Last Date Time Temp Pulse Resp B/P Pulse Ox O2 Delivery O2 Flow Rate FiO2 10/12/16 04:37 76 121/75 99 40 10/12/16 04:30 Ventilator 10/12/16 04:30 36.9 21 10/06/16 04:41 4.00 Intake and Output 10/11/16 10/11/16 10/12/16 Cumulative From/Thru 15:00 23:00 07:00 10/05/16 21:52 - 10/12/16 06:01 Intake Total 454 ml 2312 ml 61237 ml Output Total 800 ml 700 ml 15732 ml Balance -346 ml 1612 ml 46184 ml Intake Oral 0 ml IV Total 454 ml 1548 ml 86578 ml Tube Feeding 564 ml 748 ml Packed Cells 1588 ml Platelets 250 ml Tube Irrigant 200 ml 390 ml Output Urine Total 800 ml 700 ml 08887 ml Gastric Drainage Total 1410 ml # Bowel Movements 0 0 Exam Patient appears to be more icteric and jaundiced today as compared to previous days. Neck is supple without adenopathy thyromegaly or venous distention. Lungs show a few scattered rhonchi but otherwise are clear. Heart is regular and rhythmical with a soft systolic murmur. Abdomen soft without any tenderness rebound guarding masses or hepatosplenomegaly. Extremities did not show any evidence of any clubbing or cyanosis however there is some mild generalized edema noted. Lab and Diagnostics Result Diagram: 10/12/16 0420 10/12/16 0420 Microbiology Urine culture shows no growth to date. Blood cultures 2 show no growth after 2 days. MRSA screen negative. Sputum grew scant normal keisha. . X-Rays, CTs and MRIs PROCEDURE: X-RAY CHEST ONE VIEW, PORTABLE IMPRESSION: Endotracheal tube with the tip projecting approximately 3 cm above the belen. Right internal jugular central venous catheter with the tip projecting at the lower SVC. No pneumothorax Dictated by: Nael Blackwood M.D. on 10/06/2016 at 11:49 PROCEDURE: CT KUB IMPRESSION: 1. Extensive right subcapsular and perinephric hemorrhage as described above. There is associated small to moderate amount of hemoperitoneum within the right anterior pararenal space, paracolic gutter, and perihepatic location. 2. Right nephrolithiasis. 3. Aortoiliac aneurysms, status post aortoiliac stent-graft placement, as described above. 4. Cholelithiasis. 5. Concordant with preliminary interpretation. Dictated by: Viridiana Inman M.D. on 10/06/2016 at 7:57 Cardiac Echo Impressions Echocardiogram Report Interpretation Summary The left ventricle is normal in size. There is moderate concentric left ventricular hypertrophy. Left ventricular systolic function is low normal. The ejection fraction is estimated to be 50-55%. There is a mild dyssynchronous contraction pattern due to the paced rhythm. There is a pacemaker lead in the right ventricle. Inspiratory collapse cannot be assessed because of mechanical ventilation, thus CVP cannot be estimated.. There is no prior echocardiogram noted for this patient. No other echocardiographic abnormalities seen. The etiology for the patients shock is not apparent. The echo is not consistant with cardiogenic shock. Reading Physician:12:44 PM Additional Diagnostics PROCEDURE: US ABDOMEN, LIMITED IMPRESSION: 1. Complex fluid collection around the right kidney as was seen on prior CT scan as above and no definite source of bleeding is identified sonographically. 2. Trace intra-abdominal fluid within the lower quadrants as well as the left upper outer quadrant. Dictated by: Woodrow Loya [facility] Interpreted: Rosalie Schmitz MD on 10/06/2016 at 14:04 Transcribed by: NATALIA on 10/06/2016 at 14:06 Plan Impression Impression #1 acute obstructive uropathy #2 lateral hydronephrosis #3 acute kidney injury secondary to #1 with current diuretic phase of acute kidney injury. Recommendations #1 I would like to continue to balance is soft with his urine output. As his renal function is relatively back to normal we will be signing off at this point. If you have any questions or any change in the patient's condition continues to not hesitate to contact us. Plan The patient will continue hyperbaric treatments. Will return () for treatment #() Baltazar Mckay DO Oct 12, 2016 09:10
[2016-10-12] MEDS: fentaNYL 2,500 mCg/250 mL 2,500 MCG in IV Premix 1 EACH IV SCH (09:18)
--- NOTE | 2016-10-12 10:14 | PCM.PNMED ---
Subjective Date of Service Oct 12, 2016 Subjective Toby Burger is an 86-year-old male with extensive cardiovascular history who presented with new onset pain following same-day lithotripsy and was found to have radiographically proven subcapsular and perinephric retroperitoneal hemorrhage from trauma with secondary hypovolemic shock status post inferior pole renal artery embolization. He was admitted to ICU management on 10/06/16 where he decompensated requiring intubation and pressor support. Hospital day # 7. Overnight: There were no acute events. Telemetry overnight: Atrial fibrillation with occasional V-pacing, heart rate 70 to 90's, with rare PVC. Subjective exam and review of systems unavailable as patient is intubated and sedated. The patient appears comfortable, opens eyes, and minimally follows commands. He is able to answer yes and no questions and reports pain in the abdomen. He had a timed SBT yesterday of 20 minutes at 10/5 and another 25 minutes of 8/5 for which he did very well. Patient has not had a bowel movement in several days therefore will be given a one-time dose of Relistor and a scheduled bowel regimen. . Exam Vital Signs Vital Sign - Last Date Time Temp Pulse Resp B/P Pulse Ox O2 Delivery O2 Flow Rate FiO2 10/12/16 08:00 Ventilator 10/12/16 08:00 36.8 95 22 145/66 98 40 10/06/16 04:41 4.00 Intake and Output 10/11/16 10/11/16 10/12/16 Cumulative From/Thru 15:00 23:00 07:00 10/05/16 21:52 - 10/12/16 06:01 Intake Total 454 ml 2312 ml 85712 ml Output Total 800 ml 700 ml 66474 ml Balance -346 ml 1612 ml 99894 ml Intake Oral 0 ml IV Total 454 ml 1548 ml 68530 ml Tube Feeding 564 ml 748 ml Packed Cells 1588 ml Platelets 250 ml Tube Irrigant 200 ml 390 ml Output Urine Total 800 ml 700 ml 45331 ml Gastric Drainage Total 1410 ml # Bowel Movements 0 0 Exam General: Elderly gentleman lying in bed and in no acute distress, intubated and sedated. HEENT: Normocephalic, atraumatic. External ears without defect. Extremely hard of hearing with hearing aids in place. Pupils equal, round, and reactive to light. Icteric sclerae, moist conjunctivae, and no lid lag. Endotracheal and oropharyngeal tube in place. Neck: Supple. No lymphadenopathy or thyromegaly. Cardiovascular: Irregular rhythm without murmurs, rubs, or gallops appreciated Pulmonary: Scattered bronchial breath sounds in anterior lung navarro improved. No wheeze or crackles. Abdomen: Soft and mildly distended, bowel sounds hypoactive. Genitourinary: Paredes catheter in place. Extremities: Anasarca worsening. Skin: Normal temperature, turgor, and texture; no rash, ulcers, or subcutaneous nodules appreciated. Neurologic: Opens eyes to stimulation and follows commands minimally. Ventilator settings: PRVC. Tidal volume 550. Respiratory rate 15. FiO2 40%. PEEP 5.0. Peak 33. Plateau of 19. ABG: PH 7.416. PCO2 32.9. PO2 70.1. HCO3 20.7. On PRVC with FiO2 40% and SPO2 of 94.3%. IV drips and Sedatives: Fentanyl 30 g/hr and propofol 10 g/kg/min. Norepinephrine off. IV lines: Right IJ. I&O: Net + 11.021 L. . IVs and Medications Medications Reviewed: Medications were reviewed in detail Lab and Diagnostics Item Value Date Time Calcium Level 7.9 mg/dL L 10/12/16419 Phosphorus Level 3.1 mg/dL 10/12/16419 Magnesium Level 2.0 mg/dL 10/12/16419 Total Bilirubin 9.8 mg/dL H 10/12/16 042 Aspartate Amino Transf (AST/SGOT) 150 U/L H 10/12/16 042 Alanine Aminotransferase (ALT/SGPT) 74 U/L H 10/12/16 042 Alkaline Phosphatase 76 U/L 10/12/16 042 Total Protein 5.5 g/dL L 10/12/16 042 Albumin 2.6 g/dL L 10/12/16 042 Result Diagram: 10/12/1641910/12/16419 Microbiology Urine culture shows no growth to date. Blood cultures 2 show no growth after 5 days. MRSA screen negative. Sputum grew scant normal keisha. Repeat sputum culture pending. . X-Rays, CTs and MRIs X-RAY CHEST ONE VIEW, PORTABLE IMPRESSION: Pulmonary edema and/or diffuse bilateral pneumonia redemonstrated and there are small effusions. Dictated by: Woodrow Loya RRA Interpreted: Earline Clark MD on 10/12/2016 at 8: 15 CT KUB IMPRESSION: 1. Large right renal subcapsular hematoma similar in extent to the study dated . Heterogeneous, delayed nephrogram suggests markedly decreased right renal blood flow and function. 2. Large retroperitoneal hematoma which appears slightly increased on the left. It is unclear whether this is truly increased hematoma or simple redistribution of a large hematoma previously visualized within the right retroperitoneal space. 3. New bibasilar consolidation and pleural effusions suspicious for early pneumonia. 4. Small amount of hepatosplenic ascites increased when compared with the prior study. This may be due to vigorous fluid resuscitation. Dictated by: Dilcia Jaimes M.D. on 10/06/2016 at 18:59 US ABDOMEN, LIMITED IMPRESSION: 1. Complex fluid collection around the right kidney as was seen on prior CT scan as above and no definite source of bleeding is identified sonographically. 2. Trace intra-abdominal fluid within the lower quadrants as well as the left upper outer quadrant. Dictated by: Woodrow LUNA Interpreted: Rosalie Schmitz MD on 10/06/2016 at 14:04 Transcribed by: NATALIA on 10/06/2016 at 14:06 X-RAY CHEST ONE VIEW, PORTABLE IMPRESSION: Endotracheal tube with the tip projecting approximately 3 cm above the belen. Right internal jugular central venous catheter with the tip projecting at the lower SVC. No pneumothorax Dictated by: Nael Blackwood M.D. on 10/06/2016 at 11:49 CT KUB IMPRESSION: 1. Extensive right subcapsular and perinephric hemorrhage as described above. There is associated small to moderate amount of hemoperitoneum within the right anterior pararenal space, paracolic gutter, and perihepatic location. 2. Right nephrolithiasis. 3. Aortoiliac aneurysms, status post aortoiliac stent-graft placement, as described above. 4. Cholelithiasis. 5. Concordant with preliminary interpretation. Dictated by: Viridiana Inman M.D. on 10/06/2016 at 7:57 . Cardiac Echo Impressions Echocardiogram Interpretation Summary: The left ventricle is normal in size. There is moderate concentric left ventricular hypertrophy. Left ventricular systolic function is low normal. The ejection fraction is estimated to be 50-55%. There is a mild dyssynchronous contraction pattern due to the paced rhythm. There is a pacemaker lead in the right ventricle. Inspiratory collapse cannot be assessed because of mechanical ventilation, thus CVP cannot be estimated. There is no prior echocardiogram noted for this patient. No other echocardiographic abnormalities seen. The etiology for the patients shock is not apparent. The echo is not consistent with cardiogenic shock. Reading Physician:12:44 PM . Additional Diagnostics PROCEDURE: 1. Selective right renal arteriography. 2. Superselective, 2nd order arteriography of a right inferior pole renal arterial branch. 3. Superselective embolization of a 2nd order arterial branch of a right inferior pole renal artery branch. 4. Right groin closure device. FINDINGS: The superior pole renal artery and its branches appear normally. Injection of the nondominant inferior pole renal artery demonstrates abnormal vasculature involving the 2nd order/inferior pole vessel, which demonstrates 2 abnormal regions of dilatation, suspicious for pseudoaneurysm formation. Following embolization of this vessel, there is static flow. No active bleeding/ contrast extravasation was encountered during examination. IMPRESSION: 1. No active bleeding during the examination. 2. Likely bleeding source within the inferior pole of the right kidney was superselectively embolized until stasis was achieved. Dictated by: Viridiana Inman M.D. on 10/09/2016 at 9:25 Approved by: Viridiana Inman M.D. on 10/09/2016 at 9:35 . Assessment & Plan Toby Burger is an 86-year-old male with extensive cardiovascular history who presented with new onset pain following same-day lithotripsy and was found to have radiographically proven subcapsular and perinephric retroperitoneal hemorrhage from trauma with secondary hypovolemic shock status post inferior pole renal artery embolization. He was admitted to ICU management on 10/06/16 where he decompensated requiring intubation and pressor support. Hospital day # 7. 1. Acute hypovolemic shock, secondary to trauma induced subcapsular and perinephric retroperitoneal hemorrhage, present on admission. Resolved. - CT evidence of right subcapsular and perinephric hemorrhage, as above. 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 - Elevated intra-abdominal pressure initially 22 and trended down. - Hemoglobin and hematocrit are stable. Patient is status post 7 units PRBC's. - Norepinephrine required for several days into hospitalization, now remains off. - Received Lasix 80 mg IV 1 and Lasix 60 mg IV BID x 3 doses per nephrology recommendations and diuresed well ~9.2L. - Now receiving fluids with 1/2 NS at 100 mL/hr per nephrology. - Infectious disease, Dr. Menendez, was consulted for antibiotic management as it was thought that sepsis may possibly been contributing to shock. Discontinued Zosyn per ID. - Treat underlying hemorrhage as below in #2. 2. Acute trauma induced subcapsular and perinephric retroperitoneal hemorrhage , status post embolization, present on admission. Resolved. - Patient is status post 7 units PRBC's and greater than 20 L of IV fluids. 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 - Monitor hemoglobin and hematocrit daily. 3. ARDS, present on admission. Active. - Patient is status post 7 units PRBC's and greater than 20 L of IV fluids. - Continue ventilator settings as above. - Monitor ABG daily for vent management. - CXR continues to demonstrate stable maybe slightly improved pulmonary edema, as above. - Continue propofol and fentanyl for sedation, as above. Continue sedation vacations and daily SBT. - Received Lasix 80 mg IV 1 and Lasix 60 mg IV BID x 3 doses per nephrology recommendations and diuresed well ~9.2L. - Continue monitoring for signs of infection. Procalcitonin is rising and he is producing more secretions. Repeat sputum culture ordered. Discussed and re- consulted ID. 4. Acute blood loss anemia, present on admission. Resolving. - Secondary to subcapsular and perinephric retroperitoneal hemorrhage and possible acute upper GI bleed. - Continuing to monitor hemoglobin and hematocrit daily. - Patient has received 7 units PRBC's and 1 unit of platelets so far this admission. - Dr. Pritchard and Dr. Leal (General Surgery), Dr. Alvarado (Urology) and Dr. Inman (Interventional Radiology) have all been consulted and we appreciate their input. - Continue to have 2 units PRBC's held in case of need for further transfusions. 5. Acute kidney injury, present on admission. Resolved. - Creatinine likely elevated secondary to hypoperfusion of kidney from the hypovolemic shock, as well as, increased intra-abdominal pressure. - Received Lasix 80 mg IV 1 and Lasix 60 mg IV BID x 3 doses per nephrology recommendations and diuresed well ~9.2L. - Now receiving fluids with 1/2 NS at 100 mL/hr per nephrology. - Nephrology consulted and following. We appreciate their input and care of the patient. - Continue to monitor BMP. 6. Hyperbilirubinemia, not present on admission. Active. - Secondary to reabsorption of right subcapsular and perinephric hematoma. - Continue to monitor bilirubin daily. 7. Possible acute upper GI bleed, present on admission. Resolved. - Positive guaiac of stomach contents with ongoing coffee ground emesis. - Continue OG suction set to intermittent suction. - Monitor stools for bright red blood. - Continue PPI 40 mg IV twice a day. - Low threshold for GI consultation and endoscopy. 8. Acute hypokalemia, present on admission. Resolved. - Continue to monitor BMP and replete as needed. 9. Acute on chronic thrombocytopenia, present on admission. Acute portion resolved. - Baseline platelet count 70-90. - Status post 1 unit of platelets. - Continue to monitor platelet count daily. 10. Elevated troponin, acute, present on admission. Resolved. - Likely secondary to demand ischemia. EKG shows no acute ischemic changes, however, V-paced. No changes compared to prior EKG's. - Troponin maximally elevated at 0.116 and trended down. - Will continue to treat underlying shock process as above in #1. Chronic problems with management per primary team: 11. History of systolic congestive heart failure, chronic, presume stable. - EF during this admission 50-55%. Will continue to monitor with limited echo as needed during admission. - Likely not in CHF at baseline based on these results. 12. Obstructive sleep apnea, chronic. Presumed stable. - Patient intubated in the ICU at this time. 13. History of pulmonary fibrosis, chronic. Presumed stable. - Patient intubated in the ICU at this time. 14. Coronary artery disease, chronic. Presumed stable. - Patient takes simvastatin and aspirin at home which is being held. Will re- start statin when patient is stable. PRN antiemetics: Zofran and Maalox. PRN bowel regimen: Senna and MiraLAX. PRN analgesics: Tylenol. Disposition: Patient currently in critical care with improving prognosis. Several days depending on clinical course. . GI Prophylaxis: Proton Pump Inhibitor VTE Mechanical Devices: Intermittant Pneumatic CD Resuscitation Status: CPR: Attempt Resuscitation Attending Statement The patient was seen and examined together with Dr. Zuleta on 10/12/2016 and I agree with the history, exam and plan as outlined in the note above. Irma Zuleta DO Oct 12, 2016 10:14 Robin Spring MD Oct 22, 2016 10:46
--- NOTE | 2016-10-12 14:01 | DRSVH ---
PROCEDURE: X-RAY CHEST ONE VIEW, PORTABLE ([id number]) INDICATIONS: central line placement TECHNIQUE: One view of the chest was acquired. COMPARISON: [facility], CR, XR CHEST 1VW (PORTABLE), 10/12/2016, 5:35. FINDINGS: Surgical changes and devices: Stable positioning of the ETT and left chest AICD. Right IJ CVL is pre sent tip projected over the upper SVC. Lungs and pleura: Lung volumes are low and pulmonary edema suspected. Mid/basilar airspace opacities and small pleural effusions not significantly changed. Mediastinum: Mediastinal contours appear normal. Heart size is enlarged. Bones and chest wall: No suspicious bony lesions. Overlying soft tissues appear unremarkable. IMPRESSION: 1. Pulmonary edema and or diffuse bilateral pneumonia with small effusions unchanged. Dictated by: Woodrow Loya [facility] Interpreted: Earline Clark MD on 10/12/2016 at 13:59 Transcribed by: SKYLER on 10/12/2016 at 14:01 Approved by: Earline Clark M.D. on 10/12/2016 at 21:35
--- NOTE | 2016-10-12 15:41 | PROG NOTE ---
[address] [address] PROGRESS NOTE PATIENT: GAL CARRANZA : 1930 MR#: [id number] ADMIT: 10/06/2016 JOB ID: [id number] DATE: 10/12/2016 INFECTIOUS DISEASE FOLLOWUP NOTE: REASON FOR FOLLOWUP: Possible nosocomial respiratory tract infection. INTERVAL HISTORY: Recall that this is the 86-year-old gentleman who we saw earlier in his hospital stay. The patient's hospitalization began one week ago when he had a lithotripsy and developed hemorrhagic complications, with massive intra-abdominal and retroperitoneal bleeding. There were concerns at that time about possible infection but we stopped antibiotics back on the after just a couple days or so of antibiotic treatment because there was no real evidence of infection, and his shock and other problems were all explained strictly on the basis of hemorrhage. Since that time, the patient has actually continued to make slow progress with improvement in his respiratory function, as well as improvement in the resolution of his shock and improvement in his mental status as well. We were asked to come back and comment on increased respiratory secretions today and whether or not the patient needed additional antibiotics. The patient was discussed in detail with Dr. Spring and the ICU team, as well as [place], the ICU nurse. They note that there has been an increase in respiratory secretions over the past couple of days. There has been no associated fever, hypotension, or increasing ventilatory difficulties, however. For his part, the patient is now awake but is still intubated and not able to provide additional helpful history. PHYSICAL EXAMINATION: Reveals a continuously afebrile gentleman. Temperature 36.7, pulse 85, respiratory rate about 20, blood pressure 125/89, saturating well on 40 and 5 of PEEP and, in fact, he is doing well on pressure support trials. His eyes are icteric. He obviously has jaundice. His oral endotracheal tube and orogastric tube are in good position. There are thick mary secretions seen in the endotracheal tube, and the nurse and respiratory therapist report suctioning increasing volumes of material from the endotracheal tube. His lungs are notable for coarse breath sounds bilaterally more so on the right than the left. Cardiac tones are distant but without new abnormality. His abdomen is less distended and tender than when I last saw him a couple of days ago. Paredes catheter is present. Right neck catheter is present. These appear benign. On his right forearm, there is a 2 cm area of tender, erythematous phlebitis secondary to peripheral IV, which has now been pulled. The lower extremities are well perfused. LABORATORIES: Include white count 7100 with basically normal diff. Creatinine 1.17, which is steadily improving. His total bilirubin is 9.8, AST 150, ALT 74. Procalcitonin is bouncing around; it was 0.5 yesterday, and 0.7 today. Blood cultures, MRSA screen and a previous respiratory tract culture from last week are all negative. Today, we have a new sputum Gram stain. It shows rare polys, a few epithelial cells and culture is pending. IMAGING: X-rays were reviewed on the view screen. They show persistent bilateral infiltrates right greater than left, little change from admission. IMPRESSION: I see no evidence really that the patient has any systemic or serious pulmonary process. He may have the entity which is known as tracheobronchitis, which is an ill-defined process when there is bacterial infection of the airway without involvement of the lung or much systemic toxicity but I am not certain about that diagnosis in this case. At this point, I think systemic antibiotics should be withheld, as there is little evidence to indicate any sort of serious nosocomial pulmonary infection, given his absence of fever, normal white count, near normal procalcitonin and unchanged chest x-ray. The fact he is progressing well in his pressure support trials also suggests he certainly has not developed any severe underlying lung disease. RECOMMENDATIONS: 1. No systemic antibiotics at this time. 2. It would be reasonable to repeat a procalcitonin in the morning. 3. If antibiotic coverage was desired for his thick secretions, I would consider either inhaled amikacin, tobramycin, or colistin to beat back some degree of his respiratory secretions but I will leave that decision to the ICU attending, Dr. Spring. Thank you very much. Note that I will be out of town the next three days but the residents working with me will stop by and see this patient, and will discuss him by phone as well tomorrow. I will be back aircraft time clerk on Sunday.
--- NOTE | 2016-10-12 17:52 | PCM.PNMED ---
Subjective Date of Service Oct 12, 2016 Subjective overnight: Nursing reports ET tube secretions described as thick and dark. No acute events otherwise noted. Today: The patient was continued on sedation vacations and spontaneous breathing trials. Patient's central line and abdominal pressure lines were removed today as the patient is improving. IV fluids which were restarted overnight have been discontinued with hopes for continued auto diuresis. Infectious disease is decided that this patient does not require antibiotics at this time but will reevaluate tomorrow. Exam Vital Signs Vital Sign - Last Date Time Temp Pulse Resp B/P Pulse Ox O2 Delivery O2 Flow Rate FiO2 10/12/16 04:37 76 121/75 99 40 10/12/16 04:30 Ventilator 10/12/16 04:30 36.9 21 10/06/16 04:41 4.00 Intake and Output 10/11/16 10/11/16 10/12/16 Cumulative From/Thru 15:00 23:00 07:00 10/05/16 21:52 - 10/12/16 06:01 Intake Total 454 ml 2312 ml 62664 ml Output Total 800 ml 700 ml 40096 ml Balance -346 ml 1612 ml 36831 ml Intake Oral 0 ml IV Total 454 ml 1548 ml 33586 ml Tube Feeding 564 ml 748 ml Packed Cells 1588 ml Platelets 250 ml Tube Irrigant 200 ml 390 ml Output Urine Total 800 ml 700 ml 77055 ml Gastric Drainage Total 1410 ml # Bowel Movements 0 0 Exam General: Elderly Patient intubated and sedated in the ICU Eyes: Pupils equal round and reactive to light, anicteric sclera, noninjected conjunctiva HENT: Head traumatic, normocephalic, intubated and sedated, external ears without defect, nares are patent without drainage or blood Neck: Trachea midline, Right IJ with mild blood under Tegaderm, short and wide neck, no JVD appreciated, no lymphadenopathy CV: Regular rate and rhythm, distant heart tones with no appreciable murmur rubs or gallops Respiratory: Coarse breath sounds throughout worse in the at the axillary bases without wheezing Abdomen: mildy distended, hypo-active bowel tones, tympanic to percussion, no organomegaly appreciated Extremities: 2+ pitting edema present to the level of the fever and hands bilaterally; no cyanosis or clubbing present Skin: Warm and dry no petechiae, no rash noted, no bruising of the abdomen : Paredes in place Neuro: Unable to assess given intubation sedation Psych: Unable to assess given intubation and sedation Lab and Diagnostics Result Diagram: 10/12/1641910/12/16419 Microbiology Urine culture shows no growth to date. Blood cultures 2 show no growth after 2 days. MRSA screen negative. Sputum grew scant normal keisha. . X-Rays, CTs and MRIs PROCEDURE: X-RAY CHEST ONE VIEW, PORTABLE IMPRESSION: Endotracheal tube with the tip projecting approximately 3 cm above the belen. Right internal jugular central venous catheter with the tip projecting at the lower SVC. No pneumothorax Dictated by: Nael Blackwood M.D. on 10/06/2016 at 11:49 PROCEDURE: CT KUB IMPRESSION: 1. Extensive right subcapsular and perinephric hemorrhage as described above. There is associated small to moderate amount of hemoperitoneum within the right anterior pararenal space, paracolic gutter, and perihepatic location. 2. Right nephrolithiasis. 3. Aortoiliac aneurysms, status post aortoiliac stent-graft placement, as described above. 4. Cholelithiasis. 5. Concordant with preliminary interpretation. Dictated by: Viridiana Inman M.D. on 10/06/2016 at 7:57 X-RAY CHEST ONE VIEW, PORTABLE ([id number]) IMPRESSION: 1. Pulmonary edema and or diffuse bilateral pneumonia with small effusions unchanged. Dictated by: Woodrow LUNA Interpreted: Earline Clark MD on 10/12/2016 at 13: 59 Transcribed by: SKYLER on 10/12/2016 at 14:01 Cardiac Echo Impressions Echocardiogram Report Interpretation Summary The left ventricle is normal in size. There is moderate concentric left ventricular hypertrophy. Left ventricular systolic function is low normal. The ejection fraction is estimated to be 50-55%. There is a mild dyssynchronous contraction pattern due to the paced rhythm. There is a pacemaker lead in the right ventricle. Inspiratory collapse cannot be assessed because of mechanical ventilation, thus CVP cannot be estimated.. There is no prior echocardiogram noted for this patient. No other echocardiographic abnormalities seen. The etiology for the patients shock is not apparent. The echo is not consistant with cardiogenic shock. Reading Physician:12:44 PM Additional Diagnostics PROCEDURE: US ABDOMEN, LIMITED IMPRESSION: 1. Complex fluid collection around the right kidney as was seen on prior CT scan as above and no definite source of bleeding is identified sonographically. 2. Trace intra-abdominal fluid within the lower quadrants as well as the left upper outer quadrant. Dictated by: Woodrow LUNA Interpreted: Rosalie Schmitz MD on 10/06/2016 at 14:04 Transcribed by: NATALIA on 10/06/2016 at 14:06 Assessment & Plan Patient is an 86-year-old male with extensive cardiovascular history, new onset pain following same-day lithotripsy, radiographically proven intra-abdominal blood, and shock. He was admitted to ICU management on 10/06/16 where he decompensated requiring intubation and pressor support. Hospital day #6 # Acute hypoxemic respiratory failure, present on admission, stable improving - Patient intubated and sedated in the ICU on 10/06/16. - Using propofol and fentanyl for sedation at this time, continue to titrate down as tolerated by the patient. - Dr. Spring consulted and we appreciate his assistance with ventilator management. - ABG to be done every AM and PRN for vent management. - patient is volume overloaded we will continue to monitor volume status - Continue with spontaneous breathing trials and Sedation vacations as permitted per pulmonology recommendations # Acute kidney injury, present on admission, improving - possible acute tubular necrosis - Creatinine likely elevated secondary to hypoperfusion of kidney from the hemorrhagic shock process as well as increased intra-abdominal pressure that is ongoing. - Patient receiving IV fluids as above in #1. - nephrology consulted and we appreciated her input. - nephrology to continue Lasix given fluid status and will re-evaluate after response documented - Continue to monitor BMP. - Creatinine improving will discontinue with general diuresis per nephrology recommendations #. Possible upper GI bleed, acute, ongoing. - Positive guaiac of stomach contents with ongoing coffee ground emesis. - Continue OG suction set to intermittent suction. - Monitor stools for bright red blood. - Continue PPI drip. - Low threshold for GI consultation and endoscopy. # Acute blood loss anemia, present on admission, stable - Continuing to monitor H&H/CBC closely. No specific source of bleeding has been identified at this time. - Patient has received 7 units PRBCs and 1 unit of platelets so far this admission. - Dr. Pritchard and Dr. Leal (general surgery), Dr. Alvarado (urology) and Dr. Inman (interventional radiology) have all been consulted and we appreciate their input. - Continue to monitor # Elevated troponin, acute, present on admission, resolved - considered an effect of demand ischemia. - Will continue to treat underlying shock process as above in #1. # Acute hypokalemia, present on admission, resolved - Continue to monitor BMP and replete as needed. # Obstructive sleep apnea, chronic, presume stable. - Patient intubated in the ICU at this time. # History of pulmonary fibrosis, chronic, presume stable. - Patient intubated in the ICU at this time. # Coronary artery disease, chronic, presume stable. - Patient takes simvastatin and aspirin at home. Medication on hold at this time. Will re-order when patient more stable. #. Systolic congestive heart failure, chronic, presume stable. - EF during this admission 50-55%. Will continue to monitor with limited echo as needed during admission. - Likely not in CHF at baseline based on these results. # Acute hemorrhagic shock, present on admission, resolved - likely secondary to intraabdominal bleeding source post lithotripsy procedure within the inferior pole of the right kidney was superselectively embolized by IR until stasis was achieved. - Patient with increased intraabdominal pressure and CT evidence of bleeding into the abdomen. Septic shock less likely at this time as patient has negative cultures and has been afebrile. No evidence of cardiogenic shock per echocardiogram report. - Pressor support with norepinephrine titrated off 10/09 continue with Goal MAP > 65. - IV fluids ongoing on hold this AM. Approximately 20 liters of fluid resuscitation given up to this point (positive 17 liters overall). - Dr. Menendez consulted for antibiotic management in the event that sepsis played a role in his shock. discontinue Zosyn at this time 10/09. - Treat underlying hemorrhage as below in #3. - discontinue Albumin 200 mg IV Q12H given for oncotic intravascular repletion - Hemoglobin is remaining stable last 4 days will continue to monitor - Antacid available PRN. - Antiemetic available PRN. - Tylenol available PRN mild pain or fever. Disposition: Patient currently in critical care with improving prognosis patient will likely require several more days of hospitalization, and possibly require rehabilitation as an outpatient given prolonged course of hospitalization. Anticipated discharge many days away. GI Prophylaxis: Proton Pump Inhibitor VTE Mechanical Devices: Intermittant Pneumatic CD Resuscitation Status: CPR: Attempt Resuscitation Attending Statement The patient was seen and examined together with Dr. Carter on 10-12-16 and I agree with the history, exam and plan as outlined in the note above. Peyman Carter DO Oct 12, 2016 06:58 Hardik Durant MD Oct 13, 2016 12:26
[2016-10-13] VITALS (14 sets, daily range): BP systolic 95–168; BP diastolic 52–90; PULSE 70–90; RESP 18–28; O2SAT 95–98
[2016-10-13] MEDS: Propofol Inj 1,000,000 MCG in IV Premix 1 EACH IV SCH ×3 (00:33→22:31)
[2016-10-13 03:41] LABS: BASOPHILS % (AUTO) 0.2 % (0-3); EOSINOPHILS % (AUTO) 1.2 % (0-5); MONOCYTES % (AUTO) 13.3 % (4-12); Mean Corpuscular Hemoglobin 31.8 pg (27.0-35.0); Mean Corpuscular Volume 96.7 fL (81-100); NEUTROPHILS % (AUTO) 77.1 % (40-74); Platelet Count 95 bil/L (150-400)
[2016-10-13 03:55] LABS: INR 1.17 ratio
[2016-10-13 04:11] LABS: Phosphorus 2.3 mg/dL (2.5-4.9)
--- NOTE | 2016-10-13 05:04 | ABG ---
DateTimeAnalyzed 05:01:00 -_ pH ____7.414 - 7.350 7.450 pCO2 ___31.2__ -mmHg 35.0 45.0 pO2 ___76.2__ -mmHg 69.0 116 HCO3- ___19.6__ -mmol/L 22.0 26.0 ABE ___-3.8__ -mmol/L -2.0 2.0 tHb ____9.6__ -g/dL O2Hb ___92.3__ -% COHb ____2.8__ -% MetHb ____1.1__ -% sO2 ___96.0__ -% 25.0 FIO2 ___35.0__ -% PEEP ____5.0__ -cmH2O Set_RR ___15.0__ -b/min Vt __550.0__ -L Drawn By MD - Date/Time Notified____ 05:03:00 -_ Spontaneous_RR ___18.0__ -b/min Oxygen Device 1 VENTILATOR - Notified By MD - Notified Whom RN C.AL - B 760 -mmHg tO2 ___12.6__ -Vol% Robson test N/A -
[2016-10-13] MEDS: Potassium Chloride 20 mEq/15 mL 15mL Oral Soln TUBE SCH ×2 (07:39→19:36)
[2016-10-13] MEDS: Polyethylene Glycol (PEG) 17 Gm Powder PO SCH (07:40)
[2016-10-13] MEDS: Sodium Chloride LOK Flush 10 mL Syringe IVFLUSH SCH ×3 (07:40→19:28)
[2016-10-13] MEDS: Pantoprazole 4 mg/mL 10 mL Inj IVPUSH SCH ×2 (07:42→17:54)
--- NOTE | 2016-10-13 07:50 | PCM.PNMED ---
Subjective Date of Service Oct 13, 2016 Subjective Intensive/Pulmonology Progress Note: Attending Dr. Mel Burger is an 86-year-old male with extensive cardiovascular history who presented with new onset pain following same-day lithotripsy and was found to have radiographically proven subcapsular and perinephric retroperitoneal hemorrhage from trauma with secondary hypovolemic shock status post inferior pole renal artery embolization. He was admitted to ICU management on 10/06/16 where he decompensated requiring intubation and pressor support. Hospital day # 8. Overnight: There were no acute events. Telemetry overnight: Atrial fibrillation , heart rate 70 to 80's, with rare PVC. Subjective exam and review of systems unavailable as patient is intubated and sedated. The patient appears comfortable, opens eyes, and minimally follows commands. He is extremely hard of hearing but is able to answer yes and no questions. He had a timed SBT yesterday of 1 hour at 8/5 and did very well. . Exam Vital Signs Vital Sign - Last Date Time Temp Pulse Resp B/P Pulse Ox O2 Delivery O2 Flow Rate FiO2 10/13/16 05:03 36.8 70 18 95/52 97 Mechanical Ventilator 35 Intake and Output 10/12/16 10/12/16 10/13/16 Cumulative From/Thru 15:00 23:00 07:00 10/05/16 21:52 - 10/13/16 06:11 Intake Total 1831 ml 1087 ml 92058 ml Output Total 600 ml 550 ml 80182 ml Balance 1231 ml 537 ml 20564 ml Intake Oral 0 ml IV Total 958 ml 153 ml 16378 ml Tube Feeding 663 ml 904 ml 2315 ml Packed Cells 1588 ml Platelets 250 ml Tube Irrigant 210 ml 30 ml 630 ml Output Urine Total 600 ml 550 ml 46333 ml Gastric Drainage Total 1410 ml # Bowel Movements 0 1 1 Exam General: Elderly gentleman lying in bed and in no acute distress, intubated and sedated. HEENT: Normocephalic, atraumatic. External ears without defect. Extremely hard of hearing with hearing aids in place. Pupils equal, round, and reactive to light. Icteric sclerae, moist conjunctivae, and no lid lag. Endotracheal and oropharyngeal tube in place. Neck: Supple. No lymphadenopathy or thyromegaly. Cardiovascular: Irregular rhythm without murmurs, rubs, or gallops appreciated Pulmonary: Diffuse bronchial breath sounds in anterior lung navarro. No wheeze or crackles. Abdomen: Soft and mildly distended, bowel sounds hypoactive. Genitourinary: Paredes catheter in place. Extremities: Anasarca worsening. Skin: Normal temperature, turgor, and texture; no rash, ulcers, or subcutaneous nodules appreciated. Neurologic: Opens eyes to stimulation and follows commands minimally. Ventilator settings: PRVC. Tidal volume 550. Respiratory rate 15. FiO2 35%. PEEP 5.0. Peak . Plateau of . ABG: PH 7.414. PCO2 31.2. PO2 76.2. HCO3 19.6. On PRVC with FiO2 35% and SPO2 of 96%. IV drips and Sedatives: Fentanyl 20 g/hr and propofol 5 g/kg/min. Norepinephrine off. IV lines: Two left peripheral IV's. I&O: Net + 19012 mL. . IVs and Medications Medications Reviewed: Medications were reviewed in detail Lab and Diagnostics Item Value Date Time Procalcitonin 0.49 ng/mL H 10/11/16 034 Procalcitonin 0.70 ng/mL H 10/12/16 042 Procalcitonin 0.79 ng/mL H 10/13/16334 Item Value Date Time Calcium Level 8.1 mg/dL L 10/13/16334 Phosphorus Level 2.3 mg/dL L 10/13/16334 Magnesium Level 2.0 mg/dL 10/13/16334 Total Bilirubin 12.2 mg/dL H 10/13/16334 Aspartate Amino Transf (AST/SGOT) 175 U/L H 10/13/16334 Alanine Aminotransferase (ALT/SGPT) 88 U/L H 10/13/16 033 Alkaline Phosphatase 79 U/L 10/13/16334 Total Protein 5.7 g/dL L 10/13/16334 Albumin 2.4 g/dL L 10/13/16334 Result Diagram: 10/13/1633410/13/16334 Microbiology Urine culture shows no growth to date. Blood cultures 2 show no growth after 5 days. MRSA screen negative. Sputum grew scant normal keisha. Repeat sputum culture pending. . X-Rays, CTs and MRIs X-RAY CHEST ONE VIEW, PORTABLE IMPRESSION: Pulmonary edema and/or diffuse bilateral pneumonia redemonstrated and there are small effusions. Dictated by: Woodrow LUNA Interpreted: Earline Clark MD on 10/12/2016 at 8: 15 CT KUB IMPRESSION: 1. Large right renal subcapsular hematoma similar in extent to the study dated . Heterogeneous, delayed nephrogram suggests markedly decreased right renal blood flow and function. 2. Large retroperitoneal hematoma which appears slightly increased on the left. It is unclear whether this is truly increased hematoma or simple redistribution of a large hematoma previously visualized within the right retroperitoneal space. 3. New bibasilar consolidation and pleural effusions suspicious for early pneumonia. 4. Small amount of hepatosplenic ascites increased when compared with the prior study. This may be due to vigorous fluid resuscitation. Dictated by: Dilcia Jaimes M.D. on 10/06/2016 at 18:59 US ABDOMEN, LIMITED IMPRESSION: 1. Complex fluid collection around the right kidney as was seen on prior CT scan as above and no definite source of bleeding is identified sonographically. 2. Trace intra-abdominal fluid within the lower quadrants as well as the left upper outer quadrant. Dictated by: Woodrow LUNA Interpreted: Rosalie Schmitz MD on 10/06/2016 at 14:04 Transcribed by: NATALIA on 10/06/2016 at 14:06 X-RAY CHEST ONE VIEW, PORTABLE IMPRESSION: Endotracheal tube with the tip projecting approximately 3 cm above the belen. Right internal jugular central venous catheter with the tip projecting at the lower SVC. No pneumothorax Dictated by: Nael Blackwood M.D. on 10/06/2016 at 11:49 CT KUB IMPRESSION: 1. Extensive right subcapsular and perinephric hemorrhage as described above. There is associated small to moderate amount of hemoperitoneum within the right anterior pararenal space, paracolic gutter, and perihepatic location. 2. Right nephrolithiasis. 3. Aortoiliac aneurysms, status post aortoiliac stent-graft placement, as described above. 4. Cholelithiasis. 5. Concordant with preliminary interpretation. Dictated by: Viridiana Inman M.D. on 10/06/2016 at 7:57 . Cardiac Echo Impressions Echocardiogram Interpretation Summary: The left ventricle is normal in size. There is moderate concentric left ventricular hypertrophy. Left ventricular systolic function is low normal. The ejection fraction is estimated to be 50-55%. There is a mild dyssynchronous contraction pattern due to the paced rhythm. There is a pacemaker lead in the right ventricle. Inspiratory collapse cannot be assessed because of mechanical ventilation, thus CVP cannot be estimated. There is no prior echocardiogram noted for this patient. No other echocardiographic abnormalities seen. The etiology for the patients shock is not apparent. The echo is not consistent with cardiogenic shock. Reading Physician:12:44 PM . Additional Diagnostics PROCEDURE: 1. Selective right renal arteriography. 2. Superselective, 2nd order arteriography of a right inferior pole renal arterial branch. 3. Superselective embolization of a 2nd order arterial branch of a right inferior pole renal artery branch. 4. Right groin closure device. FINDINGS: The superior pole renal artery and its branches appear normally. Injection of the nondominant inferior pole renal artery demonstrates abnormal vasculature involving the 2nd order/inferior pole vessel, which demonstrates 2 abnormal regions of dilatation, suspicious for pseudoaneurysm formation. Following embolization of this vessel, there is static flow. No active bleeding/ contrast extravasation was encountered during examination. IMPRESSION: 1. No active bleeding during the examination. 2. Likely bleeding source within the inferior pole of the right kidney was superselectively embolized until stasis was achieved. Dictated by: Viridiana Inman M.D. on 10/09/2016 at 9:25 Approved by: Viridiana Inman M.D. on 10/09/2016 at 9:35 . Assessment & Plan Toby Burger is an 86-year-old male with extensive cardiovascular history who presented with new onset pain following same-day lithotripsy and was found to have radiographically proven subcapsular and perinephric retroperitoneal hemorrhage from trauma with secondary hypovolemic shock status post inferior pole renal artery embolization. He was admitted to ICU management on 10/06/16 where he decompensated requiring intubation and pressor support. Hospital day # 8. 1. Acute hypovolemic shock, secondary to trauma induced subcapsular and perinephric retroperitoneal hemorrhage, present on admission. Resolved. - CT evidence of right subcapsular and perinephric hemorrhage, as above. 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 - Elevated intra-abdominal pressure initially 22 and trended down. - Hemoglobin and hematocrit are stable. Patient is status post 7 units PRBC's. - Norepinephrine required for several days into hospitalization, now remains off. - Start Lasix gtt today and albumin 25 g three times daily.Received Lasix 80 mg IV 1 and Lasix 60 mg IV BID x 3 doses per nephrology recommendations and diuresed well ~9.2L. - Now receiving fluids with 1/2 NS at 100 mL/hr per nephrology. - Infectious disease, Dr. Menendez, was consulted for antibiotic management as it was thought that sepsis may possibly been contributing to shock. Discontinued Zosyn per ID. - Treat underlying hemorrhage as below in #2. 2. Acute trauma induced subcapsular and perinephric retroperitoneal hemorrhage , status post embolization, present on admission. Resolved. - Patient is status post 7 units PRBC's and greater than 20 L of IV fluids. 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 - Monitor hemoglobin and hematocrit daily. 3. ARDS, present on admission. Active. - Patient is status post 7 units PRBC's and greater than 20 L of IV fluids. - Continue ventilator settings as above. - Monitor ABG daily for vent management. - CXR continues to demonstrate stable maybe slightly worsened pulmonary edema, as above. - Continue propofol and fentanyl for sedation, as above. Continue sedation vacations and daily SBT. - Start Lasix gtt today and albumin 25 g three times daily. Received Lasix 80 mg IV 1 and Lasix 60 mg IV BID x 3 doses per nephrology recommendations and diuresed well ~9.2L. - Continue monitoring for signs of infection. Procalcitonin is rising and he is producing more secretions. Repeat sputum culture ordered. Discussed and re- consulted ID. 4. Acute blood loss anemia, present on admission. Resolving. - Secondary to subcapsular and perinephric retroperitoneal hemorrhage and possible acute upper GI bleed. - Continuing to monitor hemoglobin and hematocrit daily. - Patient has received 7 units PRBC's and 1 unit of platelets so far this admission. - Dr. Pritchard and Dr. Leal (General Surgery), Dr. Alvarado (Urology) and Dr. Inman (Interventional Radiology) have all been consulted and we appreciate their input. - Continue to have 2 units PRBC's held in case of need for further transfusions. 5. Hyperbilirubinemia, not present on admission. Active. - Secondary to reabsorption of right subcapsular and perinephric hematoma. - Continue to monitor bilirubin daily. 6. Acute kidney injury, present on admission. Resolved. - Creatinine likely elevated secondary to hypoperfusion of kidney from the hypovolemic shock, as well as, increased intra-abdominal pressure. - Received Lasix 80 mg IV 1 and Lasix 60 mg IV BID x 3 doses per nephrology recommendations and diuresed well ~9.2L. - Now receiving fluids with 1/2 NS at 100 mL/hr per nephrology. - Nephrology signed off. We appreciate their input and care of the patient. - Continue to monitor BMP. 7. Possible acute upper GI bleed, present on admission. Resolved. - Positive guaiac of stomach contents with ongoing coffee ground emesis. - Continue OG suction set to intermittent suction. - Monitor stools for bright red blood. - Continue PPI 40 mg IV twice a day. - Low threshold for GI consultation and endoscopy. 8. Acute hypokalemia, present on admission. Resolved. - Continue to monitor BMP and replete as needed. 9. Acute on chronic thrombocytopenia, present on admission. Acute portion resolved. - Baseline platelet count 70-90. - Status post 1 unit of platelets. - Continue to monitor platelet count daily. 10. Elevated troponin, acute, present on admission. Resolved. - Likely secondary to demand ischemia. EKG shows no acute ischemic changes, however, V-paced. No changes compared to prior EKG's. - Troponin maximally elevated at 0.116 and trended down. - Will continue to treat underlying shock process as above in #1. Chronic problems with management per primary team: 11. History of systolic congestive heart failure, chronic, presume stable. - EF during this admission 50-55%. Will continue to monitor with limited echo as needed during admission. - Likely not in CHF at baseline based on these results. 12. Obstructive sleep apnea, chronic. Presumed stable. - Patient intubated in the ICU at this time. 13. History of pulmonary fibrosis, chronic. Presumed stable. - Patient intubated in the ICU at this time. 14. Coronary artery disease, chronic. Presumed stable. - Patient takes simvastatin and aspirin at home which is being held. Will re- start statin when patient is stable. PRN antiemetics: Zofran and Maalox. PRN bowel regimen: Senna and MiraLAX. PRN analgesics: Tylenol. Disposition: Patient currently in critical care with improving prognosis. . GI Prophylaxis: Proton Pump Inhibitor VTE Mechanical Devices: Intermittant Pneumatic CD Resuscitation Status: CPR: Attempt Resuscitation Attending Statement I have seen and examined this patient with the resident physician. Vital signs , labs, imaging have been reviewed. I agree with the assessment and plan above. Please refer to my separately dictated progress note for any modifications to above. Charissa Leal M.D. Pulmonary and Critical Care medicine Pager [phone] Irma Zuleta DO Oct 13, 2016 07:50 Charissa Leal MD Oct 13, 2016 18:09
--- NOTE | 2016-10-13 09:11 | DRSVH ---
PROCEDURE: X-RAY CHEST ONE VIEW, PORTABLE ([id number]) INDICATIONS: acute respiratory failure TECHNIQUE: One view of the chest was acquired. COMPARISON: [facility], CR, XR CHEST 1VW (PORTABLE), 10/12/2016, 5:35. [facility], CR, XR CHEST 1VW (PORTABLE), 10/11/2016, 5:23. [facility], CR, XR CHEST 1VW (RIVER BLE), 10/12/2016, 12:57. FINDINGS: Surgical changes and devices: Stable positioning of the ETT and left chest AICD. Right IJ CVL has be en removed in the interval Lungs and pleura: Lung volumes are low and pulmonary edema suspected. Mid/basilar airspace opacities and small pleural effusions not significantly changed. Mediastinum: Mediastinal contours appear normal. Heart size is enlarged. Bones and chest wall: No suspicious bony lesions. Overlying soft tissues appear unremarkable. IMPRESSION: 1. Pulmonary edema and/or diffuse bilateral pneumonia with small pleural effusions redemonstrated. 2. Removal of right IJ CVL. Dictated by: Woodrow Loya Matt Interpreted: Viridiana Inman MD on 10/13/2016 at 9:10 Transcribed by: AJITH on 10/13/2016 at 9:10 Approved by: Viridiana Inman M.D. on 10/13/2016 at 11:08
[2016-10-13] MEDS: Albumin 25% 25 GM in IV Premix 1 EACH IV SCH ×3 (09:53→19:35)
[2016-10-13] MEDS ORDERED: VANCOMYCIN IRRIGATION ONE (11:40)
[2016-10-13] MEDS ORDERED: WATER STERILE FOR IV ONE (11:40)
[2016-10-13] MEDS ORDERED: WATER STERILE FOR IRRIGATION ONE (11:40)
[2016-10-13] MEDS ORDERED: VANCOMYCIN IV ONE (11:40)
[2016-10-13] MEDS: Furosemide 5 mg/Hr Drip IV SCH ×4 (11:48→22:33)
--- NOTE | 2016-10-13 18:05 | PROG NOTE ---
[address] [address] PROGRESS NOTE PATIENT: GAL CARRANZA : 1930 MR#: [id number] ADMIT: 10/06/2016 JOB ID: [id number] DATE: 10/13/2016 PULMONARY CRITICAL CARE PROGRESS NOTE: The patient is an 86-year-old man with interstitial lung disease admitted to the ICU with hemorrhagic shock and respiratory failure following renal hemorrhage with a lithotripsy. The patient was seen and evaluated with resident physician, Dr. Irma Zuleta. Please refer to her separate detailed note for additional information. INTERVAL HISTORY: He was doing reasonably well on a spontaneous breathing trial this morning on pressure support of 5/5. He has minimal secretions through the ET tube. REVIEW OF SYSTEMS: Unable to obtain since the patient is intubated. PHYSICAL EXAMINATION: General: Intubated, sedated. Chest: Clear to auscultation anteriorly. LABORATORIES: Reviewed and notable for serum bicarb of 17. Procalcitonin up to 0.79 from 0.7 yesterday and 0.49 the day prior. Imaging reviewed. He does have bilateral infiltrates that seem slightly worse compared to prior. Arterial blood gas from this morning shows pH of 7.41, pCO2 of 31, pO2 of 76, and bicarbonate of 19. ASSESSMENT: 1. Acute hypoxic respiratory failure. 2. Hemorrhagic shock-resolved. 3. Renal hemorrhage following lithotripsy. 4. Known interstitial lung disease. RECOMMENDATIONS: This 86-year-old man with known interstitial lung disease had a complication with lithotripsy with bleeding into the kidney and was admitted to the ICU and intubated for that reason. From a hemodynamic standpoint he has completely recovered. He is significantly fluid up however. We started a Lasix drip with albumin today to try to get some volume off. He did reasonably well on a spontaneous breathing trial, but his respiratory rate was around 30 and tidal volumes were in the 300s, so I do think he should look a little better before we extubate him. Hopefully we can get some volume off over the next 1-2 days and then extubate him. His procalcitonin has been going up for the last few days but white count is fine, secretions are fine, sputum cultures are negative. I do agree that his chest x-ray seems slightly worse but he is quite volume overloaded as well. If his procalcitonin continues to rise tomorrow then I suspect we should start antibiotics for healthcare associated pneumonia, likely Zosyn or meropenem, and complete a course. I spoke to his daughter at the bedside and updated her. TIME: Critical care time 60 minutes.
[2016-10-13] MEDS: fentaNYL 2,500 mCg/250 mL 2,500 MCG in IV Premix 1 EACH IV SCH (19:35)
--- NOTE | 2016-10-13 20:50 | PCM.PNMED ---
Subjective Date of Service Oct 13, 2016 Subjective Overnight: No acute events overnight Today: Spontaneous breathing trial with good results. Continuation of sedation vacations. Chest x-ray looks worse than prior days with increasing pro- calcitonin, ID consulted no antibiotics started at this time. Lasix drip started for fluid overload. Exam Vital Signs Vital Sign - Last Date Time Temp Pulse Resp B/P Pulse Ox O2 Delivery O2 Flow Rate FiO2 10/13/16 05:03 36.8 70 18 95/52 97 Mechanical Ventilator 35 Intake and Output 10/12/16 10/12/16 10/13/16 Cumulative From/Thru 15:00 23:00 07:00 10/05/16 21:52 - 10/13/16 06:11 Intake Total 1831 ml 1087 ml 35461 ml Output Total 600 ml 550 ml 84197 ml Balance 1231 ml 537 ml 43345 ml Intake Oral 0 ml IV Total 958 ml 153 ml 35288 ml Tube Feeding 663 ml 904 ml 2315 ml Packed Cells 1588 ml Platelets 250 ml Tube Irrigant 210 ml 30 ml 630 ml Output Urine Total 600 ml 550 ml 87697 ml Gastric Drainage Total 1410 ml # Bowel Movements 0 1 1 Exam General: Elderly Patient intubated and sedated in the ICU Eyes: Pupils equal round and reactive to light, anicteric sclera, noninjected conjunctiva HENT: Head traumatic, normocephalic, intubated and sedated, external ears without defect, nares are patent without drainage or blood Neck: Trachea midline, Right IJ with mild blood under Tegaderm, short and wide neck, no JVD appreciated, no lymphadenopathy CV: Regular rate and rhythm, distant heart tones with no appreciable murmur rubs or gallops Respiratory: Coarse breath sounds throughout worse in the at the axillary bases without wheezing Abdomen: mildy distended, hypo-active bowel tones, tympanic to percussion, no organomegaly appreciated Extremities: 2+ pitting edema present to the level of the fever and hands bilaterally; no cyanosis or clubbing present Skin: Warm and dry no petechiae, no rash noted, no bruising of the abdomen : Paredes in place Neuro: Unable to assess given intubation sedation Psych: Unable to assess given intubation and sedation Lab and Diagnostics Result Diagram: 10/13/16 0335 10/13/16 033 Microbiology Urine culture shows no growth to date. Blood cultures 2 show no growth after 2 days. MRSA screen negative. Sputum grew scant normal keisha. . X-Rays, CTs and MRIs PROCEDURE: X-RAY CHEST ONE VIEW, PORTABLE IMPRESSION: Endotracheal tube with the tip projecting approximately 3 cm above the belen. Right internal jugular central venous catheter with the tip projecting at the lower SVC. No pneumothorax Dictated by: Nael Blackwood M.D. on 10/06/2016 at 11:49 PROCEDURE: CT KUB IMPRESSION: 1. Extensive right subcapsular and perinephric hemorrhage as described above. There is associated small to moderate amount of hemoperitoneum within the right anterior pararenal space, paracolic gutter, and perihepatic location. 2. Right nephrolithiasis. 3. Aortoiliac aneurysms, status post aortoiliac stent-graft placement, as described above. 4. Cholelithiasis. 5. Concordant with preliminary interpretation. Dictated by: Viridiana Inman M.D. on 10/06/2016 at 7:57 X-RAY CHEST ONE VIEW, PORTABLE ([id number]) IMPRESSION: 1. Pulmonary edema and or diffuse bilateral pneumonia with small effusions unchanged. Dictated by: Woodrow LUNA Interpreted: Earline Clark MD on 10/12/2016 at 13: 59 Transcribed by: SKYLER on 10/12/2016 at 14:01 Cardiac Echo Impressions Echocardiogram Report Interpretation Summary The left ventricle is normal in size. There is moderate concentric left ventricular hypertrophy. Left ventricular systolic function is low normal. The ejection fraction is estimated to be 50-55%. There is a mild dyssynchronous contraction pattern due to the paced rhythm. There is a pacemaker lead in the right ventricle. Inspiratory collapse cannot be assessed because of mechanical ventilation, thus CVP cannot be estimated.. There is no prior echocardiogram noted for this patient. No other echocardiographic abnormalities seen. The etiology for the patients shock is not apparent. The echo is not consistant with cardiogenic shock. Reading Physician:12:44 PM Additional Diagnostics PROCEDURE: US ABDOMEN, LIMITED IMPRESSION: 1. Complex fluid collection around the right kidney as was seen on prior CT scan as above and no definite source of bleeding is identified sonographically. 2. Trace intra-abdominal fluid within the lower quadrants as well as the left upper outer quadrant. Dictated by: Woodrow Loya RRA Interpreted: Rosalie Schmitz MD on 10/06/2016 at 14:04 Transcribed by: NATALIA on 10/06/2016 at 14:06 Assessment & Plan Patient is an 86-year-old male with extensive cardiovascular history, new onset pain following same-day lithotripsy, radiographically proven intra-abdominal blood, and shock. He was admitted to ICU management on 10/06/16 where he decompensated requiring intubation and pressor support. Hospital day #7 1 Acute hypoxemic respiratory failure, present on admission, stable improving - Patient intubated and sedated in the ICU on 10/06/16. - Using propofol and fentanyl for sedation at this time, continue to titrate down as tolerated by the patient. - Dr. Spring consulted and we appreciate his assistance with ventilator management. - ABG to be done every AM and PRN for vent management. - patient is volume overloaded we will continue to monitor volume status - Continue with spontaneous breathing trials and Sedation vacations as permitted per pulmonology recommendations - Lasix drip started for likely pulmonary edema and volume overload, albumin given for increased oncotic support 2 Acute kidney injury, present on admission, improving - possible acute tubular necrosis - Creatinine likely elevated secondary to hypoperfusion of kidney from the hemorrhagic shock process as well as increased intra-abdominal pressure that is ongoing. - Patient receiving IV fluids as above in #1. - nephrology consulted and we appreciated her input. - nephrology to continue Lasix given fluid status and will re-evaluate after response documented - Continue to monitor BMP. - Creatinine improving Lasix drip started for likely pulmonary edema and volume overload, albumin given for increased oncotic support 3. Possible upper GI bleed, acute, ongoing. - Positive guaiac of stomach contents with ongoing coffee ground emesis. - Continue OG suction set to intermittent suction. - Monitor stools for bright red blood. - Continue PPI drip. - Low threshold for GI consultation and endoscopy. 4 Acute blood loss anemia, present on admission, stable - Continuing to monitor H&H/CBC closely. No specific source of bleeding has been identified at this time. - Patient has received 7 units PRBCs and 1 unit of platelets so far this admission. - Dr. Pritchard and Dr. Leal (general surgery), Dr. Alvarado (urology) and Dr. Inman (interventional radiology) have all been consulted and we appreciate their input. - Continue to monitor 5 Elevated troponin, acute, present on admission, resolved - considered an effect of demand ischemia. - Will continue to treat underlying shock process as above in #1. 6 Acute hypokalemia, present on admission, resolved - Continue to monitor BMP and replete as needed. 7 Obstructive sleep apnea, chronic, presume stable. - Patient intubated in the ICU at this time. 8 History of pulmonary fibrosis, chronic, presume stable. - Patient intubated in the ICU at this time. 9 Coronary artery disease, chronic, presume stable. - Patient takes simvastatin and aspirin at home. Medication on hold at this time. Will re-order when patient more stable. 10. Systolic congestive heart failure, chronic, presume stable. - EF during this admission 50-55%. Will continue to monitor with limited echo as needed during admission. - Likely not in CHF at baseline based on these results. 11 Acute hemorrhagic shock, present on admission, resolved - likely secondary to intraabdominal bleeding source post lithotripsy procedure within the inferior pole of the right kidney was superselectively embolized by IR until stasis was achieved. - Patient with increased intraabdominal pressure and CT evidence of bleeding into the abdomen. Septic shock less likely at this time as patient has negative cultures and has been afebrile. No evidence of cardiogenic shock per echocardiogram report. - Pressor support with norepinephrine titrated off 10/09 continue with Goal MAP > 65. - IV fluids ongoing on hold this AM. Approximately 20 liters of fluid resuscitation given up to this point (positive 17 liters overall). - Dr. Menendez consulted for antibiotic management in the event that sepsis played a role in his shock. discontinue Zosyn at this time 10/09. - Treat underlying hemorrhage as below in #3. - discontinue Albumin 200 mg IV Q12H given for oncotic intravascular repletion - Hemoglobin is remaining stable last 4 days will continue to monitor - Antacid available PRN. - Antiemetic available PRN. - Tylenol available PRN mild pain or fever. Disposition: Patient currently in critical care with improving prognosis patient will likely require several more days of hospitalization, and possibly require rehabilitation as an outpatient given prolonged course of hospitalization. Anticipated discharge many days away. GI Prophylaxis: Proton Pump Inhibitor VTE Mechanical Devices: Intermittant Pneumatic CD Resuscitation Status: CPR: Attempt Resuscitation Attending Statement The patient was seen and examined together with Dr. Carter on 10-13-16 and I agree with the history, exam and plan as outlined in the note above. Peyman Carter DO Oct 13, 2016 07:40 Hardik Durant MD Oct 14, 2016 13:22
[2016-10-14] VITALS (13 sets, daily range): BP systolic 90–123; BP diastolic 43–63; PULSE 75–82; RESP 18–22; O2SAT 95–99
[2016-10-14 03:08] LABS: BASOPHILS % (AUTO) 0.3 % (0-3); EOSINOPHILS % (AUTO) 1.4 % (0-5); MONOCYTES % (AUTO) 11.6 % (4-12); Mean Corpuscular Hemoglobin 31.6 pg (27.0-35.0); Mean Corpuscular Volume 96.7 fL (81-100); NEUTROPHILS % (AUTO) 77.6 % (40-74); Platelet Count 112 bil/L (150-400)
[2016-10-14 03:24] LABS: INR 1.18 ratio
[2016-10-14 04:10] LABS: Bilirubin, Direct 12.7 mg/dL (0.0-0.3)
--- NOTE | 2016-10-14 05:27 | ABG ---
DateTimeAnalyzed 05:24:00 -_ pH ____7.466 - 7.350 7.450 pCO2 ___29.3__ -mmHg 35.0 45.0 pO2 ___63.9__ -mmHg 69.0 116 HCO3- ___20.9__ -mmol/L 22.0 26.0 ABE ___-1.8__ -mmol/L -2.0 2.0 tHb ____9.4__ -g/dL O2Hb ___90.4__ -% COHb ____3.2__ -% MetHb ____0.8__ -% sO2 ___94.2__ -% 25.0 FIO2 ___21.0__ -% PEEP ____5.0__ -cmH2O Set_RR ___15.0__ -b/min Vt __550.0__ -L Drawn By MD - Date/Time Notified____ 05:27:00 -_ Spontaneous_RR ___18.0__ -b/min Oxygen Device 1 VENTILATOR - Notified By MD - Notified Whom RN C.LA - B 747 -mmHg tO2 ___12.0__ -Vol% Robson test N/A -
[2016-10-14] MEDS: Propofol Inj 1,000,000 MCG in IV Premix 1 EACH IV SCH ×3 (06:12→21:28)
[2016-10-14] MEDS: Chlorhexidine 0.12% 15 mL Oral Solution MT PRN ×2 (08:04→12:00)
[2016-10-14] MEDS: Pantoprazole 4 mg/mL 10 mL Inj IVPUSH SCH ×2 (08:05→17:32)
[2016-10-14] MEDS: Potassium Chloride 20 mEq/15 mL 15mL Oral Soln TUBE SCH ×2 (08:05→20:30)
[2016-10-14] MEDS: Sodium Chloride LOK Flush 10 mL Syringe IVFLUSH SCH ×2 (08:05→17:32)
[2016-10-14] MEDS: Polyethylene Glycol (PEG) 17 Gm Powder PO SCH (08:05)
[2016-10-14] MEDS: Furosemide 5 mg/Hr Drip IV SCH ×6 (08:41→19:17)
[2016-10-14] MEDS: fentaNYL 2,500 mCg/250 mL 2,500 MCG in IV Premix 1 EACH IV SCH ×2 (08:41→21:28)
--- NOTE | 2016-10-14 09:16 | DRSVH ---
PROCEDURE: X-RAY CHEST ONE VIEW, PORTABLE ([id number]) INDICATIONS: acute respiratory failure TECHNIQUE: One view of the chest was acquired. COMPARISON: [facility], CR, XR CHEST 1VW (PORTABLE), 10/13/2016, 5:30. FINDINGS: Surgical changes and devices: Cardiac pacer is stable. Endotracheal tube is stable. Lungs and pleura: Lungs are hypoinflated. Bilateral lung opacities and small bilateral pleural fluid collections stable compared to prior examination. Mediastinum: Mediastinal contours appear normal. Heart size is enlarged. Bones and chest wall: No suspicious bony lesions. Overlying soft tissues appear unremarkable. IMPRESSION: Stable examination compared to 10/13/16 with persistence of bilateral lung opacities and small pleural effusions.. Dictated by: Patience العراقي MD, PhD on 10/14/2016 at 9:13 Approved by: Patience العراقي MD, PhD on 10/14/2016 at 9:15
--- NOTE | 2016-10-14 13:26 | PROG NOTE ---
[address] [address] PROGRESS NOTE PATIENT: GAL CARRANZA : 1930 MR#: [id number] ADMIT: 10/06/2016 JOB ID: [id number] DATE: 10/14/2016 PULMONARY CRITICAL CARE FOLLOW UP NOTE: PROBLEMS: 1. Right renal hematoma. 2. Ischemic heart disease. 3. Obstructive sleep apnea. 4. Chronic renal failure. 5. Status post pacemaker implant. SUBJECTIVE: None. believes he is a bit more sleepy this morning. OBJECTIVE: Temperature 37. Pulse 64-82, respiratory rate 18-22 on a ventilator set at 15. Blood pressure 107/57-123/63, O2 sat on FiO2 35%, PEEP of 5, is 97%. I and O shows 2 L in, 0.5 L out. So far, in the past 13 hours, he has put out 3 L on a Lasix infusion at 10 mg an hour. General appearance: No acute distress. Seems to respond to tactile stimuli. Maybe minimally to verbal stimuli. No cognitive response. Chest: Fairly good breath sounds bilaterally. Lung navarro are clear. With tidal volume of 550, PEEP of 5, peak pressure is 24, plateau 19. PEEP is set at 5, measured at 5. Heart tones seem normal. Abdomen is soft. Some bowel tones present. Extremities: No pretibial edema. There is some bilateral upper extremity edema. LABORATORY STUDIES: White cell count stable at 8900 with moderate neutrophilia with 77 polymorphonuclears, 8 lymphs, 11 monocytes. Hemoglobin stable at 9.5. Platelet count rising at 112,000. Sodium 148, potassium 4.1, chloride 113, CO2 is 19, and a little bit increased from 17 yesterday. BUN 49, up from 42 yesterday. Creatinine 0.79, down from 1.03 yesterday. Total bilirubin continues to rise currently 17.8, presumably due to the intrarenal bleed. Direct bilirubin is 12.7. AST slowly rising, currently 226 and ALT 105 which has been rising slowly for the past four days. Alkaline phos normal at 72. Albumin 3.3. Total protein 6.2. Procalcitonin 0.85, rising ever so slightly. INR is 1.18. The sputum studies from October 12, 2016 show rare polys. Rare mixed keisha on Gram stain. Only growing light growth of normal keisha. Chest x-ray shows no particular change in bilateral lung opacities. Arterial blood gases on an FiO2 of 35%, PEEP of 5, tidal volume of 550, rate of 15 shows a pO2 of 63, pCO2 of 29, pH of 7.46. ASSESSMENT: 1. Right renal hematoma. Presumably the elevated bilirubin is from the hematoma. Now, however, there is some elevation in transaminases. Etiology unclear. May need to repeat the ultrasound or preferably a CT scan of his abdomen to make sure we are not dealing with any intrahepatic problem. Not on any particular medications that will cause these problems. 2. Fluid overload. Continues to diurese with the Lasix infusion. Put out a reasonable amount if not too much urine. Getting somewhat alkalotic both respiratory and from a "contraction alkalosis." Probably will back off the tidal volume as he is already over breathing the ventilator with the ventilator set at 15. He is breathing about 18. 3. Weakness. Apparently this is improving. Was able to sit at the side of the bed a bit more unassisted yesterday. Undergoing spontaneous breathing trials and will continue those today. 4. Hypernatremia. Developing a mild free water deficit. Can add some free water to his tube feedings. I spoke to the patient's regarding the lungs and breathing trials. TIME SPENT: Time spent so far in critical care 41 minutes.
--- NOTE | 2016-10-14 15:14 | PCM.PNMED ---
Subjective Date of Service Oct 14, 2016 Subjective overnight: Patient began overbreathing the vent with bronchospastic respirations on the ventilator requiring increased need for sedation. No acute events otherwise noted Today: Bilirubin and direct bilirubin continued to rise, with AST ALT in correlation with hepatocellular injury. Pharmacy consulted no medications on SEP are suspect. Likely due to portal venous congestive injury with increased abdominal pressures abdominal ultrasound ordered for 10/15 with patient NPO after midnight with hepatitis panel ordered as well. Spontaneous breathing trial and sedation vacations continue. Continue diuresis with Creatinine continuing to improve. Urine and blood culture ordered for increased procalcitonin. Exam Vital Signs Vital Sign - Last Date Time Temp Pulse Resp B/P Pulse Ox O2 Delivery O2 Flow Rate FiO2 10/14/16 05:09 37.0 80 18 109/59 97 Mechanical Ventilator 35 Intake and Output 10/13/16 10/13/16 10/14/16 Cumulative From/Thru 15:00 23:00 07:00 10/05/16 21:52 - 10/14/16 06:13 Intake Total 948 ml 1006 ml 36210 ml Output Total 3050 ml 98425 ml Balance 948 ml -2044 ml 82237 ml Intake Oral 0 ml IV Total 139 ml 423 ml 51865 ml Tube Feeding 624 ml 478 ml 3417 ml Packed Cells 1588 ml Platelets 250 ml Tube Irrigant 185 ml 105 ml 920 ml Output Urine Total 3050 ml 57123 ml Gastric Drainage Total 1410 ml # Bowel Movements 2 3 Exam General: Jaundiced Elderly Patient intubated and sedated in the ICU Eyes: Pupils equal round and reactive to light, icteric sclera, noninjected conjunctiva HENT: Head traumatic, normocephalic, intubated and sedated, external ears without defect, nares are patent without drainage or blood Neck: Trachea midline, short and wide neck, no JVD appreciated, no lymphadenopathy CV: Regular rate and rhythm, distant heart tones with no appreciable murmur rubs or gallops Respiratory: Coarse breath sounds throughout worse in the at the axillary bases without wheezing Abdomen: mildy distended, hypo-active bowel tones, tympanic to percussion, no organomegaly appreciated Extremities: 1+ pitting edema present to the level of the fever and hands bilaterally; no cyanosis or clubbing present Skin: Warm and dry no petechiae, no rash noted, no bruising of the abdomen : Paredes in place Neuro: Unable to assess given intubation sedation Psych: Unable to assess given intubation and sedation Lab and Diagnostics Result Diagram: 10/14/16 0300 10/14/16 0300 Microbiology Urine culture shows no growth to date. Blood cultures 2 show no growth after 2 days. MRSA screen negative. Sputum grew scant normal keisha. . X-Rays, CTs and MRIs PROCEDURE: X-RAY CHEST ONE VIEW, PORTABLE IMPRESSION: Endotracheal tube with the tip projecting approximately 3 cm above the belen. Right internal jugular central venous catheter with the tip projecting at the lower SVC. No pneumothorax Dictated by: Nael Blackwood M.D. on 10/06/2016 at 11:49 PROCEDURE: CT KUB IMPRESSION: 1. Extensive right subcapsular and perinephric hemorrhage as described above. There is associated small to moderate amount of hemoperitoneum within the right anterior pararenal space, paracolic gutter, and perihepatic location. 2. Right nephrolithiasis. 3. Aortoiliac aneurysms, status post aortoiliac stent-graft placement, as described above. 4. Cholelithiasis. 5. Concordant with preliminary interpretation. Dictated by: Viridiana Inman M.D. on 10/06/2016 at 7:57 X-RAY CHEST ONE VIEW, PORTABLE ([id number]) IMPRESSION: 1. Pulmonary edema and or diffuse bilateral pneumonia with small effusions unchanged. Dictated by: Woodrow LUNA Interpreted: Earline Clark MD on 10/12/2016 at 13: 59 Transcribed by: SKYLER on 10/12/2016 at 14:01 PROCEDURE: X-RAY CHEST ONE VIEW, PORTABLE ([id number]) IMPRESSION: Stable examination compared to 10/13/16 with persistence of bilateral lung opacities and small pleural effusions.. Dictated by: Patience العراقي MD, PhD on 10/14/2016 at 9:13 Approved by: Patience العراقي MD, PhD on 10/14/2016 at 9:15 Cardiac Echo Impressions Echocardiogram Report Interpretation Summary The left ventricle is normal in size. There is moderate concentric left ventricular hypertrophy. Left ventricular systolic function is low normal. The ejection fraction is estimated to be 50-55%. There is a mild dyssynchronous contraction pattern due to the paced rhythm. There is a pacemaker lead in the right ventricle. Inspiratory collapse cannot be assessed because of mechanical ventilation, thus CVP cannot be estimated.. There is no prior echocardiogram noted for this patient. No other echocardiographic abnormalities seen. The etiology for the patients shock is not apparent. The echo is not consistant with cardiogenic shock. Reading Physician:12:44 PM Additional Diagnostics PROCEDURE: US ABDOMEN, LIMITED IMPRESSION: 1. Complex fluid collection around the right kidney as was seen on prior CT scan as above and no definite source of bleeding is identified sonographically. 2. Trace intra-abdominal fluid within the lower quadrants as well as the left upper outer quadrant. Dictated by: Woodrow Loya RRA Interpreted: Rosalie Schmitz MD on 10/06/2016 at 14:04 Transcribed by: NATALIA on 10/06/2016 at 14:06 Assessment & Plan Patient is an 86-year-old male with extensive cardiovascular history, new onset pain following same-day lithotripsy, radiographically proven intra-abdominal blood, and shock. He was admitted to ICU management on 10/06/16 where he decompensated requiring intubation and pressor support. Hospital day #8 1 Acute hypoxemic respiratory failure, present on admission, stable improving - Patient intubated and sedated in the ICU on 10/06/16. - Using propofol and fentanyl for sedation at this time, continue to titrate down as tolerated by the patient. - Dr. Spring consulted and we appreciate his assistance with ventilator management. - ABG to be done every AM and PRN for vent management. - patient is volume overloaded we will continue to monitor volume status - Continue with spontaneous breathing trials and Sedation vacations as permitted per pulmonology recommendations - Lasix drip continued for likely pulmonary edema and volume overload, albumin given for increased oncotic support 2 Acute kidney injury, present on admission, improving - possible acute tubular necrosis - Creatinine likely elevated secondary to hypoperfusion of kidney from the hemorrhagic shock process as well as increased intra-abdominal pressure that is ongoing. - Patient receiving IV fluids as above in #1. - nephrology consulted and we appreciated her input. - nephrology to continue Lasix given fluid status and will re-evaluate after response documented - Continue to monitor BMP. - Creatinine improving Lasix drip continued for likely pulmonary edema and volume overload, albumin given for increased oncotic support 3. Acute transaminitis, not present on admission, unstable under evaluation - Elevated direct bilirubin with transaminitis consistent with hepatocellular injury of unknown etiology - Medication list checked for possible offenders none currently suspected - Abdominal ultrasound ordered for 10/15 with patient NPO after midnight to check liver and portal system - Acute hepatitis panel ordered 4. Possible upper GI bleed, acute, ongoing. - Positive guaiac of stomach contents with ongoing coffee ground emesis. - Continue OG suction set to intermittent suction. - Monitor stools for bright red blood. - Continue PPI drip. - Low threshold for GI consultation and endoscopy. 5 Acute blood loss anemia, present on admission, stable - Continuing to monitor H&H/CBC closely. No specific source of bleeding has been identified at this time. - Patient has received 7 units PRBCs and 1 unit of platelets so far this admission. - Dr. Pritchard and Dr. Leal (general surgery), Dr. Alvarado (urology) and Dr. Inman (interventional radiology) have all been consulted and we appreciate their input. - Continue to monitor 6 Elevated troponin, acute, present on admission, resolved - considered an effect of demand ischemia. - Will continue to treat underlying shock process as above in #1. 7 Acute hypokalemia, present on admission, resolved - Continue to monitor BMP and replete as needed. 8 Obstructive sleep apnea, chronic, presume stable. - Patient intubated in the ICU at this time. 9 History of pulmonary fibrosis, chronic, presume stable. - Patient intubated in the ICU at this time. 10 Coronary artery disease, chronic, presume stable. - Patient takes simvastatin and aspirin at home. Medication on hold at this time. Will re-order when patient more stable. 11. Systolic congestive heart failure, chronic, presume stable. - EF during this admission 50-55%. Will continue to monitor with limited echo as needed during admission. - Likely not in CHF at baseline based on these results. 11 Acute hemorrhagic shock, present on admission, resolved - likely secondary to intraabdominal bleeding source post lithotripsy procedure within the inferior pole of the right kidney was superselectively embolized by IR until stasis was achieved. - Patient with increased intraabdominal pressure and CT evidence of bleeding into the abdomen. Septic shock less likely at this time as patient has negative cultures and has been afebrile. No evidence of cardiogenic shock per echocardiogram report. - Pressor support with norepinephrine titrated off 10/09 continue with Goal MAP > 65. - IV fluids ongoing on hold this AM. Approximately 20 liters of fluid resuscitation given up to this point (positive 17 liters overall). - Dr. Menendez consulted for antibiotic management in the event that sepsis played a role in his shock. discontinue Zosyn at this time 10/09. - Treat underlying hemorrhage as below in #3. - discontinue Albumin 200 mg IV Q12H given for oncotic intravascular repletion - Hemoglobin is remaining stable last 4 days will continue to monitor - Antacid available PRN. - Antiemetic available PRN. - Tylenol available PRN mild pain or fever. Disposition: Patient currently in critical care with improving prognosis patient will likely require several more days of hospitalization, and possibly require rehabilitation as an outpatient given prolonged course of hospitalization. Anticipated discharge many days away. GI Prophylaxis: Proton Pump Inhibitor VTE Mechanical Devices: Intermittant Pneumatic CD Resuscitation Status: CPR: Attempt Resuscitation Attending Statement The patient was seen and examined together with Dr. Carter on 10-14-16 and I agree with the history, exam and plan as outlined in the note above. Peyman Carter DO Oct 14, 2016 06:48 Hardik Durant MD Oct 15, 2016 10:26
[2016-10-14 18:52] LABS: APPEARANCE,URINE HAZY (CLEAR,HAZY); COLOR,URINE YELLOW (YELLOW); OCCULT BLOOD,URINE LARGE (NEGATIVE)
[2016-10-14 18:53] LABS: ICTOTEST,URINE POSITIVE (Negative); UROBILINOGEN,URINE NORMAL (NORMAL)
[2016-10-14 19:48] LABS: Bilirubin, Direct 18.1 mg/dL (0.0-0.3)
[2016-10-15] VITALS (12 sets, daily range): BP systolic 98–124; BP diastolic 50–66; PULSE 62–79; RESP 15–27; O2SAT 97–99
[2016-10-15] MEDS: Sodium Chloride LOK Flush 10 mL Syringe IVFLUSH SCH ×3 (00:21→16:30)
[2016-10-15 03:21] LABS: BASOPHILS % (AUTO) 0.4 % (0-3); EOSINOPHILS % (AUTO) 2.7 % (0-5); Mean Corpuscular Hemoglobin 31.4 pg (27.0-35.0); Mean Corpuscular Volume 95.6 fL (81-100); NEUTROPHILS % (AUTO) 78.4 % (40-74); Platelet Count 116 bil/L (150-400)
[2016-10-15 03:32] LABS: INR 1.17 ratio
--- NOTE | 2016-10-15 04:02 | ABG ---
DateTimeAnalyzed 03:58:00 -_ pH ____7.433 - 7.350 7.450 pCO2 ___35.5__ -mmHg 35.0 45.0 pO2 ___92.9__ -mmHg 69.0 116 HCO3- ___23.4__ -mmol/L 22.0 26.0 ABE ___-0.1__ -mmol/L -2.0 2.0 tHb ___10.0__ -g/dL O2Hb ___94.2__ -% COHb ____2.7__ -% MetHb ____0.8__ -% sO2 ___97.6__ -% 25.0 FIO2 ___35.0__ -% Drawn By LT - Date/Time Notified____ 04:02:00 -_ Notified By LT - Notified Whom KUNNY, RN - B 763 -mmHg tO2 ___13.4__ -Vol% Robson test _Positive -
[2016-10-15 04:21] LABS: Phosphorus 3.4 mg/dL (2.5-4.9)
[2016-10-15] MEDS: Propofol Inj 1,000,000 MCG in IV Premix 1 EACH IV SCH ×3 (04:43→16:43)
[2016-10-15] MEDS: Polyethylene Glycol (PEG) 17 Gm Powder PO SCH (07:14)
[2016-10-15] MEDS: Pantoprazole 4 mg/mL 10 mL Inj IVPUSH SCH (07:26)
[2016-10-15] MEDS: Potassium Chloride 20 mEq/15 mL 15mL Oral Soln TUBE SCH ×2 (07:26→21:37)
[2016-10-15] MEDS: Chlorhexidine 0.12% 15 mL Oral Solution MT PRN (07:26)
--- NOTE | 2016-10-15 09:01 | PCM.PNMED ---
Subjective Date of Service Oct 15, 2016 Subjective Patient intubated and sedated in the ICU so no ROS could be obtained. Overnight, patient NPO in preparation for abdominal ultrasound in the AM. Vent settings are stable with small amount of white sputum noted on suction. The patient continues to open his eyes with care but does not follow all commands. FMS placed as patient stooling frequently - brown liquid stool noted. Exam Vital Signs Vital Sign - Last Date Time Temp Pulse Resp B/P Pulse Ox O2 Delivery O2 Flow Rate FiO2 10/15/16 08:00 37.0 77 16 104/58 98 Mechanical Ventilator 35 Intake and Output 10/14/16 10/14/16 10/15/16 Cumulative From/Thru 15:00 23:00 07:00 10/05/16 21:52 - 10/15/16 05:31 Intake Total 1120 ml 669 ml 86880 ml Output Total 2700 ml 2600 ml 31733 ml Balance -1580 ml -1931 ml 8182 ml Intake Oral 0 ml IV Total 284 ml 221 ml 08662 ml Tube Feeding 716 ml 368 ml 4501 ml Packed Cells 1588 ml Platelets 250 ml Tube Irrigant 120 ml 80 ml 1120 ml Output Urine Total 2700 ml 2500 ml 82047 ml Stool Total 100 ml 100 ml Gastric Drainage Total 1410 ml # Bowel Movements 3 Exam General: Jaundiced Elderly Patient intubated and sedated in the ICU Eyes: Pupils equal round and reactive to light, icteric sclera, noninjected conjunctiva HENT: Head atraumatic, normocephalic, external ears without defect, nares are patent without drainage or blood Neck: Trachea midline, short and wide neck, no JVD appreciated, no lymphadenopathy CV: Regular rate and rhythm, distant heart tones with no appreciable murmur rubs or gallops Respiratory: Coarse breath sounds throughout worse in the at the axillary bases without wheezing Abdomen: Nontender, distended, hypo-active bowel tones, tympanic to percussion, no organomegaly appreciated Extremities: Mild pitting edema present to the level of the femur and moderate pitting edema in the hands bilaterally; no cyanosis or clubbing present Skin: Warm and dry no petechiae, no rash noted, no bruising of the abdomen : Paredes in place FMS in place Left peripheral IV Ventilator settings: FiO2 .35, PEEP 5, Rate 15, TV 350 IVs and Medications Medications Reviewed: Medications were reviewed in detail Lab and Diagnostics Result Diagram: 10/15/16 0305 10/15/16 0305 X-Rays, CTs and MRIs PROCEDURE: X-RAY CHEST ONE VIEW, PORTABLE IMPRESSION: Endotracheal tube with the tip projecting approximately 3 cm above the belen. Right internal jugular central venous catheter with the tip projecting at the lower SVC. No pneumothorax Dictated by: Nael Blackwood M.D. on 10/06/2016 at 11:49 PROCEDURE: CT KUB IMPRESSION: 1. Extensive right subcapsular and perinephric hemorrhage as described above. There is associated small to moderate amount of hemoperitoneum within the right anterior pararenal space, paracolic gutter, and perihepatic location. 2. Right nephrolithiasis. 3. Aortoiliac aneurysms, status post aortoiliac stent-graft placement, as described above. 4. Cholelithiasis. 5. Concordant with preliminary interpretation. Dictated by: Viridiana Inman M.D. on 10/06/2016 at 7:57 X-RAY CHEST ONE VIEW, PORTABLE ([id number]) IMPRESSION: 1. Pulmonary edema and or diffuse bilateral pneumonia with small effusions unchanged. Dictated by: Woodrow LUNA Interpreted: Earline Clark MD on 10/12/2016 at 13: 59 Transcribed by: SKYLER on 10/12/2016 at 14:01 PROCEDURE: X-RAY CHEST ONE VIEW, PORTABLE ([id number]) IMPRESSION: Stable examination compared to 10/13/16 with persistence of bilateral lung opacities and small pleural effusions.. Dictated by: Patience العراقي MD, PhD on 10/14/2016 at 9:13 Approved by: Patience العراقي MD, PhD on 10/14/2016 at 9:15 Cardiac Echo Impressions Echocardiogram Report Interpretation Summary The left ventricle is normal in size. There is moderate concentric left ventricular hypertrophy. Left ventricular systolic function is low normal. The ejection fraction is estimated to be 50-55%. There is a mild dyssynchronous contraction pattern due to the paced rhythm. There is a pacemaker lead in the right ventricle. Inspiratory collapse cannot be assessed because of mechanical ventilation, thus CVP cannot be estimated.. There is no prior echocardiogram noted for this patient. No other echocardiographic abnormalities seen. The etiology for the patients shock is not apparent. The echo is not consistant with cardiogenic shock. Reading Physician:12:44 PM Additional Diagnostics PROCEDURE: US ABDOMEN, LIMITED IMPRESSION: 1. Complex fluid collection around the right kidney as was seen on prior CT scan as above and no definite source of bleeding is identified sonographically. 2. Trace intra-abdominal fluid within the lower quadrants as well as the left upper outer quadrant. Dictated by: Woodrow Loya RRA Interpreted: Rosalie Schmitz MD on 10/06/2016 at 14:04 Transcribed by: NATALIA on 10/06/2016 at 14:06 Assessment & Plan Patient is an 86-year-old male with extensive cardiovascular history, new onset pain following same-day lithotripsy, radiographically proven intra-abdominal blood, and shock. He was admitted to ICU management on 10/06/16 where he decompensated requiring intubation and pressor support. Hospital day #10 1 Acute hypoxemic respiratory failure, present on admission, improving - Patient intubated and sedated in the ICU on 10/06/16. - Using propofol and fentanyl for sedation at this time, continue to titrate down as tolerated by the patient. - Dr. Spring consulted and we appreciate his assistance with ventilator management. - ABG to be done every AM and PRN for vent management. - Continue with spontaneous breathing trials and sedation vacations per pulmonology recommendations. - Continue to work toward extubation. 2. Fluid overload with pulmonary edema, acute, not present on admission, improving. - Likely secondary to significant fluid resuscitation done early in the course of admission. - Patient currently positive about 8L fluid. - Albumin to be used as needed for oncotic support. - Lasix drip used for more aggressive diuresis. Will review this today and consider the use of Lasix IV push. 3. Acute kidney injury, present on admission, improving - Possibly acute tubular necrosis - Creatinine normalized but BUN remains high likely secondary to aggressive diuresis. - Continue to monitor BMP. 4. Acute transaminitis, not present on admission, unstable under evaluation - Elevated direct bilirubin with transaminitis consistent with hepatocellular injury of unknown etiology - Abdominal ultrasound ordered for 10/15 with patient NPO after midnight to check liver and portal system - Acute hepatitis panel ordered and pending. 5. Possible upper GI bleed, acute, resolved. - Patient has been tolerating tube feeds. - No bright red blood noted in stool. - Continue to monitor H&H but has been stable. 6. Acute blood loss anemia, present on admission, stable - Continuing to monitor H&H/CBC closely. No specific source of bleeding has been identified at this time. - Patient has received 7 units PRBCs and 1 unit of platelets so far this admission. 7. Elevated troponin, acute, present on admission, resolved - Considered an effect of demand ischemia. 8. Acute hypokalemia, present on admission, resolved - Continue to monitor BMP and replete as needed. 9. Obstructive sleep apnea, chronic, presume stable. - Patient intubated in the ICU at this time. 10. History of pulmonary fibrosis, chronic, presume stable. - Patient intubated in the ICU at this time. 11. Coronary artery disease, chronic, presume stable. - Patient takes simvastatin and aspirin at home. Medication on hold at this time. Will re-order when patient more stable. 12. Systolic congestive heart failure, chronic, presume stable. - EF during this admission 50-55%. Will continue to monitor with limited echo as needed during admission. - Likely not in CHF at baseline based on these results. 13. Acute hemorrhagic shock, present on admission, resolved - likely secondary to intraabdominal bleeding source post lithotripsy procedure within the inferior pole of the right kidney was superselectively embolized by IR until stasis was achieved. - Patient with increased intraabdominal pressure and CT evidence of bleeding into the abdomen. Septic shock less likely at this time as patient has negative cultures and has been afebrile. No evidence of cardiogenic shock per echocardiogram report. - Pressor support with norepinephrine titrated off 10/09. - Dr. Menendez consulted for antibiotic management in the event that sepsis played a role in his shock. Discontinued Zosyn at this time 10/09. - Hemoglobin is remaining stable, will continue to monitor. - Antacid available PRN. - Antiemetic available PRN. Disposition: Patient currently in critical care with improving prognosis patient will likely require several more days of hospitalization, and possibly require rehabilitation as an outpatient given prolonged course of hospitalization. Anticipated discharge many days away. GI Prophylaxis: Proton Pump Inhibitor VTE Mechanical Devices: Intermittant Pneumatic CD Resuscitation Status: CPR: Attempt Resuscitation Attending Statement The patient was seen and examined together with Dr. Culver on 10-15-16 and I agree with the history, exam and plan as outlined in the note above. Nighat Culver DO Oct 15, 2016 09:01 Hardik Durant MD Oct 30, 2016 16:05
--- NOTE | 2016-10-15 11:09 | DRSVH ---
PROCEDURE: X-RAY CHEST ONE VIEW, PORTABLE ([id number]) INDICATIONS: pulmonary edema, noncardiogenic TECHNIQUE: One view of the chest was acquired. COMPARISON: [facility], [place], XR CHEST 1VW (PORTABLE), 10/14/2016, 4:08. FINDINGS: Surgical changes and devices: The endotracheal tube is 6 cm above belen. There is a nasogastric tube with tip projecting to the stomach. Cardiac pacemaker/defibrillator again noted, in stable position . Lungs and pleura: Slightly improved aeration. Diffuse bilateral interstitial and airspace infiltrate s. Left basilar consolidations or atelectasis. Possible small pleural effusions. No pneumothorax. Mediastinum: Mediastinal contours appear normal. Heart size is normal. Bones and chest wall: No suspicious bony lesions. Overlying soft tissues appear unremarkable. IMPRESSION: Slightly improved aeration. Dictated by: Rosalie Schmitz M.D. on 10/15/2016 at 11:06 Approved by: Rosalie Schmitz M.D. on 10/15/2016 at 11:08
[2016-10-15] MEDS: Dextrose 5% 1,000 ML IV SCH ×2 (12:10→21:46)
--- NOTE | 2016-10-15 12:51 | DRSVH ---
PROCEDURE: US ABDOMEN INDICATIONS: hepatocellular injury TECHNIQUE: Real-time scanning was performed of the abdominal and retroperitoneal organs, with image documentatio n. COMPARISON: [facility], [place], ABDOMEN LTD, 10/06/2016, 12:41. [facility], CT, CT KUB, 10/06/2016, 18:40. FINDINGS: Suboptimal exam due to overlying bowel gas and respiratory motions. Liver length: 16.04 cm Gallbladder Wall Thickness: 5.80 mm CHD: 1.70 mm CBD: 5.80 mm Spleen length: 9.76 cm Right kidney length: 10.11 cm Left kidney length: 13.40 cm Aorta(Proximal): - Aorta(Mid): 1.98 cm Aorta(Distal): 1.61 cm RCIA: No visualized LCIA: Not visualized Liver: Liver is normal in size and demonstrates diffusely increased echotexture. Gallbladder: Gallbladder is somewhat contracted. Mild gallbladder wall thickening is noted. Biliary ducts: Intrahepatic bile ducts are non-dilated. Extrahepatic bile duct caliber is normal. Normal is 6-7 mm or less in diameter, or 10 mm or less post-cholecystectomy. Pancreas: Visualized portions of the pancreas are sonographically normal. Spleen: Spleen is normal in size and homogeneous in echotexture. Kidneys: Kidneys are normal in size and echotexture. No hydronephrosis or nephrolithiasis. No beny d masses. Aorta: Visualized aorta is normal in caliber at less than 3 cm. Iliacs: Proximal common iliac arteries are normal in caliber at less than 2.5 cm. IVC: Intrahepatic inferior vena cava is patent. Miscellaneous: There is a large complex mass measuring 7.2 x 8.8 x 7.8 cm adjacent to the right kidn ey (previously 18.0 x 10.8 x 10.9 cm). IMPRESSION: 1. Slightly decrease in size of a complex mass adjacent to the left kidney, most likely a hematoma. 2. Semicontracted gallbladder with mild gallbladder wall thickening. The clinical significance of the findings uncertain. 3. Diffusely increased hepatic echotexture. This finding is most likely secondary to hepatic fatty i nfiltration although other hepatocellular disease may have a similar appearance. Recommend clinical c orrelation. Dictated by: Rosalie Schmitz M.D. on 10/15/2016 at 12:43 Approved by: Rosalie Schmitz M.D. on 10/15/2016 at 12:48
--- NOTE | 2016-10-15 13:46 | PROG NOTE ---
[address] [address] PROGRESS NOTE PATIENT: GAL CARRANZA : 1930 MR#: [id number] ADMIT: 10/06/2016 JOB ID: [id number] DATE: 10/15/2016 PROBLEM LIST: 1. Right renal hematoma. 2. Ischemic heart disease. 3. Obstructive sleep apnea. 4. Chronic renal failure. 5. Status post pacemaker implant. 6. Hyperbilirubinemia. 7. Elevating transaminitis. 8. Elevated lipase. SUBJECTIVE: None. OBJECTIVE: Temperature 37, with T-max being 37.7, 18 hours ago. Pulse mid 70s. Respiratory rate 16 on the ventilator, set at 16. During pressure support trial, it was 27. Blood pressure 111/62, O2 sat on FiO2 35%, PEEP of 5, is 99%. I and O shows 2.1 L in, 5.7 L out. General appearance: Sedated. Arouses to verbal stimuli as well as tactile stimuli by opening his eyes. Does not make eye contact. Gaze is purposely at the ceiling with some eye movements. Sclerae jaundiced. Chest fairly good breath sounds bilaterally. Lungs sound clear to me. With a tidal volume of 550, PEEP of 5, peak inspiratory pressure is 25, plateau was 17. PEEP is set at 5, measured at 5. Heart: Regular rhythm. Heart tones seem normal. Abdomen is soft. Slightly distended. No apparent tenderness. Bowel tones present. Extremities: Some edema of the upper extremities. Seem equal in their edema. Lower extremities: No pedal edema. SCD in place. LABORATORY DATA: Shows a white count of 9200, with 78 polymorphonuclears, no bands, 7 lymphocytes, 10 monocytes. Hemoglobin 9.9. Platelet count 116,000 and rising. Sodium 150, potassium 3.9, chloride 112, CO2 is 21, BUN 56 and rising. Creatinine 0.88, and after a bobby of 0.71, starting to rise again. Calcium 8.7 with an ionized calcium pending. Phosphorus 3.4, magnesium 2. Total bilirubin 22.4. The rate of rise seems to be slowing. AST 394 and rising, ALT 178 and slowly rising. Alkaline phos normal at 78. Ammonia level normal at 49. Total protein 6, albumin 3.1. Triglycerides minimally elevated at 165, upper limits normal being 149. Lipase 134, upper limits of normal being 60. Procalcitonin relatively stable at 0.81. Sputum Gram stain shows a few polys. Rare mixed keisha. Blood cultures pending. Abdominal ultrasound pending, as is a chest x-ray. Arterial blood gases on an FiO2 of 35%, PEEP of 5, rate of 16, and tidal volume of 550 shows a pO2 of 92, pCO2 of 35, pH 7.43. ASSESSMENT: 1. Transaminitis. In conjunction with the hyperbilirubinemia, which is likely due to the large right renal hematoma, normal alkaline phosphatase suggest a hepatotoxic process. Review of the meds did not reveal any relation between the medications and liver failure. Ultrasound pending to look for a portal vein thrombosis or Budd-Chiari. Will check for hep C, hep B. 2. Edema. Patient remains fluid overloaded. However, his BUN and creatinine are suggesting he was either bleeding in his gut, which does not appear to be the case, or he is becoming hypovolemic due to the vigorous diuresis. I think we should hold off on the diuresis for the moment as his creatinine is starting to rise again with significant rise in his BUN that could be consistent with prerenal state. 3. Medications. Patient receiving propofol which is metabolized by conjugation in the liver. I think that needs to be stopped. Would continue his fentanyl. 4. Acute respiratory distress syndrome. Slowly improving. Tolerating the breathing trials fairly well. Would continue with the breathing trials, though he is in no state for extubation at this time. 5. Hypernatremia. Has developed a significant free water deficit. Will start free water infusion. Time spent so far in critical care, 55 minutes.
[2016-10-15] MEDS ORDERED: Furosemide 10 mg/mL 10 mL Inj IVPUSH SCH (20:30)
[2016-10-16] VITALS (13 sets, daily range): BP systolic 92–118; BP diastolic 50–78; PULSE 75–88; RESP 15–23; O2SAT 97–100
[2016-10-16] MEDS: Sodium Chloride LOK Flush 10 mL Syringe IVFLUSH SCH ×3 (00:55→16:30)
[2016-10-16] MEDS: fentaNYL 2,500 mCg/250 mL 2,500 MCG in IV Premix 1 EACH IV SCH (01:10)
[2016-10-16] MEDS: Propofol Inj 1,000,000 MCG in IV Premix 1 EACH IV SCH ×4 (01:11→18:47)
[2016-10-16 03:05] LABS: BASOPHILS % (AUTO) 0.5 % (0-3); EOSINOPHILS % (AUTO) 3.2 % (0-5); MONOCYTES % (AUTO) 7.8 % (4-12); Mean Corpuscular Hemoglobin 31.6 pg (27.0-35.0); Mean Corpuscular Volume 93.9 fL (81-100); NEUTROPHILS % (AUTO) 78.6 % (40-74); Platelet Count 143 bil/L (150-400)
[2016-10-16 03:26] LABS: Magnesium 2.1 mg/dL (1.6-2.6); Phosphorus 3.8 mg/dL (2.5-4.9)
[2016-10-16 04:06] LABS: Hepatitis A Antibody IgM Negative (Negative); Hepatitis B Core Antibody IgM Negative (Negative)
--- NOTE | 2016-10-16 04:27 | ABG ---
DateTimeAnalyzed 04:22:00 -_ pH ____7.408 - 7.350 7.450 pCO2 ___38.1__ -mmHg 35.0 45.0 pO2 108 -mmHg 69.0 116 HCO3- ___23.6__ -mmol/L 22.0 26.0 ABE ___-0.4__ -mmol/L -2.0 2.0 tHb ___10.4__ -g/dL O2Hb ___95.1__ -% COHb ____2.4__ -% MetHb ____0.7__ -% sO2 ___98.1__ -% 25.0 FIO2 ___21.0__ -% PRVC 550 - PEEP ____5.0__ -cmH2O Set_RR ___15.0__ -b/min Vt __550.0__ -L Drawn By jh - Date/Time Notified____ 04:26:00 -_ Spontaneous_RR ___15.0__ -b/min Oxygen Device 1 VENTILATOR - Notified By jh - Notified Whom _kunny rn - B 760 -mmHg tO2 ___14.1__ -Vol% OrderingPhysicianInitials bak - Robson test _Positive -
[2016-10-16] MEDS: Polyethylene Glycol (PEG) 17 Gm Powder PO SCH (07:14)
[2016-10-16] MEDS: Dextrose 5% 1,000 ML IV SCH ×2 (07:14→19:56)
[2016-10-16] MEDS: Chlorhexidine 0.12% 15 mL Oral Solution MT PRN (07:15)
[2016-10-16] MEDS: Potassium Chloride 20 mEq/15 mL 15mL Oral Soln TUBE SCH ×2 (07:19→20:09)
--- NOTE | 2016-10-16 09:43 | DRSVH ---
PROCEDURE: X-RAY CHEST ONE VIEW, PORTABLE ([id number]) INDICATIONS: intubated pt; monitor tubes and lines TECHNIQUE: One view of the chest was acquired. COMPARISON: [facility], CR, XR CHEST 1VW (PORTABLE), 10/15/2016, 5:11. FINDINGS: Surgical changes and devices: Well-positioned ETT with tip projected roughly 6.6 cm above the belen. Nasogastric tube tip is not well-seen. Left chest AICD redemonstrated. Lungs and pleura: Diffuse, widespread bilateral pulmonary interstitial and air space opacities are p resent not significantly changed. Trace pleural effusions. No pneumothorax. Mediastinum: Mediastinal contours appear normal. Heart size is normal. Bones and chest wall: No suspicious bony lesions. Overlying soft tissues appear unremarkable. IMPRESSION: 1. Pulmonary edema and/or diffuse bilateral pneumonia not significantly changed. 2. Trace effusions. Dictated by: Woodrow Loya RRA Interpreted: Patience العراقي MD on 10/16/2016 at 9:40 Transcribed by: DASHAWN on 10/16/2016 at 9:42 Approved by: Patience العراقي MD, PhD on 10/16/2016 at 16:31
--- NOTE | 2016-10-16 09:56 | PCM.PNMED ---
Subjective Date of Service Oct 16, 2016 Subjective Intensive/Pulmonology Progress Note: Attending Dr. Clementine Burger is an 86-year-old male with extensive cardiovascular history who presented with new onset pain following same-day lithotripsy and was found to have radiographically proven subcapsular and perinephric retroperitoneal hemorrhage from trauma with secondary hypovolemic shock status post inferior pole renal artery embolization. He was admitted to ICU management on 10/06/16 where he decompensated requiring intubation and pressor support. Hospital day # 11. Overnight: There were no acute events. Telemetry overnight: Atrial fibrillation , heart rate 60 to 80's, with an IVCD and occasional PVC's. Subjective exam and review of systems unavailable as patient is intubated and sedated. The patient appears comfortable and rather somnolent not able to follow commands. He had a timed SBT yesterday of 1 hour yesterday and reportedly did well. . Exam Vital Signs Vital Sign - Last Date Time Temp Pulse Resp B/P Pulse Ox O2 Delivery O2 Flow Rate FiO2 10/16/16 09:35 80 111/68 98 35 10/16/16 08:30 36.8 23 Mechanical Ventilator Intake and Output 10/15/16 10/15/16 10/16/16 Cumulative From/Thru 15:00 23:00 07:00 10/05/16 21:52 - 10/16/16 05:40 Intake Total 1329 ml 2118 ml 78329 ml Output Total 1525 ml 700 ml 52076 ml Balance -196 ml 1418 ml 9404 ml Intake Oral 0 ml IV Total 748 ml 1261 ml 80810 ml Tube Feeding 501 ml 672 ml 5674 ml Packed Cells 1588 ml Platelets 250 ml Tube Irrigant 80 ml 185 ml 1385 ml Output Urine Total 1500 ml 675 ml 05975 ml Stool Total 25 ml 25 ml 150 ml Gastric Drainage Total 1410 ml # Bowel Movements 3 Exam General: Elderly gentleman lying in bed and in no acute distress, intubated and sedated. HEENT: Normocephalic, atraumatic. External ears without defect. Extremely hard of hearing with hearing aids in place. Pupils equal, round, and reactive to light. Icteric sclerae, moist conjunctivae, and no lid lag. Endotracheal and oropharyngeal tube in place. Neck: Supple. No lymphadenopathy or thyromegaly. Cardiovascular: Irregular rhythm without murmurs, rubs, or gallops appreciated Pulmonary: Diffuse bronchial breath sounds in anterior lung navarro improved. No wheeze or crackles. Abdomen: Firm and mildly distended, bowel sounds hypoactive. Genitourinary: Paredes catheter and FMS in place. Extremities: Anasarca improving. Skin: Normal temperature, turgor, and texture; no rash, ulcers, or subcutaneous nodules appreciated. Neurologic: Opens eyes to stimulation and follows commands minimally. Ventilator settings: PRVC. Tidal volume 550. Respiratory rate 15. FiO2 35%. PEEP 5.0. Peak 30. Plateau of 26. ABG: PH 7.408. PCO2 38.1. PO2 108. HCO3 23.6. On PRVC with FiO2 35% and SPO2 of 98.1%. IV drips and Sedatives: Fentanyl 30 g/hr and propofol 12 g/kg/min. Norepinephrine off. IV lines: Two left peripheral IV's. I&O: Net + 9404 mL. . IVs and Medications Medications Reviewed: Medications were reviewed in detail Lab and Diagnostics Item Value Date Time Calcium Level 8.4 mg/dL L 10/16/16254 Phosphorus Level 3.8 mg/dL 10/16/16254 Magnesium Level 2.1 mg/dL 10/16/16254 Total Bilirubin 23.4 mg/dL *H 10/16/16254 Aspartate Amino Transf (AST/SGOT) 392 U/L H 10/16/16254 Alanine Aminotransferase (ALT/SGPT) 208 U/L H 10/16/16254 Alkaline Phosphatase 75 U/L 10/16/16254 Total Protein 5.8 g/dL L 10/16/16254 Albumin 2.6 g/dL L 10/16/16254 Result Diagram: 10/16/1625410/16/16254 Microbiology Repeat sputum culture 2 grew light normal keisha. Repeat blood culture 2 has no growth after 24 hours. Urine culture shows no growth to date. Blood cultures 2 show no growth after 5 days. MRSA screen negative. Sputum grew scant normal keisha. . X-Rays, CTs and MRIs X-RAY CHEST ONE VIEW, PORTABLE IMPRESSION: 1. Pulmonary edema and/or diffuse bilateral pneumonia not significantly changed. 2. Trace effusions. Dictated by: Woodrow Loya RRMatt Interpreted: Patience العراقي MD on 10/16/2016 at 9:40 US ABDOMEN IMPRESSION: 1. Slightly decrease in size of a complex mass adjacent to the left kidney, most likely a hematoma. 2. Semicontracted gallbladder with mild gallbladder wall thickening. The clinical significance of the findings uncertain. 3. Diffusely increased hepatic echotexture. This finding is most likely secondary to hepatic fatty infiltration although other hepatocellular disease may have a similar appearance. Recommend clinical correlation. Dictated by: Rosalie Schmitz M.D. on 10/15/2016 at 12:43 CT KUB IMPRESSION: 1. Large right renal subcapsular hematoma similar in extent to the study dated . Heterogeneous, delayed nephrogram suggests markedly decreased right renal blood flow and function. 2. Large retroperitoneal hematoma which appears slightly increased on the left. It is unclear whether this is truly increased hematoma or simple redistribution of a large hematoma previously visualized within the right retroperitoneal space. 3. New bibasilar consolidation and pleural effusions suspicious for early pneumonia. 4. Small amount of hepatosplenic ascites increased when compared with the prior study. This may be due to vigorous fluid resuscitation. Dictated by: Dilcia Jaimes M.D. on 10/06/2016 at 18:59 US ABDOMEN, LIMITED IMPRESSION: 1. Complex fluid collection around the right kidney as was seen on prior CT scan as above and no definite source of bleeding is identified sonographically. 2. Trace intra-abdominal fluid within the lower quadrants as well as the left upper outer quadrant. Dictated by: Woodrow Loya RRA Interpreted: Rosalie Schmitz MD on 10/06/2016 at 14:04 Transcribed by: NATALIA on 10/06/2016 at 14:06 X-RAY CHEST ONE VIEW, PORTABLE IMPRESSION: Endotracheal tube with the tip projecting approximately 3 cm above the belen. Right internal jugular central venous catheter with the tip projecting at the lower SVC. No pneumothorax Dictated by: Nael Blackwood M.D. on 10/06/2016 at 11:49 CT KUB IMPRESSION: 1. Extensive right subcapsular and perinephric hemorrhage as described above. There is associated small to moderate amount of hemoperitoneum within the right anterior pararenal space, paracolic gutter, and perihepatic location. 2. Right nephrolithiasis. 3. Aortoiliac aneurysms, status post aortoiliac stent-graft placement, as described above. 4. Cholelithiasis. 5. Concordant with preliminary interpretation. Dictated by: Viridiana Inman M.D. on 10/06/2016 at 7:57 . Cardiac Echo Impressions Echocardiogram Interpretation Summary: The left ventricle is normal in size. There is moderate concentric left ventricular hypertrophy. Left ventricular systolic function is low normal. The ejection fraction is estimated to be 50-55%. There is a mild dyssynchronous contraction pattern due to the paced rhythm. There is a pacemaker lead in the right ventricle. Inspiratory collapse cannot be assessed because of mechanical ventilation, thus CVP cannot be estimated. There is no prior echocardiogram noted for this patient. No other echocardiographic abnormalities seen. The etiology for the patients shock is not apparent. The echo is not consistent with cardiogenic shock. Reading Physician:12:44 PM . Additional Diagnostics PROCEDURE: 1. Selective right renal arteriography. 2. Superselective, 2nd order arteriography of a right inferior pole renal arterial branch. 3. Superselective embolization of a 2nd order arterial branch of a right inferior pole renal artery branch. 4. Right groin closure device. FINDINGS: The superior pole renal artery and its branches appear normally. Injection of the nondominant inferior pole renal artery demonstrates abnormal vasculature involving the 2nd order/inferior pole vessel, which demonstrates 2 abnormal regions of dilatation, suspicious for pseudoaneurysm formation. Following embolization of this vessel, there is static flow. No active bleeding/ contrast extravasation was encountered during examination. IMPRESSION: 1. No active bleeding during the examination. 2. Likely bleeding source within the inferior pole of the right kidney was superselectively embolized until stasis was achieved. Dictated by: Viridiana Inman M.D. on 10/09/2016 at 9:25 Approved by: Viridiana Inman M.D. on 10/09/2016 at 9:35 . Assessment & Plan Toby Burger is an 86-year-old male with extensive cardiovascular history who presented with new onset pain following same-day lithotripsy and was found to have radiographically proven subcapsular and perinephric retroperitoneal hemorrhage from trauma with secondary hypovolemic shock status post inferior pole renal artery embolization. He was admitted to ICU management on 10/06/16 where he decompensated requiring intubation and pressor support. Hospital day # 11. 1. Acute hyperbilirubinemia with transaminitis, not present on admission. Active. - Likely secondary to reabsorption of right subcapsular and perinephric hematoma and possibly hypoperfusion and resultant shock liver yet very delayed onset. 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 - Abdominal ultrasound demonstrated increased hepatic echotexture possibly medical representative of HAMEED versus hepatocellular injury. - Ordered limited abdominal Doppler ultrasound to assess for Budd Chiari as patient is not on DVT prophylaxis as he had a significant acute perinephric bleed on admission. - Acute hepatitis panel negative. - Continue to monitor bilirubin and LFTs daily. - Consider GI consult? 2. Acute hypernatremia, not present on admission. Resolved. - Sodium was elevated at 150. - Now receiving fluids with D5W at 100 mL/hr and sodium has normalized. Will likely discontinue this afternoon. 3. Acute hypovolemic shock, secondary to trauma induced subcapsular and perinephric retroperitoneal hemorrhage, present on admission. Resolved. - CT evidence of right subcapsular and perinephric hemorrhage, as above. 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 - Elevated intra-abdominal pressure initially 22 and trended down. - Hemoglobin and hematocrit are stable. Patient is status post 7 units PRBC's. - Norepinephrine required for several days into hospitalization, now remains off. - Infectious disease, Dr. Menendez, was consulted for antibiotic management as it was thought that sepsis may possibly been contributing to shock. Discontinued Zosyn per ID. - Treated underlying hemorrhage as below in #4. 4. Acute trauma induced subcapsular and perinephric retroperitoneal hemorrhage , status post embolization, present on admission. Resolved. - Patient is status post 7 units PRBC's and greater than 20 L of IV fluids. 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 - Monitor hemoglobin and hematocrit daily. 5. ARDS, present on admission. Resolved. - Patient is status post 7 units PRBC's and greater than 20 L of IV fluids. - Continue ventilator settings as above. - Monitor ABG daily for vent management. - CXR continues to demonstrate stable maybe slightly worsened pulmonary edema, as above. - Continue propofol and fentanyl for sedation, as above. Continue sedation vacations and daily SBT. - Received Lasix pushes and gtt with good diuresis, now net positive + 9L from previous +21L. - Continue monitoring for signs of infection. 6. Acute on chronic blood loss anemia on anemia of disease, present on admission. Acute portion resolved. - Secondary to subcapsular and perinephric retroperitoneal hemorrhage and possible acute upper GI bleed. - Continuing to monitor hemoglobin and hematocrit daily. - Patient has received 7 units PRBC's and 1 unit of platelets so far this admission. - Dr. Pritchard and Dr. Leal (General Surgery), Dr. Alvarado (Urology) and Dr. Inman (Interventional Radiology) have all been consulted and we appreciate their input. - Continue to have 2 units PRBC's held in case of need for further transfusions. 7. Acute kidney injury, present on admission. Resolved. - Creatinine likely elevated secondary to hypoperfusion of kidney from the hypovolemic shock, as well as, increased intra-abdominal pressure. - Received Lasix 80 mg IV 1 and Lasix 60 mg IV BID x 3 doses per nephrology recommendations and diuresed well ~9.2L. - Now receiving fluids with 1/2 NS at 100 mL/hr per nephrology. - Nephrology signed off. We appreciate their input and care of the patient. - Continue to monitor BMP. 8. Possible acute upper GI bleed, present on admission. Resolved. - Positive guaiac of stomach contents with ongoing coffee ground emesis. - Continue OG suction set to intermittent suction. - Monitor stools for bright red blood. - Continue PPI 40 mg IV twice a day. - Low threshold for GI consultation and endoscopy. 9. Acute hypokalemia, present on admission. Resolved. - Continue potassium chloride 40 mEq twice a day. - Continue to monitor BMP daily. 10. Acute on chronic thrombocytopenia, present on admission. Acute portion resolved. - Baseline platelet count 70-90. - Status post 1 unit of platelets. - Continue to monitor platelet count daily. 11. Elevated troponin, acute, present on admission. Resolved. - Likely secondary to demand ischemia. EKG shows no acute ischemic changes, however, V-paced. No changes compared to prior EKG's. - Troponin maximally elevated at 0.116 and trended down. - Will continue to treat underlying shock process as above in #1. Chronic problems with management per primary team: 12. History of systolic congestive heart failure, chronic, presume stable. - EF during this admission 50-55%. Will continue to monitor with limited echo as needed during admission. - Likely not in CHF at baseline based on these results. 13. Obstructive sleep apnea, chronic. Presumed stable. - Patient intubated in the ICU at this time. 14. History of pulmonary fibrosis, chronic. Presumed stable. - Patient intubated in the ICU at this time. 15. Coronary artery disease, chronic. Presumed stable. - Patient takes simvastatin and aspirin at home which is being held. Will re- start statin when patient is stable. PRN antiemetics: Zofran and Maalox. PRN bowel regimen: Senna and MiraLAX. PRN analgesics: Tylenol. Disposition: Patient currently in critical care with improving prognosis. Total critical care time spent 60 minutes. . GI Prophylaxis: Proton Pump Inhibitor VTE Mechanical Devices: Intermittant Pneumatic CD Resuscitation Status: CPR: Attempt Resuscitation Attending Statement The patient was seen and examined together with Dr. Zuleta on 10/16/2016 and I agree with the history, exam and plan as outlined in the note above. Irma Zuleta DO Oct 16, 2016 09:56 Robin Spring MD Oct 22, 2016 11:02
--- NOTE | 2016-10-16 13:16 | DRSVH ---
PROCEDURE: US ABDOMEN DOPPLER, LIMITED INDICATIONS: TRANSAMINITIS, BILIRUBENEMIA TECHNIQUE: Real-time scanning was performed of the abdominal and retroperitoneal organs, with image documentatio n. Color and pulse Doppler interrogation was also performed of the hepatic and splenic vessels, or o f the lesion of interest. COMPARISON: [facility], US, US ABDOMEN, 10/15/2016, 8:05. FINDINGS: Doppler: Main portal vein is patent, with luminal diameter of 15 mm (normal of 13-16 mm). On pulse Doppler interrogation, portal vein flow direction is hepatopetal. Hepatic artery is not well seen.. Hepatic veins are all patent, with expected triphasic Doppler waveforms. IMPRESSION: Hepatic artery are not well visualized, otherwise normal appearance of the hepatoportal v asculature. Dictated by: Woodrow Loya [facility] Interpreted: Patience العراقي MD on 10/16/2016 at 13:15 Transcribed by: DASHAWN on 10/16/2016 at 13:16 Approved by: Patience العراقي MD, PhD on 10/16/2016 at 16:31
--- NOTE | 2016-10-16 14:50 | PROG NOTE ---
[address] [address] PROGRESS NOTE PATIENT: GAL CARRANZA : 1930 MR#: [id number] ADMIT: 10/06/2016 JOB ID: [id number] DATE: 10/16/2016 REASON FOR FOLLOWUP: Increased respiratory secretions. INTERVAL HISTORY: Recall that this is the 66-year-old gentleman who we saw earlier during his now 11-day hospital stay. At that point, he had the lithotripsy with extensive intra-abdominal and retroperitoneal hemorrhagic bleeding. All antibiotics were stopped on the as we thought there was no infection, but on the , we were invited back because the patient had developed increased respiratory secretions while remaining on the ventilator. At that point, we re-evaluated the patient and felt that he did not have an ongoing respiratory tract or other infection and recommended antibiotics be withheld. During the intercurrent three days, the patient has remained free of fevers, and without hypotension. He has remained without fever and without overt evidence of infection or shock. Progress has been slowly made towards weaning the patient off the ventilator, preparing him for extubation. This has occurred in the setting of dramatic and deep jaundice presumably secondary to resorption of blood products as well as abdominal distention. Today, the patient remains intubated and sedated though efforts are being made towards possible extubation. He is not responsive or able to answer additional questions. PHYSICAL EXAMINATION: Reveals a gentleman who remains completely afebrile and has been for essentially a week. His pulse is currently 80, respiratory rate as per the ventilator, but he is on only 35% and saturating very well at 98%. Blood pressure stable without vasopressors at 111/66. He is deeply jaundiced including his sclerae as well as skin diffusely. Oral endotracheal tube. Orogastric tube present Lungs: Course breath sounds in the upper airways, relatively clear in the lower. Cardiac tones: Regular rate and rhythm. The abdomen is tremendously distended with decreased bowel sounds as before. Paredes catheter is present and a fecal management rectal drain is also present. LABORATORIES: Include white count 9500, platelets 143,000. Creatinine has dropped all the way from 0.9 to less than 0.03 over the past few days. His bilirubin is an impressive 23 and it has remained at that level now for about three days. AST is 392 which is stable but much higher than on admission. ALT likewise 208, quite elevated. Albumin 2.6. All cultures remain negative including a sputum obtained on the which has a bit of normal keisha but essentially no polys of interest. On the blood cultures were negative. IMPRESSION: This is an unfortunate gentleman who has suffered massive bleeding after lithotripsy procedure and has been on the ventilator now for 10 days basically. He seems to be slowly improving despite impressive jaundice and abdominal distention. I see no ongoing evidence of any infection and would continue to observe the patient without antibiotics. RECOMMENDATIONS: 1. No antibiotics. 2. ID will go ahead and sign off again but please do not hesitate to call us if there are additional questions or issues regarding this patient.
--- NOTE | 2016-10-16 18:13 | PCM.PNMED ---
Subjective Date of Service Oct 16, 2016 Subjective overnight: No acute events Today: Continuation of sedation vacations and spontaneous breathing trials. Patient is nearing point of extubation however elevated LFTs consistent with hepatocellular injury remain a mystery. AST ALT and bilirubin mainly direct bilirubin CONTINUE to rise. Imaging including abdominal ultrasound showed increased echogenicity consistent with hepatocellular injury failed to reveal an etiology including no portal thromboses. Gastroenterology consultation today. Hepatitis A, B, and C are negative. Hepatitis E IgG has been ordered however this is incidentally small possibility given and he infection would be due to a blood transfusion and hepatitis E is already fairly rare. Stat HIDA scan will also be performed however alkaline phosphatase continues to be normal. Exam Vital Signs Vital Sign - Last Date Time Temp Pulse Resp B/P Pulse Ox O2 Delivery O2 Flow Rate FiO2 10/16/16 05:10 68 101/55 98 35 10/16/16 04:00 36.5 16 Mechanical Ventilator Intake and Output 10/15/16 10/15/16 10/16/16 Cumulative From/Thru 14:59 22:59 06:59 10/05/16 21:52 - 10/16/16 05:40 Intake Total 1329 ml 2118 ml 15532 ml Output Total 1525 ml 700 ml 76880 ml Balance -196 ml 1418 ml 9404 ml Intake Oral 0 ml IV Total 748 ml 1261 ml 92585 ml Tube Feeding 501 ml 672 ml 5674 ml Packed Cells 1588 ml Platelets 250 ml Tube Irrigant 80 ml 185 ml 1385 ml Output Urine Total 1500 ml 675 ml 50852 ml Stool Total 25 ml 25 ml 150 ml Gastric Drainage Total 1410 ml # Bowel Movements 3 Exam General: Severely Jaundiced Elderly Patient intubated and sedated in the ICU Eyes: Pupils equal round and reactive to light, icteric sclera, noninjected conjunctiva HENT: Head atraumatic, normocephalic, external ears without defect, nares are patent without drainage or blood Neck: Trachea midline, short and wide neck, no JVD appreciated, no lymphadenopathy CV: Regular rate and rhythm, distant heart tones with no appreciable murmur rubs or gallops Respiratory: Coarse breath sounds anteriorly consistent with upper airway secretions throughout improved breath sounds in the at the axillary bases without wheezing Abdomen: distended, hypo-active bowel tones, tympanic to percussion, no organomegaly appreciated Extremities: Mild pitting edema present to the level of the femur and moderate pitting edema in the hands bilaterally; no cyanosis or clubbing present Skin: Warm and dry no petechiae, no rash noted, no bruising of the abdomen : Paredes in place FMS in place Left peripheral IV Lab and Diagnostics Result Diagram: 10/16/1625410/16/16254 X-Rays, CTs and MRIs PROCEDURE: X-RAY CHEST ONE VIEW, PORTABLE IMPRESSION: Endotracheal tube with the tip projecting approximately 3 cm above the belen. Right internal jugular central venous catheter with the tip projecting at the lower SVC. No pneumothorax Dictated by: Nael Blackwood M.D. on 10/06/2016 at 11:49 PROCEDURE: CT KUB IMPRESSION: 1. Extensive right subcapsular and perinephric hemorrhage as described above. There is associated small to moderate amount of hemoperitoneum within the right anterior pararenal space, paracolic gutter, and perihepatic location. 2. Right nephrolithiasis. 3. Aortoiliac aneurysms, status post aortoiliac stent-graft placement, as described above. 4. Cholelithiasis. 5. Concordant with preliminary interpretation. Dictated by: Viridiana Inman M.D. on 10/06/2016 at 7:57 X-RAY CHEST ONE VIEW, PORTABLE ([id number]) IMPRESSION: 1. Pulmonary edema and or diffuse bilateral pneumonia with small effusions unchanged. Dictated by: Woodrow LUNA Interpreted: Earline Clark MD on 10/12/2016 at 13: 59 Transcribed by: SKYLER on 10/12/2016 at 14:01 PROCEDURE: X-RAY CHEST ONE VIEW, PORTABLE ([id number]) IMPRESSION: Stable examination compared to 10/13/16 with persistence of bilateral lung opacities and small pleural effusions.. Dictated by: Patience العراقي MD, PhD on 10/14/2016 at 9:13 Approved by: Patience العراقي MD, PhD on 10/14/2016 at 9:15 Cardiac Echo Impressions Echocardiogram Report Interpretation Summary The left ventricle is normal in size. There is moderate concentric left ventricular hypertrophy. Left ventricular systolic function is low normal. The ejection fraction is estimated to be 50-55%. There is a mild dyssynchronous contraction pattern due to the paced rhythm. There is a pacemaker lead in the right ventricle. Inspiratory collapse cannot be assessed because of mechanical ventilation, thus CVP cannot be estimated.. There is no prior echocardiogram noted for this patient. No other echocardiographic abnormalities seen. The etiology for the patients shock is not apparent. The echo is not consistant with cardiogenic shock. Reading Physician:12:44 PM Additional Diagnostics PROCEDURE: US ABDOMEN, LIMITED IMPRESSION: 1. Complex fluid collection around the right kidney as was seen on prior CT scan as above and no definite source of bleeding is identified sonographically. 2. Trace intra-abdominal fluid within the lower quadrants as well as the left upper outer quadrant. Dictated by: Woodrow LUNA Interpreted: Rosalie Schmitz MD on 10/06/2016 at 14:04 Transcribed by: NATALIA on 10/06/2016 at 14:06 PROCEDURE: US ABDOMEN DOPPLER, LIMITED IMPRESSION: Hepatic artery are not well visualized, otherwise normal appearance of the hepatoportal vasculature. Dictated by: Woodrow LUNA Interpreted: Patience العراقي MD on 10/16/2016 at 13:15 Transcribed by: DASHAWN on 10/16/2016 at 13:16 Approved by: Patience العراقي MD, PhD on 10/16/2016 at 16:31 PROCEDURE: US ABDOMEN IMPRESSION: 1. Slightly decrease in size of a complex mass adjacent to the left kidney, most likely a hematoma. 2. Semicontracted gallbladder with mild gallbladder wall thickening. The clinical significance of the findings uncertain. 3. Diffusely increased hepatic echotexture. This finding is most likely secondary to hepatic fatty infiltration although other hepatocellular disease may have a similar appearance. Recommend clinical correlation. Dictated by: Rosalie Schmitz M.D. on 10/15/2016 at 12:43 Approved by: Roaslie Schmitz M.D. on 10/15/2016 at 12:48 Assessment & Plan Patient is an 86-year-old male with extensive cardiovascular history, new onset pain following same-day lithotripsy, radiographically proven intra-abdominal blood, and shock. He was admitted to ICU management on 10/06/16 where he decompensated requiring intubation and pressor support. Hospital day #11 1 Acute hypoxemic respiratory failure, present on admission, improving - Patient intubated and sedated in the ICU on 10/06/16. - Using propofol and fentanyl for sedation at this time, continue to titrate down as tolerated by the patient. - Dr. Spring consulted and we appreciate his assistance with ventilator management. - ABG to be done every AM and PRN for vent management. - Continue with spontaneous breathing trials and sedation vacations per pulmonology recommendations. - Continue to work toward extubation. 2. Acute transaminitis, not present on admission, unstable under evaluation - Elevated direct bilirubin with transaminitis consistent with hepatocellular injury of unknown etiology - Abdominal ultrasound ordered for 10/15 with patient NPO after midnight to check liver and portal system - Acute hepatitis panel ordered with hepatitis A B and C all negative - Hepatitis E IgG ordered pending - Drug list evaluated shows no definitive offending agents - Abdominal ultrasound indicates increased echogenicity consistent with hepatocellular injury however without specific etiology - Doppler ultrasound indicates no portal vein thromboses - Stat HIDA scan ordered given possibility of biliary leak - GI consulted appreciate time and recommendations 3. Fluid overload with pulmonary edema, acute, not present on admission, improving. - Likely secondary to significant fluid resuscitation done early in the course of admission. - Patient currently positive about 8L fluid. - Albumin to be used as needed for oncotic support. - Discontinue Lasix drip used for more aggressive diuresis. - Lasix IV push until small dip and creatinine indicates dry weight then rehydrate minimally 4. Acute kidney injury, present on admission, improving - Possibly acute tubular necrosis - Creatinine normalized but BUN remains high likely secondary to aggressive diuresis. - Continue to monitor BMP. - Creatinine Continues to drop - - Lasix IV push until small dip and creatinine indicates dry weight then rehydrate minimally 5. Possible upper GI bleed, acute, resolved. - Patient has been tolerating tube feeds. - No bright red blood noted in stool. - Continue to monitor H&H but has been stable. 6. Acute blood loss anemia, present on admission, stable - Continuing to monitor H&H/CBC closely. No specific source of bleeding has been identified at this time. - Patient has received 7 units PRBCs and 1 unit of platelets so far this admission. 7. Elevated troponin, acute, present on admission, resolved - Considered an effect of demand ischemia. 8. Acute hypokalemia, present on admission, resolved - Continue to monitor BMP and replete as needed. 9. Obstructive sleep apnea, chronic, presume stable. - Patient intubated in the ICU at this time. 10. History of pulmonary fibrosis, chronic, presume stable. - Patient intubated in the ICU at this time. 11. Coronary artery disease, chronic, presume stable. - Patient takes simvastatin and aspirin at home. Medication on hold at this time. Will re-order when patient more stable. 12. Systolic congestive heart failure, chronic, presume stable. - EF during this admission 50-55%. Will continue to monitor with limited echo as needed during admission. - Likely not in CHF at baseline based on these results. 13. Acute hemorrhagic shock, present on admission, resolved - likely secondary to intraabdominal bleeding source post lithotripsy procedure within the inferior pole of the right kidney was superselectively embolized by IR until stasis was achieved. - Patient with increased intraabdominal pressure and CT evidence of bleeding into the abdomen. Septic shock less likely at this time as patient has negative cultures and has been afebrile. No evidence of cardiogenic shock per echocardiogram report. - Pressor support with norepinephrine titrated off 10/09. - Dr. Menendez consulted for antibiotic management in the event that sepsis played a role in his shock. Discontinued Zosyn at this time 10/09. - Hemoglobin is remaining stable, will continue to monitor. - Antacid available PRN. - Antiemetic available PRN. Disposition: Patient currently in critical care with improving prognosis patient will likely require several more days of hospitalization, and possibly require rehabilitation as an outpatient given prolonged course of hospitalization. Anticipated discharge many days away. GI Prophylaxis: Proton Pump Inhibitor VTE Mechanical Devices: Intermittant Pneumatic CD Resuscitation Status: CPR: Attempt Resuscitation Attending Statement The patient was seen and examined together with Dr. Carter on 10/16/2016 and I agree with the history, exam and plan as outlined in the note above. . Peyman Carter DO Oct 16, 2016 06:52 Omar Otoole MD Oct 21, 2016 07:19
[2016-10-17] VITALS (14 sets, daily range): BP systolic 84–117; BP diastolic 48–66; PULSE 61–80; RESP 15–18; O2SAT 97–100
[2016-10-17 03:07] LABS: BASOPHILS % (AUTO) 0.3 % (0-3); EOSINOPHILS % (AUTO) 2.9 % (0-5); MONOCYTES % (AUTO) 8.1 % (4-12); Mean Corpuscular Hemoglobin 31.8 pg (27.0-35.0); Mean Corpuscular Volume 95.8 fL (81-100); NEUTROPHILS % (AUTO) 80.1 % (40-74); Platelet Count 152 bil/L (150-400)
[2016-10-17 03:20] LABS: INR 1.17 ratio
[2016-10-17 03:37] LABS: Lipase 110 U/L (13-60)
[2016-10-17 03:38] LABS: ERYTHROCYTE SEDIMENTATION RATE 52 mm/hr (0-30)
[2016-10-17 04:33] LABS: Bilirubin, Direct 17.6 mg/dL (0.0-0.3)
--- NOTE | 2016-10-17 04:44 | ABG ---
DateTimeAnalyzed 04:41:00 -_ pH ____7.413 - 7.350 7.450 pCO2 ___35.3__ -mmHg 35.0 45.0 pO2 ___95.9__ -mmHg 69.0 116 HCO3- ___22.1__ -mmol/L 22.0 26.0 ABE ___-1.6__ -mmol/L -2.0 2.0 tHb ___10.6__ -g/dL O2Hb ___94.9__ -% COHb ____2.3__ -% MetHb ____0.7__ -% sO2 ___97.8__ -% 25.0 FIO2 ___21.0__ -% PEEP ____5.0__ -cmH2O Set_RR ___15.0__ -b/min Vt __550.0__ -L Drawn By MD - Date/Time Notified____ 04:43:00 -_ Spontaneous_RR ___20.0__ -b/min Oxygen Device 1 VENTILATOR - Notified By MD - Notified Whom RN [email or web address] - B 751 -mmHg tO2 ___14.3__ -Vol% Robson test N/A -
[2016-10-17] MEDS: Sodium Chloride LOK Flush 10 mL Syringe IVFLUSH SCH ×4 (04:46→23:47)
--- NOTE | 2016-10-17 07:24 | PCM.PNMED ---
Subjective Date of Service Oct 17, 2016 Subjective Intensive/Pulmonology Progress Note: Attending Dr. Clementine Burger is an 86-year-old male with extensive cardiovascular history who presented with new onset pain following same-day lithotripsy and was found to have radiographically proven subcapsular and perinephric retroperitoneal hemorrhage from trauma with secondary hypovolemic shock status post inferior pole renal artery embolization. He was admitted to ICU management on 10/06/16 where he decompensated requiring intubation and pressor support. Hospital day # 12. Overnight: There were no acute events. The fentanyl was turned off for planned HIDA scan. Telemetry overnight: Intermittent AV/V-pacing, underlying atrial fibrillation, heart rate 70's, without ectopy. Subjective exam and review of systems unavailable as patient is intubated and sedated. The patient appears comfortable and rather somnolent not able to follow commands. He had a timed SBT yesterday of 1 hour yesterday of 12/01 and did well. Exam Vital Signs Vital Sign - Last Date Time Temp Pulse Resp B/P Pulse Ox O2 Delivery O2 Flow Rate FiO2 10/17/16 07:10 37.0 73 18 84/48 97 Mechanical Ventilator 35 Intake and Output 10/16/16 10/16/16 10/17/16 Cumulative From/Thru 15:00 23:00 07:00 10/05/16 21:52 - 10/17/16 06:00 Intake Total 1217 ml 1026 ml 26469 ml Output Total 750 ml 850 ml 98458 ml Balance 467 ml 176 ml 49797 ml Intake Oral 0 ml IV Total 1217 ml 219 ml 77459 ml Tube Feeding 567 ml 6241 ml Packed Cells 1588 ml Platelets 250 ml Tube Irrigant 240 ml 1625 ml Output Urine Total 750 ml 550 ml 58399 ml Stool Total 300 ml 450 ml Gastric Drainage Total 0 ml 1410 ml # Bowel Movements 3 Exam General: Elderly gentleman lying in bed and in no acute distress, intubated and sedated. HEENT: Normocephalic, atraumatic. External ears without defect. Extremely hard of hearing with hearing aids in place. Pupils equal, round, and reactive to light. Icteric sclerae, moist conjunctivae, and no lid lag. Endotracheal and oropharyngeal tube in place. Neck: Supple. No lymphadenopathy or thyromegaly. Cardiovascular: Irregular rhythm without murmurs, rubs, or gallops appreciated Pulmonary: Diffuse bronchial breath sounds in anterior lung navarro improved. No wheeze or crackles. Abdomen: Firm and mildly distended, bowel sounds present. Genitourinary: Paredes catheter and FMS in place. Extremities: Anasarca improving. Skin: Normal temperature, turgor, and texture; no rash, ulcers, or subcutaneous nodules appreciated. Neurologic: Opens eyes to stimulation but does not follow commands. Ventilator settings: PRVC. Tidal volume 550. Respiratory rate 15. FiO2 35%. PEEP 5.0. Peak 23. Plateau of 18. ABG: PH 7.413. PCO2 35.3. PO2 95.9. HCO3 22.1. On PRVC with FiO2 35%, PEEP 5.0, and SPO2 of 97.8%. IV drips and Sedatives: Fentanyl currently off but has been at 30 g/hr and propofol 25 g/kg/min. Norepinephrine off. IV lines: Two left peripheral IV's. I&O: Net + 19246 mL. . IVs and Medications Medications Reviewed: Medications were reviewed in detail Lab and Diagnostics Item Value Date Time Hemoglobin 10.3 g/dL L 10/16/16254 Calcium Level 8.6 mg/dL 10/17/16254 Total Bilirubin 24.7 mg/dL *H 10/17/16254 Direct Bilirubin 17.6 mg/dL H 10/17/16254 Aspartate Amino Transf (AST/SGOT) 352 U/L H 10/17/16 025 Alanine Aminotransferase (ALT/SGPT) 221 U/L H 10/17/16 025 Alkaline Phosphatase 84 U/L 10/17/16 025 C-Reactive Protein 16.4 mg/dL H 10/17/16 025 Total Protein 6.0 g/dL L 10/17/16 025 Albumin 2.6 g/dL L 10/17/16 025 Triglycerides Level 182 mg/dL H 10/16/16 025 Lipase 110 U/L H 10/17/16 025 Procalcitonin 0.66 ng/mL H 10/17/16 025 Result Diagram: 10/17/16 02510/17/16254 Microbiology Repeat sputum culture 2 grew light normal keisha. Repeat blood culture 2 has no growth after 24 hours. Urine culture shows no growth to date. Blood cultures 2 show no growth after 5 days. MRSA screen negative. Sputum grew scant normal keisha. . X-Rays, CTs and MRIs US ABDOMEN DOPPLER, LIMITED IMPRESSION: Hepatic artery are not well visualized, otherwise normal appearance of the hepatoportal vasculature. Dictated by: Woodrow LUNA Interpreted: Patience العراقي MD on 10/16/2016 at 13:15 US ABDOMEN IMPRESSION: 1. Slightly decrease in size of a complex mass adjacent to the left kidney, most likely a hematoma. 2. Semicontracted gallbladder with mild gallbladder wall thickening. The clinical significance of the findings uncertain. 3. Diffusely increased hepatic echotexture. This finding is most likely secondary to hepatic fatty infiltration although other hepatocellular disease may have a similar appearance. Recommend clinical correlation. Dictated by: Rosalie Schmitz M.D. on 10/15/2016 at 12:43 CT KUB IMPRESSION: 1. Large right renal subcapsular hematoma similar in extent to the study dated . Heterogeneous, delayed nephrogram suggests markedly decreased right renal blood flow and function. 2. Large retroperitoneal hematoma which appears slightly increased on the left. It is unclear whether this is truly increased hematoma or simple redistribution of a large hematoma previously visualized within the right retroperitoneal space. 3. New bibasilar consolidation and pleural effusions suspicious for early pneumonia. 4. Small amount of hepatosplenic ascites increased when compared with the prior study. This may be due to vigorous fluid resuscitation. Dictated by: Dilcia Jaimes M.D. on 10/06/2016 at 18:59 US ABDOMEN, LIMITED IMPRESSION: 1. Complex fluid collection around the right kidney as was seen on prior CT scan as above and no definite source of bleeding is identified sonographically. 2. Trace intra-abdominal fluid within the lower quadrants as well as the left upper outer quadrant. Dictated by: Woodrow LUNA Interpreted: Rosalie Schmitz MD on 10/06/2016 at 14:04 Transcribed by: NATALIA on 10/06/2016 at 14:06 X-RAY CHEST ONE VIEW, PORTABLE IMPRESSION: Endotracheal tube with the tip projecting approximately 3 cm above the belen. Right internal jugular central venous catheter with the tip projecting at the lower SVC. No pneumothorax Dictated by: Nael Blackwood M.D. on 10/06/2016 at 11:49 CT KUB IMPRESSION: 1. Extensive right subcapsular and perinephric hemorrhage as described above. There is associated small to moderate amount of hemoperitoneum within the right anterior pararenal space, paracolic gutter, and perihepatic location. 2. Right nephrolithiasis. 3. Aortoiliac aneurysms, status post aortoiliac stent-graft placement, as described above. 4. Cholelithiasis. 5. Concordant with preliminary interpretation. Dictated by: Viridiana Inman M.D. on 10/06/2016 at 7:57 . Cardiac Echo Impressions Echocardiogram Interpretation Summary: The left ventricle is normal in size. There is moderate concentric left ventricular hypertrophy. Left ventricular systolic function is low normal. The ejection fraction is estimated to be 50-55%. There is a mild dyssynchronous contraction pattern due to the paced rhythm. There is a pacemaker lead in the right ventricle. Inspiratory collapse cannot be assessed because of mechanical ventilation, thus CVP cannot be estimated. There is no prior echocardiogram noted for this patient. No other echocardiographic abnormalities seen. The etiology for the patients shock is not apparent. The echo is not consistent with cardiogenic shock. Reading Physician:12:44 PM . Additional Diagnostics PROCEDURE: 1. Selective right renal arteriography. 2. Superselective, 2nd order arteriography of a right inferior pole renal arterial branch. 3. Superselective embolization of a 2nd order arterial branch of a right inferior pole renal artery branch. 4. Right groin closure device. FINDINGS: The superior pole renal artery and its branches appear normally. Injection of the nondominant inferior pole renal artery demonstrates abnormal vasculature involving the 2nd order/inferior pole vessel, which demonstrates 2 abnormal regions of dilatation, suspicious for pseudoaneurysm formation. Following embolization of this vessel, there is static flow. No active bleeding/ contrast extravasation was encountered during examination. IMPRESSION: 1. No active bleeding during the examination. 2. Likely bleeding source within the inferior pole of the right kidney was superselectively embolized until stasis was achieved. Dictated by: Viridiana Inman M.D. on 10/09/2016 at 9:25 Approved by: Viridiana Inman M.D. on 10/09/2016 at 9:35 . Assessment & Plan Toby Burger is an 86-year-old male with extensive cardiovascular history who presented with new onset pain following same-day lithotripsy and was found to have radiographically proven subcapsular and perinephric retroperitoneal hemorrhage from trauma with secondary hypovolemic shock status post inferior pole renal artery embolization. He was admitted to ICU management on 10/06/16 where he decompensated requiring intubation and pressor support. Hospital day # 12. 1. Acute hyperbilirubinemia with transaminitis, not present on admission. Active. - Likely secondary to reabsorption of right subcapsular and perinephric hematoma and possibly hypoperfusion and resultant shock liver yet very delayed onset. 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 - Abdominal ultrasound demonstrated increased hepatic echotexture possibly compliance representative of HAMEED versus hepatocellular injury. - Ordered repeat abdominal Doppler ultrasound to assess hepatoportal system per GI to assess for thrombus such as Budd Chiari as patient is not on DVT prophylaxis and had an embolization of his of inferior pole of renal a. - Acute hepatitis panel negative. - Continue to monitor bilirubin and LFTs daily. - GI consulted and recommends hepatic duplex ultrasound with flow, MRCP which is unobtainable as he has an AICD and is on mechanical ventilation, and IV fluid hydration. Also suggested CT abdomen and pelvis with contrast if possible (in light of intravascular fluid depletion and recent EDIN) to assess for thrombus and CBD if US is unrevealing. 2. Acute hypernatremia, not present on admission. Ongoing. - Sodium was elevated at 150. Today 145. - Free water deficit based on ideal body weight is ~1.7L. - Restart fluids D5 1/2 NS at 100 mL/hr. 3. Acute hypovolemic shock, secondary to trauma induced subcapsular and perinephric retroperitoneal hemorrhage, present on admission. Resolved. - CT evidence of right subcapsular and perinephric hemorrhage, as above. 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 - Elevated intra-abdominal pressure initially 22 and trended down. - Hemoglobin and hematocrit are stable. Patient is status post 7 units PRBC's. - Norepinephrine required for several days into hospitalization, now remains off. - Infectious disease, Dr. Menendez, was consulted for antibiotic management as it was thought that sepsis may possibly been contributing to shock. Discontinued Zosyn per ID. - Treated underlying hemorrhage as below in #4. 4. Acute trauma induced subcapsular and perinephric retroperitoneal hemorrhage , status post embolization, present on admission. Resolved. - Patient is status post 7 units PRBC's and greater than 20 L of IV fluids. 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 - Monitor hemoglobin and hematocrit daily. - Consider restarting DVT prophylaxis. 5. ARDS, present on admission. Resolved. - The patient was intubated to place a central line and stabilize hemodynamically. - Patient is status post 7 units PRBC's and greater than 20 L of IV fluids. - Continue ventilator settings as above. - Monitor ABG daily for vent management. - CXR continues to demonstrate stable maybe slightly worsened pulmonary edema, as above. - Continue fentanyl for sedation, as above. Try to titrate off of propofol and start Precedex. Continue sedation vacations and daily SBT. - Received Lasix pushes and gtt with good diuresis, now net positive + 9L from previous +21L. - Continue monitoring for signs of infection. 6. Acute on chronic blood loss anemia on anemia of disease, present on admission. Acute portion resolved. - Secondary to subcapsular and perinephric retroperitoneal hemorrhage and possible acute upper GI bleed. - Continuing to monitor hemoglobin and hematocrit daily. - Patient has received 7 units PRBC's and 1 unit of platelets so far this admission. - Dr. Pritchard and Dr. Leal (General Surgery), Dr. Alvarado (Urology) and Dr. Inman (Interventional Radiology) have all been consulted and we appreciate their input. - Continue to have 2 units PRBC's held in case of need for further transfusions. 7. Acute kidney injury, present on admission. Resolved. - Creatinine likely elevated secondary to hypoperfusion of kidney from the hypovolemic shock, as well as, increased intra-abdominal pressure. - Received aggressive IV fluids initially and then Lasix pushes and gtt with good diuresis, now net positive + 10L from previous +21L. - Nephrology signed off. We appreciate their input and care of the patient. - Continue to monitor BMP. 8. Possible acute upper GI bleed, present on admission. Resolved. - Positive guaiac of stomach contents with ongoing coffee ground emesis. - Continue OG suction set to intermittent suction. - Monitor stools for bright red blood. - GI prophylaxis was discontinued several days ago to assess if it was contributing to transaminitis. Restart GI prophylaxis with an H2 antagonist Famotidine 20 mg BID. - Low threshold for GI consultation and endoscopy. 9. Acute hypokalemia, present on admission. Resolved. - Discontinued potassium chloride 40 mEq twice a day as patient is no longer diuresing. - Continue to monitor BMP daily. 10. Acute on chronic thrombocytopenia, present on admission. Acute portion resolved. - Baseline platelet count 90. - Status post 1 unit of platelets. - Continue to monitor platelet count daily. 11. Elevated troponin, acute, present on admission. Resolved. - Likely secondary to demand ischemia. EKG shows no acute ischemic changes, however, V-paced. No changes compared to prior EKG's. - Troponin maximally elevated at 0.116 and trended down. - Will continue to treat underlying shock process as above in #1. Chronic problems with management per primary team: 12. History of systolic congestive heart failure, chronic, presume stable. - EF during this admission 50-55%. Will continue to monitor with limited echo as needed during admission. - Likely not in CHF at baseline based on these results. 13. Obstructive sleep apnea, chronic. Presumed stable. - Patient intubated in the ICU at this time. 14. History of pulmonary fibrosis, chronic. Presumed stable. - Patient intubated in the ICU at this time. 15. Coronary artery disease, chronic. Presumed stable. - Patient takes simvastatin and aspirin at home which is being held. Will re- start statin when patient is stable. PRN antiemetics: Zofran and Maalox. PRN bowel regimen: Senna and MiraLAX. PRN analgesics: Tylenol. Disposition: Patient currently in critical care with improving prognosis. Total critical care time spent 60 minutes. . GI Prophylaxis: Proton Pump Inhibitor VTE Mechanical Devices: Intermittant Pneumatic CD Resuscitation Status: CPR: Attempt Resuscitation Attending Statement The patient was seen and examined together with Dr. Zuleta on 10/17/2016 and I agree with the history, exam and plan as outlined in the note above. Irma Zuleta DO Oct 17, 2016 07:24 Robin Spring MD Oct 22, 2016 11:06
[2016-10-17] MEDS: Polyethylene Glycol (PEG) 17 Gm Powder PO SCH (08:19)
[2016-10-17] MEDS: Potassium Chloride 20 mEq/15 mL 15mL Oral Soln TUBE SCH (08:19)
[2016-10-17] MEDS ORDERED: Dextrose 5% 1,000 ML IV SCH (08:20)
[2016-10-17] MEDS: Propofol Inj 1,000,000 MCG in IV Premix 1 EACH IV SCH (08:57)
[2016-10-17] MEDS: fentaNYL 2,500 mCg/250 mL 2,500 MCG in IV Premix 1 EACH IV SCH (09:18)
[2016-10-17] MEDS ORDERED: Polyethylene Glycol (PEG) 17 Gm Powder PO PRN (09:25)
[2016-10-17] MEDS: Dextrose 5% 0.45% NaCl 1,000 ML IV SCH ×2 (10:08→18:29)
[2016-10-17] MEDS: Dexmedetomidine 400 mCg/100 mL 400 MCG in IV Premix 1 EACH IV PRN (10:09)
[2016-10-17] MEDS: Famotidine Inj 20 MG in IV Premix 1 EACH IV SCH ×2 (10:12→19:55)
--- NOTE | 2016-10-17 10:39 | DRSVH ---
PROCEDURE: X-RAY CHEST ONE VIEW, PORTABLE ([id number]) INDICATIONS: acute respiratory failure TECHNIQUE: One view of the chest was acquired. COMPARISON: Merged With [facility], CR, XR CHEST 1VW (PORTABLE), 10/16/2016, 5:48. FINDINGS: Surgical changes and devices: Well-positioned ETT with tip projected roughly 6.6 cm above the belen. Nasogastric tube tip is not well-seen. Left chest AICD redemonstrated. Lungs and pleura: Diffuse, widespread bilateral pulmonary interstitial and air space opacities are p resent not significantly changed. Trace pleural effusions. No pneumothorax. Mediastinum: Mediastinal contours appear normal. Heart size is normal. Bones and chest wall: No suspicious bony lesions. Overlying soft tissues appear unremarkable. IMPRESSION: No significant change from prior examination. Dictated by: Woodrow Loya Matt Interpreted: Roderick Cruz MD on 10/17/2016 at 10:34 Transcribed by: JESSICA on 10/17/2016 at 10:38 Approved by: Roderick Cruz M.D. on 10/17/2016 at 17:08
[2016-10-17] MEDS: Chlorhexidine 0.12% 15 mL Oral Solution MT SCH ×4 (12:17→23:47)
--- NOTE | 2016-10-17 13:58 | PCM.CHPMED ---
Subjective Date of Service: Oct 17, 2016 Provider requesting consult: Peyman Carter DO Primary Physician: Admitting Physician: Jose Coombs MD Primary Care Physician: Eric Goldstein MD Attending Physician: Jose Coombs MD Chief Complaint: Chief Complaint: REASON FOR GI CONSULT: Elevated LFTs and jaundice History of Present Illness: GASTROENTEROLOGY CONSULT NOTE Mr. 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 Symptoms initiated within hours of recovery from his lithotripsy procedure. Initial CT imaging revealed extensive right subscapular and perinephric hemorrhage with associated hemoperitoneum. He subsequently developed ARDS secondary to acute hypoxemia respiratory failure, hemorrhagic shock, EDIN secondary to hypotension and poor perfusion due to increased abdominal pressures, and metabolic acidosis. GI was consulted to evaluate elevations in LFTs. Limited history obtained at time of consultation, as patient is intubated and sedated. Son is present at bedside, but admits to uncertainty about details of medical history. Son is able to confirm that patient did not have history of chronic alcohol intake or tobacco use, and is unaware of any gastrointestinal issues that the patient may have had in his history. History is obtained from chart review and discussion with other medical teams. No previous endoscopies noted in [facility]. Chart review reveals recent stability of H/H; total bili on admission was 1.9, with gradual rise to 12.2 10/13, and jump to 21.2 on 10/14. Alk phos has been within normal range throughout hospitalization. Labs 10/17: total bili 24.6; direct bili 17.6, AST 352, ALT 221, alk phos 84. INR 1.17. Albumin 2.6; CRP 16.4, lipase 110, BUN 66, Cr 0.30. Review of Systems: Unable to obtain secondary to intubation and sedation PMH Past Medical History Obtained from admission note: Obstructive Sleep apnea Coronary artery disease Status post AICD placement Pulmonary fibrosis Hard of hearing Cellulitis of his right leg requiring surgical intervention Bedside Blood Glucose: 98 Surgical History Obtained from admission note: AAA repair (common iliac aortobiiliac stent graft) back surgery hip replacement lithotripsy cardiac pacemaker/AICD cardiac stents Allergies: Coded Allergies: No Known Allergies (Unverified Allergy, Unknown, 03/27/15) Family History Family History Daughter with ESRD s/p transplant X 3 Mother with cerebral hemorrhage Son present at time of consultation is not aware of any history of GI disorders , such as IBD, Celiac, ulcerations, cancer, dysphagia, or abnormal colonoscopy studies Social History Hx Alcohol Use: Yes (Rare)Hx Substance Use: NoHx Tobacco Use: No Smoking Status: Never Smoker Living Arrangement: with Family Exam Vital Signs Vital Sign - Last Date Time Temp Pulse Resp B/P Pulse Ox O2 Delivery O2 Flow Rate FiO2 10/17/16 08:22 82 95/58 97 35 10/17/16 07:10 37.0 18 Mechanical Ventilator Intake and Output 10/16/16 10/16/16 10/17/16 Cumulative From/Thru 15:00 23:00 07:00 10/05/16 21:52 - 10/17/16 06:00 Intake Total 1217 ml 1026 ml 93083 ml Output Total 750 ml 850 ml 95993 ml Balance 467 ml 176 ml 28367 ml Intake Oral 0 ml IV Total 1217 ml 219 ml 41030 ml Tube Feeding 567 ml 6241 ml Packed Cells 1588 ml Platelets 250 ml Tube Irrigant 240 ml 1625 ml Output Urine Total 750 ml 550 ml 88632 ml Stool Total 300 ml 450 ml Gastric Drainage Total 0 ml 1410 ml # Bowel Movements 3 Additional Information: General: Intubated and sedated; no acute distress HENT: Sclera icteric, mucus membranes moist; ETT in place Neck: Soft, trachea midline Cardiac: Irregularly irregular rhythm; no murmurs appreciated at time of examination Respiratory: Adequate air flow all navarro; coarse sounds without crackles likely secondary to mechanical ventilation Abdomen: Soft, firm; hypoactive bowel sounds; no signs of pain elicited with palpation : Paredes and FMS in place; FMS liquid yellow stools without evidence delisa blood Extremities: Skin: Diffusely jaundiced Neuro: Cannot assess secondary to intubation and sedation Psych: Cannot assess secondary to intubation and sedation Lab and Diagnostics Result Diagram: 10/17/165 10/17/16254 Assessment & Plan Assessment GASTROENTEROLOGY CONSULT NOTE Mr. 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 Symptoms initiated within hours of recovery from his lithotripsy procedure. Initial CT imaging revealed extensive right subscapular and perinephric hemorrhage with associated hemoperitoneum. He subsequently developed ARDS secondary to acute hypoxemia respiratory failure, hemorrhagic shock, EDIN secondary to hypotension and poor perfusion due to increased abdominal pressures, and metabolic acidosis. GI was consulted to evaluate elevations in LFTs. Recent imaging: - Abd US 10/14: Slightly decrease in size of a complex mass adjacent to the left kidney, most likely a hematoma. Semicontracted gallbladder with mild gallbladder wall thickening. The clinical significance of the findings uncertain. Diffusely increased hepatic echotexture. This finding is most likely secondary to hepatic fatty infiltration although other hepatocellular disease may have a similar appearance. - Abd US doppler 10/16: Main portal vein is patent, with luminal diameter of 15 mm (normal of 13-16 mm). On pulse Doppler interrogation, portal vein flow direction is hepatopetal. Hepatic artery is not well seen.. Hepatic veins are all patent, with expected triphasic Doppler waveforms. Hepatic artery are not well visualized, otherwise normal appearance of the hepatoportal vasculature. Assessments - Elevated LFTs with jaundice - History of hemorrhagic shock Plan - Ideally, would pursue MRCP; but with history of AICD placement, MRI cannot be obtained. Would recommend finding details of pacer, to determine if it is MR compatible. Another complexity is that the patient is ventilated. Will need MR- compatible vent as well. - Obtain another hepatic duplex US to evaluate at this time; will await results - 24-hr urine copper and serum ceruloplasmin ordered; it is unlikely that patient has Amos's, but Amos's frequently presents with elev bili/AST/ALT, but normal to high normal alk phos. We will evaluate for Amos's to rule it out. - Continue to monitor LFTs Additional information may be able to be obtained from CT abd/pelvis, but MRCP would be ideal. Will wait for pacer identification and MR-compatibility. AST is downward trending, indicating improved perfusion. ALT is likely to follow suit. Thank you for this consult, we will happily follow along at this time. Please do not hesitate to contact us with any questions or concerns. Total time: 60 minutes Problems: Pain Evaluation: Adequate Pain Control GI Prophylaxis: Proton Pump Inhibitor VTE Prophylaxis Indicated: Contraindicated VTE Mechanical Devices: Intermittant Pneumatic CD Resuscitation Status: CPR: Attempt Resuscitation Attending Statement agree with outstanding assessment and plan above Mila Giordano DO Oct 17, 2016 08:50 Alfredo Weiner MD Oct 17, 2016 14:46
--- NOTE | 2016-10-17 16:55 | DRSVH ---
PROCEDURE: US ABDOMEN DOPPLER INDICATIONS: bilirubenemia, elevated lipase TECHNIQUE: Real-time scanning was performed of the abdominal and retroperitoneal organs, with image documentatio n. Color and pulse Doppler interrogation was also performed of the hepatic and splenic vessels, or o f the lesion of interest. COMPARISON: Located Within [facility], CT, CT KUB, 10/06/2016, 18:40. Located Within [facility], US, US AB DOMEN, 10/15/2016, 8:05. Located Within [facility], US, US ABD DOPPLER LTD, 10/16/2016, 9:56. FINDINGS: Liver: Liver is diffusely increased in echogenicity. No focal hepatic abnormalities identified. No rmal hepatic size. Doppler: Main portal vein is patent, with luminal diameter of 9.7 mm (normal of 13-16 mm). On pulse Doppler interrogation, portal vein flow direction is hepatopetal. Hepatic artery Doppler waveforms demonstrate normal systolic upstrokes. Hepatic veins are all patent, with expected triphasic Doppler waveforms. Gallbladder: Normal gallbladder. Biliary ducts: No intrahepatic biliary ductal dilatation. Extrahepatic bile duct is 7.0 mm in calib er. Normal biliary caliber is 6-7 mm or less, or 10 mm or less post-cholecystectomy. Spleen: Spleen is normal in size and homogeneous in echotexture. Pancreas: Not well-seen. Kidneys: Both kidneys are normal in size and echotexture. Right kidney measures 13.4 cm long; left kidney measures 12.6 cm long. No hydronephrosis or nephrolithiasis. No solid renal masses. Right p erinephric complex fluid collection redemonstrated and not as well-seen on today's examination but ap pears similar to prior exam. Aorta: Not well-seen. Iliacs: Not well-seen. IVC: Intrahepatic inferior vena cava is patent. Miscellaneous: No free abdominal fluid. IMPRESSION: 1. Increased hepatic echogenicity noted likely related to fatty infiltration of the liver but other s ources of hepatocellular disease cannot be excluded. Recommend clinical correlation. 2. Right perinephric complex fluid collection not as well-seen on today's exam but appears similar to previous examination this patient with history of perinephric hematoma. 3. Normal hepatoportal Doppler assessment. Dictated by: Woodrow LUNA Interpreted: Roderick Cruz MD on 10/17/2016 at 16:51 Transcribed by: JESSICA on 10/17/2016 at 16:55 Approved by: Roderick Cruz M.D. on 10/17/2016 at 17:07
--- NOTE | 2016-10-17 20:25 | PCM.PNMED ---
Subjective Date of Service Oct 17, 2016 Subjective overnight: No acute events overnight Today: Transaminases possibly getting a bobby with AST decreasing for the first time since the . Direct bilirubin is also below its high value. Total bilirubin and ALT continued to rise. GI consulted with recommendations for MRCP however given pacer and ventilated unable to obtain at this time. Patient reportedly able to maintain good oxygen saturation through pressure support trial 5 over 5 for 1 hour. Exam Vital Signs Vital Sign - Last Date Time Temp Pulse Resp B/P Pulse Ox O2 Delivery O2 Flow Rate FiO2 10/17/16 04:30 36.9 80 15 96/53 97 Mechanical Ventilator 35 Intake and Output 10/16/16 10/16/16 10/17/16 Cumulative From/Thru 15:00 23:00 07:00 10/05/16 21:52 - 10/17/16 06:00 Intake Total 1217 ml 1026 ml 10538 ml Output Total 750 ml 850 ml 61924 ml Balance 467 ml 176 ml 77263 ml Intake Oral 0 ml IV Total 1217 ml 219 ml 83921 ml Tube Feeding 567 ml 6241 ml Packed Cells 1588 ml Platelets 250 ml Tube Irrigant 240 ml 1625 ml Output Urine Total 750 ml 550 ml 84364 ml Stool Total 300 ml 450 ml Gastric Drainage Total 0 ml 1410 ml # Bowel Movements 3 Exam General: Severely Jaundiced Elderly Patient intubated and sedated in the ICU Eyes: Pupils equal round and reactive to light, icteric sclera, noninjected conjunctiva HENT: Head atraumatic, normocephalic, external ears without defect, nares are patent without drainage or blood Neck: Trachea midline, short and wide neck, no JVD appreciated, no lymphadenopathy CV: Regular rate and rhythm, distant heart tones with no appreciable murmur rubs or gallops Respiratory: Mild coarse breath sounds anteriorly consistent with upper airway secretions through ET tube with clear breath sounds noted in the axillary bases without wheezing Abdomen: distended, hypo-active bowel tones, tympanic to percussion, no organomegaly appreciated Extremities: Mild pitting edema present to the level of the femur and moderate pitting edema in the hands bilaterally; no cyanosis or clubbing present Skin: Warm and dry no petechiae, no rash noted, no bruising of the abdomen : Paredes in place FMS in place Left peripheral IV Lab and Diagnostics Result Diagram: 10/17/16 0255 10/17/16 0255 Microbiology Repeat sputum culture 2 grew light normal keisha. Repeat blood culture 2 has no growth after 24 hours. Urine culture shows no growth to date. Blood cultures 2 show no growth after 5 days. MRSA screen negative. Sputum grew scant normal keisha. . X-Rays, CTs and MRIs PROCEDURE: X-RAY CHEST ONE VIEW, PORTABLE IMPRESSION: Endotracheal tube with the tip projecting approximately 3 cm above the belen. Right internal jugular central venous catheter with the tip projecting at the lower SVC. No pneumothorax Dictated by: Nael Blackwood M.D. on 10/06/2016 at 11:49 PROCEDURE: CT KUB IMPRESSION: 1. Extensive right subcapsular and perinephric hemorrhage as described above. There is associated small to moderate amount of hemoperitoneum within the right anterior pararenal space, paracolic gutter, and perihepatic location. 2. Right nephrolithiasis. 3. Aortoiliac aneurysms, status post aortoiliac stent-graft placement, as described above. 4. Cholelithiasis. 5. Concordant with preliminary interpretation. Dictated by: Viridiana Inman M.D. on 10/06/2016 at 7:57 X-RAY CHEST ONE VIEW, PORTABLE ([id number]) IMPRESSION: 1. Pulmonary edema and or diffuse bilateral pneumonia with small effusions unchanged. Dictated by: Woodrow LUNA Interpreted: Earline Clark MD on 10/12/2016 at 13: 59 Transcribed by: SKYLER on 10/12/2016 at 14:01 PROCEDURE: X-RAY CHEST ONE VIEW, PORTABLE ([id number]) IMPRESSION: Stable examination compared to 10/13/16 with persistence of bilateral lung opacities and small pleural effusions.. Dictated by: Patience العراقي MD, PhD on 10/14/2016 at 9:13 Approved by: Patience العراقي MD, PhD on 10/14/2016 at 9:15 Cardiac Echo Impressions Echocardiogram Report Interpretation Summary The left ventricle is normal in size. There is moderate concentric left ventricular hypertrophy. Left ventricular systolic function is low normal. The ejection fraction is estimated to be 50-55%. There is a mild dyssynchronous contraction pattern due to the paced rhythm. There is a pacemaker lead in the right ventricle. Inspiratory collapse cannot be assessed because of mechanical ventilation, thus CVP cannot be estimated.. There is no prior echocardiogram noted for this patient. No other echocardiographic abnormalities seen. The etiology for the patients shock is not apparent. The echo is not consistant with cardiogenic shock. Reading Physician:12:44 PM Additional Diagnostics PROCEDURE: US ABDOMEN, LIMITED IMPRESSION: 1. Complex fluid collection around the right kidney as was seen on prior CT scan as above and no definite source of bleeding is identified sonographically. 2. Trace intra-abdominal fluid within the lower quadrants as well as the left upper outer quadrant. Dictated by: Woodrow LUNA Interpreted: Rosalie Schmitz MD on 10/06/2016 at 14:04 Transcribed by: NATALIA on 10/06/2016 at 14:06 PROCEDURE: US ABDOMEN DOPPLER, LIMITED IMPRESSION: Hepatic artery are not well visualized, otherwise normal appearance of the hepatoportal vasculature. Dictated by: Woodrow LUNA Interpreted: Patience العراقي MD on 10/16/2016 at 13:15 Transcribed by: DASHAWN on 10/16/2016 at 13:16 Approved by: Patience العراقي MD, PhD on 10/16/2016 at 16:31 PROCEDURE: US ABDOMEN IMPRESSION: 1. Slightly decrease in size of a complex mass adjacent to the left kidney, most likely a hematoma. 2. Semicontracted gallbladder with mild gallbladder wall thickening. The clinical significance of the findings uncertain. 3. Diffusely increased hepatic echotexture. This finding is most likely secondary to hepatic fatty infiltration although other hepatocellular disease may have a similar appearance. Recommend clinical correlation. Dictated by: Rosalie Schmitz M.D. on 10/15/2016 at 12:43 Approved by: Rosalie Schmitz M.D. on 10/15/2016 at 12:48 \ PROCEDURE: US ABDOMEN DOPPLER IMPRESSION: 1. Increased hepatic echogenicity noted likely related to fatty infiltration of the liver but other sources of hepatocellular disease cannot be excluded. Recommend clinical correlation. 2. Right perinephric complex fluid collection not as well-seen on today's exam but appears similar to previous examination this patient with history of perinephric hematoma. 3. Normal hepatoportal Doppler assessment. Dictated by: Woodrow Loya [facility] Interpreted: Roderick Cruz MD on 10/17/2016 at 16 :51 Transcribed by: JESSICA on 10/17/2016 at 16:55 Approved by: Roderick Cruz M.D. on 10/17/2016 at 17:07 Assessment & Plan Patient is an 86-year-old male with extensive cardiovascular history, new onset pain following same-day lithotripsy, radiographically proven intra-abdominal blood, and shock. He was admitted to ICU management on 10/06/16 where he decompensated requiring intubation and pressor support. Hospital day #12 1 Acute hypoxemic respiratory failure, present on admission, improving - Patient intubated and sedated in the ICU on 10/06/16. - propofol converted to Precedex and continue fentanyl for sedation at this time , continue to titrate down as tolerated by the patient. - Dr. Spring consulted and we appreciate his assistance with ventilator management. - ABG to be done every AM and PRN for vent management. - Continue with spontaneous breathing trials and sedation vacations per pulmonology recommendations. - Continue to work toward extubation. 2. Acute transaminitis, not present on admission, unstable under evaluation - Elevated direct bilirubin with transaminitis consistent with hepatocellular injury of unknown etiology - Abdominal ultrasound ordered for 10/15 with patient NPO after midnight to check liver and portal system - Acute hepatitis panel ordered with hepatitis A B and C all negative - Hepatitis E IgG ordered pending - Drug list evaluated shows no definitive offending agents - Abdominal ultrasound indicates increased echogenicity consistent with hepatocellular injury however without specific etiology - Doppler ultrasound indicates no portal vein thromboses - GI consulted appreciate time and recommendations 3. Fluid overload with pulmonary edema, acute, not present on admission, improving. - Likely secondary to significant fluid resuscitation done early in the course of admission. - Patient currently positive about 8L fluid. - Albumin to be used as needed for oncotic support. - Discontinue Lasix drip used for more aggressive diuresis. - Lasix IV push until small dip and creatinine indicates dry weight then rehydrate minimally 4. Acute kidney injury, present on admission, improving - Possibly acute tubular necrosis - Creatinine normalized but BUN remains high likely secondary to aggressive diuresis. - Continue to monitor BMP. - Creatinine Continues to drop - - Lasix IV push until small dip and creatinine indicates dry weight then rehydrate minimally 5. Possible upper GI bleed, acute, resolved. - Patient has been tolerating tube feeds. - No bright red blood noted in stool. - Continue to monitor H&H but has been stable. 6. Acute blood loss anemia, present on admission, stable - Continuing to monitor H&H/CBC closely. No specific source of bleeding has been identified at this time. - Patient has received 7 units PRBCs and 1 unit of platelets so far this admission. 7. Elevated troponin, acute, present on admission, resolved - Considered an effect of demand ischemia. 8. Acute hypokalemia, present on admission, resolved - Continue to monitor BMP and replete as needed. 9. Obstructive sleep apnea, chronic, presume stable. - Patient intubated in the ICU at this time. 10. History of pulmonary fibrosis, chronic, presume stable. - Patient intubated in the ICU at this time. 11. Coronary artery disease, chronic, presume stable. - Patient takes simvastatin and aspirin at home. Medication on hold at this time. Will re-order when patient more stable. 12. Systolic congestive heart failure, chronic, presume stable. - EF during this admission 50-55%. Will continue to monitor with limited echo as needed during admission. - Likely not in CHF at baseline based on these results. 13. Acute hemorrhagic shock, present on admission, resolved - likely secondary to intraabdominal bleeding source post lithotripsy procedure within the inferior pole of the right kidney was superselectively embolized by IR until stasis was achieved. - Patient with increased intraabdominal pressure and CT evidence of bleeding into the abdomen. Septic shock less likely at this time as patient has negative cultures and has been afebrile. No evidence of cardiogenic shock per echocardiogram report. - Pressor support with norepinephrine titrated off 10/09. - Dr. Menendez consulted for antibiotic management in the event that sepsis played a role in his shock. Discontinued Zosyn at this time 10/09. - Hemoglobin is remaining stable, will continue to monitor. - Antacid available PRN. - Antiemetic available PRN. Disposition: Patient currently in critical care with improving prognosis patient will likely require several more days of hospitalization, and possibly require rehabilitation as an outpatient given prolonged course of hospitalization. Anticipated discharge many days away. GI Prophylaxis: H2 spencer VTE Prophylaxis: Sub-Q Heparin (Unfractionated) VTE Mechanical Devices: Intermittant Pneumatic CD Resuscitation Status: CPR: Attempt Resuscitation Attending Statement The patient was seen and examined together with Dr. Carter on 10/17/2016 and I agree with the history, exam and plan as outlined in the note above. . Peyman Carter DO Oct 17, 2016 06:47 Omar Otoole MD Oct 21, 2016 07:20
[2016-10-17] MEDS: Heparin 5,000 Unit/mL Inj SUBQ SCH (23:47)
[2016-10-18] VITALS (10 sets, daily range): BP systolic 99–151; BP diastolic 53–87; PULSE 60–102; RESP 15–27; O2SAT 98–100
[2016-10-18] MEDS: Dextrose 5% 0.45% NaCl 1,000 ML IV SCH ×2 (04:38→15:49)
[2016-10-18] MEDS: Chlorhexidine 0.12% 15 mL Oral Solution MT SCH ×5 (04:38→19:38)
--- NOTE | 2016-10-18 04:59 | ABG ---
DateTimeAnalyzed 04:55:00 -_ pH ____7.417 - 7.350 7.450 pCO2 ___33.9__ -mmHg 35.0 45.0 pO2 133 -mmHg 69.0 116 HCO3- ___21.4__ -mmol/L 22.0 26.0 ABE ___-2.1__ -mmol/L -2.0 2.0 tHb ___10.7__ -g/dL O2Hb ___95.9__ -% COHb ____2.4__ -% MetHb ____0.6__ -% sO2 ___98.9__ -% 25.0 FIO2 ___35.0__ -% PEEP ____5.0__ -cmH2O Set_RR ___15.0__ -b/min Vt __550.0__ -L Drawn By RB - Date/Time Notified____ 04:59:00 -_ Spontaneous_RR ___20.0__ -b/min Oxygen Device 1 VENTILATOR - Notified By RB - B 750 -mmHg tO2 ___14.6__ -Vol% Robson test _Positive -
[2016-10-18 07:22] LABS: BASOPHILS % (AUTO) 0.3 % (0-3); EOSINOPHILS % (AUTO) 1.8 % (0-5); MONOCYTES % (AUTO) 7.9 % (4-12); Mean Corpuscular Hemoglobin 31.9 pg (27.0-35.0); Mean Corpuscular Volume 94.5 fL (81-100); NEUTROPHILS % (AUTO) 81.2 % (40-74); Platelet Count 193 bil/L (150-400)
[2016-10-18] MEDS: Sodium Chloride LOK Flush 10 mL Syringe IVFLUSH SCH ×2 (07:30→15:49)
[2016-10-18] MEDS: Dexmedetomidine 400 mCg/100 mL 400 MCG in IV Premix 1 EACH IV PRN (07:30)
[2016-10-18] MEDS: Famotidine Inj 20 MG in IV Premix 1 EACH IV SCH ×2 (07:30→19:38)
[2016-10-18] MEDS: Heparin 5,000 Unit/mL Inj SUBQ SCH ×2 (07:31→15:49)
[2016-10-18] MEDS: fentaNYL 2,500 mCg/250 mL 2,500 MCG in IV Premix 1 EACH IV SCH (07:31)
--- NOTE | 2016-10-18 08:51 | DRSVH ---
PROCEDURE: X-RAY CHEST ONE VIEW, PORTABLE ([id number]) INDICATIONS: acute respiratory failure TECHNIQUE: One view of the chest was acquired. COMPARISON: [facility], CR, XR CHEST 1VW (PORTABLE), 10/17/2016, 2:06. FINDINGS: Surgical changes and devices: Well-positioned ETT with tip projected roughly 3.4 cm above the belen. Nasogastric tube tip extends beyond the GE junction. Left chest AICD redemonstrated. Lungs and pleura: Diffuse, widespread bilateral pulmonary interstitial and air space opacities are p resent not significantly changed. Trace pleural effusions. No pneumothorax. Mediastinum: Mediastinal contours appear normal. Heart size is normal. Bones and chest wall: No suspicious bony lesions. Overlying soft tissues appear unremarkable. IMPRESSION: No significant change prior examination suggesting pulmonary edema and/or diffuse bilater al pneumonia. Dictated by: Woodrow Loya [facility] Interpreted: Rosalie Schmitz MD on 10/18/2016 at 8:49 Transcribed by: NATALIA on 10/18/2016 at 8:51 Approved by: Rosalie Schmitz M.D. on 10/18/2016 at 13:42
--- NOTE | 2016-10-18 10:50 | PCM.PNMED ---
Subjective Date of Service Oct 18, 2016 Subjective GASTROENTEROLOGY PROGRESS NOTE Remains intubated in CCU. Patient was much more alert today compared to previous examinations, likely secondary to decrease in sedation in order to prepare for and tolerate SBT. Was not able to follow all commands, was able to move toes only on left, unable to squeeze hands, but was tracking and moved legs when asked if he was in any pain, and where it was located. Unable to nod yes/no to subsequent questions. Appears comfortable. Exam Vital Signs Vital Sign - Last Date Time Temp Pulse Resp B/P Pulse Ox O2 Delivery O2 Flow Rate FiO2 10/18/16 07:59 71 117/56 99 35 10/18/16 07:35 37.2 17 Mechanical Ventilator Intake and Output 10/17/16 10/17/16 10/18/16 Cumulative From/Thru 15:00 23:00 07:00 10/05/16 21:52 - 10/18/16 05:05 Intake Total 1097 ml 1039 ml 02241 ml Output Total 825 ml 750 ml 99983 ml Balance 272 ml 289 ml 52349 ml Intake Oral 0 ml IV Total 1097 ml 1039 ml 95374 ml Tube Feeding 0 ml 6241 ml Packed Cells 1588 ml Platelets 250 ml Tube Irrigant 0 ml 1625 ml Output Urine Total 750 ml 750 ml 39006 ml Stool Total 75 ml 0 ml 525 ml Gastric Drainage Total 0 ml 1410 ml # Bowel Movements 3 Exam General: Intubated; no acute distress; alert and tracking HENT: Sclera icteric, mucus membranes moist; ETT in place Neck: Soft, trachea midline Cardiac: Irregularly irregular rhythm with rates 66-78 during examination; no murmurs appreciated at time of examination Respiratory: Adequate air flow all navarro; coarse sounds without crackles likely secondary to mechanical ventilation Abdomen: Soft, firm; hypoactive bowel sounds; no signs of pain elicited with palpation : Paredes and FMS in place; FMS liquid yellow stools without evidence delisa blood; Paredes dark urine Extremities: Diffuse dependent edema BLUE > BLLE; BLLE zero-minimal edema noted Pulses: Radial equal and bilateral; dorsalis pedis equal and bilateral Skin: Diffusely jaundiced Neuro: Limited assessment secondary to intubated and sedative use; unable to follow all commands at this time; tracks appropriately; some responses to some questioning Psych: Cannot assess secondary to intubation and sedation Lab and Diagnostics Result Diagram: 10/18/16 0700 10/18/16 0700 Microbiology Repeat sputum culture 2 grew light normal keisha. Repeat blood culture 2 has no growth after 24 hours. Urine culture shows no growth to date. Blood cultures 2 show no growth after 5 days. MRSA screen negative. Sputum grew scant normal keisha. . X-Rays, CTs and MRIs PROCEDURE: X-RAY CHEST ONE VIEW, PORTABLE IMPRESSION: Endotracheal tube with the tip projecting approximately 3 cm above the belen. Right internal jugular central venous catheter with the tip projecting at the lower SVC. No pneumothorax Dictated by: Nael Blackwood M.D. on 10/06/2016 at 11:49 PROCEDURE: CT KUB IMPRESSION: 1. Extensive right subcapsular and perinephric hemorrhage as described above. There is associated small to moderate amount of hemoperitoneum within the right anterior pararenal space, paracolic gutter, and perihepatic location. 2. Right nephrolithiasis. 3. Aortoiliac aneurysms, status post aortoiliac stent-graft placement, as described above. 4. Cholelithiasis. 5. Concordant with preliminary interpretation. Dictated by: Viridiana Inman M.D. on 10/06/2016 at 7:57 X-RAY CHEST ONE VIEW, PORTABLE ([id number]) IMPRESSION: 1. Pulmonary edema and or diffuse bilateral pneumonia with small effusions unchanged. Dictated by: Woodrow LUNA Interpreted: Earline Clark MD on 10/12/2016 at 13: 59 Transcribed by: SKYLER on 10/12/2016 at 14:01 PROCEDURE: X-RAY CHEST ONE VIEW, PORTABLE ([id number]) IMPRESSION: Stable examination compared to 10/13/16 with persistence of bilateral lung opacities and small pleural effusions.. Dictated by: Patience العراقي MD, PhD on 10/14/2016 at 9:13 Approved by: Patience العراقي MD, PhD on 10/14/2016 at 9:15 Cardiac Echo Impressions Echocardiogram Report Interpretation Summary The left ventricle is normal in size. There is moderate concentric left ventricular hypertrophy. Left ventricular systolic function is low normal. The ejection fraction is estimated to be 50-55%. There is a mild dyssynchronous contraction pattern due to the paced rhythm. There is a pacemaker lead in the right ventricle. Inspiratory collapse cannot be assessed because of mechanical ventilation, thus CVP cannot be estimated.. There is no prior echocardiogram noted for this patient. No other echocardiographic abnormalities seen. The etiology for the patients shock is not apparent. The echo is not consistant with cardiogenic shock. Reading Physician:12:44 PM Additional Diagnostics PROCEDURE: US ABDOMEN, LIMITED IMPRESSION: 1. Complex fluid collection around the right kidney as was seen on prior CT scan as above and no definite source of bleeding is identified sonographically. 2. Trace intra-abdominal fluid within the lower quadrants as well as the left upper outer quadrant. Dictated by: Woodrow LUNA Interpreted: Rosalie Schmitz MD on 10/06/2016 at 14:04 Transcribed by: NATALIA on 10/06/2016 at 14:06 PROCEDURE: US ABDOMEN DOPPLER, LIMITED IMPRESSION: Hepatic artery are not well visualized, otherwise normal appearance of the hepatoportal vasculature. Dictated by: Woodrow LUNA Interpreted: Patience العراقي MD on 10/16/2016 at 13:15 Transcribed by: DASHAWN on 10/16/2016 at 13:16 Approved by: Patience العراقي MD, PhD on 10/16/2016 at 16:31 PROCEDURE: US ABDOMEN IMPRESSION: 1. Slightly decrease in size of a complex mass adjacent to the left kidney, most likely a hematoma. 2. Semicontracted gallbladder with mild gallbladder wall thickening. The clinical significance of the findings uncertain. 3. Diffusely increased hepatic echotexture. This finding is most likely secondary to hepatic fatty infiltration although other hepatocellular disease may have a similar appearance. Recommend clinical correlation. Dictated by: Rosalie Schmitz M.D. on 10/15/2016 at 12:43 Approved by: Rosalie Schmitz M.D. on 10/15/2016 at 12:48 \ PROCEDURE: US ABDOMEN DOPPLER IMPRESSION: 1. Increased hepatic echogenicity noted likely related to fatty infiltration of the liver but other sources of hepatocellular disease cannot be excluded. Recommend clinical correlation. 2. Right perinephric complex fluid collection not as well-seen on today's exam but appears similar to previous examination this patient with history of perinephric hematoma. 3. Normal hepatoportal Doppler assessment. Dictated by: Woodrow LUNA Interpreted: Roderick Cruz MD on 10/17/2016 at 16 :51 Transcribed by: JESSICA on 10/17/2016 at 16:55 Approved by: Roderick Cruz M.D. on 10/17/2016 at 17:07 Assessment & Plan GASTROENTEROLOGY CONSULT NOTE Mr. 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 Symptoms initiated within hours of recovery from his lithotripsy procedure. Initial CT imaging revealed extensive right subscapular and perinephric hemorrhage with associated hemoperitoneum. He subsequently developed ARDS secondary to acute hypoxemia respiratory failure, hemorrhagic shock, EDIN secondary to hypotension and poor perfusion due to increased abdominal pressures, and metabolic acidosis. GI was consulted to evaluate elevations in LFTs. Recent imaging: - Abd US 10/14: Slightly decrease in size of a complex mass adjacent to the left kidney, most likely a hematoma. Semicontracted gallbladder with mild gallbladder wall thickening. The clinical significance of the findings uncertain. Diffusely increased hepatic echotexture. This finding is most likely secondary to hepatic fatty infiltration although other hepatocellular disease may have a similar appearance. - Abd US doppler 10/16: Main portal vein is patent, with luminal diameter of 15 mm (normal of 13-16 mm). On pulse Doppler interrogation, portal vein flow direction is hepatopetal. Hepatic artery is not well seen.. Hepatic veins are all patent, with expected triphasic Doppler waveforms. Hepatic artery are not well visualized, otherwise normal appearance of the hepatoportal vasculature. - Abd US with doppler 10/17: Main portal vein patent; all hepatic vv patent; Increased hepatic echogenicity noted likely related to fatty infiltration of the liver but other sources of hepatocellular disease cannot be excluded. Right perinephric complex fluid collection not as well-seen on today's exam but appears similar to previous examination this patient with history of perinephric hematoma. Normal hepatoportal Doppler assessment. Assessments - Elevated LFTs with jaundice - History of hemorrhagic shock Plan - Ideally, would pursue MRCP; but with history of AICD placement, MRI cannot be obtained. Would recommend finding details of pacer, to determine if it is MR compatible. Another complexity is that the patient is ventilated. Will need MR- compatible vent as well. - 24-hr urine copper and serum ceruloplasmin ordered; it is unlikely that patient has Amos's, but Amos's frequently presents with elev bili/AST/ALT, but normal to high normal alk phos. We will evaluate for Amos's to rule it out. These tests are still pending at time of today's evaluation. - Continue to monitor LFTs. AST and ALT decreasing; total bili likely to follow suit in coming days - Overall, appears to be improving. Continue to monitor Additional information may be able to be obtained from CT abd/pelvis, but MRCP would be ideal. Will wait for pacer identification and MR-compatibility. AST is downward trending, indicating improved perfusion. ALT following suit. Thank you for this consult, we will happily follow along at this time, as we await test results. Please do not hesitate to contact us with any questions or concerns. Total time: 40 minutes GI Prophylaxis: H2 spencer VTE Prophylaxis: Sub-Q Heparin (Unfractionated) VTE Mechanical Devices: Intermittant Pneumatic CD Resuscitation Status: CPR: Attempt Resuscitation Mila Giordano DO Oct 18, 2016 09:55
--- NOTE | 2016-10-18 10:58 | PROG NOTE ---
[address] [address] PROGRESS NOTE PATIENT: GAL CARRANZA : 1930 MR#: [id number] ADMIT: 10/06/2016 JOB ID: [id number] DATE: 10/18/2016 PULMONARY CRITICAL CARE FOLLOWUP NOTE: PROBLEM: 1. Hepatic dysfunction/hyperbilirubinemia/transaminitis. 2. Right renal hemorrhage. 3. Hypernatremia. 4. Coronary artery disease, with automatic implantable cardioverter defibrillator placement, remote. 5. Encephalopathy. SUBJECTIVE: None. OBJECTIVE: Temperature 37.2. Pulse low 60s with much of it pacer initiated. Respiratory rate 15 to 17 with ventilator set at 15. Blood pressure 113/64, O2 sat on FiO2 35% and PEEP of 5 is 98%. I and O shows 2.1 liters in, 1.6 liters out. General appearance: Icteric. Chronically ill appearing. Lethargic. Opens his eyes to verbal stimuli. Makes no attempt at response. Eyes: Sclerae icteric. Chest: Fair breath sounds bilaterally. Markedly decreased breath sounds at both bases. Mid and upper lung navarro are clear. With current tidal volume of something, the peak inspiratory pressure is 21, plateau is 17. PEEP is set at 5, measured at 5. Heart: Regular rhythm. Heart tones normal. Monitor shows 100% paced. Abdomen soft. Nondistended. Questionable some tenderness in the hypogastric area. No masses. Bowel tones present. Extremities: Trace to 1+ pedal edema. SCD in place. LABORATORY: Chest x-ray all pending. ASSESSMENT: 1. Acute respiratory distress syndrome. Doing well with pressure support trials. Frankly, could be extubated it were not for his altered mental status. He has been switched from propofol to dexmedetomidine to clear any kind of sedative medication. Seems to be a little more responsive to me. Barely responsive yesterday, though others had a more robust motor response. Will continue the dexmedetomidine breathing trials, so that he can be extubated expeditiously as soon as his mental status clears. 2. Liver dysfunction/hyperbilirubinemia/transaminitis. Workup ongoing. Abdominal ultrasound has now been performed four times. There is increased hepatic echogenicity related to fatty infiltration of the liver. There is a right perinephric complex fluid collection, pretty much unchanged, and there is a normal hepatoportal Doppler assessment. I think if we still are thinking of a vascular obstruction as the cause of his problem, then either a CT with contrast or even possibly a venogram needs to be performed. If, however, the liver is improving, then I think we can . Will make this evaluation after lab available. 3. Right renal hemorrhage. Not having any particular problems. Hemodynamics seem stable. Crit and white count are fine. Awaiting today's labs to see where we are but this has not been an apparent problem. Therapeutic anticoagulation was resumed now that the bleed seems controlled. TIME SPENT SO FAR IN CRITICAL CARE: 40 minutes.
--- NOTE | 2016-10-18 17:16 | PCM.PNMED ---
Subjective Date of Service Oct 18, 2016 Subjective overnight: No acute events overnight Today: Patient is much more alert on Precedex drip. Able to follow commands track with eyes wiggle hands and toes. 5 over 5 pressure support breathing trial tolerated for 2 hours today without issue. Patient to be extubated to BiPAP. Glycopyrrolate for increased secretions after speech therapy clears for small bowel evaluation. Exam Vital Signs Vital Sign - Last Date Time Temp Pulse Resp B/P Pulse Ox O2 Delivery O2 Flow Rate FiO2 10/18/16 05:15 60 99/53 98 35 10/18/16 04:46 37.2 16 Mechanical Ventilator Intake and Output 10/17/16 10/17/16 10/18/16 Cumulative From/Thru 15:00 23:00 07:00 10/05/16 21:52 - 10/18/16 05:05 Intake Total 1097 ml 1039 ml 76966 ml Output Total 825 ml 750 ml 27656 ml Balance 272 ml 289 ml 20570 ml Intake Oral 0 ml IV Total 1097 ml 1039 ml 41978 ml Tube Feeding 0 ml 6241 ml Packed Cells 1588 ml Platelets 250 ml Tube Irrigant 0 ml 1625 ml Output Urine Total 750 ml 750 ml 68864 ml Stool Total 75 ml 0 ml 525 ml Gastric Drainage Total 0 ml 1410 ml # Bowel Movements 3 Exam General: Severely Jaundiced Elderly Patient intubated and sedated in the ICU Eyes: Pupils equal round and reactive to light, icteric sclera, noninjected conjunctiva HENT: Head atraumatic, normocephalic, external ears without defect, nares are patent without drainage or blood Neck: Trachea midline, short and wide neck, no JVD appreciated, no lymphadenopathy CV: Regular rate and rhythm, distant heart tones with no appreciable murmur rubs or gallops Respiratory: Mild coarse breath sounds anteriorly consistent with upper airway secretions through ET tube with clear breath sounds noted in the axillary bases without wheezing Abdomen: distended, hypo-active bowel tones, tympanic to percussion, no organomegaly appreciated Extremities: Mild pitting edema present to the level of the tibia and with moderate pitting edema in the hands bilaterally distal to the restraints; no cyanosis or clubbing present Skin: Warm and dry no petechiae, no rash noted, no bruising of the abdomen Neuro: Pupils equal round reactive to light, able to track with eyes, able to follow commands moving both hands and feet. : Apredes in place FMS in place Left peripheral IV Lab and Diagnostics Result Diagram: 10/17/1625410/17/16254 Microbiology Repeat sputum culture 2 grew light normal keisha. Repeat blood culture 2 has no growth after 24 hours. Urine culture shows no growth to date. Blood cultures 2 show no growth after 5 days. MRSA screen negative. Sputum grew scant normal keisha. . X-Rays, CTs and MRIs PROCEDURE: X-RAY CHEST ONE VIEW, PORTABLE IMPRESSION: Endotracheal tube with the tip projecting approximately 3 cm above the belen. Right internal jugular central venous catheter with the tip projecting at the lower SVC. No pneumothorax Dictated by: Nael Blackwood M.D. on 10/06/2016 at 11:49 PROCEDURE: CT KUB IMPRESSION: 1. Extensive right subcapsular and perinephric hemorrhage as described above. There is associated small to moderate amount of hemoperitoneum within the right anterior pararenal space, paracolic gutter, and perihepatic location. 2. Right nephrolithiasis. 3. Aortoiliac aneurysms, status post aortoiliac stent-graft placement, as described above. 4. Cholelithiasis. 5. Concordant with preliminary interpretation. Dictated by: Viridiana Inman M.D. on 10/06/2016 at 7:57 X-RAY CHEST ONE VIEW, PORTABLE ([id number]) IMPRESSION: 1. Pulmonary edema and or diffuse bilateral pneumonia with small effusions unchanged. Dictated by: Woodrow LUNA Interpreted: Earline Clark MD on 10/12/2016 at 13: 59 Transcribed by: SKYLER on 10/12/2016 at 14:01 PROCEDURE: X-RAY CHEST ONE VIEW, PORTABLE ([id number]) IMPRESSION: Stable examination compared to 10/13/16 with persistence of bilateral lung opacities and small pleural effusions.. Dictated by: Patience العراقي MD, PhD on 10/14/2016 at 9:13 Approved by: Patience العراقي MD, PhD on 10/14/2016 at 9:15 Cardiac Echo Impressions Echocardiogram Report Interpretation Summary The left ventricle is normal in size. There is moderate concentric left ventricular hypertrophy. Left ventricular systolic function is low normal. The ejection fraction is estimated to be 50-55%. There is a mild dyssynchronous contraction pattern due to the paced rhythm. There is a pacemaker lead in the right ventricle. Inspiratory collapse cannot be assessed because of mechanical ventilation, thus CVP cannot be estimated.. There is no prior echocardiogram noted for this patient. No other echocardiographic abnormalities seen. The etiology for the patients shock is not apparent. The echo is not consistant with cardiogenic shock. Reading Physician:12:44 PM Additional Diagnostics PROCEDURE: US ABDOMEN, LIMITED IMPRESSION: 1. Complex fluid collection around the right kidney as was seen on prior CT scan as above and no definite source of bleeding is identified sonographically. 2. Trace intra-abdominal fluid within the lower quadrants as well as the left upper outer quadrant. Dictated by: Woodrow LUNA Interpreted: Rosalie Schmitz MD on 10/06/2016 at 14:04 Transcribed by: NATALIA on 10/06/2016 at 14:06 PROCEDURE: US ABDOMEN DOPPLER, LIMITED IMPRESSION: Hepatic artery are not well visualized, otherwise normal appearance of the hepatoportal vasculature. Dictated by: Woodrow LUNA Interpreted: Patience العراقي MD on 10/16/2016 at 13:15 Transcribed by: DASHAWN on 10/16/2016 at 13:16 Approved by: Patience العراقي MD, PhD on 10/16/2016 at 16:31 PROCEDURE: US ABDOMEN IMPRESSION: 1. Slightly decrease in size of a complex mass adjacent to the left kidney, most likely a hematoma. 2. Semicontracted gallbladder with mild gallbladder wall thickening. The clinical significance of the findings uncertain. 3. Diffusely increased hepatic echotexture. This finding is most likely secondary to hepatic fatty infiltration although other hepatocellular disease may have a similar appearance. Recommend clinical correlation. Dictated by: Rosalie Schmitz M.D. on 10/15/2016 at 12:43 Approved by: Rosalie Schmitz M.D. on 10/15/2016 at 12:48 \ PROCEDURE: US ABDOMEN DOPPLER IMPRESSION: 1. Increased hepatic echogenicity noted likely related to fatty infiltration of the liver but other sources of hepatocellular disease cannot be excluded. Recommend clinical correlation. 2. Right perinephric complex fluid collection not as well-seen on today's exam but appears similar to previous examination this patient with history of perinephric hematoma. 3. Normal hepatoportal Doppler assessment. Dictated by: Woodrow LUNA Interpreted: Roderick Cruz MD on 10/17/2016 at 16 :51 Transcribed by: JESSICA on 10/17/2016 at 16:55 Approved by: Roderick Cruz M.D. on 10/17/2016 at 17:07 Assessment & Plan Patient is an 86-year-old male with extensive cardiovascular history, new onset pain following same-day lithotripsy, radiographically proven intra-abdominal blood, and shock. He was admitted to ICU management on 10/06/16 where he decompensated requiring intubation and pressor support. Hospital day #13 1 Acute hypoxemic respiratory failure, present on admission, improving - Patient intubated and sedated in the ICU on 10/06/16. - propofol converted to Precedex and continue fentanyl for sedation overnight with improved mentation in the a.m. - Dr. Spring consulted and we appreciate his assistance with ventilator management. - ABG to be done every AM and PRN for vent management. - Patient unable to handle 5 over 5 breathing trial for 2 hours and and follows commands while on sedation vacation - Patient extubated today, or glass technician/installer following will place patient on BiPAP support 2. Acute transaminitis, not present on admission, unstable under evaluation - Elevated direct bilirubin with transaminitis consistent with hepatocellular injury of unknown etiology; likely shock liver which was uncovered when liver was required to start breaking down large intra-abdominal hematoma - Abdominal ultrasound ordered for 10/15 failed to reveal any reversible pathology including Budd-Chiari or portal vein thrombosis - Acute hepatitis panel ordered with hepatitis A B and C all negative - Hepatitis E IgG ordered pending - Drug list evaluated shows no definitive offending agents - Abdominal ultrasound indicates increased echogenicity consistent with hepatocellular injury however without specific etiology - Doppler ultrasound indicates no portal vein thromboses - GI consulted appreciate time and recommendations currently testing possible Amos's 3. Fluid overload with pulmonary edema, acute, not present on admission, improving. - Likely secondary to significant fluid resuscitation done early in the course of admission. - Patient currently positive about 8L fluid. - Albumin to be used as needed for oncotic support. - Discontinue Lasix drip used for more aggressive diuresis. - Lasix IV push until small dip and creatinine indicates dry weight then rehydrate minimally 4. Acute kidney injury, present on admission, improving - Possibly acute tubular necrosis - Creatinine normalized but BUN remains high likely secondary to aggressive diuresis. - Continue to monitor BMP. - Creatinine Continues to drop - Lasix IV push until small dip and creatinine indicates dry weight then rehydrate minimally 5. Possible upper GI bleed, acute, resolved. - Patient has been tolerating tube feeds. - No bright red blood noted in stool. - Continue to monitor H&H but has been stable. 6. Acute blood loss anemia, present on admission, stable - Continuing to monitor H&H/CBC closely. No specific source of bleeding has been identified at this time. - Patient has received 7 units PRBCs and 1 unit of platelets so far this admission. 7. Elevated troponin, acute, present on admission, resolved - Considered an effect of demand ischemia. 8. Acute hypokalemia, present on admission, resolved - Continue to monitor BMP and replete as needed. 9. Obstructive sleep apnea, chronic, presume stable. - Patient intubated in the ICU at this time. 10. History of pulmonary fibrosis, chronic, presume stable. - Patient intubated in the ICU at this time. 11. Coronary artery disease, chronic, presume stable. - Patient takes simvastatin and aspirin at home. Medication on hold at this time. Will re-order when patient more stable. 12. Systolic congestive heart failure, chronic, presume stable. - EF during this admission 50-55%. Will continue to monitor with limited echo as needed during admission. - Likely not in CHF at baseline based on these results. 13. Acute hemorrhagic shock, present on admission, resolved - likely secondary to intraabdominal bleeding source post lithotripsy procedure within the inferior pole of the right kidney was superselectively embolized by IR until stasis was achieved. - Patient with increased intraabdominal pressure and CT evidence of bleeding into the abdomen. Septic shock less likely at this time as patient has negative cultures and has been afebrile. No evidence of cardiogenic shock per echocardiogram report. - Pressor support with norepinephrine titrated off 3. - Dr. Menendez consulted for antibiotic management in the event that sepsis played a role in his shock. Discontinued Zosyn at this time 10/09. - Hemoglobin is remaining stable, will continue to monitor. - Antacid available PRN. - Antiemetic available PRN. Disposition: Patient currently in critical care with improving prognosis patient will likely require several more days of hospitalization, and possibly require rehabilitation as an outpatient given prolonged course of hospitalization. Anticipated discharge many days away. Pain Evaluation: Adequate Pain Control GI Prophylaxis: H2 spencer VTE Prophylaxis: Sub-Q Heparin (Unfractionated) VTE Mechanical Devices: Intermittant Pneumatic CD Resuscitation Status: CPR: Attempt Resuscitation Attending Statement The patient was seen and examined together with Dr. Carter on 10/18/2016 and I agree with the history, exam and plan as outlined in the note above. . Peyman Carter DO Oct 18, 2016 06:49 Omar Otoole MD Oct 21, 2016 07:23
[2016-10-19] VITALS (16 sets, daily range): BP systolic 124–174; BP diastolic 66–98; PULSE 102–122; RESP 20–35; O2SAT 94–99
[2016-10-19] MEDS: Sodium Chloride LOK Flush 10 mL Syringe IVFLUSH SCH ×3 (00:10→16:33)
[2016-10-19] MEDS: Heparin 5,000 Unit/mL Inj SUBQ SCH ×3 (00:12→16:33)
[2016-10-19] MEDS: Chlorhexidine 0.12% 15 mL Oral Solution MT SCH ×5 (00:12→20:30)
[2016-10-19] MEDS: Dextrose 5% 0.45% NaCl 1,000 ML IV SCH (00:13)
[2016-10-19] MEDS ORDERED: Epinephrine Racemic 2.25% 0.5 mL Inhalation Solution NEB ONE ×2 (02:15→06:36)
[2016-10-19 02:56] LABS: BASOPHILS % (AUTO) 0.6 % (0-3); EOSINOPHILS % (AUTO) 1.2 % (0-5); Mean Corpuscular Volume 93.6 fL (81-100); NEUTROPHILS % (AUTO) 78.6 % (40-74); Platelet Count 220 bil/L (150-400)
--- NOTE | 2016-10-19 03:58 | ABG ---
DateTimeAnalyzed 03:54:10 -_ pH ____7.404 - pCO2 ___33.0__ -mmHg pO2 141 -mmHg HCO3- ___20.6__ -mmol/L ABE ___-3.7__ -mmol/L tHb ___11.9__ -g/dL O2Hb ___97.3__ -% COHb ____2.2__ -% MetHb ____0.0__ -% sO2 ___99.5__ -% FIO2 ___50.0__ -% Drawn By MD - Notified By MD - Notified Whom CHAI F, RN - B 757 -mmHg K+ ____3.3__ -mmol/L tO2 ___16.6__ -Vol% Robson test _Positive -
[2016-10-19] MEDS ORDERED: Epinephrine Racemic 2.25% 0.5 mL Inhalation Solution NEB PRN (06:45)
[2016-10-19] MEDS: Famotidine Inj 20 MG in IV Premix 1 EACH IV SCH ×2 (08:11→20:52)
[2016-10-19] MEDS: Dexmedetomidine 400 mCg/100 mL 400 MCG in IV Premix 1 EACH IV PRN (08:12)
--- NOTE | 2016-10-19 08:52 | PROG NOTE ---
[address] [address] PROGRESS NOTE PATIENT: GAL CARRANZA : 1930 MR#: [id number] ADMIT: 10/06/2016 JOB ID: [id number] DATE: 10/19/2016 PULMONARY CRITICAL CARE FOLLOW UP NOTE: PROBLEM LIST: 1. Inspissated secretions in the upper airway. 2. Upper airway obstruction. 3. Liver dysfunction with transaminitis and elevated bilirubin. 4. Status post right renal hematoma. 5. Hypernatremia. 6. Coronary artery disease. 7. Encephalopathy. SUBJECTIVE: None. OBJECTIVE: Temperature 36.7. Pulse 88-122, respiratory rate mid 20s-mid 30s. Blood pressure 136/87, O2 sat on FiO2 of 6 liters is 97%. I and O shows 2.2 liters in, 1.9 liters out. General appearance: Moderate respiratory distress. Some agitation. Trying to communicate but I cannot understand him leading to signs of increased frustration. Seems to be communicating appropriately though I am not sure as to the content of his communications. Eyes: Scleral icterus. Nose and throat not examined. Chest: Somewhat gurgling in the throat. Upper airway sounds clear. Lungs have some crackles at both bases though the lung navarro are relatively clear. No particular use of the accessory muscles. Rather weak cough. Mild use of accessory muscles. Heart tones normal. Abdomen is soft. Slightly distended. Bowel tones present. Extremities: 1+ pedal edema. SCD in place. The patient was on a OxyMask all night because of concern about secretions. He was not on BiPAP at all. Apparently suctioned at times some thick green secretions. Other times, seemed to have stridor which was treated with racemic epi relatively effectively. Various orders for aerosol therapies would be temporarily effective. Stat arterial blood gases show a pO2 of 141, on FiO2 of 50%, aerosol mask. CO2 33, pH of 7.40. White blood cell count is 12,200, up from 9500, 78 polymorphonuclears, no bands, 10 lymphocytes, 8 monocytes. Hemoglobin 12.5 up from 10.5. Platelet count 220,000 and rising. Sodium 149, potassium 3.7, chloride 115, CO2 18, BUN 55 and slowly decreasing. Creatinine 0.12 and slightly lower. Lactic acid normal at 1.7. Calcium 9.1 with an albumin of 2.9. Total bilirubin continues to rise now up to 30.7. AST elevated at 384, and rising, whereas it had been decreasing. ALT rising at 267, whereas it had been stable. Alkaline phosphatase slightly elevated at 111 though it is still normal. Sputum cultures show only normal keisha. Gram stain shows only a few polys. Chest x-ray pending. ASSESSMENT: 1. Most of the symptoms seem to be upper airway. Concern has been about secretions. They certainly could be playing a role. Would be also concerned about some upper airway swelling. Finally he has rather severe obstructive sleep apnea, and in fact, was intubated in order to get him to lie down for a line placement. He has not had any positive pressure with us depending on masks and various aerosol medications for control of his airway. Will try high-flow oxygen which might give us a little bit of pressure which might help with his sleep apnea without resorting to a BiPAP mask. Hopefully, we can control the situation better sitting up. Maybe even up in a chair later today to mobilize the secretions, though it is unclear exactly what we are dealing with. 2. Hepatic dysfunction. Bilirubin is in great part due to his large hematoma. However, he now has a transaminitis which seems to be worsening. Etiology unclear. Would wonder if we are dealing with severe right-sided failure with pulmonary hypertension leading to a congested liver resulting in an elevation of the transaminases. No other etiology was particularly forthcoming. 3. Hypernatremia. Have been giving him free water. Now that tubes are out we will have to go back to the IV route as he is apparently not taking sufficient quantities to deal with his free water requirements likely due to significant insensible losses with his agitation and increased respiratory rate. PLAN: 1. Trial of high-flow oxygen to see if we could help with his sleep apnea. 2. Cool mist to help with any swelling in the upper airway. 3. Try to increase mobilization at least getting him to sit up to deal with secretions. 4. IV fluids D5 W with 40 K at 125 mL an hour. TIME SPENT: So far in critical care is 41 minutes.
--- NOTE | 2016-10-19 10:28 | DRSVH ---
PROCEDURE: X-RAY CHEST ONE VIEW, PORTABLE ([id number]) INDICATIONS: acute respiratory failure TECHNIQUE: One view of the chest was acquired. COMPARISON: [facility], CR, XR CHEST 1VW (PORTABLE), 10/18/2016, 5:23. FINDINGS: Surgical changes and devices: ETT and nasogastric tube have been removed. Lungs and pleura: Diffuse, widespread bilateral pulmonary interstitial and air space opacities are p resent not significantly changed. Trace pleural effusions. No pneumothorax. Mediastinum: Mediastinal contours appear normal. Heart size is normal. Bones and chest wall: No suspicious bony lesions. Overlying soft tissues appear unremarkable. IMPRESSION: Interval removal of ETT and nasogastric tube, otherwise no significant change from prior examination suggesting pulmonary edema and/or diffuse bilateral pneumonia. Dictated by: Woodrow Loya RRA Interpreted: Patience العراقي MD on 10/19/2016 at 10:27 Transcribed by: DASHAWN on 10/19/2016 at 10:28 Approved by: Patience العراقي MD, PhD on 10/19/2016 at 16:50
[2016-10-19] MEDS: Budesonide 0.5 mg/2 mL Inhalation Solution NEB SCH ×2 (11:09→20:45)
--- NOTE | 2016-10-19 15:13 | PCM.PNMED ---
Subjective Date of Service Oct 19, 2016 Subjective GASTROENTEROLOGY PROGRESS NOTE Patient appears to be medically progressing, as he is now extubated, alert, interactive, communicating. Denies any abdominal pain, SOB, fevers, chills. Does appear mildly confused, as he states he saw a pizza on the table when evaluating him. Son present, also states confusion was noted when patient was trying to tie his 'shoes' earlier. Patient was not wearing shoes, nor socks, at time of attempt. Exam Vital Signs Vital Sign - Last Date Time Temp Pulse Resp B/P Pulse Ox O2 Delivery O2 Flow Rate FiO2 10/19/16 12:00 36.7 103 32 150/67 97 Hi Flow 02/cannula 10/19/16 11:11 40 10/19/16 11:10 60 Intake and Output 10/18/16 10/18/16 10/19/16 Cumulative From/Thru 15:00 23:00 07:00 10/05/16 21:52 - 10/19/16 05:26 Intake Total 1220 ml 1212 ml 86249 ml Output Total 1200 ml 1475 ml 67294 ml Balance 20 ml -263 ml 38899 ml Intake Oral 0 ml 0 ml 0 ml IV Total 1220 ml 1212 ml 68731 ml Tube Feeding 0 ml 6241 ml Packed Cells 1588 ml Platelets 250 ml Tube Irrigant 0 ml 1625 ml Output Urine Total 700 ml 1275 ml 99890 ml Stool Total 500 ml 200 ml 1225 ml Gastric Drainage Total 0 ml 0 ml 1410 ml # Bowel Movements 3 Exam General: Alert, no acute distress; resting upright in bed, with bed in chair position HENT: Sclera icteric, mucus membranes moist; HFNC in place Neck: Soft, trachea midline Cardiac: Irregularly irregular rhythm with rates 70-80 during examination; no murmurs appreciated at time of examination Respiratory: Adequate air flow all navarro; crackles noted at bilateral bases; no use accessory muscles Abdomen: Soft, firm; hypoactive bowel sounds; no signs of pain elicited with palpation; nondistended Extremities: Diffuse dependent edema BLUE > BLLE improved compared to yesterday' s examination; BLLE zero-minimal edema noted Pulses: Radial equal and bilateral; dorsalis pedis equal and bilateral Skin: Diffusely jaundiced Neuro: Limited secondary to lasting effects sedatives; alert, tracks appropriately; facial expressions symmetric Psych: Cannot assess secondary to prolonged medication effects Lab and Diagnostics Result Diagram: 3/23/17 0250 10/19/16 0250 Microbiology Repeat sputum culture 2 grew light normal keisha. Repeat blood culture 2 has no growth after 24 hours. Urine culture shows no growth to date. Blood cultures 2 show no growth after 5 days. MRSA screen negative. Sputum grew scant normal keisha. . X-Rays, CTs and MRIs PROCEDURE: X-RAY CHEST ONE VIEW, PORTABLE IMPRESSION: Endotracheal tube with the tip projecting approximately 3 cm above the belen. Right internal jugular central venous catheter with the tip projecting at the lower SVC. No pneumothorax Dictated by: Nael Blackwood M.D. on 10/06/2016 at 11:49 PROCEDURE: CT KUB IMPRESSION: 1. Extensive right subcapsular and perinephric hemorrhage as described above. There is associated small to moderate amount of hemoperitoneum within the right anterior pararenal space, paracolic gutter, and perihepatic location. 2. Right nephrolithiasis. 3. Aortoiliac aneurysms, status post aortoiliac stent-graft placement, as described above. 4. Cholelithiasis. 5. Concordant with preliminary interpretation. Dictated by: Viridiana Inman M.D. on 10/06/2016 at 7:57 X-RAY CHEST ONE VIEW, PORTABLE ([id number]) IMPRESSION: 1. Pulmonary edema and or diffuse bilateral pneumonia with small effusions unchanged. Dictated by: Woodrow LUNA Interpreted: Earline Clark MD on 10/12/2016 at 13: 59 Transcribed by: SKYLER on 10/12/2016 at 14:01 PROCEDURE: X-RAY CHEST ONE VIEW, PORTABLE ([id number]) IMPRESSION: Stable examination compared to 10/13/16 with persistence of bilateral lung opacities and small pleural effusions.. Dictated by: Patience العراقي MD, PhD on 10/14/2016 at 9:13 Approved by: Patience العراقي MD, PhD on 10/14/2016 at 9:15 Cardiac Echo Impressions Echocardiogram Report Interpretation Summary The left ventricle is normal in size. There is moderate concentric left ventricular hypertrophy. Left ventricular systolic function is low normal. The ejection fraction is estimated to be 50-55%. There is a mild dyssynchronous contraction pattern due to the paced rhythm. There is a pacemaker lead in the right ventricle. Inspiratory collapse cannot be assessed because of mechanical ventilation, thus CVP cannot be estimated.. There is no prior echocardiogram noted for this patient. No other echocardiographic abnormalities seen. The etiology for the patients shock is not apparent. The echo is not consistant with cardiogenic shock. Reading Physician:12:44 PM Additional Diagnostics PROCEDURE: US ABDOMEN, LIMITED IMPRESSION: 1. Complex fluid collection around the right kidney as was seen on prior CT scan as above and no definite source of bleeding is identified sonographically. 2. Trace intra-abdominal fluid within the lower quadrants as well as the left upper outer quadrant. Dictated by: Woodrow LUNA Interpreted: Rosalie Schmitz MD on 10/06/2016 at 14:04 Transcribed by: NATALIA on 10/06/2016 at 14:06 PROCEDURE: US ABDOMEN DOPPLER, LIMITED IMPRESSION: Hepatic artery are not well visualized, otherwise normal appearance of the hepatoportal vasculature. Dictated by: Woodrow LUNA Interpreted: Patience العراقي MD on 10/16/2016 at 13:15 Transcribed by: DASHAWN on 10/16/2016 at 13:16 Approved by: Patience العراقي MD, PhD on 10/16/2016 at 16:31 PROCEDURE: US ABDOMEN IMPRESSION: 1. Slightly decrease in size of a complex mass adjacent to the left kidney, most likely a hematoma. 2. Semicontracted gallbladder with mild gallbladder wall thickening. The clinical significance of the findings uncertain. 3. Diffusely increased hepatic echotexture. This finding is most likely secondary to hepatic fatty infiltration although other hepatocellular disease may have a similar appearance. Recommend clinical correlation. Dictated by: Rosalie Schmitz M.D. on 10/15/2016 at 12:43 Approved by: Rosalie Schmitz M.D. on 10/15/2016 at 12:48 \ PROCEDURE: US ABDOMEN DOPPLER IMPRESSION: 1. Increased hepatic echogenicity noted likely related to fatty infiltration of the liver but other sources of hepatocellular disease cannot be excluded. Recommend clinical correlation. 2. Right perinephric complex fluid collection not as well-seen on today's exam but appears similar to previous examination this patient with history of perinephric hematoma. 3. Normal hepatoportal Doppler assessment. Dictated by: Woodrow LUNA Interpreted: Roderick Cruz MD on 10/17/2016 at 16 :51 Transcribed by: JESSICA on 10/17/2016 at 16:55 Approved by: Roderick Cruz M.D. on 10/17/2016 at 17:07 Assessment & Plan GASTROENTEROLOGY CONSULT NOTE Mr. 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 Symptoms initiated within hours of recovery from his lithotripsy procedure. Initial CT imaging revealed extensive right subscapular and perinephric hemorrhage with associated hemoperitoneum. He subsequently developed ARDS secondary to acute hypoxemia respiratory failure, hemorrhagic shock, EDIN secondary to hypotension and poor perfusion due to increased abdominal pressures, and metabolic acidosis. GI was consulted to evaluate elevations in LFTs. Recent imaging: - Abd US 10/14: Slightly decrease in size of a complex mass adjacent to the left kidney, most likely a hematoma. Semicontracted gallbladder with mild gallbladder wall thickening. The clinical significance of the findings uncertain. Diffusely increased hepatic echotexture. This finding is most likely secondary to hepatic fatty infiltration although other hepatocellular disease may have a similar appearance. - Abd US doppler 10/16: Main portal vein is patent, with luminal diameter of 15 mm (normal of 13-16 mm). On pulse Doppler interrogation, portal vein flow direction is hepatopetal. Hepatic artery is not well seen.. Hepatic veins are all patent, with expected triphasic Doppler waveforms. Hepatic artery are not well visualized, otherwise normal appearance of the hepatoportal vasculature. - Abd US with doppler 10/17: Main portal vein patent; all hepatic vv patent; Increased hepatic echogenicity noted likely related to fatty infiltration of the liver but other sources of hepatocellular disease cannot be excluded. Right perinephric complex fluid collection not as well-seen on today's exam but appears similar to previous examination this patient with history of perinephric hematoma. Normal hepatoportal Doppler assessment. CT abd w/con 10/19: ORDERED AND PENDING Assessments - Elevated LFTs with jaundice: Differential includes, but is not limited to, ductal stone, liver congestion secondary to RV dysfunction, auto-immune hepatitis, history of hemorrhagic shock with resultant 'shock liver' - History of hemorrhagic shock Plan - Ideally, would pursue MRCP; but with history of AICD placement, MRI cannot be obtained. Appreciate time by primary team in discovering that pacer is NOT MR- compatible - Stat CT abdomen with contrast to evaluate biliary tree for stone and resultant blockages; this is most likely scenario at this time based on presentation and laboratory results thus far. Today's LFTs increased - 24-hr urine copper and serum ceruloplasmin ordered; it is unlikely that patient has Amos's, but Amos's frequently presents with elev bili/AST/ALT, but normal to high normal alk phos. We will evaluate for Amos's to rule it out. These tests are still pending at time of today's evaluation, 10/19 - Continue to monitor LFTs - Auto-immune hepatitis and celiac panels ordered and pending: ANCA, ASMA, GINA, AMA, IgA, dsDNA; these are unlikely Thank you for this most interesting consult, we will happily follow along at this time, as we await test and imaging results. Please do not hesitate to contact us with any questions or concerns. Total time: 40 minutes GI Prophylaxis: H2 spencer VTE Prophylaxis: Sub-Q Heparin (Unfractionated) VTE Mechanical Devices: Intermittant Pneumatic CD Resuscitation Status: CPR: Attempt Resuscitation Attending Statement Case reviewed today. 86 year old male consulted for rising transaminitis. CT abdomen pelvis shows gallstones without biliary dilation. Pt has rising tbili now > 30 and high direct bili around 18. ast and alt were trending down and rising higher with rising alk phosph. Despite a neg CT abdomen showing no bili dil or gallstone in the bile duct, we still suspect possible gallstone within the cbd causing transient rising and lowering of transaminitis. Unfortunately, mrcp cannot be performed.. We will review CT abdomen am. Pt now with elevated wbc and not on drug that can cause hepatoxicity. Pt was hypotensive upon admission with sbp 70s to 90s but transaminses did not rise till the 10/10. Hepatic duplex u/s shows no evidence of Budd Chiari. Once we review the ct scan results and our suspicion remains the same, we will most likely recommend transfer to tertiary center for ERCP for evaluation for elevated transaminitis and possible cbd obstruction. Further recs to follow in am. Pt remains afebrile Mila Giordano DO Oct 19, 2016 15:13 Alfredo Weiner MD Oct 19, 2016 18:28 - likely secondary to intraabdominal bleeding source post lithotripsy procedure within the inferior pole of the right kidney was superselectively embolized by IR until stasis was achieved. - Patient with increased intraabdominal pressure and CT evidence of bleeding into the abdomen. Septic shock less likely at this time as patient has negative cultures and has been afebrile. No evidence of cardiogenic shock per echocardiogram report. - Pressor support with norepinephrine titrated off 10/09. - Dr. Menendez consulted for antibiotic management in the event that sepsis played a role in his shock. Discontinued Zosyn at this time 10/09. - Hemoglobin is remaining stable, will continue to monitor. - Antacid available PRN. - Antiemetic available PRN. Disposition: Patient currently in critical care with improving prognosis patient will likely require several more days of hospitalization, and possibly require rehabilitation as an outpatient given prolonged course of hospitalization. Anticipated discharge many days away. GI Prophylaxis: H2 spencer VTE Prophylaxis: Sub-Q Heparin (Unfractionated) VTE Mechanical Devices: Intermittant Pneumatic CD Resuscitation Status: CPR: Attempt Resuscitation Mila Giordano DO Oct 19, 2016 15:13
[2016-10-19] MEDS ORDERED: Dexamethasone Inj 10 MG in 0.9% Sodium Chloride-Pha MIX 50 ML IV ONE (16:00)
--- NOTE | 2016-10-19 16:36 | DRSVH ---
PROCEDURE: CT ABDOMEN WITH AND WITHOUT CONTRAST ([id number]) INDICATIONS: eval for biliary stones, NO ORAL CONTRAST TECHNIQUE: Optional 5 mm thick noncontrast images acquired from the diaphragm to the iliac crests. After the ad ministration of intravenous contrast, 5 mm thick images again acquired from the diaphragm to the zaira c crests in the arterial and urographic phases. 5 mm thick coronal and sagittal reformats were then acquired. For radiation dose reduction, the following was used: automated exposure control, adjustm ent of mA and/or kV according to patient size. COMPARISON: [facility], CR, XR CHEST 1VW (PORTABLE), 10/19/2016, 2:28. [facility], US, US ABD DOPPLER LTD, 10/16/2016, 9:56. [facility], US, US ABD DOPPLER, 7, 8:08. [facility], US, US ABDOMEN, 10/15/2016, 8:05. FINDINGS: Image quality: Contrasted imaging limited secondary to infiltration of contrast at the injection site . There is suboptimal volume of contrast secondary to infiltration. Lung bases: Patchy airspace opacities in the lung bases bilaterally suspicious for aspiration versus pneumonia. Small bilateral pleural fluid collections are noted. The heart is enlarged. Presence of ca rdiac pacer leads are noted. Dense atherosclerotic calcifications noted in the visualized coronary va sculature. Genitourinary: There is a large, approximately 11.6 x 11.5 x 14.4 cm right perinephric hematoma. The perinephric hematoma extends into the right perinephric space and into the right paracolic gutter. Ki dneys enhance normally within the limitations caused by infiltration of contrast material. Multiple s urgical clips noted adjacent to the inferior pole of the right kidney. Multiple calcifications noted in the interpolar right kidney may represent stones or postsurgical heterotopic ossification. No left renal stones. No hydronephrosis is identified. Other solid organs: Liver and spleen are normal in size and enhancement. Gallbladder contains small gallstones.. Biliary system is non dilated. Pancreas enhances normally. No adrenal nodules. Peritoneum and bowel: Unenhanced bowel loops are normal in wall thickness and caliber. No free flui d or air. Nodes and vessels: No retroperitoneal or mesenteric adenopathy by size criteria. 5.6 cm intrarenal a bdominal aortic aneurysm is noted. Aortic stent graft is noted. Scattered atherosclerotic calcificati ons noted in the abdominal pelvic vasculature. Bones: No suspicious bony lesions. No vertebral body compression fractures. Miscellaneous: No ventral hernias. IMPRESSION: 1. Study limited secondary to infiltration of contrast material into the soft tissues of the injectio n site. 2. Large right perinephric hematoma which is having mass effect on the right kidney. The perinephric hematoma extends into the right perinephric space and into the right paracolic gutter. 3. Cholelithiasis. Biliary tree is nondilated. 4. Postsurgical changes adjacent to the inferior pole of the right kidney. Please correlate with clin ical history. 5. Cardiomegaly. 6. Atherosclerosis including the visualized coronary vasculature. 7. Aortic aneurysm with placement of endovascular stent graft. 8. Patchy airspace opacities in the lung bases bilaterally suspicious for pneumonia versus aspiration . 9. Small bilateral pleural effusions. withDictated by: Patience العراقي MD, PhD on 10/19/2016 at 16:26 Approved by: Patience العراقي MD, PhD on 10/19/2016 at 16:35
--- NOTE | 2016-10-19 17:58 | PCM.PNMED ---
Subjective Date of Service Oct 19, 2016 Subjective overnight: Patient had increased oral secretions all night and became tachypneic requiring racemic albuterol overnight. Patient placed on high flow nasal cannula in the a.m. no acute events otherwise noted Today: Patient remained on high flow nasal cannula through the morning. Manager Functional's office contacted pacer is not MRI compatible. GI to take patient for CT scan of abdomen looking for choledocholithiasis to explain transaminitis and elevated bilirubin. Exam Vital Signs Vital Sign - Last Date Time Temp Pulse Resp B/P Pulse Ox O2 Delivery O2 Flow Rate FiO2 10/19/16 06:04 116 26 94 10.00 35 10/19/16 04:45 36.7 136/87 Aerosol Mask Intake and Output 10/18/16 10/18/16 10/19/16 Cumulative From/Thru 15:00 23:00 07:00 10/05/16 21:52 - 10/19/16 05:26 Intake Total 1220 ml 1212 ml 99640 ml Output Total 1200 ml 1475 ml 18005 ml Balance 20 ml -263 ml 83510 ml Intake Oral 0 ml 0 ml 0 ml IV Total 1220 ml 1212 ml 03330 ml Tube Feeding 0 ml 6241 ml Packed Cells 1588 ml Platelets 250 ml Tube Irrigant 0 ml 1625 ml Output Urine Total 700 ml 1275 ml 29927 ml Stool Total 500 ml 200 ml 1225 ml Gastric Drainage Total 0 ml 0 ml 1410 ml # Bowel Movements 3 Exam General: Severely Jaundiced Elderly Patient on high flow nasal cannula in no acute distress Eyes: Pupils equal round and reactive to light, icteric sclera, noninjected conjunctiva HENT: Head atraumatic, normocephalic, external ears without defect, nares are patent without drainage or blood, oropharynx clear with dry mucosa Neck: Trachea midline, short and wide neck, no JVD appreciated, no lymphadenopathy CV: Irregularly irregular rate and rhythm, distant heart tones with no appreciable murmur rubs or gallops Respiratory: Mild coarse breath sounds anteriorly with clear breath sounds noted in the axillary bases consistent with upper airway transmission due to increased secretions without wheezing Abdomen: distended, hypo-active bowel tones, tympanic to percussion, no organomegaly appreciated Extremities: Mild pitting edema present to the level of the tibia and with moderate pitting edema in the hands bilaterally; no cyanosis or clubbing present Skin: Warm and dry no petechiae, no rash noted, no bruising of the abdomen Neuro: Pupils equal round reactive to light, able to track with eyes, able to follow commands moving both hands and feet. : Paredes in place Left peripheral IV Lab and Diagnostics Result Diagram: 10/19/16 0250 10/19/16 0250 Microbiology Repeat sputum culture 2 grew light normal keisha. Repeat blood culture 2 has no growth after 24 hours. Urine culture shows no growth to date. Blood cultures 2 show no growth after 5 days. MRSA screen negative. Sputum grew scant normal keisha. . X-Rays, CTs and MRIs PROCEDURE: X-RAY CHEST ONE VIEW, PORTABLE IMPRESSION: Endotracheal tube with the tip projecting approximately 3 cm above the belen. Right internal jugular central venous catheter with the tip projecting at the lower SVC. No pneumothorax Dictated by: Nael Blackwood M.D. on 10/06/2016 at 11:49 PROCEDURE: CT KUB IMPRESSION: 1. Extensive right subcapsular and perinephric hemorrhage as described above. There is associated small to moderate amount of hemoperitoneum within the right anterior pararenal space, paracolic gutter, and perihepatic location. 2. Right nephrolithiasis. 3. Aortoiliac aneurysms, status post aortoiliac stent-graft placement, as described above. 4. Cholelithiasis. 5. Concordant with preliminary interpretation. Dictated by: Viridiana Inman M.D. on 10/06/2016 at 7:57 X-RAY CHEST ONE VIEW, PORTABLE ([id number]) IMPRESSION: 1. Pulmonary edema and or diffuse bilateral pneumonia with small effusions unchanged. Dictated by: Woodrow LUNA Interpreted: Earline Clark MD on 10/12/2016 at 13: 59 Transcribed by: SKYLER on 10/12/2016 at 14:01 PROCEDURE: X-RAY CHEST ONE VIEW, PORTABLE ([id number]) IMPRESSION: Stable examination compared to 10/13/16 with persistence of bilateral lung opacities and small pleural effusions.. Dictated by: Patience العراقي MD, PhD on 10/14/2016 at 9:13 Approved by: Patience العراقي MD, PhD on 10/14/2016 at 9:15 Cardiac Echo Impressions Echocardiogram Report Interpretation Summary The left ventricle is normal in size. There is moderate concentric left ventricular hypertrophy. Left ventricular systolic function is low normal. The ejection fraction is estimated to be 50-55%. There is a mild dyssynchronous contraction pattern due to the paced rhythm. There is a pacemaker lead in the right ventricle. Inspiratory collapse cannot be assessed because of mechanical ventilation, thus CVP cannot be estimated.. There is no prior echocardiogram noted for this patient. No other echocardiographic abnormalities seen. The etiology for the patients shock is not apparent. The echo is not consistant with cardiogenic shock. Reading Physician:12:44 PM Additional Diagnostics PROCEDURE: US ABDOMEN, LIMITED IMPRESSION: 1. Complex fluid collection around the right kidney as was seen on prior CT scan as above and no definite source of bleeding is identified sonographically. 2. Trace intra-abdominal fluid within the lower quadrants as well as the left upper outer quadrant. Dictated by: Woodrow TRAMMELLA Interpreted: Rosalie Schmitz MD on 10/06/2016 at 14:04 Transcribed by: NATALIA on 10/06/2016 at 14:06 PROCEDURE: US ABDOMEN DOPPLER, LIMITED IMPRESSION: Hepatic artery are not well visualized, otherwise normal appearance of the hepatoportal vasculature. Dictated by: Woodrow LUNA Interpreted: Patience لاعراقي MD on 10/16/2016 at 13:15 Transcribed by: DASHAWN on 10/16/2016 at 13:16 Approved by: Patience العراقي MD, PhD on 10/16/2016 at 16:31 PROCEDURE: US ABDOMEN IMPRESSION: 1. Slightly decrease in size of a complex mass adjacent to the left kidney, most likely a hematoma. 2. Semicontracted gallbladder with mild gallbladder wall thickening. The clinical significance of the findings uncertain. 3. Diffusely increased hepatic echotexture. This finding is most likely secondary to hepatic fatty infiltration although other hepatocellular disease may have a similar appearance. Recommend clinical correlation. Dictated by: Rosalie Schmitz M.D. on 10/15/2016 at 12:43 Approved by: Rosalie Schmitz M.D. on 10/15/2016 at 12:48 \ PROCEDURE: US ABDOMEN DOPPLER IMPRESSION: 1. Increased hepatic echogenicity noted likely related to fatty infiltration of the liver but other sources of hepatocellular disease cannot be excluded. Recommend clinical correlation. 2. Right perinephric complex fluid collection not as well-seen on today's exam but appears similar to previous examination this patient with history of perinephric hematoma. 3. Normal hepatoportal Doppler assessment. Dictated by: Woodrow LUNA Interpreted: Roderick Cruz MD on 10/17/2016 at 16 :51 Transcribed by: JESSICA on 10/17/2016 at 16:55 Approved by: Roderick Cruz M.D. on 10/17/2016 at 17:07 Assessment & Plan Patient is an 86-year-old male with extensive cardiovascular history, new onset pain following same-day lithotripsy, radiographically proven intra-abdominal blood, and shock. He was admitted to ICU management on 10/06/16 where he decompensated requiring intubation and pressor support. Hospital day #14 1 Acute hypoxemic respiratory failure, present on admission, improving - Patient intubated and sedated in the ICU on 10/06/16. - propofol converted to Precedex and continue fentanyl for sedation overnight with improved mentation in the a.m. - Dr. Spring consulted and we appreciate his assistance with ventilator management. - ABG to be done every AM and PRN for vent management. - Prior to extubation patient was on 5 over 5 breathing trials for 2 hours without issue - Patient extubated 10/18/2016, or traffic survey technician following will place patient on BiPAP and high flow nasal cannula support as needed 2. Acute transaminitis, not present on admission, unstable under evaluation - Elevated direct bilirubin with transaminitis consistent with hepatocellular injury of unknown etiology; likely shock liver which was uncovered when liver was required to start breaking down large intra-abdominal hematoma - Abdominal ultrasound ordered for 10/15 failed to reveal any reversible pathology including Budd-Chiari or portal vein thrombosis - Acute hepatitis panel ordered with hepatitis A B and C all negative - Hepatitis E IgG ordered pending - Drug list evaluated shows no definitive offending agents - Abdominal ultrasound indicates increased echogenicity consistent with hepatocellular injury however without specific etiology - Doppler ultrasound indicates no portal vein thromboses - GI consulted appreciate time and recommendations currently testing possible Amos's - Taken for CT checking for choledocholithiasis today asa result MRI compatible 3. Fluid overload with pulmonary edema, acute, not present on admission, improving. - Likely secondary to significant fluid resuscitation done early in the course of admission. - Patient currently positive about 8L fluid. - Discontinue Albumin previously used as needed for oncotic support. - Discontinue Lasix drip - Discontinued Lasix IV push 4. Acute kidney injury, present on admission, improving - Possibly acute tubular necrosis - Creatinine normalized but BUN remains high likely secondary to aggressive diuresis. - Continue to monitor BMP. - Discontinued Lasix IV push 5. Possible upper GI bleed, acute, resolved. - Patient has been tolerating tube feeds. - No bright red blood noted in stool. - Continue to monitor H&H but has been stable. 6. Acute blood loss anemia, present on admission, stable - Continuing to monitor H&H/CBC closely. No specific source of bleeding has been identified at this time. - Patient has received 7 units PRBCs and 1 unit of platelets so far this admission. 7. Elevated troponin, acute, present on admission, resolved - Considered an effect of demand ischemia. 8. Acute hypokalemia, present on admission, resolved - Continue to monitor BMP and replete as needed. 9. Obstructive sleep apnea, chronic, presume stable. - Patient intubated in the ICU at this time. 10. History of pulmonary fibrosis, chronic, presume stable. - Patient intubated in the ICU at this time. 11. Coronary artery disease, chronic, presume stable. - Patient takes simvastatin and aspirin at home. Medication on hold at this time. Will re-order when patient more stable. 12. Systolic congestive heart failure, chronic, presume stable. - EF during this admission 50-55%. Will continue to monitor with limited echo as needed during admission. - Likely not in CHF at baseline based on these results. 13. Acute hemorrhagic shock, present on admission, resolved - likely secondary to intraabdominal bleeding source post lithotripsy procedure within the inferior pole of the right kidney was superselectively embolized by IR until stasis was achieved. - Patient with increased intraabdominal pressure and CT evidence of bleeding into the abdomen. Septic shock less likely at this time as patient has negative cultures and has been afebrile. No evidence of cardiogenic shock per echocardiogram report. - Pressor support with norepinephrine titrated off 10/09. - Dr. Menendez consulted for antibiotic management in the event that sepsis played a role in his shock. Discontinued Zosyn at this time 10/09. - Hemoglobin is remaining stable, will continue to monitor. - Antacid available PRN. - Antiemetic available PRN. Disposition: Patient currently in critical care with improving prognosis patient will likely require several more days of hospitalization, and possibly require rehabilitation as an outpatient given prolonged course of hospitalization. Anticipated discharge many days away. Pain Evaluation: Adequate Pain Control GI Prophylaxis: H2 spencer VTE Prophylaxis: Sub-Q Heparin (Unfractionated) VTE Mechanical Devices: Intermittant Pneumatic CD Resuscitation Status: CPR: Attempt Resuscitation Attending Statement The patient was seen and examined together with Dr. Carter on 10/19/2016 and I agree with the history, exam and plan as outlined in the note above. . Peyman Carter DO Oct 19, 2016 06:48 Omar Otoole MD Oct 21, 2016 07:28
[2016-10-20 00:30] VITALS: BP 156/96; PULSE 108; RESP 30; O2SAT 99
[2016-10-20] MEDS: Chlorhexidine 0.12% 15 mL Oral Solution MT SCH ×4 (00:30→11:31)
[2016-10-20] MEDS: Heparin 5,000 Unit/mL Inj SUBQ SCH ×2 (00:42→08:56)
[2016-10-20] MEDS: Sodium Chloride LOK Flush 10 mL Syringe IVFLUSH SCH ×2 (00:42→08:56)
--- NOTE | 2016-10-20 03:55 | ABG ---
DateTimeAnalyzed 03:52:00 -_ pH ____7.443 - 7.350 7.450 pCO2 ___28.8__ -mmHg 35.0 45.0 pO2 122 -mmHg 69.0 116 HCO3- ___19.4__ -mmol/L 22.0 26.0 ABE ___-3.3__ -mmol/L -2.0 2.0 tHb ___11.8__ -g/dL O2Hb ___96.3__ -% COHb ____2.0__ -% MetHb ____0.4__ -% sO2 ___98.7__ -% 25.0 FIO2 ___40.0__ -% Drawn By RB - Liter_Flow ___60.0__ -L/min Oxygen Device 1 HIGH FLOW - Notified By RB - B 751 -mmHg tO2 ___16.1__ -Vol% Robson test _Positive -
[2016-10-20 04:30] VITALS: BP 165/98; PULSE 94; RESP 26; O2SAT 98
[2016-10-20 04:43] LABS: BASOPHILS % (AUTO) 0.5 % (0-3); EOSINOPHILS % (AUTO) 0 % (0-5); MONOCYTES % (AUTO) 2.3 % (4-12); Mean Corpuscular Hemoglobin 32.4 pg (27.0-35.0); Mean Corpuscular Volume 92.8 fL (81-100); NEUTROPHILS % (AUTO) 90.6 % (40-74); Platelet Count 203 bil/L (150-400)
[2016-10-20 04:57] LABS: INR 1.38 ratio
[2016-10-20 05:06] LABS: Magnesium 2.3 mg/dL (1.6-2.6); Phosphorus 2.1 mg/dL (2.5-4.9)
[2016-10-20 05:19] LABS: Bilirubin, Direct 20.8 mg/dL (0.0-0.3)
[2016-10-20 08:00] VITALS: BP 163/88; PULSE 80; RESP 25; O2SAT 98
[2016-10-20] MEDS ORDERED: Furosemide 10 mg/mL 4 mL Inj IVPUSH ONE (08:50)
[2016-10-20 09:37] VITALS: RESP 24; O2SAT 97
--- NOTE | 2016-10-20 09:37 | DRSVH ---
PROCEDURE: X-RAY CHEST ONE VIEW, PORTABLE ([id number]) INDICATIONS: acute respiratory failure TECHNIQUE: One view of the chest was acquired. COMPARISON: [facility], CR, XR CHEST 1VW (PORTABLE), 10/19/2016, 2:28. FINDINGS: Surgical changes and devices: Stable positioning of left chest AICD. Lungs and pleura: Diffuse, widespread bilateral pulmonary interstitial and air space opacities are p resent not significantly changed. Trace pleural effusions. No pneumothorax. Mediastinum: Mediastinal contours appear normal. Heart size is normal. Bones and chest wall: No suspicious bony lesions. Overlying soft tissues appear unremarkable. IMPRESSION: No change from prior exam. Dictated by: Woodrow Loya RRA Interpreted: Patience العراقي MD on 10/20/2016 at 9:37 Transcribed by: DASHAWN on 10/20/2016 at 9:37 Approved by: Patience العراقي MD, PhD on 10/20/2016 at 17:05
[2016-10-20 09:39] VITALS: PULSE 90; RESP 23; O2SAT 97
[2016-10-20] MEDS: Budesonide 0.5 mg/2 mL Inhalation Solution NEB SCH (09:39)
--- NOTE | 2016-10-20 09:47 | PCM.PNMED ---
Subjective Date of Service Oct 20, 2016 Subjective GASTROENTEROLOGY PROGRESS NOTE Today, patient remains stable on HFNC. Appears more fatigued today, but reports indicate that he was restless overnight. Arouses with voice stimuli. Denial of pain. Family present at bedside. Explained that transfer to another facility is indicate. Family agrees. All questions and concerns addressed. Exam Vital Signs Vital Sign - Last Date Time Temp Pulse Resp B/P Pulse Ox O2 Delivery O2 Flow Rate FiO2 10/20/16 04:30 36.7 94 26 165/98 98 HFNC 40 10/19/16 23:43 70 Intake and Output 10/19/16 10/19/16 10/20/16 Cumulative From/Thru 15:00 23:00 07:00 10/05/16 21:52 - 10/20/16 06:27 Intake Total 1100 ml 1379 ml 15666 ml Output Total 1000 ml 1100 ml 33303 ml Balance 100 ml 279 ml 41847 ml Intake Oral 0 ml 0 ml IV Total 1100 ml 1379 ml 73671 ml Tube Feeding 6241 ml Packed Cells 1588 ml Platelets 250 ml Tube Irrigant 1625 ml Output Urine Total 1000 ml 1100 ml 14937 ml Stool Total 1225 ml Gastric Drainage Total 1410 ml # Bowel Movements 0 3 Exam General: Alert, no acute distress; resting upright in bed, receiving neb tx HENT: Sclera icteric, mucus membranes moist; HFNC in place + OM with nebs Neck: Soft, trachea midline Cardiac: Irregularly irregular rhythm with rates 60-70 during examination; no murmurs appreciated at time of examination Respiratory: Adequate air flow all navarro; crackles noted at bilateral bases; no use accessory muscles Abdomen: Soft, firm; hypoactive bowel sounds; no signs of pain elicited with palpation; nondistended Extremities: Diffuse dependent edema BLUE > BLLE improved compared to yesterday' s examination; BLLE trace edema noted at dorsum to ankles Pulses: Radial equal and bilateral; dorsalis pedis equal and bilateral but faint secondary to edema Skin: Diffusely jaundiced Neuro: Limited secondary to lasting effects sedatives; alert, tracks appropriately; facial expressions symmetric Psych: Cannot assess secondary to prolonged medication effects Lab and Diagnostics Result Diagram: 10/20/1641610/20/16416 Microbiology Repeat sputum culture 2 grew light normal keisha. Repeat blood culture 2 has no growth after 24 hours. Urine culture shows no growth to date. Blood cultures 2 show no growth after 5 days. MRSA screen negative. Sputum grew scant normal keisha. . X-Rays, CTs and MRIs PROCEDURE: X-RAY CHEST ONE VIEW, PORTABLE IMPRESSION: Endotracheal tube with the tip projecting approximately 3 cm above the belen. Right internal jugular central venous catheter with the tip projecting at the lower SVC. No pneumothorax Dictated by: Nael Blackwood M.D. on 10/06/2016 at 11:49 PROCEDURE: CT KUB IMPRESSION: 1. Extensive right subcapsular and perinephric hemorrhage as described above. There is associated small to moderate amount of hemoperitoneum within the right anterior pararenal space, paracolic gutter, and perihepatic location. 2. Right nephrolithiasis. 3. Aortoiliac aneurysms, status post aortoiliac stent-graft placement, as described above. 4. Cholelithiasis. 5. Concordant with preliminary interpretation. Dictated by: Viridiana Inman M.D. on 10/06/2016 at 7:57 X-RAY CHEST ONE VIEW, PORTABLE ([id number]) IMPRESSION: 1. Pulmonary edema and or diffuse bilateral pneumonia with small effusions unchanged. Dictated by: Woodrow LUNA Interpreted: Earline Clark MD on 10/12/2016 at 13: 59 Transcribed by: SKYLER on 10/12/2016 at 14:01 PROCEDURE: X-RAY CHEST ONE VIEW, PORTABLE ([id number]) IMPRESSION: Stable examination compared to 10/13/16 with persistence of bilateral lung opacities and small pleural effusions.. Dictated by: Patience العراقي MD, PhD on 10/14/2016 at 9:13 Approved by: Patience العراقي MD, PhD on 10/14/2016 at 9:15 Cardiac Echo Impressions Echocardiogram Report Interpretation Summary The left ventricle is normal in size. There is moderate concentric left ventricular hypertrophy. Left ventricular systolic function is low normal. The ejection fraction is estimated to be 50-55%. There is a mild dyssynchronous contraction pattern due to the paced rhythm. There is a pacemaker lead in the right ventricle. Inspiratory collapse cannot be assessed because of mechanical ventilation, thus CVP cannot be estimated.. There is no prior echocardiogram noted for this patient. No other echocardiographic abnormalities seen. The etiology for the patients shock is not apparent. The echo is not consistant with cardiogenic shock. Reading Physician:12:44 PM Additional Diagnostics PROCEDURE: US ABDOMEN, LIMITED IMPRESSION: 1. Complex fluid collection around the right kidney as was seen on prior CT scan as above and no definite source of bleeding is identified sonographically. 2. Trace intra-abdominal fluid within the lower quadrants as well as the left upper outer quadrant. Dictated by: Woodrow LUNA Interpreted: Rosalie Schmitz MD on 10/06/2016 at 14:04 Transcribed by: NATALIA on 10/06/2016 at 14:06 PROCEDURE: US ABDOMEN DOPPLER, LIMITED IMPRESSION: Hepatic artery are not well visualized, otherwise normal appearance of the hepatoportal vasculature. Dictated by: Woodrow LUNA Interpreted: Patience العراقي MD on 10/16/2016 at 13:15 Transcribed by: DASHAWN on 10/16/2016 at 13:16 Approved by: Patience العراقي MD, PhD on 10/16/2016 at 16:31 PROCEDURE: US ABDOMEN IMPRESSION: 1. Slightly decrease in size of a complex mass adjacent to the left kidney, most likely a hematoma. 2. Semicontracted gallbladder with mild gallbladder wall thickening. The clinical significance of the findings uncertain. 3. Diffusely increased hepatic echotexture. This finding is most likely secondary to hepatic fatty infiltration although other hepatocellular disease may have a similar appearance. Recommend clinical correlation. Dictated by: Rosalie Schmitz M.D. on 10/15/2016 at 12:43 Approved by: Rosalie Schmitz M.D. on 10/15/2016 at 12:48 \ PROCEDURE: US ABDOMEN DOPPLER IMPRESSION: 1. Increased hepatic echogenicity noted likely related to fatty infiltration of the liver but other sources of hepatocellular disease cannot be excluded. Recommend clinical correlation. 2. Right perinephric complex fluid collection not as well-seen on today's exam but appears similar to previous examination this patient with history of perinephric hematoma. 3. Normal hepatoportal Doppler assessment. Dictated by: Woodrow Loya [facility] Interpreted: Roderick Cruz MD on 10/17/2016 at 16 :51 Transcribed by: JESSICA on 10/17/2016 at 16:55 Approved by: Roderick Cruz M.D. on 10/17/2016 at 17:07 Assessment & Plan GASTROENTEROLOGY CONSULT NOTE Mr. 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 Symptoms initiated within hours of recovery from his lithotripsy procedure. Initial CT imaging revealed extensive right subscapular and perinephric hemorrhage with associated hemoperitoneum. He subsequently developed ARDS secondary to acute hypoxemia respiratory failure, hemorrhagic shock, EDIN secondary to hypotension and poor perfusion due to increased abdominal pressures, and metabolic acidosis. GI was consulted to evaluate elevations in LFTs. Recent imaging: - Abd US 10/14: Slightly decrease in size of a complex mass adjacent to the left kidney, most likely a hematoma. Semicontracted gallbladder with mild gallbladder wall thickening. The clinical significance of the findings uncertain. Diffusely increased hepatic echotexture. This finding is most likely secondary to hepatic fatty infiltration although other hepatocellular disease may have a similar appearance. - Abd US doppler 10/16: Main portal vein is patent, with luminal diameter of 15 mm (normal of 13-16 mm). On pulse Doppler interrogation, portal vein flow direction is hepatopetal. Hepatic artery is not well seen.. Hepatic veins are all patent, with expected triphasic Doppler waveforms. Hepatic artery are not well visualized, otherwise normal appearance of the hepatoportal vasculature. - Abd US with doppler 10/17: Main portal vein patent; all hepatic vv patent; Increased hepatic echogenicity noted likely related to fatty infiltration of the liver but other sources of hepatocellular disease cannot be excluded. Right perinephric complex fluid collection not as well-seen on today's exam but appears similar to previous examination this patient with history of perinephric hematoma. Normal hepatoportal Doppler assessment. CT abd w/con 10/19: Study limited secondary to infiltration of contrast material into the soft tissues of the injection site.Large right perinephric hematoma which is having mass effect on the right kidney. The perinephric hematoma extends into the right perinephric space and into the right paracolic gutter.Cholelithiasis. Biliary tree is nondilated.Postsurgical changes adjacent to the inferior pole of the right kidney. Please correlate with clinical history.Cardiomegaly.Atherosclerosis including the visualized coronary vasculature.Aortic aneurysm with placement of endovascular stent graft.Patchy airspace opacities in the lung bases bilaterally suspicious for pneumonia versus aspiration.Small bilateral pleural effusions. Assessments - Elevated LFTs with jaundice: Most likely secondary to choledocholithiasis - History of hemorrhagic shock Recommendations - Ideally, would pursue MRCP; but with history of AICD placement, MRI cannot be obtained. Appreciate time by primary team in discovering that pacer is NOT MR- compatible - Multiple imaging modalities were obtained. After thorough review of images with attending and radiologist, choledocholithiasis is present - Recommend TRANSFER FOR ERCP: to any facility with ERCP capabilities available to accept with an open bed - Recommend continuation of antibiotics at this time: Zosyn would be suitable - At time of transfer, multiple other studies obtained were still pending, including auto-immune hepatitis panels The stones within the biliary system may have been fluctuating in position, which would likely explain the wavering in LFTs, and inability to clearly capture with imaging. Thank you for this most interesting consult, at this time, we recommend immediate transfer to a facility that can perform ERCP with an available room. Total time: 40 minutes GI Prophylaxis: H2 spencer VTE Prophylaxis: Sub-Q Heparin (Unfractionated) VTE Mechanical Devices: Intermittant Pneumatic CD Resuscitation Status: CPR: Attempt Resuscitation Attending Statement CT abdomen and abdominal u/s reviewed with radiologist today. There is evidence of choledocholithiasis on CT scan. Recommend transfer to tertiary center today for ERCP. would recommend to start antibiotics such as zosyn. Mila Giordano DO Oct 20, 2016 08:41 Alfredo Weiner MD Oct 20, 2016 11:40
--- NOTE | 2016-10-20 09:55 | PCM.PNMED ---
Subjective Date of Service Oct 20, 2016 Subjective Intensive/Pulmonology Progress Note: Attending Dr. Mel Burger is an 86-year-old male with extensive cardiovascular history who presented with new onset pain following same-day lithotripsy and was found to have radiographically proven subcapsular and perinephric retroperitoneal hemorrhage from trauma with secondary hypovolemic shock status post inferior pole renal artery embolization. He was admitted to ICU management on 10/06/16 where he decompensated requiring intubation and pressor support now status post extubation day #2. Hospital day #15. Overnight: There were no acute events. Telemetry overnight: Atrial fibrillation , heart rate 80 to 90's, frequent PVC's. Subjective exam and review of systems unavailable as patient is somnolent. . Exam Vital Signs Vital Sign - Last Date Time Temp Pulse Resp B/P Pulse Ox O2 Delivery O2 Flow Rate FiO2 10/20/16 09:39 90 23 97 highflow 30 10/20/16 09:37 40 10/20/16 04:30 36.7 165/98 Intake and Output 10/19/16 10/19/16 10/20/16 Cumulative From/Thru 15:00 23:00 07:00 10/05/16 21:52 - 10/20/16 06:27 Intake Total 1100 ml 1379 ml 74096 ml Output Total 1000 ml 1100 ml 57248 ml Balance 100 ml 279 ml 84710 ml Intake Oral 0 ml 0 ml IV Total 1100 ml 1379 ml 04294 ml Tube Feeding 6241 ml Packed Cells 1588 ml Platelets 250 ml Tube Irrigant 1625 ml Output Urine Total 1000 ml 1100 ml 95757 ml Stool Total 1225 ml Gastric Drainage Total 1410 ml # Bowel Movements 0 3 Exam General: Elderly gentleman lying in bed and in no acute distress, intubated and sedated. HEENT: Normocephalic, atraumatic. External ears without defect. Extremely hard of hearing with hearing aids in place. Pupils equal, round, and reactive to light. Icteric sclerae, moist conjunctivae, and no lid lag. Endotracheal and oropharyngeal tube in place. Neck: Supple. No lymphadenopathy or thyromegaly. Cardiovascular: Irregular rhythm without murmurs, rubs, or gallops appreciated Pulmonary: Diffuse bronchial breath sounds in anterior lung navarro. No wheeze or crackles. Abdomen: Firm and mildly distended, bowel sounds hypoactive. Genitourinary: Paredes catheter and FMS in place. Extremities: Anasarca. Skin: Normal temperature, turgor, and texture; no rash, ulcers, or subcutaneous nodules appreciated. Neurologic: Opens eyes to stimulation but does not follow commands. IV lines: Two left peripheral IV's. I&O: Net + 40659 mL. . IVs and Medications Medications Reviewed: Medications were reviewed in detail Lab and Diagnostics Item Value Date Time Lactic Acid Level 1.7 mmol/L 10/19/16 0250 Lactic Acid Level 2.6 mmol/L H 10/20/16726 Item Value Date Time Procalcitonin 0.66 ng/mL H 10/17/16254 Procalcitonin 0.63 ng/mL H 10/20/16416 Item Value Date Time Calcium Level 9.7 mg/dL 10/20/16416 Phosphorus Level 2.1 mg/dL L 10/20/16416 Magnesium Level 2.3 mg/dL 10/20/16416 Total Bilirubin 32.0 mg/dL *H 10/20/16416 Direct Bilirubin 20.8 mg/dL H 10/20/16416 Aspartate Amino Transf (AST/SGOT) 397 U/L H 10/20/16416 Alanine Aminotransferase (ALT/SGPT) 296 U/L H 10/20/16416 Alkaline Phosphatase 109 U/L 10/20/16416 Total Protein 6.6 g/dL 10/20/16416 Albumin 2.7 g/dL L 10/20/16416 Result Diagram: 10/20/1641610/20/16416 Microbiology Repeat sputum culture 2 grew light normal keisha. Repeat blood culture 2 has no growth after 5 days. Urine culture shows no growth to date. Blood cultures 2 show no growth after 5 days. MRSA screen negative. Sputum grew scant normal keisha. . X-Rays, CTs and MRIs X-RAY CHEST ONE VIEW, PORTABLE IMPRESSION: No change from prior exam. Dictated by: Woodrow LUNA Interpreted: Patience العراقي MD on 10/20/2016 at 9:37 CT ABDOMEN WITH AND WITHOUT CONTRAST IMPRESSION: 1. Study limited secondary to infiltration of contrast material into the soft tissues of the injection site. 2. Large right perinephric hematoma which is having mass effect on the right kidney. The perinephric hematoma extends into the right perinephric space and into the right paracolic gutter. 3. Cholelithiasis. Biliary tree is nondilated. 4. Postsurgical changes adjacent to the inferior pole of the right kidney. Please correlate with clinical history. 5. Cardiomegaly. 6. Atherosclerosis including the visualized coronary vasculature. 7. Aortic aneurysm with placement of endovascular stent graft. 8. Patchy airspace opacities in the lung bases bilaterally suspicious for pneumonia versus aspiration. 9. Small bilateral pleural effusions. Dictated by: Patience العراقي MD, PhD on 10/19/2016 at 16:26 US ABDOMEN DOPPLER, LIMITED IMPRESSION: Hepatic artery are not well visualized, otherwise normal appearance of the hepatoportal vasculature. Dictated by: Woodrow LUNA Interpreted: Patience العراقي MD on 10/16/2016 at 13:15 US ABDOMEN IMPRESSION: 1. Slightly decrease in size of a complex mass adjacent to the left kidney, most likely a hematoma. 2. Semicontracted gallbladder with mild gallbladder wall thickening. The clinical significance of the findings uncertain. 3. Diffusely increased hepatic echotexture. This finding is most likely secondary to hepatic fatty infiltration although other hepatocellular disease may have a similar appearance. Recommend clinical correlation. Dictated by: Rosalie Schmitz M.D. on 10/15/2016 at 12:43 CT KUB IMPRESSION: 1. Large right renal subcapsular hematoma similar in extent to the study dated . Heterogeneous, delayed nephrogram suggests markedly decreased right renal blood flow and function. 2. Large retroperitoneal hematoma which appears slightly increased on the left. It is unclear whether this is truly increased hematoma or simple redistribution of a large hematoma previously visualized within the right retroperitoneal space. 3. New bibasilar consolidation and pleural effusions suspicious for early pneumonia. 4. Small amount of hepatosplenic ascites increased when compared with the prior study. This may be due to vigorous fluid resuscitation. Dictated by: Dilcia Jaimes M.D. on 10/06/2016 at 18:59 US ABDOMEN, LIMITED IMPRESSION: 1. Complex fluid collection around the right kidney as was seen on prior CT scan as above and no definite source of bleeding is identified sonographically. 2. Trace intra-abdominal fluid within the lower quadrants as well as the left upper outer quadrant. Dictated by: Woodrow LUNA Interpreted: Rosalie Schmitz MD on 10/06/2016 at 14:04 Transcribed by: NATALIA on 10/06/2016 at 14:06 X-RAY CHEST ONE VIEW, PORTABLE IMPRESSION: Endotracheal tube with the tip projecting approximately 3 cm above the belen. Right internal jugular central venous catheter with the tip projecting at the lower SVC. No pneumothorax Dictated by: Nael Blackwood M.D. on 10/06/2016 at 11:49 CT KUB IMPRESSION: 1. Extensive right subcapsular and perinephric hemorrhage as described above. There is associated small to moderate amount of hemoperitoneum within the right anterior pararenal space, paracolic gutter, and perihepatic location. 2. Right nephrolithiasis. 3. Aortoiliac aneurysms, status post aortoiliac stent-graft placement, as described above. 4. Cholelithiasis. 5. Concordant with preliminary interpretation. Dictated by: Viridiana Inman M.D. on 10/06/2016 at 7:57 . Cardiac Echo Impressions Echocardiogram Interpretation Summary: The left ventricle is normal in size. There is moderate concentric left ventricular hypertrophy. Left ventricular systolic function is low normal. The ejection fraction is estimated to be 50-55%. There is a mild dyssynchronous contraction pattern due to the paced rhythm. There is a pacemaker lead in the right ventricle. Inspiratory collapse cannot be assessed because of mechanical ventilation, thus CVP cannot be estimated. There is no prior echocardiogram noted for this patient. No other echocardiographic abnormalities seen. The etiology for the patients shock is not apparent. The echo is not consistent with cardiogenic shock. Reading Physician:12:44 PM . Additional Diagnostics PROCEDURE: 1. Selective right renal arteriography. 2. Superselective, 2nd order arteriography of a right inferior pole renal arterial branch. 3. Superselective embolization of a 2nd order arterial branch of a right inferior pole renal artery branch. 4. Right groin closure device. FINDINGS: The superior pole renal artery and its branches appear normally. Injection of the nondominant inferior pole renal artery demonstrates abnormal vasculature involving the 2nd order/inferior pole vessel, which demonstrates 2 abnormal regions of dilatation, suspicious for pseudoaneurysm formation. Following embolization of this vessel, there is static flow. No active bleeding/ contrast extravasation was encountered during examination. IMPRESSION: 1. No active bleeding during the examination. 2. Likely bleeding source within the inferior pole of the right kidney was superselectively embolized until stasis was achieved. Dictated by: Viridiana Inman M.D. on 10/09/2016 at 9:25 Approved by: Viridiana Inman M.D. on 10/09/2016 at 9:35 . Assessment & Plan Toby Burger is an 86-year-old male with extensive cardiovascular history who presented with new onset pain following same-day lithotripsy and was found to have radiographically proven subcapsular and perinephric retroperitoneal hemorrhage from trauma with secondary hypovolemic shock status post inferior pole renal artery embolization. He was admitted to ICU management on 10/06/16 where he decompensated requiring intubation and pressor support now status post extubation day #2. Hospital day #15. 1. Acute hyperbilirubinemia with transaminitis, not present on admission. Active. - Likely secondary to reabsorption of right subcapsular and perinephric hematoma and possibly hypoperfusion and resultant shock liver yet very delayed onset. 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 - Acute hepatitis panel negative. - Continue to monitor bilirubin and LFTs daily. - Review of imaging by GI and Radiology there is choledocholithiasis present. - GI consulted and recommends emergent transfer to a facility with available bed for ERCP to address choledocholithiasis. 2. Acute hypernatremia, not present on admission. Ongoing. - Sodium was elevated at 150. Today 145. - Free water deficit based on ideal body weight is ~1.7L. - Discontinued D5W with 40 mEq KCl and started just D5W at 100 mL/hr. 3. Acute hypovolemic shock, secondary to trauma induced subcapsular and perinephric retroperitoneal hemorrhage, present on admission. Resolved. - CT evidence of right subcapsular and perinephric hemorrhage, as above. 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 - Elevated intra-abdominal pressure initially 22 and trended down. - Hemoglobin and hematocrit are stable. Patient is status post 7 units PRBC's. - Norepinephrine required for several days into hospitalization, now remains off. - Infectious disease, Dr. Menendez, was consulted for antibiotic management as it was thought that sepsis may possibly been contributing to shock. Discontinued Zosyn per ID. - Treated underlying hemorrhage as below in #4. 4. Acute trauma induced subcapsular and perinephric retroperitoneal hemorrhage , status post embolization, present on admission. Resolved. - Patient is status post 7 units PRBC's and greater than 20 L of IV fluids. 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 - Monitor hemoglobin and hematocrit daily. 5. ARDS, present on admission. Resolved. - Patient has mild to moderate pulmonary fibrosis and severe ESTEPHANIE on CPAP. - The patient is now status post extubation day #2. - Patient is status post 7 units PRBC's and greater than 20 L of IV fluids. - Continue to monitor ABG daily to assess oxygenation. - CXR continues to demonstrate stable pulmonary edema, as above. - Ordered Lasix 40 mg IV x 1 today. Has received Lasix pushes and gtt with good diuresis several days ago now net positive +11L from previous +21L. - Continue high flow oxygen and consider switching to BiPAP if more alert and awake. - Continue monitoring for signs of infection. 6. Acute on chronic blood loss anemia on anemia of disease, present on admission. Acute portion resolved. - Secondary to subcapsular and perinephric retroperitoneal hemorrhage and possible acute upper GI bleed. - Continuing to monitor hemoglobin and hematocrit daily. - Patient has received 7 units PRBC's and 1 unit of platelets so far this admission. - Dr. Pritchard and Dr. Leal (General Surgery), Dr. Alvarado (Urology) and Dr. Inman (Interventional Radiology) have all been consulted and we appreciate their input. - Continue to have 2 units PRBC's held in case of need for further transfusions. 7. Acute kidney injury, present on admission. Resolved. - Creatinine likely elevated secondary to hypoperfusion of kidney from the hypovolemic shock, as well as, increased intra-abdominal pressure. - Received aggressive IV fluids initially and then Lasix pushes and gtt with good diuresis, now net positive + 10L from previous +21L. - Nephrology signed off. We appreciate their input and care of the patient. - Continue to monitor BMP daily. 8. Possible acute upper GI bleed, present on admission. Resolved. - Positive guaiac of stomach contents with ongoing coffee ground emesis. - No overt signs of bleeding. Continue to monitor H&H and for signs of bleeding. 9. Acute hypokalemia, present on admission. Resolved. - Discontinued potassium chloride 40 mEq twice a day as patient is no longer diuresing. - Continue to monitor BMP daily. 10. Acute on chronic thrombocytopenia, present on admission. Acute portion resolved. - Baseline platelet count 90. - Status post 1 unit of platelets. - Continue to monitor platelet count daily. 11. Elevated troponin, acute, present on admission. Resolved. - Likely secondary to demand ischemia. EKG shows no acute ischemic changes, however, V-paced. No changes compared to prior EKG's. - Troponin maximally elevated at 0.116 and trended down. - Will continue to treat underlying shock process as above in #1. Chronic problems with management per primary team: 12. History of systolic congestive heart failure, chronic, presume stable. - EF during this admission 50-55%. Will continue to monitor with limited echo as needed during admission. - Likely not in CHF at baseline based on these results. 13. Obstructive sleep apnea, chronic. Presumed stable. - Patient intubated in the ICU at this time. 14. History of pulmonary fibrosis, chronic. Presumed stable. - Patient intubated in the ICU at this time. 15. Coronary artery disease, chronic. Presumed stable. - Patient takes simvastatin and aspirin at home which is being held. Will re- start statin when patient is stable. PRN antiemetics: Zofran and Maalox. PRN bowel regimen: Senna and MiraLAX. PRN analgesics: Tylenol. Disposition: Patient currently in critical care with improving prognosis. Total critical care time spent 60 minutes. . GI Prophylaxis: H2 spencer VTE Prophylaxis: Sub-Q Heparin (Unfractionated) VTE Mechanical Devices: Intermittant Pneumatic CD Resuscitation Status: CPR: Attempt Resuscitation Attending Statement I have seen and examined this patient with the resident physician. Vital signs , labs, imaging have been reviewed. I agree with the assessment and plan above. Please refer to my separately dictated progress note for any modifications to above. Charissa Leal M.D. Pulmonary and Critical Care medicine Pager [phone] Irma Zuleta DO Oct 20, 2016 09:55 Charissa Leal MD Oct 20, 2016 16:04
[2016-10-20] MEDS ORDERED: Dextrose 5% 1,000 ML IV SCH (10:10)
[2016-10-20 12:00] VITALS: BP 171/98; PULSE 82; RESP 24; O2SAT 98
--- NOTE | 2016-10-20 12:36 | PCM.PNMED ---
Subjective Date of Service Oct 20, 2016 Subjective overnight: Patient remained mildly obtunded, following commands but difficult to understand with garbled mumbling speech. Patient remains NPO until cleared by speech therapy. Patient remained on high flow nasal cannula overnight. No acute events otherwise noted. today: Patient is more somnolent than day prior. His bilirubin and transaminases continue to rise. GI Dr. Weiner asked the radiologists to review the prior CT for possible choledocholithiasis, which was confirmed. The patient will be discharged to [facility] with Dr. Mike Melendrez accepting, and GI Dr. Davian Pineda approved the transfer. Exam Vital Signs Vital Sign - Last Date Time Temp Pulse Resp B/P Pulse Ox O2 Delivery O2 Flow Rate FiO2 10/20/16 04:30 36.7 94 26 165/98 98 HFNC 40 10/19/16 23:43 70 Intake and Output 10/19/16 10/19/16 10/20/16 Cumulative From/Thru 15:00 23:00 07:00 10/05/16 21:52 - 10/20/16 06:27 Intake Total 1100 ml 1379 ml 15703 ml Output Total 1000 ml 1100 ml 17610 ml Balance 100 ml 279 ml 88335 ml Intake Oral 0 ml 0 ml IV Total 1100 ml 1379 ml 26137 ml Tube Feeding 6241 ml Packed Cells 1588 ml Platelets 250 ml Tube Irrigant 1625 ml Output Urine Total 1000 ml 1100 ml 72524 ml Stool Total 1225 ml Gastric Drainage Total 1410 ml # Bowel Movements 0 3 Exam General: Severely Jaundiced Elderly Patient on high flow nasal cannula in no acute distress, somnolent but following commands Eyes: Pupils equal round and reactive to light, icteric sclera, noninjected conjunctiva HENT: Head atraumatic, normocephalic, external ears without defect, high flow nasal cannula in place, oropharynx clear with dry mucosa Neck: Trachea midline, short and wide neck, no JVD appreciated, no lymphadenopathy CV: Tachycardic Irregularly irregular rhythm, distant heart tones with no appreciable murmur rubs or gallops Respiratory: Mild coarse breath sounds anteriorly with clear breath sounds noted in the axillary bases consistent with upper airway transmission due to increased secretions without wheezing Abdomen: distended, hypo-active bowel tones, nontender to palpation, tympanic to percussion, no organomegaly appreciated Extremities: Mild pitting edema present to the level of the tibia and with mild pitting edema in the hands bilaterally; no cyanosis or clubbing present Skin: Warm and dry no petechiae, no rash noted, no bruising of the abdomen Neuro: Pupils equal round reactive to light, able to track with eyes, able to follow commands moving both hands and feet. : Paredes in place Left peripheral IV Lab and Diagnostics Result Diagram: 10/20/1641610/20/16416 Microbiology Repeat sputum culture 2 grew light normal keisha. Repeat blood culture 2 has no growth after 24 hours. Urine culture shows no growth to date. Blood cultures 2 show no growth after 5 days. MRSA screen negative. Sputum grew scant normal keisha. . X-Rays, CTs and MRIs PROCEDURE: X-RAY CHEST ONE VIEW, PORTABLE IMPRESSION: Endotracheal tube with the tip projecting approximately 3 cm above the belen. Right internal jugular central venous catheter with the tip projecting at the lower SVC. No pneumothorax Dictated by: Nael Blackwood M.D. on 10/06/2016 at 11:49 PROCEDURE: CT KUB IMPRESSION: 1. Extensive right subcapsular and perinephric hemorrhage as described above. There is associated small to moderate amount of hemoperitoneum within the right anterior pararenal space, paracolic gutter, and perihepatic location. 2. Right nephrolithiasis. 3. Aortoiliac aneurysms, status post aortoiliac stent-graft placement, as described above. 4. Cholelithiasis. 5. Concordant with preliminary interpretation. Dictated by: Viridiana Inman M.D. on 10/06/2016 at 7:57 X-RAY CHEST ONE VIEW, PORTABLE ([id number]) IMPRESSION: 1. Pulmonary edema and or diffuse bilateral pneumonia with small effusions unchanged. Dictated by: Woodrow LUNA Interpreted: Earline Clark MD on 10/12/2016 at 13: 59 Transcribed by: SKYLER on 10/12/2016 at 14:01 PROCEDURE: X-RAY CHEST ONE VIEW, PORTABLE ([id number]) IMPRESSION: Stable examination compared to 10/13/16 with persistence of bilateral lung opacities and small pleural effusions.. Dictated by: Patience العراقي MD, PhD on 10/14/2016 at 9:13 Approved by: Patience العراقي MD, PhD on 10/14/2016 at 9:15 Cardiac Echo Impressions Echocardiogram Report Interpretation Summary The left ventricle is normal in size. There is moderate concentric left ventricular hypertrophy. Left ventricular systolic function is low normal. The ejection fraction is estimated to be 50-55%. There is a mild dyssynchronous contraction pattern due to the paced rhythm. There is a pacemaker lead in the right ventricle. Inspiratory collapse cannot be assessed because of mechanical ventilation, thus CVP cannot be estimated.. There is no prior echocardiogram noted for this patient. No other echocardiographic abnormalities seen. The etiology for the patients shock is not apparent. The echo is not consistant with cardiogenic shock. Reading Physician:12:44 PM Additional Diagnostics PROCEDURE: US ABDOMEN, LIMITED IMPRESSION: 1. Complex fluid collection around the right kidney as was seen on prior CT scan as above and no definite source of bleeding is identified sonographically. 2. Trace intra-abdominal fluid within the lower quadrants as well as the left upper outer quadrant. Dictated by: Woodrow Loya RRA Interpreted: Rosalie Schmitz MD on 10/06/2016 at 14:04 Transcribed by: NATALIA on 10/06/2016 at 14:06 PROCEDURE: US ABDOMEN DOPPLER, LIMITED IMPRESSION: Hepatic artery are not well visualized, otherwise normal appearance of the hepatoportal vasculature. Dictated by: Woodrow LUNA Interpreted: Patience العراقي MD on 10/16/2016 at 13:15 Transcribed by: DASHAWN on 10/16/2016 at 13:16 Approved by: Patience العراقي MD, PhD on 10/16/2016 at 16:31 PROCEDURE: US ABDOMEN IMPRESSION: 1. Slightly decrease in size of a complex mass adjacent to the left kidney, most likely a hematoma. 2. Semicontracted gallbladder with mild gallbladder wall thickening. The clinical significance of the findings uncertain. 3. Diffusely increased hepatic echotexture. This finding is most likely secondary to hepatic fatty infiltration although other hepatocellular disease may have a similar appearance. Recommend clinical correlation. Dictated by: Rosalie Schmitz M.D. on 10/15/2016 at 12:43 Approved by: Rosalie Schmitz M.D. on 10/15/2016 at 12:48 \ PROCEDURE: US ABDOMEN DOPPLER IMPRESSION: 1. Increased hepatic echogenicity noted likely related to fatty infiltration of the liver but other sources of hepatocellular disease cannot be excluded. Recommend clinical correlation. 2. Right perinephric complex fluid collection not as well-seen on today's exam but appears similar to previous examination this patient with history of perinephric hematoma. 3. Normal hepatoportal Doppler assessment. Dictated by: Woodrow LUNA Interpreted: Roderick Cruz MD on 10/17/2016 at 16 :51 Transcribed by: JESSICA on 10/17/2016 at 16:55 Approved by: Roderick Cruz M.D. on 10/17/2016 at 17:07 Assessment & Plan Patient is an 86-year-old male with extensive cardiovascular history, new onset pain following same-day lithotripsy, radiographically proven intra-abdominal blood, and shock. He was admitted to ICU management on 10/06/16 where he decompensated requiring intubation and pressor support. Hospital day #15 1 Acute hypoxemic respiratory failure, present on admission, improving - Patient intubated and sedated in the ICU on 10/06/16 due to difficulty with right IJ central line placement due to irregular breathing from severe ESTEPHANIE - Pulmonology Critical Care consulted and we appreciate his assistance with ventilator management. - ABG to be done every AM and PRN for vent management. - Prior to extubation patient was on 5 over 5 breathing trials for 2 hours without issue - Patient extubated 10/18/2016, with hydroelectric plant technician following, will place patient on BiPAP as tolerated and high flow nasal cannula support as needed 2. Acute choledocholithiasis, not present on admission, unstable under evaluation - Elevated direct bilirubin with transaminitis consistent with hepatocellular injury - Abdominal ultrasound ordered for 10/15 failed to reveal any reversible pathology including choledocholithiasis of Budd-Chiari or portal vein thrombosis - Acute hepatitis panel ordered with hepatitis A B and C all negative - Drug list evaluated shows no definitive offending agents - Abdominal ultrasound indicates increased echogenicity consistent with hepatocellular injury however without specific etiology - Doppler ultrasound indicates no portal vein thromboses - GI consulted appreciate time and recommendations - CT performed on 10/19/2016 originally read as not obstructing stones checking for choledocholithiasis, GI asked for a repeat read which confirmed choledocholithiasis - [facility] pacemaker and defibrillator not MRI/MRCP compatible 3. Fluid overload with pulmonary edema, acute, not present on admission, improving. - Likely secondary to significant fluid resuscitation done early in the course of admission. - Patient currently positive about 10L fluid. - Discontinue Albumin previously used as needed for oncotic support. - Discontinue Lasix drip - Lasix IV push PRN 4. Acute kidney injury, present on admission, improving - Possibly acute tubular necrosis - Creatinine normalized but BUN remains high likely secondary to aggressive diuresis. - Continue to monitor BMP. - Discontinued Lasix IV push 5. Possible upper GI bleed, acute, resolved. - Patient has been tolerating tube feeds. - No bright red blood noted in stool. - Continue to monitor H&H but has been stable after restarting DVT prophylaxis with subcutaneous heparin 6. Acute blood loss anemia, present on admission, stable - Continuing to monitor H&H/CBC closely. Presumed right kidney inferior pole perinephric hemorrhage however no specific source of bleeding has ever been specifically identified - Patient has received 7 units PRBCs and 1 unit of platelets so far this admission. - stable since 10/10/2016 7. Elevated troponin, acute, present on admission, resolved - Considered an effect of demand ischemia. 8. Acute hypokalemia, present on admission, resolved - Continue to monitor BMP and replete as needed. 9. Obstructive sleep apnea, chronic, presume stable. - patient was originally intubated due to difficulty in placing a central line in the right IJ for pressor support given hemorrhagic shock at admission - extubated on 10/18 - Patient on high flow nasal cannula in the ICU at this time. 10. History of pulmonary fibrosis, chronic, presume stable. - patient was originally intubated due to difficulty in placing a central line in the right IJ for pressor support given hemorrhagic shock at admission - extubated on 10/18 - Patient on high flow nasal cannula in the ICU at this time. 11. Coronary artery disease, chronic, presume stable. - Patient takes simvastatin and aspirin at home. Medication on hold at this time. Will re-order when patient more stable. 12. Systolic congestive heart failure, chronic, presume stable. - EF during this admission 50-55%. Will continue to monitor with limited echo as needed during admission. - Likely not in CHF at baseline based on these results. 13. Acute hemorrhagic shock, present on admission, resolved - secondary to intraabdominal bleeding source post lithotripsy procedure within the inferior pole of the right kidney was superselectively embolized by IR until stasis was achieved. - Patient with increased intraabdominal pressure at admission and CT evidence of bleeding into the abdomen. No evidence of cardiogenic shock per echocardiogram report. - Pressor support with norepinephrine titrated off 10/09. - Hemoglobin is remaining stable since 10/10, will continue to monitor. GI Prophylaxis: H2 spencer VTE Prophylaxis: Sub-Q Heparin (Unfractionated) VTE Mechanical Devices: Intermittant Pneumatic CD Resuscitation Status: CPR: Attempt Resuscitation Attending Statement The patient was seen and examined together with Dr. Carter on 10/20/2016 and I agree with the history, exam and plan as outlined in the note above. . Peyman Carter DO Oct 20, 2016 06:41 Omar Otoole MD Oct 21, 2016 07:57
--- NOTE | 2016-10-20 12:43 | PCM.DC.MED ---
Discharge Summary Date of Service Oct 20, 2016 Dates of Hospitalization Date of Hospital Admission Oct 06, 2016 at 03:26 Date of Discharge: Oct 20, 2016 Providers: Admitting Physician: Jose Coombs MD Primary Care Physician: Eric Goldstein MD Attending Physician: Jose Coombs MD Diagnosis at Time of Discharge Diagnosis at Time of Discharge 1 Acute hypoxemic respiratory failure, present on admission, improving 2. Acute choledocholithiasis, not present on admission, unstable under evaluation 3. Fluid overload with pulmonary edema, acute, not present on admission, improving. 4. Acute kidney injury, present on admission, resolved 5. Possible upper GI bleed, acute, resolved. 6. Acute blood loss anemia, present on admission, stable 7. Elevated troponin, acute, present on admission, resolved 8. Acute hypokalemia, present on admission, resolved 9. Obstructive sleep apnea, chronic, stable. 10. History of pulmonary fibrosis, chronic, stable. 11. Coronary artery disease, chronic, presume stable. 12. Systolic congestive heart failure, chronic, presume stable. 13. Acute hemorrhagic shock, present on admission, resolved Consultations pulmonary critical care gastroenterology urology infectious disease nephrology Procedures XRay, CTs & MRIs PROCEDURE: X-RAY CHEST ONE VIEW, PORTABLE IMPRESSION: Endotracheal tube with the tip projecting approximately 3 cm above the belen. Right internal jugular central venous catheter with the tip projecting at the lower SVC. No pneumothorax Dictated by: Nael Blackwood M.D. on 10/06/2016 at 11:49 PROCEDURE: CT KUB IMPRESSION: 1. Extensive right subcapsular and perinephric hemorrhage as described above. There is associated small to moderate amount of hemoperitoneum within the right anterior pararenal space, paracolic gutter, and perihepatic location. 2. Right nephrolithiasis. 3. Aortoiliac aneurysms, status post aortoiliac stent-graft placement, as described above. 4. Cholelithiasis. 5. Concordant with preliminary interpretation. Dictated by: Viridiana Inman M.D. on 10/06/2016 at 7:57 X-RAY CHEST ONE VIEW, PORTABLE ([id number]) IMPRESSION: 1. Pulmonary edema and or diffuse bilateral pneumonia with small effusions unchanged. Dictated by: Woodrow Loya RRA Interpreted: Earline Clark MD on 10/12/2016 at 13: 59 Transcribed by: SKYLER on 10/12/2016 at 14:01 PROCEDURE: X-RAY CHEST ONE VIEW, PORTABLE ([id number]) IMPRESSION: Stable examination compared to 10/13/16 with persistence of bilateral lung opacities and small pleural effusions.. Dictated by: Patience العراقي MD, PhD on 10/14/2016 at 9:13 Approved by: Patience العراقي MD, PhD on 10/14/2016 at 9:15 PROCEDURE: CT ABDOMEN WITH AND WITHOUT CONTRAST ([id number]) IMPRESSION: 1. Study limited secondary to infiltration of contrast material into the soft tissues of the injection site. 2. Large right perinephric hematoma which is having mass effect on the right kidney. The perinephric hematoma extends into the right perinephric space and into the right paracolic gutter. 3. Cholelithiasis. Biliary tree is nondilated. 4. Postsurgical changes adjacent to the inferior pole of the right kidney. Please correlate with clinical history. 5. Cardiomegaly. 6. Atherosclerosis including the visualized coronary vasculature. 7. Aortic aneurysm with placement of endovascular stent graft. 8. Patchy airspace opacities in the lung bases bilaterally suspicious for pneumonia versus aspiration. 9. Small bilateral pleural effusions. withDictated by: Patience العراقي MD, PhD on 10/19/2016 at 16:26 Approved by: Patience العراقي MD, PhD on 10/19/2016 at 16:[address] Weiner reviewed this CT and asked radiology to review this imaging again and noted choledocholithiasis requiring ERCP. Cardiac Echo Impression Echocardiogram Report Interpretation Summary The left ventricle is normal in size. There is moderate concentric left ventricular hypertrophy. Left ventricular systolic function is low normal. The ejection fraction is estimated to be 50-55%. There is a mild dyssynchronous contraction pattern due to the paced rhythm. There is a pacemaker lead in the right ventricle. Inspiratory collapse cannot be assessed because of mechanical ventilation, thus CVP cannot be estimated.. There is no prior echocardiogram noted for this patient. No other echocardiographic abnormalities seen. The etiology for the patients shock is not apparent. The echo is not consistant with cardiogenic shock. Reading Physician:12:44 PM Other Diagnostics PROCEDURE: US ABDOMEN, LIMITED IMPRESSION: 1. Complex fluid collection around the right kidney as was seen on prior CT scan as above and no definite source of bleeding is identified sonographically. 2. Trace intra-abdominal fluid within the lower quadrants as well as the left upper outer quadrant. Dictated by: Woodrow LUNA Interpreted: Rosalie Schmitz MD on 10/06/2016 at 14:04 Transcribed by: NATALIA on 10/06/2016 at 14:06 PROCEDURE: US ABDOMEN DOPPLER, LIMITED IMPRESSION: Hepatic artery are not well visualized, otherwise normal appearance of the hepatoportal vasculature. Dictated by: Woodrow LUNA Interpreted: Patience العراقي MD on 10/16/2016 at 13:15 Transcribed by: DASHAWN on 10/16/2016 at 13:16 Approved by: Patience العراقي MD, PhD on 10/16/2016 at 16:31 PROCEDURE: US ABDOMEN IMPRESSION: 1. Slightly decrease in size of a complex mass adjacent to the left kidney, most likely a hematoma. 2. Semicontracted gallbladder with mild gallbladder wall thickening. The clinical significance of the findings uncertain. 3. Diffusely increased hepatic echotexture. This finding is most likely secondary to hepatic fatty infiltration although other hepatocellular disease may have a similar appearance. Recommend clinical correlation. Dictated by: Rosalie Schmitz M.D. on 10/15/2016 at 12:43 Approved by: Rosalie Schmitz M.D. on 10/15/2016 at 12:48 \\ PROCEDURE: US ABDOMEN DOPPLER IMPRESSION: 1. Increased hepatic echogenicity noted likely related to fatty infiltration of the liver but other sources of hepatocellular disease cannot be excluded. Recommend clinical correlation. 2. Right perinephric complex fluid collection not as well-seen on today's exam but appears similar to previous examination this patient with history of perinephric hematoma. 3. Normal hepatoportal Doppler assessment. Dictated by: Woodrow Loya [facility] Interpreted: Roderick Cruz MD on 10/17/2016 at 16 :51 Transcribed by: JESSICA on 10/17/2016 at 16:55 Approved by: Roderick Cruz M.D. on 10/17/2016 at 17:07 Brief History from the GASTROENTEROLOGY CONSULT NOTE of Violetta Giordano D.O. "Mr. 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 Symptoms initiated within hours of recovery from his lithotripsy procedure. Initial CT imaging revealed extensive right subscapular and perinephric hemorrhage with associated hemoperitoneum. He subsequently developed ARDS secondary to acute hypoxemia respiratory failure, hemorrhagic shock, EDIN secondary to hypotension and poor perfusion due to increased abdominal pressures, and metabolic acidosis. GI was consulted to evaluate elevations in LFTs. Limited history obtained at time of consultation, as patient is intubated and sedated. Son is present at bedside, but admits to uncertainty about details of medical history. Son is able to confirm that patient did not have history of chronic alcohol intake or tobacco use, and is unaware of any gastrointestinal issues that the patient may have had in his history. History is obtained from chart review and discussion with other medical teams. No previous endoscopies noted in [facility]. Chart review reveals recent stability of H/H; total bili on admission was 1.9, with gradual rise to 12.2 10/13, and jump to 21.2 on 10/14. Alk phos has been within normal range throughout hospitalization. Labs 10/17: total bili 24.6; direct bili 17.6, AST 352, ALT 221, alk phos 84. INR 1.17. Albumin 2.6; CRP 16.4, lipase 110, BUN 66, Cr 0.30. " from the H&P of Terry Sosa D.O. "86-year-old gentleman with history of CAD, status post stenting, pacemaker/AICD , right common iliac artery aneurysm status post aortoiliac stent, and kidney stones, oriented right-sided lithotripsy performed earlier today. Presented to the emergency department via EMS with altered mental status, severe abdominal pain that began earlier this evening. He was unable to provide history 70 his conveyed that after they returned home from his lithotripsy around 1 PM he reported severe pain, the pain was refractory to oxycodone, he then developed vomiting at which point he was unable to keep any narcotic pain medications down. He was confused and not acting like themselves. He reports being in extreme pain, he is not having delisa chest pain, is not short of breath but controlling his breathing to help with pain, no lightheadedness, no dizziness, no swelling in his arms and she relates, states his abdomen looks a lot larger. Vital signs on presentation showed a pulse of 59, blood pressure 64/42, temperature 35.6. White blood cells 12.3, hemoglobin 8.6, platelets 65, Neutrophils 88.2%, Serum bicarbonate 14 BUN 29 Creatinine 1.67, calcium 7.4, magnesium 1.4, total bilirubin 1.9, lactic acid 7.0, PT 15.4, INR 1.43 Urine pH 6.0, specific gravity 1.025, protein 100, large occult blood, small leukocyte esterase, packed urine red blood cells EKG showed a heart rate of 73, OK interval 304, ventricular paced rhythm, Abdominal pelvis CT read as having extensive renal and subcapsular and hemorrhage on the right, 5.6 cm infrarenal abdominal aortic aneurysm with an aorticobiiliac stent graft." Hospital Course Patient is an 86-year-old male with extensive cardiovascular history, new onset pain following same-day lithotripsy, radiographically proven intra-abdominal blood, and shock. He was admitted to ICU management on 10/06/16 where he decompensated requiring intubation and pressor support. Hospital day #15 1 Acute hypoxemic respiratory failure, present on admission, improving - Patient intubated and sedated in the ICU on 10/06/16 due to difficulty with right IJ central line placement due to irregular breathing from severe ESTEPHANIE - Pulmonology Critical Care consulted and we appreciate his assistance with ventilator management. - ABG to be done every AM and PRN for vent management. - Prior to extubation patient was on 5 over 5 breathing trials for 2 hours without issue - Patient extubated 10/18/2016, with surveying technician following, will place patient on BiPAP as tolerated and high flow nasal cannula support as needed 2. Acute choledocholithiasis, not present on admission, unstable under evaluation - Elevated direct bilirubin with transaminitis consistent with hepatocellular injury - Abdominal ultrasound ordered for 10/15 failed to reveal any reversible pathology including choledocholithiasis of Budd-Chiari or portal vein thrombosis - Acute hepatitis panel ordered with hepatitis A B and C all negative - Drug list evaluated shows no definitive offending agents - Abdominal ultrasound indicates increased echogenicity consistent with hepatocellular injury however without specific etiology - Doppler ultrasound indicates no portal vein thromboses - GI consulted appreciate time and recommendations - CT performed on 10/19/2016 originally read as not obstructing stones checking for choledocholithiasis, GI asked for a repeat read which confirmed choledocholithiasis requiring ERCP - [facility] pacemaker and defibrillator not MRI/MRCP compatible 3. Fluid overload with pulmonary edema, acute, not present on admission, improving. - Likely secondary to significant fluid resuscitation done early in the course of admission. - Patient currently positive about 10L fluid. - Discontinue Albumin previously used as needed for oncotic support. - Discontinue Lasix drip - Lasix IV push PRN 4. Acute kidney injury, present on admission, improving - Possibly acute tubular necrosis - Creatinine normalized but BUN remains high likely secondary to aggressive diuresis. - Continue to monitor BMP. - Discontinued Lasix IV push 5. Possible upper GI bleed, acute, resolved. - Patient has been tolerating tube feeds. - No bright red blood noted in stool. - Continue to monitor H&H but has been stable after restarting DVT prophylaxis with subcutaneous heparin 6. Acute blood loss anemia, present on admission, stable - Continuing to monitor H&H/CBC closely. Presumed right kidney inferior pole perinephric hemorrhage however no specific source of bleeding has ever been specifically identified - Patient has received 7 units PRBCs and 1 unit of platelets so far this admission. - stable since 10/10/2016 7. Elevated troponin, acute, present on admission, resolved - Considered an effect of demand ischemia. 8. Acute hypokalemia, present on admission, resolved - Continue to monitor BMP and replete as needed. 9. Obstructive sleep apnea, chronic, presume stable. - patient was originally intubated due to difficulty in placing a central line in the right IJ for pressor support given hemorrhagic shock at admission - extubated on 10/18 - Patient on high flow nasal cannula in the ICU at this time. 10. History of pulmonary fibrosis, chronic, presume stable. - patient was originally intubated due to difficulty in placing a central line in the right IJ for pressor support given hemorrhagic shock at admission - extubated on 10/18 - Patient on high flow nasal cannula in the ICU at this time. 11. Coronary artery disease, chronic, presume stable. - Patient takes simvastatin and aspirin at home. Medication on hold at this time. Will re-order when patient more stable. 12. Systolic congestive heart failure, chronic, presume stable. - EF during this admission 50-55%. Will continue to monitor with limited echo as needed during admission. - Likely not in CHF at baseline based on these results. 13. Acute hemorrhagic shock, present on admission, resolved - secondary to intraabdominal bleeding source post lithotripsy procedure within the inferior pole of the right kidney was superselectively embolized by IR until stasis was achieved. - Patient with increased intraabdominal pressure at admission and CT evidence of bleeding into the abdomen. No evidence of cardiogenic shock per echocardiogram report. - Pressor support with norepinephrine titrated off 10/09. - Hemoglobin is remaining stable since 10/10, will continue to monitor. Exam Vital Signs (Last) Date Time Temp Pulse Resp B/P Pulse Ox O2 Delivery O2 Flow Rate FiO2 10/20/16 12:00 36.4 82 24 171/98 98 high flow 30 10/20/16 09:37 40 Exam General: Severely Jaundiced Elderly Patient on high flow nasal cannula in no acute distress, somnolent but following commands Eyes: Pupils equal round and reactive to light, icteric sclera, noninjected conjunctiva HENT: Head atraumatic, normocephalic, external ears without defect, high flow nasal cannula in place, oropharynx clear with dry mucosa Neck: Trachea midline, short and wide neck, no JVD appreciated, no lymphadenopathy CV: Tachycardic Irregularly irregular rhythm, distant heart tones with no appreciable murmur rubs or gallops Respiratory: Mild coarse breath sounds anteriorly with clear breath sounds noted in the axillary bases consistent with upper airway transmission due to increased secretions without wheezing Abdomen: distended, hypo-active bowel tones, nontender to palpation, tympanic to percussion, no organomegaly appreciated Extremities: Mild pitting edema present to the level of the tibia and with mild pitting edema in the hands bilaterally; no cyanosis or clubbing present Skin: Warm and dry no petechiae, no rash noted, no bruising of the abdomen Neuro: Pupils equal round reactive to light, able to track with eyes, able to follow commands moving both hands and feet. : Paredes in place with dark urine draining Left peripheral IV Test 10/05/16 23:11 10/06/16 19:10 10/07/16 12:20 10/10/16 04:40 Band Neutrophils % 0% (1-5) Total Creatine Kinase 303U/L (21-232) Creatine Kinase MB 13.7ng/mL (0.0-10.4) Creatine Kinase MB % 4.5% (0.0-5.0) Troponin T 0.103ug/L (0.0-0.011) Fibrinogen 153mg/dL (157-380) D-Dimer 5.3mg/L (<0.50) Prealbumin 10mg/dL (20-40) Test 10/13/16 03:35 10/14/16 18:25 10/15/16 03:05 10/16/16 02:55 Activated Partial Thromboplast Time 29.9sec (22.8-33.0) Urine Color Yellow (YELLOW) Urine Appearance Hazy (CLEAR,HAZY) Urine pH 5.0 (5.0-8.0) Urine Specific [place] 1.015 (1.003-1.035) Urine Protein Negativemg/dL (NEG,TRACE) Urine Glucose (UA) Negativemg/dL (NEGATIVE) Urine Ketones Negativemg/dL (NEGATIVE) Urine Occult Blood Large (NEGATIVE) Urine Nitrite Negative (NEGATIVE) Urine Bilirubin Moderate (NEGATIVE) Urine Ictotest Positive (Negative) Urine Urobilinogen Normalmg/dL (NORMAL) Urine Leukocyte Esterase Negative (NEGATIVE) Urine RBC 0-2/hpf (0-2) Urine WBC 0-5/hpf (0-5) Urine Epithelial Cells Occasional/hpf (NONE-MOD) Urine Crystals None seen (NONE SEEN) Urine Bacteria None/hpf (NONE-FEW) Urine Hyaline Casts None/lpf (NONE) Urine Granular Casts None seen (NONE SEEN) Urine Waxy Casts None seen (NONE SEEN) Urine Red Blood Cell Casts None seen (NONE SEEN) Urine White Blood Cell Casts None seen (NONE SEEN) Urine Mucus None seen (None Seen) Urine Trichomonas None seen (NONE SEEN) Urine Yeast None (NONE SEEN) Urinalysis Comment None Urine Culture Reflexed Not indicated Ionized Calcium 1.17mmol/L (1.17-1.32) Hepatitis A IgM Antibody Negative (Negative) Hepatitis B Surface Antigen Negative (Negative) Hepatitis B Core IgM Antibody Negative (Negative) Hepatitis C Antibody <0.1s/co ratio (0.0-0.9) Hepatitis C Comment Comment (.) Triglycerides Level 182mg/dL (0-149) Hepatitis E IgG Antibody Negative (Negative) Test 10/17/16 02:55 10/18/16 00:12 10/18/16 19:33 10/19/16 02:50 Erythrocyte Sedimentation Rate 52mm/hr (0-30) C-Reactive Protein 16.4mg/dL (0.0-0.5) Lipase 110U/L (13-60) Ceruloplasmin 35.2mg/dL (16.0-31.0) Hold Shaikh Top Tube Received (Received) Test 10/20/16 04:17 10/20/16 07:27 10/20/16 09:12 White Blood Count 7.7th/mm3 (3.8-10.1) Red Blood Count 3.74mil/mm3 (4.40-5.80) Hemoglobin 12.1g/dL (13.8-17.2) Hematocrit 34.7% (41.0-50.0) Mean Corpuscular Volume 92.8fL (81-100) Mean Corpuscular Hemoglobin 32.4pg (27.0-35.0) Mean Corpuscular Hemoglobin Concent 34.9% (32.0-37.0) Red Cell Distribution Width 18.6% (12.3-15.4) Platelet Count 203bil/L (150-400) Neutrophils (%) (Auto) 90.6% (40-74) Lymphocytes (%) (Auto) 5.3% (14-46) Monocytes (%) (Auto) 2.3% (4-12) Eosinophils (%) (Auto) 0% (0-5) Basophils (%) (Auto) 0.5% (0-3) Prothrombin Time 14.9sec (8.1-12.5) Prothromb Time International Ratio 1.38ratio Sodium Level 145mEq/L (134-144) Potassium Level 4.8mEq/L (3.5-5.2) Chloride Level 112mEq/L (97-108) Carbon Dioxide Level 16mmol/L (18-29) Blood Urea Nitrogen 48mg/dL (8-27) Creatinine < 0.30mg/dL (0.76-1.27) Estimat Glomerular Filtration Rate mL/min (>59) Glucose Level 168mg/dL (60-99) Calcium Level 9.7mg/dL (8.5-10.1) Phosphorus Level 2.1mg/dL (2.5-4.9) Magnesium Level 2.3mg/dL (1.6-2.6) Total Bilirubin 32.0mg/dL (0.0-1.2) Direct Bilirubin 20.8mg/dL (0.0-0.3) Aspartate Amino Transf (AST/SGOT) 397U/L (0-50) Alanine Aminotransferase (ALT/SGPT) 296U/L (0-44) Alkaline Phosphatase 109U/L (25-160) Total Protein 6.6g/dL (6.4-8.4) Albumin 2.7g/dL (3.4-5.0) Procalcitonin 0.63ng/mL (0.00-0.08) Lactic Acid Level 2.6mmol/L (0.4-2.0) Ammonia 72ug/dL (18-53) Microbiology Results Repeat sputum culture 2 grew light normal keisha. Repeat blood culture 2 has no growth after 24 hours. Urine culture shows no growth to date. Blood cultures 2 show no growth after 5 days. MRSA screen negative. Sputum grew scant normal keisha. . Discharge Medications Discharge Medications Aspirin (Aspirin) 81 Mg Tablet 81 MG PO DAILY (Reported) Atorvastatin (Lipitor) 40 Mg Tablet 40 MG PO DAILY (Reported) Furosemide (Furosemide) 20 Mg Tab 20 MG PO DAILY (Reported) Losartan Potassium (Losartan Potassium) 100 Mg Tablet 100 MG PO DAILY (Reported ) Metoprolol Tartrate (Metoprolol Tartrate) 50 Mg Tablet 50 MG PO DAILY (Reported ) Potassium Chloride ER (Potassium Chloride ER) 10 Meq Tablet 20 MEQ PO DAILY ( Reported) TAKE WITH FOOD Tamsulosin (Flomax) 0.4 Mg Capsule 0.4 MG PO DAILY (Reported) Followup Plan Disposition: transfer to [facility] with Dr. Mike Melendrez accepting, with GI Dr. Davian Pineda following Time spent Greater than 30 minutes was spent in preparation of discharge with greater than 50% of that time dedicated to patient counseling and coordination of care. . Attending Statement The patient was seen and examined together with Dr. Carter on 10/20/2016 and I agree with the history, exam and plan as outlined in the note above. . copies to: Eric Glodstein MD, Nicholas K DO Oct 20, 2016 12:43 Omar Otoole MD Oct 21, 2016 07:29
--- NOTE | 2016-10-20 13:19 | PROG NOTE ---
[address] [address] PROGRESS NOTE PATIENT: GAL CARRANZA : 1930 MR#: [id number] ADMIT: 10/06/2016 JOB ID: [id number] DATE: 10/20/2016 PULMONARY CRITICAL CARE PROGRESS NOTE: The patient is an 86-year-old man with known interstitial lung disease, admitted to the ICU after an intrarenal hemorrhage following elective lithotripsy for kidney stones. His hospital stay has been complicated by prolonged respiratory failure requiring mechanical ventilation and now a progressive hyperbilirubinemia. The patient was seen and evaluated with resident physician, Irma Zuleta DO. Please refer to her separate detailed note for additional information. INTERVAL HISTORY: He was extubated a few days ago and has been on high-flow nasal cannula, with slowly improving oxygenation. FiO2 is down to 30% today compared to 40% yesterday. He remains somewhat encephalopathic and sleepy with periods of delirium in between, although not agitated. REVIEW OF SYSTEMS: Unable to obtain since patient is quite lethargic and somnolent. PHYSICAL EXAMINATION: Vital signs reviewed. He is afebrile, notable for FiO2 of 30% on high-flow nasal cannula at 40 m with sats of 97%. Respiratory rate 23. General: Elderly gentleman lying in bed, lethargic. He moans and groans intermittently but does not follow commands or open his eyes to voice. Chest: Bilateral rhonchi that seem to be upper airway sounds and some fine basilar crackles. Abdomen large but nontender despite deep palpation in the right upper quadrant. Skin notable for significant jaundice. LABORATORIES: Reviewed. WBC 7, hemoglobin 12.1, platelets 203. Coags: INR of 1.3. Chemistry reviewed and notable for chloride of 112, bicarb of 16, BUN of 48, and creatinine less than 0.3. Lactate 2.6. Total bilirubin is up to 32, steadily rising over the last week or more. AST 397, also going up. ALT 296. Alk phosphatase is also rising slowly at 109, although not significantly elevated. Ammonia level today is 72 from 49 five days ago. Procalcitonin is 0.63, stable compared to a few days ago. Cultures with no growth. Chest x-ray shows bilateral infiltrates with underlying baseline fibrosis, infiltrates, multilobar patchy, and could be alveolar or interstitial. ASSESSMENT AND RECOMMENDATIONS: 1. Acute hypoxic respiratory failure - intubated on October 06, extubated on October 18. 2. Known interstitial lung disease. 3. Severe hyperbilirubinemia, total bili of 32. 4. Transaminitis. 5. Acute encephalopathy/delirium. 6. Right renal hemorrhage complicating lithotripsy. 7. Hemorrhagic shock - resolved. An 86-year-old man with known interstitial lung disease who has been stable for many years who came in for a routine lithotripsy complicated by hemorrhage and large renal hematoma. After nearly two weeks on a ventilator, he was extubated two days ago. He remains encephalopathic, on high-flow nasal cannula. Oxygenation is slowly improving, but I am most concerned about the bilirubin and his encephalopathy. With regards to the bilirubin, his direct bilirubin is 20 with a total of 32. This goes against rising bili from hemolysis from his renal hematoma. He had an abdominal CT done yesterday which shows cholelithiasis with nondilated biliary tree. There is some suspicion of choledocholithiasis, however, with his rising liver enzymes, bilirubin, and slightly elevated. Gastroenterology has been following closely and would like the patient transferred for endoscopic retrograde cholangiopancreatography to a facility with a higher level of care. [facility] has been called regarding this and have no beds, so the primary team is attempting to contact other facilities for transfer. With regards to his encephalopathy, I think it is mostly delirium, and I am not sure what to make of his ammonia level with no known cirrhosis despite his transaminitis. Regardless, he is currently nothing by mouth, and I am not able to give him lactulose or any tube feeds given the concern for choledocholithiasis. He is on appropriate deep venous thrombosis prophylaxis. Gastrointestinal prophylaxis is no longer indicated since he is extubated and will discontinue that. The patient has apparently been fighting the BiPAP, so he has not tolerated that at all. He is a FULL CODE. I had a delisa conversation with his and son at the bedside today about his overall condition. At his age, with a prolonged hospital stay like this, I am worried that he may not recover. His remains hopeful and keeps repeating how strong he was before this hospitalization. TIME: Critical care time is 45 minutes.
[2016-10-27 14:09] LABS: Antiproteinase 3 (PR-3) Abs <3.5 U/mL (0.0-3.5); Perinuclear (P-ANCA) <1:20 titer (Neg:<1:20)
== END 2016-10-20 14:18 | disposition short-term general hospital (02) | DRG 907 ==
LOC: EDBD 21:46 → EDUNIT# 21:46 → SED 21:46 → CCU 10-06 03:26
PROVIDERS: ADMIT Hospitalist; ATTEND Hospitalist
PROC: 30233N1 Transfusion of Nonautologous Red Blood Cells into Peripheral Vein, Percutaneous Approach (ICD-10-PCS; 2016-10-05)
PROC: 04V93DZ Restriction of Right Renal Artery with Intraluminal Device, Percutaneous Approach (ICD-10-PCS; principal; 2016-10-06)
PROC: 5A1955Z Respiratory Ventilation, Greater than 96 Consecutive Hours (ICD-10-PCS; 2016-10-06)
PROC: 4A033R1 Measurement of Arterial Saturation, Peripheral, Percutaneous Approach (ICD-10-PCS; 2016-10-06)
PROC: 0BH17EZ Insertion of Endotracheal Airway into Trachea, Via Natural or Artificial Opening (ICD-10-PCS; 2016-10-06)
PROC: 02HV33Z Insertion of Infusion Device into Superior Vena Cava, Percutaneous Approach (ICD-10-PCS; 2016-10-06)
PROC: 30233N1 Transfusion of Nonautologous Red Blood Cells into Peripheral Vein, Percutaneous Approach (ICD-10-PCS; 2016-10-06)
PROC: 30233R1 Transfusion of Nonautologous Platelets into Peripheral Vein, Percutaneous Approach (ICD-10-PCS; 2016-10-06)
PROC: B4161ZZ Fluoroscopy of Right Renal Artery using Low Osmolar Contrast (ICD-10-PCS; 2016-10-06)
PROC: 30233N1 Transfusion of Nonautologous Red Blood Cells into Peripheral Vein, Percutaneous Approach (ICD-10-PCS; 2016-10-08)
DX: N99.820 Postprocedural hemorrhage of a genitourinary system organ or structure following a genitourinary system procedure (principal); N17.0 Acute kidney failure with tubular necrosis; G93.40 Encephalopathy, unspecified; K72.00 Acute and subacute hepatic failure without coma; J96.01 Acute respiratory failure with hypoxia; D62 Acute posthemorrhagic anemia; E87.2 Acidosis; I50.22 Chronic systolic (congestive) heart failure; K92.2 Gastrointestinal hemorrhage, unspecified; T81.19XA Other postprocedural shock, initial encounter; Z95.810 Presence of automatic (implantable) cardiac defibrillator; G47.33 Obstructive sleep apnea (adult) (pediatric); Z95.5 Presence of coronary angioplasty implant and graft; E87.6 Hypokalemia; D69.59 Other secondary thrombocytopenia; J84.10 Pulmonary fibrosis, unspecified; E80.6 Other disorders of bilirubin metabolism; E87.70 Fluid overload, unspecified; K80.50 Calculus of bile duct without cholangitis or cholecystitis without obstruction